=== PATIENT | male | born 1995 | race Caucasian/White ===

== ENCOUNTER 2024-04-15 14:17 | Emergency (ER) | payer MEDICARE, MEDICAID, SELFPAY ==
[2024-04-15 14:18] VITALS: BP 109/77; PULSE 100; RESP 15; TEMP 36.6; O2SAT 97; BMI 18.3
--- NOTE | 2024-04-15 15:12 | CT_ITS ---
PROCEDURE: ABDOMEN/PELVIS WITHOUT CONT REASON FOR EXAM: Right flank pain. TECHNIQUE: Abdomen and pelvis CT without contrast. COMPARISON: None. FINDINGS: The visualized lung bases are unremarkable in appearance. No renal calculus is seen. No evidence of hydronephrosis or hydroureter. A well distended urinary bladder shows no abnormality. The liver, spleen, gallbladder, pancreas, and adrenal glands show no acute process. No evidence of pneumoperitoneum. No free fluid is seen within the abdomen or pelvis.. No adenopathy is seen. No significant osseous abnormality is seen. CT/Abdomen/Pelvis without Cont IMPRESSION: 1. No urinary tract calculus, hydronephrosis, or hydroureter is seen. 2. No acute process is identified One or more dose reduction techniques were used (e.g., Automated exposure contr ol, adjustment of the mA and/or kV according to patient size, use of iterative reconstruction technique). Reading Location: [id number]
--- NOTE | 2024-04-15 15:15 | ED.VIS.GI ---
HPI HPI - GI History of Present Illness Chief Complaint: Flank Pain Informant: patient Narrative Narrative: Patient has had pain in his right low back for the past 4 or 5 days. Occasionally radiates around to the side and his abdomen but for the most part it stays in his back. He told triage he has been having some mild burning with urination but he denies dysuria for me or gross hematuria, saying that he has been urinating a little more frequently and it seems darker, and when he urinates something seems not right but he denies any other specifics. He denies any fevers, chills. He is having some nausea but no vomiting. No trouble breathing. He states he went to urgent care and he did a urinalysis and it was unremarkable so he is here for more answers. [facility] Medical History Anxiety PTSD (post-traumatic stress disorder) Asperger syndrome Schizophrenia Home Medications ?Medication ?Instructions ?Recorded ?Last Taken ?Type potassium chloride 20 mEq 20 meq PO BID #14 tabs 04/15/24 Unknown Rx tablet,extended release Allergy/AdvReac Type Severity Reaction Status Date / Time zolpidem (From Ambien) AdvReac Mild Other Verified 04/15/24 14:18 Surgical History History of tonsillectomy and adenoidectomy Social History Smoking Status: Heavy Smoker (>10/day) ROS ROS ED Constitutional Constitutional ED: Denies chills or fever(s) Eyes Eyes: Denies change in vision or diplopia ENT ENT ED: Denies rhinorrhea or sore throat Cardiovascular Cardiovascular: Denies chest pain or palpitations Respiratory/Chest Respiratory/Chest: Denies cough or dyspnea Gastrointestinal Gastrointestinal: Reports abdominal pain and nausea; Denies diarrhea or vomiting Genitourinary Genitourinary ED: Reports as per HPI and urinary frequency; Denies dysuria or hematuria Musculoskeletal Musculoskeletal: Reports back pain; Denies neck pain Integumentary Denies abscess or rash Neurologic Neurologic: Denies headache(s), paresthesias or weakness Psychiatric Psychiatric: Reports anxiety; Denies suicidal thoughts EXAM Physical Exam Const Vital Signs: 04/15/24 14:18 Temperature 98 F Temperature Source Temporal Pulse Rate 100 Respiratory Rate 15 Blood Pressure 109/77 Blood Pressure Mean 87 Pulse Ox 97 Oxygen Delivery Method Room Air Positive well nourished and well developed Constitutional Narrative: Well-appearing General Appearance ED: well developed and NAD HEENT Reports moist mucous membranes normocephalic and atraumatic Eyes PERRL and EOMs intact bilaterally Neck full ROM and supple Resp normal respiratory effort and clear to auscultation bilaterally Cardio regular rate, regular rhythm and no murmurs GI non-tender and non-distended Auscultation: normoactive bowel sounds Palpation: soft Back/Spine no CVA tenderness General Back: other FROM Extremity normal to inspection General Extremety ED: Negative for edema, pulses abnormal or tenderness General Extremity: Negative for edema or pulses abnormal Neuro oriented x3, CN's II-XII intact bilaterally and no sensory deficits noted Sensorium / Orientation: awake and alert Motor Exam: strength 5/5 throughout Skin no rashes or lesions noted and no wounds MDM MDM MDM Narrative Medical decision making narrative: Certainly considering kidney stone, pyelonephritis, musculoskeletal etiologies as the patient does not have CVA tenderness nor abdominal tenderness, other difficult to diagnose etiologies in the differential such as various forms of functional intestinal pain. Patient's workup is unremarkable with the exception of his potassium being 2.7. The patient had complained to triage about being very anxious, however he is not hyperventilating on exam, so I assume for unknown reasons at this time that it could be real. Unknown if it is causing his pain or not. His urine is normal, and I performed a CT without contrast, I reviewed the images and the result which I agree with, it is negative/normal without an explanation for the patient's pain. At this time it could be muscular, so I am discharging the patient home after the Toradol we gave him with a dose of oral potassium and prescription for more and advised to follow-up with his doctor as an outpatient. His vital signs are normal and his exam is very benign. Patient does not have a PCP because he moved here from [facility], and would like to be referred to a local physician, next on the unassigned list is Dr. Fitch. Lab Data Attestation: I reviewed the patient's lab results. Labs: Laboratory Results - last 24 hr 04/15/24 04/15/24 15:41 15:49 WBC 9.7 RBC 5.33 Hgb 16.0 Hct 46.1 MCV 86.5 MCH 30.0 MCHC 34.7 RDW Std Deviation 39.1 RDW Coeff of Prisca 12.4 Plt Count 279 MPV 9.1 Immature Gran % (Auto) 0.200 Neut % (Auto) 77.3 H Lymph % (Auto) 15.1 L [place] % (Auto) 6.0 Eos % (Auto) 1.1 Baso % (Auto) 0.3 Absolute Neuts (auto) 7.5 Absolute Lymphs (auto) 1.46 Nucleated RBC % 0 Sodium 137 Potassium 2.7 L* Chloride 103 Carbon Dioxide 29.0 Anion Gap 6 BUN 2 L Creatinine 0.84 Estim Creat Clear Calc 120.12 Est GFR (MDRD) Af Amer 140 Est GFR (MDRD) Non-Af 115 BUN/Creatinine Ratio 2.4 L Glucose 92 Calcium 9.3 Urine Color Yellow Urine Clarity Clear Urine pH 7.0 Ur Specific [place] 1.005 Urine Protein Negative Urine Glucose (UA) Normal Urine Ketones Negative Urine Occult Blood Negative Urine Nitrite Negative Urine Bilirubin Negative Urine Urobilinogen Normal Ur Leukocyte Esterase Negative Urine RBC 0 SEEN Urine WBC 0 SEEN Ur Squamous Epith Cells 0 SEEN Urine Bacteria 0 SEEN Urine Mucus 0 SEEN Radiography Diagnostic Testing: Clinical Impression(s) from Imaging Studies Abdomen/Pelvis CT 04/15/24 15:12 IMPRESSION: 1. No urinary tract calculus, hydronephrosis, or hydroureter is seen. 2. No acute process is identified One or more dose reduction techniques were used (e.g., Automated exposure control, adjustment of the mA and/or kV according to patient size, use of iterative reconstruction technique). Reading Location: [address] Discharge Plan Triage Chief Complaint: Flank Pain ED Provider: Sage Spears Dx/Rx/DC Orders Clinical Impression: Acute right flank pain, Hypokalemia Instructions: Hypokalemia Dc, ED Flank Pain, Uncertain Cause Prescriptions: New potassium chloride 20 mEq tablet extended release 20 meq PO BID Qty: 14 0RF Primary Care Provider: Care Physician,No Primary Referrals: Robert Fitch MD [Med Staff - Internal Recruiter] - 1-2 Weeks Print Language: Telugu Disposition Disposition: Home, Self Care
[2024-04-15 15:47] LABS: Absolute Lymphocyte Count 1.46 X10^3/uL (0.83-4.51); Absolute Neutrophil Count 7.5 X10^3/uL (2.0-7.7); Basophil# 0.03 X10^3/uL; Basophil% 0.3 % (0-1); Eosinophil# 0.11 X10^3/uL; Eosinophils% 1.1 % (0-5); Hematocrit 46.1 % (40-54); Lymphocyte # 1.46 X10^3/ul (0.83-4.51); Lymphocyte % 15.1 % (19-41); Mean Corp Hgb Conc 34.7 g/dL (32-36); Mean Corpuscular Volume 86.5 fL (80-94); Mean Platelet Vol. 9.1 fl (6.2-12.0); Monocyte# 0.58 X10^3/uL; NRBC Flagged by Analyzer 0 % (0-5); Neutrophil # 7.49 X10^3/uL (2.7-7.7); Neutrophil % 77.3 % (47-70); Platelet Count 279 K/mm3 (150-450); RBC Distribution Width CV 12.4 % (11.6-14.6); RBC Distribution Width SD 39.1 fl (35.1-43.9); Red Blood Count 5.33 M/mm3 (4.6-6.2); White Blood Count 9.7 K/mm3 (4.4-11.0)
[2024-04-15] MEDS: Ketorolac 30 MG/ML Syringe IV (15:48)
[2024-04-15] MEDS: Ondansetron 4 MG/2 ML Vial IV (15:48)
[2024-04-15 15:56] LABS: Bacteria 0 SEEN /hpf (None Seen); Mucous, Urine 0 SEEN /hpf (<or=2+); Red Blood Cells-Urine 0 SEEN /hpf (0-5); Squamous Epithelial Cells - UA 0 SEEN /hpf (0-5); White Blood Cells 0 SEEN /hpf (0-5)
[2024-04-15 16:02] LABS: Color, Urine Yellow (Yellow); Glucose, Dipstick Normal (Normal); Ketone-Dipstick Negative (Negative); Leukocyte Esterase-Dipstick Negative /ul (Negative); Nitrite-Dipstick Negative (Negative); Occult Blood-Urine Negative /ul (Negative); Protein-Dipstick Negative (Negative); Specific Gravity, Urine 1.005 (1.002-1.030); Urine Bilirubin Dipstick Negative (Negative); Urine Clarity Clear (Clear); Urine Urobilinogen Normal (Normal)
[2024-04-15 16:06] LABS: Anion Gap 6 (5-15); BUN 2 mg/dL (7-18); BUN/Creat Ratio 2.4 RATIO (10-20); Calcium,Total 9.3 mg/dL (8.5-10.1); Chloride 103 mmol/L (98-107); Creatinine, Serum 0.84 mg/dL (0.70-1.30); EST Glomerular Filtration Rate 115 mL/min (>60); Est Glom Filt Rate - Afr Amer 140 mL/min (>60); Estimated Creatinine Clearance 120.12 ml/min; Glucose 92 mg/dL (74-106); Potassium 2.7 mmol/L (3.5-5.1); Sodium Level 137 mmol/L (136-145)
[2024-04-15] MEDS: Potassium Chloride Oral Tablet 20 MEQ 40 MEQ PO (17:01)
[2024-04-15 17:06] VITALS: BP 109/64; PULSE 68; RESP 15; TEMP 36.1; O2SAT 98
== END 2024-04-15 17:07 | disposition home or self-care (01) ==
PROVIDERS: Emergency Provider Emergency Medicine; Referring Provider Emergency Medicine; Visit Provider Emergency Medicine
DX: R10.9 Unspecified abdominal pain (principal); E87.6 Hypokalemia; F17.200 Nicotine dependence, unspecified, uncomplicated
CPT/HCPCS: 74176; 80048; 81001; 85025; 96374; 96375; 99283; A4216; J2405

== ENCOUNTER 2024-09-05 09:17 | Emergency (ER) | payer MEDICARE, MEDICAID, SELFPAY ==
[2024-09-05 09:18] VITALS: BP 119/85; PULSE 115; RESP 12; TEMP 37; O2SAT 100; BMI 16.9
--- NOTE | 2024-09-05 09:21 | EX.ED.DYSGE1 ---
HPI History of Present Illness Chief Complaint: Anxiety [facility] Medical History (Updated 09/05/24 @ 09:26 by Gladis Ramirez) Panic attack GERD (gastroesophageal reflux disease) IBS (irritable bowel syndrome) Anxiety PTSD (post-traumatic stress disorder) Asperger syndrome Schizophrenia Home Medications ?Medication ?Instructions ?Recorded ?Last Taken ?Type buspirone 10 mg tablet 10 mg PO BID 09/05/24 09/04/24 History clonazepam 1 mg tablet 1 mg PO BID PRN 09/05/24 09/05/24 History dextroamphetamine sulfate 10 mg 10 mg PO DAILY 09/05/24 09/04/24 History tablet prazosin 1 mg capsule 1 mg PO QHS 09/05/24 09/04/24 History risperidone 1 mg tablet 1 mg PO DAILY 09/05/24 09/04/24 History risperidone 2 mg tablet 2 mg PO QHS 09/05/24 09/04/24 History venlafaxine 37.5 mg 37.5 mg PO DAILY 09/05/24 09/04/24 History capsule,extended release 24 hr Allergy/AdvReac Type Severity Reaction Status Date / Time zolpidem (From Ambien) AdvReac Mild Other Verified 04/15/24 14:18 Surgical History History of tonsillectomy and adenoidectomy Social History Smoking Status: Heavy Smoker (>10/day) EXAM Physical Exam Const Vital Signs: 09/05/24 09:18 09/05/24 09:33 09/05/24 11:28 Temperature 98.6 F Temperature Source Oral Pulse Rate 115 H 65 Respiratory Rate 12 16 Blood Pressure 119/85 H 104/62 Blood Pressure Mean 96 76 Pulse Ox 100 98 Oxygen Delivery Method Room Air Room Air Room Air MDM MDM MDM Narrative Medical decision making narrative: HISTORY OF PRESENT ILLNESS: Chief complaint: Anxiety 28-year-old male presents with concern for anxiety. He notes he has been coming down with a cold. He states he has been coughing up pink frothy sputum. He also notes shortness of breath and chest pain. Onset began this morning. Notes he typically says morning coughs up dark. He states he smokes and vapes. Denies cocaine or methamphetamine. He states this morning as he started coughing it became pink and frothy. Denies syncope. Denies recent sick contacts. Denies other bleeding diathesis. Denies abdominal pain. Denies vomiting or diarrhea. The patient denies recent surgery in the last 4 weeks or immobilization in the last 3 days, denies previous diagnosis of DVT or PE, hemoptysis, unilateral leg swelling or malignancy with treatment the last 6 months or palliative. No estrogen use noted. Patient denies sudden onset of pain, no tearing sensation, no migratory symptoms, no new numbness, weakness or loss of sensation. Patient denies family history or personal history of Connective tissue disorders (Marfan's Syndrome, Cynthia Danlos etc) . REVIEW OF SYSTEMS: Pertinent positives: Chest pain, shortness of breath, cough, hemoptysis Pertinent negatives: Unilateral leg swelling, ripping or tearing pain, syncope, headache or neck pain., Abdominal pain., Flank pain. PHYSICAL EXAM: Nursing triage notes reviewed, Vital signs reviewed Constitutional: please see mdm HENT: MMM Eyes: Pupils equal round and reactive to light, Extraocular muscles intact Neck: No stridor, no JVD, full neck ROM Lungs: Clear to auscultation, No wheezing or rales. No increased work of breathing, no conversational dyspnea, no accessory muscle use, no nasal flaring. No respiratory distress noted Heart: Regular rate and rhythm, No murmurs, No rubs and No gallops, 2+ distal pulses (radial, femoral, posterior tibial) in all extremities Abdomen: Soft, there is no tenderness, rigidity, rebound or guarding, no obvious peritoneal signs, no palpable pulsatile abdominal masses, no auscultated abdominal bruit : No CVAT Extremities: No edema Neuro: No new focal neurological deficits, cranial nerves II through XII intact, 5/5 strength in all present extremities. Intact sensation to light touch in all present extremities, 2+ reflexes bilateral patella tendons. Skin: No rash or lesions noted MEDICAL DECISION MAKING: Chief Complaint: please see HPI External records reviewed: Reviewed prior ED encounters, medications, allergies Factors affecting care: Schizophrenia, anxiety, PTSD, Asperger's syndrome Social determinants of health: History of mental health disorder History obtained from others: none Consults: none [facility] Narrative: Patient was initially hemodynamically stable, afebrile, saturating well on room air. I considered the following differential diagnosis: ACS, arrhythmia, anemia, pneumonia, PE, aortic dissection, panic attack ALL IMAGES (IF OBTAINED) HAVE BEEN PERSONALLY REVIEWED AND INTERPRETED BY MYSELF. EKG was sinus tachycardia rate 110, normal axis, normal intervals, no STEMI, no sign of WPW, ARVD, cauda syndrome, no sign of right heart strain, S1,Q3,T3 High-sensitivity troponin is negative, no evidence of myocardial ischemia x2 effectively ruling out ACS per [place] high-sensitivity troponin protocol D-dimer negative making VTE and dissection less likely I have personally reviewed the patient's chest x-ray. Chest x-ray is unremarkable for pulmonary edema, pneumothorax, pneumonia or focal cardiopulmonary abnormality. CBC without leukocytosis, severe anemia, no thrombocytopenia. BMP with hypokalemia (replace), no anion gap or acute kidney injury The synthesis of the patient's history, physical exam, labs images suggest no acute life or limb threat in etiology. Specifically no sign of ACS, PE, dissection, significant electrolyte abnormality, anemia or arrhythmia Suspect patient's presentation is related to anxiety as suggested by improvement in symptoms after benzodiazepines Upon reassessment patient's vital signs improved heart rate improved to 65. He is comfortable. He was discharged on Atarax. Outpatient PCP evaluation recommended. Strict return precautions were discussed The patient and/or family, caregivers express understanding. The patient and/or family, caregivers agrees with the plan. Shared decision making: I will have a discussion with the patient and or visitors regarding risk/benefits of further testing or admission. They will be made aware of of the risk/benefits inherent in this decision they will be given the opportunity to voice understanding. Total critical care time today provided was at least 0 minutes. This excludes separately billable procedures. Critical care time (if documented) is secondary to the patient having high probability of clinically significant/life threatening deterioration in the patient's condition which required my urgent intervention. Impression: 1. Chest pain 2. Cough 3. Tachycardia (resolved) Dispo: Discharge home This note was generated with [employer] dictation software. It may contain incorrect words, spelling, and punctuation that were not noted in review of the chart prior to signing. Lab Data Labs: Laboratory Results - last 24 hr 09/05/24 09/05/24 09/05/24 10:05 11:22 12:05 WBC 6.7 RBC 5.01 Hgb 15.4 Hct 44.0 MCV 87.8 MCH 30.7 MCHC 35.0 RDW Std Deviation 38.2 RDW Coeff of Prisca 11.9 Plt Count 217 MPV 9.5 Immature Gran % (Auto) 0.100 Neut % (Auto) 73.3 H Lymph % (Auto) 18.8 L [place] % (Auto) 6.4 Eos % (Auto) 1.0 Baso % (Auto) 0.4 Absolute Neuts (auto) 4.9 Absolute Lymphs (auto) 1.26 Nucleated RBC % 0 D-Dimer Quant (PE/DVT) < 0.27 L Sodium 140 Potassium 3.1 L Chloride 103 Carbon Dioxide 25.3 Anion Gap 11 BUN 6 Creatinine 0.85 Estim Creat Clear Calc 109.62 Est GFR (MDRD) Non-Af 122 BUN/Creatinine Ratio 7.4 L Glucose 113 H Calcium 9.4 Troponin T High Sens < 6 Troponin T Hi Sens 2 Hr < 6 Radiography Diagnostic Testing: Clinical Impression(s) from Imaging Studies Chest X-Ray 09/05/24 09:33 IMPRESSION: Normal chest radiograph. Reading Location: [id number] Discharge Plan Triage Chief Complaint: Anxiety ED Provider: Cuauhtemoc Reddy Dx/Rx/DC Orders Prescriptions: No Action clonazepam 1 mg tablet 1 mg PO BID PRN buspirone 10 mg tablet 10 mg PO BID dextroamphetamine sulfate 10 mg tablet 10 mg PO DAILY venlafaxine 37.5 mg capsule,extended release 24hr 37.5 mg PO DAILY prazosin 1 mg capsule 1 mg PO QHS risperidone 2 mg tablet 2 mg PO QHS risperidone 1 mg tablet 1 mg PO DAILY Rx Instructions: AM Primary Care Provider: Care Physician,No Primary Referrals: Care Physician,No Primary [Primary Care Provider] - Print Language: Samoan
--- NOTE | 2024-09-05 09:33 | EKG12_ITS ---
Test Reason : ANXIETY Blood Pressure : */* mmHG Vent. Rate : 110 BPM Atrial Rate : 110 BPM P-R Int : 126 ms QRS Dur : 84 ms QT Int : 324 ms P-R-T Axes : 65 78 39 degrees QTcB Int : 438 ms Sinus tachycardia Otherwise normal ECG Confirmed by FRANCISCO J LAKE, ALEJANDRO ([id number]), editor trade journal WALDO BRONSON ([id number]) on 09/07/2024 6:43:35 AM Referred By: Confirmed By: ALEJANDRO MARX MD
--- NOTE | 2024-09-05 09:33 | RAD_ITS ---
PROCEDURE: CHEST 1 VIEW (PORTABLE) 09/05/2024 REASON FOR EXAM: CHEST PAIN TECHNIQUE: Frontal view of the chest. COMPARISON: None. FINDINGS: Hardware: None. Heart: The heart size is normal. Lungs: No focal consolidation, pleural effusion or pneumothorax. Bones: The bones are unremarkable. RAD/Chest 1 View (Portable) IMPRESSION: Normal chest radiograph. Reading Location: [id number]
[2024-09-05] MEDS: Lorazepam 2 MG/ML WCH Syringe 1 MG IV (10:02)
[2024-09-05] MEDS: 0.9% Normal Saline (1000mL) 1,000 ML 999 ML IV (10:02)
[2024-09-05 10:13] LABS: Absolute Lymphocyte Count 1.26 X10^3/uL (0.83-4.51); Absolute Neutrophil Count 4.9 X10^3/uL (2.0-7.7); Basophil# 0.03 X10^3/uL; Basophil% 0.4 % (0-1); Eosinophil# 0.07 X10^3/uL; Hemoglobin 15.4 g/dL (13.0-16.5); Lymphocyte # 1.26 X10^3/ul (0.83-4.51); Lymphocyte % 18.8 % (19-41); Mean Corpuscular Hgb 30.7 pg (27.0-32.0); Mean Corpuscular Volume 87.8 fL (80-94); Mean Platelet Vol. 9.5 fl (6.2-12.0); Monocyte# 0.43 X10^3/uL; Monocyte% 6.4 % (0-10); NRBC Flagged by Analyzer 0 % (0-5); Neutrophil # 4.89 X10^3/uL (2.7-7.7); Neutrophil % 73.3 % (47-70); Platelet Count 217 K/mm3 (150-450); RBC Distribution Width CV 11.9 % (11.6-14.6); RBC Distribution Width SD 38.2 fl (35.1-43.9); Red Blood Count 5.01 M/mm3 (4.6-6.2); White Blood Count 6.7 K/mm3 (4.4-11.0)
--- OUTSIDE RECORDS SUMMARY | 2024-09-05 10:31 | XMS RPT_ITS | CCD ---
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 [id number] [place] Calcium [Mass/Vol] 9.3 mg/dL Normal 8.5-10.2 [facility] Comment on above: Order Comment: Speci men Type: BLOOD SPECIMENOrdering Facility: [facility] Address: [address] [place] [address] Performed By: #### 2 4323-8, 0-3 ####[facility] LABORATORYCLIA [id number] [place] [id number] [place] Chloride [Moles/Vol] 101 mmol/L Normal 98-107 [facility] Comment on above: Order Comment: Speci men Type: BLOOD SPECIMENOrdering Facility: [facility] Address: [address] [place] [address] Performed By: #### 2 4323-8, 3039-3 ####[facility] LABORATORYCLIA [id number] [place] [id number] [place] CO2 [Moles/Vol] 26 mmol/L Normal 22-30 [facility] Comment on above: Order Comment: Speci men Type: BLOOD SPECIMENOrdering Facility: [facility] Address: [address] [place] [address] Performed By: #### 2 4323-8, 0-3 ####[facility] LABORATORYCLIA [id number] [place] [id number] [place] Creatinine [Mass/Vol] 0.68 mg/dL Low 0.73-1.22 [facility] Comment on above: Order Comment: Speci men Type: BLOOD SPECIMENOrdering Facility: [facility] Address: [address] [place] [address] Performed By: #### 2 4323-8, 0-3 ####[facility] LABORATORYCLIA [id number] [place] [id number] [place] Creatinine and Glomerular filtration rate.predicted panel (S/P/Bld) 130 mL/min/1.73m??? Normal >=60 [facility] Comment on above: Order Comment: Ashely almazan Type: BLOOD SPECIMENOrdering Facility: [facility] Address: [address] [place] [address] Result Comment: Yolanda mated Glomerular Filtration Rate (eGFR) is calculated using the 2020 CKD-EPI creatinine equation. This equation utilizes serum creatinine, sex, and age as parameters. The creatinine assay has traceable calibration to isotope dilution-mass spectrometry. Refer to KDIGO guidelines for clinical interpretation. In patients with unstable renal function, e.g. those with acute kidney injury, the eGFR may not accurately reflect actual GFR. Performed By: #### 2 4323-8, 3040-3 ####[facility] LABORATORYCLIA [id number] [place] [id number] [place] Glucose [Mass/Vol] 103 mg/dL High 74-99 [facility] Comment on above: Order Comment: Ashely almazan Type: BLOOD SPECIMENOrdering Facility: [facility] Address: [address] [place] [address] Result Comment: The [place] Diabetes [employer] (ADA) provides guidance for cutoff values for fasting glucose and random glucose. The ADA defines fasting as no caloric intake for at least 8 hours. Fasting plasma glucose results between 100 to 125 mg/dL indicate increased risk for diabetes (prediabetes). Fasting plasma glucose results greater than or equal to 126 mg/dL meet the criteria for diagnosis of diabetes. In the absence of unequivocal hyperglycemia, results should be confirmed by repeat testing. In a patient with classic symptoms of hyperglycemia or hyperglycemic crisis, random plasma glucose results greater than or equal to 200 mg/dL meet the criteria for diagnosis of diabetes. Reference: Standards of Medical Care in Diabetes 2016, [place] [employer]. Diabetes Care. 2016.39(Suppl 1). Performed By: #### 2 4323-8, 3040-3 ####[facility] LABORATORYCLIA [id number] [place] [id number] [place] Potassium [Moles/Vol] 3.9 mmol/L Normal 3.7-5.1 [facility] Comment on above: Order Comment: Ashely almazan Type: BLOOD SPECIMENOrdering Facility: [facility] Address: [address] [place] [address] Performed By: #### 2 4323-8, 3040-3 ####[facility] LABORATORYCLIA [id number] [place] [id number] [place] Protein [Mass/Vol] 6.5 g/dL Normal 6.3-8.0 [facility] Comment on above: Order Comment: Speci men Type: BLOOD SPECIMENOrdering Facility: [facility] Address: [address] [place] [address] Performed By: #### 2 4323-8, 3040-3 ####[facility] LABORATORYCLIA [id number] [place] [id number] [place] Sodium [Moles/Vol] 135 mmol/L Low 136-144 [facility] Comment on above: Order Comment: Speci men Type: BLOOD SPECIMENOrdering Facility: [facility] Address: [address] [place] [address] Performed By: #### 2 4323-8, 3040-3 ####[facility] LABORATORYCLIA [id number] [place] [id number] [place] Urea nitrogen [Mass/Vol] 8 mg/dL Low 9-24 [facility] Comment on above: Order Comment: Speci men Type: BLOOD SPECIMENOrdering Facility: [facility] Address: [address] [place] [address] Performed By: #### 2 4323-8, 3040-3 ####[facility] LABORATORYCLIA [id number] [place] [id number] [place] ED NOTEon 05-22-2024 ED NOTE HNO ID: [id number] Author: LUIS HOFFMAN RN Service: Emergency Medicine Author Type: Registered Nurse Type: ED Notes Filed: 05/22/2024 20:22 Note Text: Patient placed on continuous cardiac and O2 monitoring. Normal [facility] ED NOTE HNO ID: [id number] Author: LUIS HOFFMAN RN Service: Emergency Medicine Author Type: Registered Nurse Type: ED Notes Filed: 05/22/2024 20:05 Note Text: Belongings labeled and placed in locker. [facility] ED NOTE HNO ID: [id number] Author: LUIS HOFFMAN RN Service: Emergency Medicine Author Type: Registered Nurse Type: ED Notes Filed: 05/22/2024 19:50 Note Text: Patient to ED via EMS from [facility] where he is being seen for SI. Patient denies HI/SI at this time. [facility] ED NOTE HNO ID: [id number] Author: MAGDA DURBIN RN Service: ? Author Type: Registered Nurse Type: ED Notes Filed: 05/22/2024 19:44 Note Text: Patient presents to ED with complaints of abdominal pain x4 days, constipation, and report of dark, tarry stool x1 episode today. [facility] ED NOTE HNO ID: [id number] Author: LUIS HOFFMAN RN Service: ? Author Type: Registered Nurse Type: ED Notes Filed: 05/22/2024 19:36 Note Text: Bed: ED-G Expected date: Expected time: Means of arrival: Comments: [facility] ED PROV NOTEon 05-22-2024 ED PROV NOTE HNO ID: [id number] Author: LISA GONZALEZ MD Service: Emergency Medicine Author Type: Physician Type: ED Provider Notes Filed: 05/22/2024 23:20 Note Text: ED Provider Note Patient Name: Immanuel Neumann : 1995 SERVICE DATE: 05/22/24 History Patient presents with: Abdominal Pain This is a 28-year-old male with past medical history of anxiety presented to the emergency department for constipation. Patient presenting from a inpatient psychiatric care facility where he is currently being cared for. States he has not had a proper bowel movement for over a week. He still passing small amounts of hard stool and felt that the stool today was very dark. No overt blood. He does have to strain and feels like he has to go without passing any stool. States he has had difficulties with constipation in the past with similar symptoms. States abdominal pain is more severe with crampy pain over the last couple days. Patient is recently higher in the abdomen but started traveling down to the bilateral lower quadrants. Denies any nausea or vomiting. He still eating and drinking. Denies fever/chills, back pain, urinary symptoms, lower extremity pain or swelling, headaches. History provided by: Patient general internist and physician leader used: No PAST MEDICAL HISTORY Diagnosis Date Anxiety Psychiatric disorder ADD, Bipolar, PTSD, anxiety No past surgical history on file. No family history on file. Social History Tobacco Use Smoking status: Every Day Current packs/day: 1.50 Average packs/day: 1.5 packs/day for 15.0 years (22.5 ttl pk-yrs) Types: Cigarettes Passive exposure: Current Smokeless tobacco: Never Vaping Use Vaping status: current everyday user Substances: Nicotine Substance and Sexual Activity Alcohol use: Not Currently Alcohol/week: 24.0 standard drinks of alcohol Types: 24 Standard drinks or equivalent per week Comment: quit 04/08/2024 Drug use: Yes Types: Marijuana Comment: only robinson at this Sexual activity: Yes ALLERGIES Allergen Reactions Ambien [Zolpidem] Mental Status Change Review of Systems Physical Exam Vitals [05/22/241943] BP Pulse Temp Temp src Resp SpO2 Weight Height 111/80 71 36.4 ?C (97.5 ?F) Oral 18 97 % -- -- Physical Exam GEN: well appearing, no acute distress CVS/CHEST: reg rate, nl rhythm PULM: CTAB b/l no wheezes, crackles, or rhonchi GI: Bilateral lower quadrant tenderness palpation worse to the right lower quadrant, no masses or organomegaly, soft, no guarding BACK: no CVA tenderness NEURO: no focal deficits, no facial asymmetry, moving all extremities PSYCH: AAOx3 answers questions appropriately Diagnostic Testing ED Labs Ordered and Reviewed COMPREHENSIVE METABOLIC PANEL - Abnormal; Notable for the following components: Result Value Ref Range Glucose 103 (*) 74 - 99 mg/dL BUN 8 (*) 9 - 24 mg/dL Creatinine 0.68 (*) 0.73 - 1.22 mg/dL Sodium 135 (*) 136 - 144 mmol/L All other components within normal limits LIPASE - Normal COVID AND INFLUENZA A/B AND RSV PCR, EXPEDITED - Normal Narrative: Reference Range (the expected result in uninfected individuals): Not detected COMPLETE BLOOD COUNT AND DIFFERENTIAL Procedures ED Course / Clinical Impression ED Course as of 05/22/240 Lisa Gonzalez's Documentation Sat May 22, 2024 2256 Patient's lab work largely unremarkable. CT of the abdomen and pelvis shows a large amount of stool but otherwise no obstruction, no appendicitis and remainder of intra-abdominal findings within normal limits. Results discussed with the patient. He is requesting an enema stating he has had this previously which has helped his constipation. Enema ordered with plans for discharge back to his care facility on a bowel regimen. 2318 EKG: Sinus rhythm at 66 bpm, normal axis, intervals unremarkable, no significant ST elevations or depressions Clinical Impressions as of 05/22/24 2320 Lower abdominal pain Constipation, unspecified constipation type Encounter for medical screening examination MDM / Disposition / Plan This is a 28-year-old male with past medical history of anxiety presented to the emergency department for constipation. Patient stable upon presentation to the emergency department, no acute distress and vitals are unremarkable. On exam he does appear to be mildly uncomfortable with abdominal tenderness palpation. Tenderness worse in right lower quadrant. Patient will return for constipation versus obstruction. With the worsening in the right lower quadrant appendicitis also considered and imaging to be performed. Low concern for additional pathologies including diverticulitis, pancreatitis, cholelithiasis/sanjuana cystitis, pyelonephritis/nephr olithiasis. Patient's pain treated in the emergency department. History and Record Review External record(s) reviewed: prior outpatient record. Findings from review of outpatient records: medical histor (more content not included)... Normal [facility] EKGon 05-22-2024 Electrocardiogram Ventricular Rate : 66 BPM Atrial Rate : 66 BPM P-R Interval : 122 ms QRS Duration : 88 ms Q-T Interval : 398 ms QTC Calculation(Bazett) : 417 ms Calculated P Albert : 67 degrees Calculated R Albert : 77 degrees Calculated T Albert : 70 degrees NORMAL SINUS RHYTHM NORMAL ECG NO PREVIOUS ECGS AVAILABLE Confirmed by LISA GONZALEZ MD ([id number]), editor greeting card JAYDEN CASTANEDA ([id number]) on 05/23/2024 11:23:40 AM NAME : IMMANUEL NEUMANN PID : [id number] : 1995 Gender : Male Race : ORD : Procedure Date : May 22 2024 20:13:12 Edit Date : May 23 2024 11:23:44 Diagnosis: NORMAL SINUS RHYTHM NORMAL ECG NO PREVIOUS ECGS AVAILABLE Confirmed by LISA GONZALEZ MD ([id number]), editor greeting card JAYDEN CASTANEDA ([id number]) on 05/23/2024 11:23:40 AM Test Reason : Location : 1 : 1 ED Overread By : LISA GONZALEZ MD Edited By : JAYDEN CASTANEDA Referred By : , Acquired by : , Normal [facility] Lipase SerPl-cCncon 05-23-19 25 Lipase [Catalytic activity/Vol] 56 U/L Normal 16-61 [facility] Comment on above: Order Comment: Speci men Type: BLOOD SPECIMENOrdering Facility: [facility] Address: [address] [place] [address] Performed By: #### 2 4323-8, 3040-3 ####[facility] LABORATORYCLIA [id number] [address] CNOVon 04-25-2024 CNOV Office Visit ([facility]) IMMANUEL NEUMANN ([id number]) 1995 M Date Time Provider Department 04/25/24 11:40 AM CAROLINA HOLMAN [facility] During your visit today, we recorded the following information about you: Temperature Pulse Respiration Blood pressure 97.8 degrees 120/minute 18/minute 95/64 Weight 61.7 kg Carolina Holman APRN.[employer] WORK[employer] 04/25/2024 11:55 AM Signed HPI: Immanuel Neumann is a 28 year old male who presents with Diarrhea (Diarrhea, nausea, body aches and fever x 1 day ). PAST MEDICAL HISTORY Diagnosis Date Anxiety Psychiatric disorder ADD, Bipolar, PTSD, anxiety There is no problem list on file for this patient. Current Outpatient Medications Medication Sig Dispense Refill buPROPion XL (WELLBUTRIN XL) 150 mg 24 hr tablet Take 1 tablet by mouth every afternoon. clonazePAM (KLONOPIN) 1 mg tablet Take 1 tablet by mouth every 12 hours. hydrOXYzine pamoate (VISTARIL) 50 mg capsule prazosin (MINIPRESS) 2 mg cap Take 2 mg by mouth daily at bedtime. lamoTRIgine (LAMICTAL) 25 mg tablet Take 50 mg by mouth two times a day. prazosin (MINIPRESS) 1 mg cap Take 1 mg by mouth daily at bedtime. risperiDONE (RISPERDAL) 1 mg tablet Take 1 mg by mouth every morning. albuterol HFA (PROVENTIL HFA, VENTOLIN HFA) 90 mcg/actuation inhaler Inhale 2 Puffs as instructed every 6 hours as needed for wheezing/shortness of breath. 1 Each 0 loratadine (CLARITIN) 10 mg tablet Take 1 tablet by mouth every afternoon. clonazePAM (KLONOPIN) 0.5 mg tablet Take 1 tablet by mouth every 12 hours. risperiDONE (RISPERDAL) 2 mg tablet Take 1 tablet by mouth every 12 hours. hydrOXYzine pamoate (VISTARIL) 25 mg capsule ondansetron orally disintegrating (ZOFRAN ODT) 4 mg disintegrating tablet Take 1 tablet by mouth every 8 hours as needed for nausea/vomiting for up to 5 days. 15 tablet 0 omeprazole (PRILOSEC) 40 mg capsule Take 1 capsule by mouth once daily. 30 capsule 0 No current facility-administere d medications for this visit. Social History Tobacco Use Smoking status: Every Day Current packs/day: 1.50 Average packs/day: 1.5 packs/day for 15.0 years (22.5 ttl pk-yrs) Types: Cigarettes Passive exposure: Current Smokeless tobacco: Never Vaping Use Vaping status: current everyday user Substances: Nicotine Substance Use Topics Alcohol use: Not Currently Alcohol/week: 24.0 standard drinks of alcohol Types: 24 Standard drinks or equivalent per week Comment: quit 04/08/2024 Drug use: Yes Types: Marijuana Comment: only marjuana at this Alcohol Use: Not Currently (quit 04/08/2024) Tobacco Use: Types: Cigarettes History reviewed. No pertinent family history. ROS BP 95/64 Pulse 120 Temp 97.8 Resp 18 Wt 136 lb (61.7kg) SpO2 97% Physical Exam Constitutional: General: He is not in acute distress. Appearance: Normal appearance. He is normal weight. He is not ill-appearing. HENT: Head: Normocephalic. Mouth/Throat: Mouth: Mucous membranes are moist. Eyes: Extraocular Movements: Extraocular movements intact. Conjunctiva/sclera: Conjunctivae normal. Cardiovascular: Rate and Rhythm: Tachycardia present. Pulmonary: Effort: Pulmonary effort is normal. Breath sounds: Normal breath sounds. Abdominal: General: Abdomen is flat. Skin: General: Skin is warm and dry. Neurological: General: No focal deficit present. Mental Status: He is alert and oriented to person, place, and time. Psychiatric: Mood and Affect: Mood normal. Behavior: Behavior normal. Thought Content: Thought content normal. Clinical Impression ICD-10-CM 1. Myalgia M79.10 2. Diarrhea, unspecified type R19.7 3. Nausea R11.0 ondansetron orally disintegrating (ZOFRAN ODT) 4 mg disintegrating tablet 4. Norovirus A08.11 Myalgia (primary encounter diagnosis) Diarrhea, unspecified type Nausea Norovirus PLAN: 1. Plan of care is to treat symptoms of nausea and vomiting. 2. Suspected norovirus due to patient presentation as well as clinical evaluation. Patient was prescribed zofran. 3. Encouraged to utilize bland diet, such as brat diet. Do not eat any fried, fatty, greasy, or spicy foods until symptoms have resolved. Slowly add normal intake back into diet as tolerated. 4. Oral rehydration with electrolyte beverage as well as water recommended. 5. Red flag symptoms were discussed with patient and when ER visit should occur. Patient verbalized understanding. 6. Follow-up with PCP for any new, worsening, or continued symptoms. I discussed with patient if they develop any sharp or stabbing abdominal pain, or if nausea and vomiting intensifies in duration and frequency, they are to present to local emergency department as they may require laboratory studies, IV fluids, and or possible CT imaging at that time. At the present time as patient's nausea and vomiting is episodic and non-intrac (more content not included)... [facility] Isma 04-16-2024 MARTHA Telephone ([facility]) IMMANUEL NEUMANN ([id number]) 1995 M Date Time Provider Department 04/16/24 REGGIE DONNELLY [facility] During your visit today, we recorded the following information about you: Reggie Donnelly APRN.QUINTON 04/16/2024 4:18 PM Signed Patient was negative for chlamydia and gonorrhea. Please call and let patient know that the culture was also negative. If symptoms persist follow-up with primary care. Abbie Sloan RN 04/16/2024 4:21 PM Signed Called and notified pt and given instructions. Allergies As of Date: 04/16/2024 Noted Allergy Reaction AMBIEN (ZOLPIDEM) 08/15/2023 1 - Mental Status Change Date Reviewed: 04/15/2024 Reviewed by: Ced Granger APRN.[employer] WORKER - Fully Assessed Reason for Visit: Results [95] Prescriptions as of 04/16/2024 - buPROPion XL (WELLBUTRIN XL) 150 mg 24 hr tablet Take 1 tablet by mouth every afternoon. - clonazePAM (KLONOPIN) 1 mg tablet Take 1 tablet by mouth every 12 hours. - hydrOXYzine pamoate (VISTARIL) 50 mg capsule TAKE 1 CAPSULE BY MOUTH TWICE DAILY NEEDED FOR ANXIETY - prazosin (MINIPRESS) 2 mg cap Take 2 mg by mouth daily at bedtime. - ibuprofen (MOTRIN) 800 mg tablet Take 1 tablet by mouth three times a day as needed for pain or fever (specify temp.) for up to 7 days. - lamoTRIgine (LAMICTAL) 25 mg tablet Take 50 mg by mouth two times a day. - prazosin (MINIPRESS) 1 mg cap Take 1 mg by mouth daily at bedtime. - risperiDONE (RISPERDAL) 1 mg tablet Take 1 mg by mouth every morning. - traZODone (DESYREL) 100 mg tablet Take 100 mg by mouth daily at bedtime. - albuterol HFA (PROVENTIL HFA, VENTOLIN HFA) 90 mcg/actuation inhaler Inhale 2 Puffs as instructed every 6 hours as needed for wheezing/shortness of breath. - Chlorhexidine Gluconate (PERIDEX) 0.12 % solution Rinse around the mouth with approximately 15 ml for 30 seconds then expectorate. 2 times daily. Discontinue use after 2 weeks. - amoxicillin (AMOXIL) 500 mg capsule Take 500 mg by mouth three times a day. - omeprazole (PRILOSEC) 40 mg capsule Take 1 capsule by mouth once daily. - loratadine (CLARITIN) 10 mg tablet Take 1 tablet by mouth every afternoon. - famotidine (PEPCID) 20 mg tablet once daily. - traZODone (DESYREL) 50 mg tablet Take 50 mg by mouth daily at bedtime. - clonazePAM (KLONOPIN) 0.5 mg tablet Take 1 tablet by mouth every 12 hours. - risperiDONE (RISPERDAL) 2 mg tablet Take 1 tablet by mouth every 12 hours. - hydrOXYzine pamoate (VISTARIL) 25 mg capsule TAKE 1 CAPSULE BY MOUTH EVERY 4 HOURS NEEDED FOR ANXIETY - escitalopram oxalate (LEXAPRO) 20 mg tablet Take by mouth. Problem List As Of Date: 04/16/2024 (None) Encounter Status:Closed by ABBIE SLOAN [facility] ([id number]) 1995 M Date Time Provider Department 04/16/24 REGGIE DONNELLY [facility] During your visit today, we recorded the following information about you: Reggie Donnelly APRN.[employer] WORK[employer] 04/16/2024 7:18 AM Signed Patient was negative for chlamydia and gonorrhea. Still waiting on the urine culture. Anjelica Duncan MA 04/16/2024 2:39 PM Signed Patient notified of results, verbalized understanding. Anjelica Duncan MA Allergies As of Date: 04/16/2024 Noted Allergy Reaction AMBIEN (ZOLPIDEM) 08/15/2023 1 - Mental Status Change Date Reviewed: 04/15/2024 Reviewed by: Pendlebury, Ced, ACTIVATED SLUDGE OPERATOR.FIBREGLASS LAY UP WORKER - Fully Assessed Reason for Visit: Results [95] Prescriptions as of 04/16/2024 - buPROPion XL (WELLBUTRIN XL) 150 mg 24 hr tablet Take 1 tablet by mouth every afternoon. - clonazePAM (KLONOPIN) 1 mg tablet Take 1 tablet by mouth every 12 hours. - hydrOXYzine pamoate (VISTARIL) 50 mg capsule TAKE 1 CAPSULE BY MOUTH TWICE DAILY NEEDED FOR ANXIETY - prazosin (MINIPRESS) 2 mg cap Take 2 mg by mouth daily at bedtime. - ibuprofen (MOTRIN) 800 mg tablet Take 1 tablet by mouth three times a day as needed for pain or fever (specify temp.) for up to 7 days. - lamoTRIgine (LAMICTAL) 25 mg tablet Take 50 mg by mouth two times a day. - prazosin (MINIPRESS) 1 mg cap Take 1 mg by mouth daily at bedtime. - risperiDONE (RISPERDAL) 1 mg tablet Take 1 mg by mouth every morning. - traZODone (DESYREL) 100 mg tablet Take 100 mg by mouth daily at bedtime. - albuterol HFA (PROVENTIL HFA, VENTOLIN HFA) 90 mcg/actuation inhaler Inhale 2 Puffs as instructed every 6 hours as needed for wheezing/shortness of breath. - Chlorhexidine Gluconate (PERIDEX) 0.12 % solution Rinse around the mouth with approximately 15 ml for 30 seconds then expectorate. 2 times daily. Discontinue use after 2 weeks. - amoxicillin (AMOXIL) 500 mg capsule Take 500 mg by mouth three times a day. - omeprazole (PRILOSEC) 40 mg capsule Take 1 capsule by mouth once daily. - loratadine (CLARITIN) 10 mg tablet Take 1 tablet by mouth every afternoon. - famotidine (PEPCID) 20 mg tablet once daily. - traZODone (DESYREL) 50 mg tablet Take 50 mg by mouth daily at bedtime. - clonazePAM (KLONOPIN) 0.5 mg tablet Take 1 tablet by mouth every 12 hours. - risperiDONE (RISPERDAL) 2 mg tablet Take 1 tablet by mouth every 12 hours. - hydrOXYzine pamoate (VISTARIL) 25 mg capsule TAKE 1 CAPSULE BY MOUTH EVERY 4 HOURS NEEDED FOR ANXIETY - escitalopram oxalate (LEXAPRO) 20 mg tablet Take by mouth. Problem List As Of Date: 04/16/2024 (None) Encounter Status:Closed by REIDANJELICA on 04/16/24 Normal [facility] Abdomen/Pelvis without Conto n 04-15-2024 Abdomen/Pelvis without Cont [facility] Imaging Services [address] [place] [address] Abdomen/Pelvis without Cont MR#: [id number] Acct: [id number] Name: IMMANUEL NEUMANN Rep #: [id number] : 1995 M 28 From: Galo Barnes PCP: Care Physician,No Primary Status: REG ER Study: Abdomen/Pelvis without Cont Date of Exam: 03/19 Exam# [id number] Ordering Dr: Sage Spears MD PROCEDURE: ABDOMEN/PELVIS WITHOUT CONT REASON FOR EXAM: Right flank pain. TECHNIQUE: Abdomen and pelvis CT without contrast. COMPARISON: None. FINDINGS: The visualized lung bases are unremarkable in appearance. No renal calculus is seen. No evidence of hydronephrosis or hydroureter. A well distended urinary bladder shows no abnormality. The liver, spleen, gallbladder, pancreas, and adrenal glands show no acute process. No evidence of pneumoperitoneum. No free fluid is seen within the abdomen or pelvis.. No adenopathy is seen. No significant osseous abnormality is seen. CT/Abdomen/Pelvis without Cont IMPRESSION: 1. No urinary tract calculus, hydronephrosis, or hydroureter is seen. 2. No acute process is identified One or more dose reduction techniques were used (e.g., Automated exposure control, adjustment of the mA and/or kV according to patient size, use of iterative reconstruction technique). Reading Location: [address] CC: Dr. Sage Spears MD; No Primary Care Physician Ep Specialist: Signed Normal [facility] Bacteria Ur Culton 5 Bacteria identified Cx Nom (U) CULTURE, URINE: No growth (<1,000 CFU/ml) Normal [facility] Comment on above: Performed By: #### 6 30-4 #### [facility] CLIA [id number] [address] [id number] [address] [place] Basic Metabolic Profile (BMP )on 04-15-2024 BUN/CRE 2.4 RATIO Low 10-20 [facility] Comment on above: Performed By: #### L 500.2500, L100.0100 #### [facility] [address] [place], [address] CA,Total 9.3 mg/dL Normal 8.5-10.1 [facility] Comment on above: Performed By: #### L 500.2500, L100.0100 #### [facility] [address] [place], [address] Chloride [Moles/Vol] 103 mmol/L Normal 98-107 [facility] Comment on above: Performed By: #### L 500.2500, L100.0100 #### [facility] [address] [place], [address] CO2 [Moles/Vol] 29.0 mmol/L Normal 21.0-32.0 [facility] Comment on above: Performed By: #### L 500.2500, L100.0100 #### [facility] [address] [place], [address] Creatinine [Mass/Vol] 0.84 mg/dL Normal 0.70-1.30 [facility] Comment on above: Result Comment: The validity of the calculated GFR GFRAA in patients over 70 years has not been determined. Clinical correlation is essential. Performed By: #### L 500.2500, L100.0100 #### [facility] [address] [place], [address] ECRCL 120.12 ml/min Normal [facility] Comment on above: Performed By: #### L 500.2500, L100.0100 #### [facility] [address] [place], [address] EST GFR - AA 140 mL/min Normal >60 [facility] Comment on above: Result Comment: Afri can [place] GFR Calc Performed By: #### L 500.2500, L100.0100 #### [facility] [address] [place], [address] GAP 6 Normal 5-15 [facility] Comment on above: Performed By: #### L 500.2500, L100.0100 #### [facility] [address] [place], [address] GFR/1.73 sq M.predicted among non-blacks MDRD (S/P/Bld) [Vol rate/Area] 115 mL/min/{1.73_m2} Normal >60 [facility] Comment on above: Result Comment: Non- GFR Calc Performed By: #### L 500.2500, L100.0100 #### [facility] [address] [place], [address] Glucose [Mass/Vol] 92 mg/dL Normal 74-106 [facility] Comment on above: Performed By: #### L 500.2500, L100.0100 #### [facility] [address] [place], [address] Potassium [Moles/Vol] 2.7 mmol/L Invalid Interpretation Code 3.5-5.1 [facility] Comment on above: Result Comment: Crit ical Result(s) Called at: 16:05:02 04/15/2024 by: SOPHIA CHACON. Results read back by Rene Guzman Performed By: #### L 500.2500, L100.0100 #### [facility] [address] [place], [address] Sodium [Moles/Vol] 137 mmol/L Normal 136-145 [facility] Comment on above: Performed By: #### L 500.2500, L100.0100 #### [facility] [address] [place], [address] Urea nitrogen [Mass/Vol] 2 mg/dL Low 7-18 [facility] Comment on above: Performed By: #### L 500.2500, L100.0100 #### [facility] [address] [place], [address] C. trachomatis+N. gonorrhoea e DNA DERICK+probe Ql (Unsp spec)on 04-15-2024 C. trachomatis rRNA DERICK+probe Ql (Unsp spec) Not detected Normal Not detected [facility] Comment on above: Order Comment: Speci men Type: URINE SPECIMEN Ordering Facility: [facility] Address: [address] [place] [address] Performed By: #### 3 6902-5 #### [facility] CLIA [id number] [address] [place] [address] [place] N. gonorrhoeae rRNA DERICK+probe Ql (Unsp spec) Not detected Normal Not detected [facility] Comment on above: Order Comment: Speci men Type: URINE SPECIMEN Ordering Facility: [facility] Address: [address] [place] [address] Performed By: #### 3 6902-5 #### [facility] CLIA [id number] [address] [place] [address] [place] CBC W/Diff, Automatedon 03-19 Absolute Lymph 1.46 X10 3/uL Normal 0.83-4.51 [facility] Comment on above: Performed By: #### L 500.2500, L100.0100 #### [facility] [address] [place], [address] Absolute Neut 7.5 X10 3/uL Normal 2.0-7.7 [facility] Comment on above: Performed By: #### L 500.2500, L100.0100 #### [facility] [address] [place], [address] Basophils/100 WBC (Bld) 0.3 % Normal 0-1 [facility] Comment on above: Performed By: #### L 500.2500, L100.0100 #### [facility] [address] [place], [address] Eosinophils/100 WBC (Bld) 1.1 % Normal 0-5 [facility] Comment on above: Performed By: #### L 500.2500, L100.0100 #### [facility] [address] [place], [address] Erythrocyte distribution width (RBC) [Ratio] 12.4 % Normal 11.6-14.6 [facility] Comment on above: Performed By: #### L 500.2500, L100.0100 #### [facility] [address] [place], [address] Hematocrit (Bld) [Volume fraction] 46.1 % Normal 40-54 [facility] Comment on above: Performed By: #### L 500.2500, L100.0100 #### [facility] [address] [place], [address] Hemoglobin (Bld) [Mass/Vol] 16.0 g/dL Normal 13.0-16.5 [facility] Comment on above: Performed By: #### L 500.2500, L100.0100 #### [facility] [address] [place], [address] IG% 0.200 Normal 0.0-0.9 [facility] Comment on above: Result Comment: IG% - Immature Granulocytes (promyelocytes, myelocytes and metamyelocytes) > 1% indicates that a LEFT SHIFT is Present. Performed By: #### L 500.2500, L100.0100 #### [facility] [address] [place], [address] Lymphocytes/100 WBC (Bld) 15.1 % Low 19-41 [facility] Comment on above: Performed By: #### L 500.2500, L100.0100 #### [facility] [address] [place], [address] MCH (RBC) [Entitic mass] 30.0 pg Normal 27.0-32.0 [facility] Comment on above: Performed By: #### L 500.2500, L100.0100 #### [facility] [address] [place], [address] MCHC (RBC) [Mass/Vol] 34.7 g/dL Normal 32-36 [facility] Comment on above: Performed By: #### L 500.2500, L100.0100 #### [facility] [address] [place], [address] MCV (RBC) [Entitic vol] 86.5 fL Normal 80-94 [facility] Comment on above: Performed By: #### L 500.2500, L100.0100 #### [facility] [address] [place], [address] Monocytes/100 WBC (Bld) 6.0 % Normal 0-10 [facility] Comment on above: Performed By: #### L 500.2500, L100.0100 #### [facility] [address] [place], [address] Neutrophils/100 WBC (Bld) 77.3 % High 47-70 [facility] Comment on above: Performed By: #### L 500.2500, L100.0100 #### [facility] [address] [place], [address] Nucleated RBC (Bld) [#/Vol] 0 10*3/uL Normal 0-5 [facility] Comment on above: Performed By: #### L 500.2500, L100.0100 #### [facility] [address] [place], [address] Platelet mean volume (Bld) [Entitic vol] 9.1 fL Normal 6.2-12.0 [facility] Comment on above: Performed By: #### L 500.2500, L100.0100 #### [facility] [address] [place], [address] Platelets (Bld) [#/Vol] 279 10*3/uL Normal 150-450 [facility] Comment on above: Performed By: #### L 500.2500, L100.0100 #### [facility] [address] [place], [address] RBC (Bld) [#/Vol] 5.33 10*6/uL Normal 4.6-6.2 [facility] Comment on above: Performed By: #### L 500.2500, L100.0100 #### [facility] [address] [place], [address] RDW SD 39.1 fl Normal 35.1-43.9 [facility] Comment on above: Performed By: #### L 500.2500, L100.0100 #### [facility] [address] [place], [address] WBC (Bld) [#/Vol] 9.7 10*3/uL Normal 4.4-11.0 [facility] Comment on above: Performed By: #### L 500.2500, L100.0100 #### [facility] [address] [place], [address] CNOVon 04-15-2024 CNOV Office Visit ([facility]) IMMANUEL NEUMANN ([id number]) 1995 Date Time Provider Department 04/15/24 1:30 PM HEBERTBARBARACED [facility] During your visit today, we recorded the following information about you: Temperature Pulse Respiration Blood pressure 99.1 degrees 102/minute 20/minute 103/70 Weight 61.8 kg Ced Granger APRN.FIBREGLASS LAY UP WORKER 04/15/2024 2:04 PM Signed Subjective HPI Nontoxic-appearing 28-year-old male presents urgent care chief plaint possible UTI. Duration of symptoms 2 days. Associated symptoms dysuria frequency and urgency. Presents today for UTI testing. Denies history of UTI. OTC medications none. Recently was seen diagnosed with flulike symptoms. Those symptoms have improved. Presents today with possible UTI. Denies any testicular pain scrotal swelling penile discharge or rashes. Is sexually active. Minimal concerns for possible STD. Denies any vomiting fevers abdominal pain. States has some mild flank tenderness. Past medical history prescription medications allergies reviewed. .Patient presents with: Urinary Problem: Burning with urination, R kidney pain x 2 days PAST MEDICAL HISTORY Diagnosis Date Anxiety Psychiatric disorder ADD, Bipolar, PTSD, anxiety History reviewed. No pertinent surgical history. ALLERGIES Ambien [Zolpidem] MEDICATIONS buPROPion XL (WELLBUTRIN XL) 150 mg 24 hr tablet Take 1 tablet by mouth every afternoon. clonazePAM (KLONOPIN) 1 mg tablet Take 1 tablet by mouth every 12 hours. prazosin (MINIPRESS) 2 mg cap Take 2 mg by mouth daily at bedtime. lamoTRIgine (LAMICTAL) 25 mg tablet Take 50 mg by mouth two times a day. risperiDONE (RISPERDAL) 1 mg tablet Take 1 mg by mouth every morning. albuterol HFA (PROVENTIL HFA, VENTOLIN HFA) 90 mcg/actuation inhaler Inhale 2 Puffs as instructed every 6 hours as needed for wheezing/shortness of breath. famotidine (PEPCID) 20 mg tablet once daily. risperiDONE (RISPERDAL) 2 mg tablet Take 1 tablet by mouth every 12 hours. hydrOXYzine pamoate (VISTARIL) 50 mg capsule TAKE 1 CAPSULE BY MOUTH TWICE DAILY NEEDED FOR ANXIETY (Patient not taking: Reported on 04/15/2024) ibuprofen (MOTRIN) 800 mg tablet Take 1 tablet by mouth three times a day as needed for pain or fever (specify temp.) for up to 7 days. prazosin (MINIPRESS) 1 mg cap Take 1 mg by mouth daily at bedtime. (Patient not taking: Reported on 04/12/2024) traZODone (DESYREL) 100 mg tablet Take 100 mg by mouth daily at bedtime. (Patient not taking: Reported on 04/12/2024) Chlorhexidine Gluconate (PERIDEX) 0.12 % solution Rinse around the mouth with approximately 15 ml for 30 seconds then expectorate. 2 times daily. Discontinue use after 2 weeks. (Patient not taking: Reported on 08/19/2023) amoxicillin (AMOXIL) 500 mg capsule Take 500 mg by mouth three times a day. (Patient not taking: Reported on 08/19/2023) omeprazole (PRILOSEC) 40 mg capsule Take 1 capsule by mouth once daily. loratadine (CLARITIN) 10 mg tablet Take 1 tablet by mouth every afternoon. (Patient not taking: Reported on 04/12/2024) traZODone (DESYREL) 50 mg tablet Take 50 mg by mouth daily at bedtime. (Patient not taking: Reported on 08/19/2023) clonazePAM (KLONOPIN) 0.5 mg tablet Take 1 tablet by mouth every 12 hours. (Patient not taking: Reported on 04/12/2024) hydrOXYzine pamoate (VISTARIL) 25 mg capsule TAKE 1 CAPSULE BY MOUTH EVERY 4 HOURS NEEDED FOR ANXIETY (Patient not taking: Reported on 04/12/2024) escitalopram oxalate (LEXAPRO) 20 mg tablet Take by mouth. (Patient not taking: Reported on 04/12/2024) History reviewed. No pertinent family history. Social History Tobacco Use Smoking status: Every Day Current packs/day: 1.50 Average packs/day: 1.5 packs/day for 15.0 years (22.5 ttl pk-yrs) Types: Cigarettes Passive exposure: Current Smokeless tobacco: Never Vaping Use Vaping status: Never Used Substance Use Topics Alcohol use: Not Currently Alcohol/week: 24.0 standard drinks of alcohol Types: 24 Standard drinks or equivalent per week Comment: quit 04/08/2024 Drug use: Yes Types: Marijuana Comment: only robinson at this BP 103/70 Pulse 102 Temp 37.3 ?C (99.1 ?F) Resp 20 Wt 61.8 kg (136 lb 3.9 oz) SpO2 100% BMI 17.49 kg/m? Review of Systems Constitutional: Negative for chills, fever and malaise/fatigue. Cardiovascular: Negative for chest pain. Gastrointestinal: Negative for abdominal pain, constipation, diarrhea, nausea and vomiting. Genitourinary: Positive for dysuria, frequency and urgency. Negative for flank pain and hematuria. Musculoskeletal: Negative for myalgias. Objective Physical Exam Vitals and nursing note reviewed. Constitutional: General: He is not in acute distress. Appearance: He is not diaphoretic. HENT: Head: Jaw: No trismus. Right Ear: Hearing normal. No decreased hearing noted. No drainage, swelling or te (more content not included)... Normal [facility] Emergency Department Summary on 04-15-2024 Emergency Department Summary [facility] Records Department [address] [place] [address] Emergency Department Summary 04/15/24 MR#: [id number] Acct: [id number] Name: IMMANUEL NEUMANN Rep #: [id number] : 1995 28 From: Sage Spears MD PCP: Care Physician,No Primary Status:REG ER Location: ED HPI HPI - GI History of Present Illness Chief Complaint: Flank Pain Informant: patient Narrative Narrative: Patient has had pain in his right low back for the past 4 or 5 days. Occasionally radiates around to the side and his abdomen but for the most part it stays in his back. He told triage he has been having some mild burning with urination but he denies dysuria for me or gross hematuria, saying that he has been urinating a little more frequently and it seems darker, and when he urinates something seems not right but he denies any other specifics. He denies any fevers, chills. He is having some nausea but no vomiting. No trouble breathing. He states he went to urgent care and he did a urinalysis and it was unremarkable so he is here for more answers. [facility] Medical History Anxiety PTSD (post-traumatic stress disorder) Asperger syndrome Schizophrenia Home Medications ???Medication ???Instructions ???Recorded ???Last Taken ???Type potassium chloride 20 mEq 20 meq PO BID #14 tabs 04/15/24 Un known Rx tablet,extended release Allergy/AdvReac Type Severity Reaction Status Date / Time zolpidem (From Ambien) AdvReac Mild Other Verified 04/15/24 14:18 Surgical History History of tonsillectomy and adenoidectomy Social History Smoking Status: Heavy Smoker (>10/day) ROS ROS ED Constitutional Constitutional ED: Denies chills or fever(s) Eyes Eyes: Denies change in vision or diplopia ENT ENT ED: Denies rhinorrhea or sore throat Cardiovascular Cardiovascular: Denies chest pain or palpitations Respiratory/Chest Respiratory/Chest: Denies cough or dyspnea Gastrointestinal Gastrointestinal: Reports abdominal pain and nausea; Denies diarrhea or vomiting Genitourinary Genitourinary ED: Reports as per HPI and urinary frequency; Denies dysuria or hematuria Musculoskeletal Musculoskeletal: Reports back pain; Denies neck pain Integumentary Denies abscess or rash Neurologic Neurologic: Denies headache(s), paresthesias or weakness Psychiatric Psychiatric: Reports anxiety; Denies suicidal thoughts EXAM Physical Exam Const Vital Signs: 04/15/24 14:18 Temperature 98 F Temperature Source Temporal Pulse Rate 100 Respiratory Rate 15 Blood Pressure 109/77 Blood Pressure Mean 87 Pulse Ox 97 Oxygen Delivery Method Room Air Positive well nourished and well developed Constitutional Narrative: Well-appearing General Appearance ED: well developed and NAD HEENT Reports moist mucous membranes normocephalic and atraumatic Eyes PERRL and EOMs intact bilaterally Neck full ROM and supple Resp normal respiratory effort and clear to auscultation bilaterally Cardio regular rate, regular rhythm and no murmurs GI non-tender and non-distended Auscultation: normoactive bowel sounds Palpation: soft Back/Spine no CVA tenderness General Back: other FROM Extremity normal to inspection General Extremety ED: Negative for edema, pulses abnormal or tenderness General Extremity: Negative for edema or pulses abnormal Neuro oriented x3, CN's II-XII intact bilaterally and no sensory deficits noted Sensorium / Orientation: awake and alert Motor Exam: strength 5/5 throughout Skin no rashes or lesions noted and no wounds MDM MDM MDM Narrative Medical decision making narrative: Certainly considering kidney stone, pyelonephritis, musculoskeletal etiologies as the patient does not have CVA tenderness nor abdominal tenderness, other difficult to diagnose etiologies in the differential such as various forms of functional intestinal pain. Patient's workup is unremarkable with the exception of his potassium being 2.7. The patient had complained to triage about being very anxious, however he is not hyperventilating on exam, so I assume for unknown reasons at this time that it could be real. Unknown if it is causing his pain or not. His urine is normal, and I performed a CT without contrast, I reviewed the images and the result which I agree with, it is negative/normal without an explanation for the patient's pain. At this time it could be muscular, so I am discharging the patient home after the Toradol we gave him with a dose of oral potassium and prescription for more and advised to follow-up with his doctor as an outpatient. His vital signs are normal and hi (more content not included)... Normal [facility] Urinalysis, Completeon 04-15 BACTERIA 0 SEEN Normal None Seen [facility] Comment on above: Order Comment: CLEAN CATCH Performed By: #### L 400.0001 #### [facility] [address] [place], [address] EPI,SQUAMOUS 0 SEEN Normal 0-5 [facility] Comment on above: Order Comment: CLEAN CATCH Performed By: #### L 400.0001 #### [facility] [address] [place], [address] Mucus Ql (Urine sed) 0 SEEN Normal [facility] Comment on above: Order Comment: CLEAN CATCH Performed By: #### L 400.0001 #### [facility] [address] [place], [address] RBC 0 SEEN Normal 0-5 [facility] Comment on above: Order Comment: CLEAN CATCH Performed By: #### L 400.0001 #### [facility] [address] [place], [address] WBC 0 SEEN Normal 0-5 [facility] Comment on above: Order Comment: CLEAN CATCH Performed By: #### L 400.0001 #### [facility] [place], [address] CNOVon 04-12-2024 CNOV Office Visit ([facility]) IMMANUEL NEUMANN ([id number]) 1995 M Date Time Provider Department 04/12/24 10:20 AM FERMIN MANCERA JR [facility] During your visit today, we recorded the following information about you: Temperature Pulse Respiration Blood pressure 97.9 degrees 101/minute 18/minute 111/76 Weight 64.4 kg Zandra Liu LPN 04/12/2024 11:16 AM Signed Patient declined depression screening at this time. SINDY Mondragon Paul J Jr., ACTIVATED SLUDGE OPERATOR.[employer] LAY UP WORKER 04/12/2024 11:04 AM Signed Take medications as prescribed. Follow-up with PCP or return if symptoms do not resolve visit Urgent Care. Fermin Mancera Jr., ACTIVATED SLUDGE OPERATOR.FIBRE[employer]ASS LAY UP WORKER 04/12/2024 11:16 AM Signed Immanuel Neumann is a 28 year old male who presents with Abdominal Pain (When asked where the pain is located patient states basically everywhere/Started 4 days ago /), Fever (Started 4 days ago /), Diarrhea (Started 4 days ago /), and Back Pain (Mid back pain /States he does have a hunch back but states it could also be his organs /) 28-year-old male presents today complaining of abdominal pain, fatigue, cough, fever, and mid back pain. He states symptoms began 4 days ago of unknown etiology. The history is provided by the patient. Abdominal Pain Associated symptoms include fever and diarrhea. Fever Associated symptoms include diarrhea, congestion and cough. Pertinent negatives include no chest pain and no sore throat. Diarrhea Associated symptoms include abdominal pain and cough. Back Pain Associated symptoms include a fever and abdominal pain. Pertinent negatives include no chest pain. PAST MEDICAL HISTORY Diagnosis Date Anxiety Psychiatric disorder ADD, Bipolar, PTSD, anxiety There is no problem list on file for this patient. Current Outpatient Medications Medication Sig Dispense Refill buPROPion XL (WELLBUTRIN XL) 150 mg 24 hr tablet Take 1 tablet by mouth every afternoon. clonazePAM (KLONOPIN) 1 mg tablet Take 1 tablet by mouth every 12 hours. hydrOXYzine pamoate (VISTARIL) 50 mg capsule TAKE 1 CAPSULE BY MOUTH TWICE DAILY NEEDED FOR ANXIETY prazosin (MINIPRESS) 2 mg cap Take 2 mg by mouth daily at bedtime. lamoTRIgine (LAMICTAL) 25 mg tablet Take 50 mg by mouth two times a day. risperiDONE (RISPERDAL) 1 mg tablet Take 1 mg by mouth every morning. albuterol HFA (PROVENTIL HFA, VENTOLIN HFA) 90 mcg/actuation inhaler Inhale 2 Puffs as instructed every 6 hours as needed for wheezing/shortness of breath. 1 Each 0 omeprazole (PRILOSEC) 40 mg capsule Take 1 capsule by mouth once daily. 30 capsule 0 famotidine (PEPCID) 20 mg tablet once daily. risperiDONE (RISPERDAL) 2 mg tablet Take 1 tablet by mouth every 12 hours. ibuprofen (MOTRIN) 800 mg tablet Take 1 tablet by mouth three times a day as needed for pain or fever (specify temp.) for up to 7 days. 21 tablet 0 prazosin (MINIPRESS) 1 mg cap Take 1 mg by mouth daily at bedtime. (Patient not taking: Reported on 04/12/2024) traZODone (DESYREL) 100 mg tablet Take 100 mg by mouth daily at bedtime. (Patient not taking: Reported on 04/12/2024) Chlorhexidine Gluconate (PERIDEX) 0.12 % solution Rinse around the mouth with approximately 15 ml for 30 seconds then expectorate. 2 times daily. Discontinue use after 2 weeks. (Patient not taking: Reported on 08/19/2023) 473 mL 0 amoxicillin (AMOXIL) 500 mg capsule Take 500 mg by mouth three times a day. (Patient not taking: Reported on 08/19/2023) loratadine (CLARITIN) 10 mg tablet Take 1 tablet by mouth every afternoon. (Patient not taking: Reported on 04/12/2024) traZODone (DESYREL) 50 mg tablet Take 50 mg by mouth daily at bedtime. (Patient not taking: Reported on 08/19/2023) clonazePAM (KLONOPIN) 0.5 mg tablet Take 1 tablet by mouth every 12 hours. (Patient not taking: Reported on 04/12/2024) hydrOXYzine pamoate (VISTARIL) 25 mg capsule TAKE 1 CAPSULE BY MOUTH EVERY 4 HOURS NEEDED FOR ANXIETY (Patient not taking: Reported on 04/12/2024) escitalopram oxalate (LEXAPRO) 20 mg tablet Take by mouth. (Patient not taking: Reported on 04/12/2024) No current facility-administere d medications for this visit. Social History Tobacco Use Smoking status: Every Day Current packs/day: 1.50 Average packs/day: 1.5 packs/day for 15.0 years (22.5 ttl pk-yrs) Types: Cigarettes Passive exposure: Current Smokeless tobacco: Never Vaping Use Vaping status: Never Used Substance Use Topics Alcohol use: Not Currently Alcohol/week: 24.0 standard drinks of alcohol Types: 24 Standard drinks or equivalent per week Comment: quit 04/08/2024 Drug use: Yes Types: Marijuana Comment: only marmaryjane at this Alcohol Use: Not Currently (quit 04/08/2024) Tobacco Use: Types: Cigarettes No family history on file. Review of Systems Constitutional: Positive for fever and malaise/fatigue. HENT: Positive for congestion and sinus pain. Negative for ear (more content not included)... Normal [facility] COVID AND INFLUENZA A/B AND RSV PCR, ROUTINEon 04-12-2024 SARS-CoV-2 (COVID-19) RNA DERICK+probe Ql (Unsp spec) SARS-COV-2 (AGENT OF COVID-19) RNA: Not detected INFLUENZA A RNA: Not detected INFLUENZA B RNA: Not detected RESPIRATORY SYNCYTIAL VIRUS (RSV) RNA: Not detected Normal [facility] Comment on above: Performed By: #### C VFLRS #### [facility] CLIA [id number] [facility] [email or web address] [place] [id number] [place] CBC W Auto Differential pane l (Bld)on 12-08-2023 Basophils (Bld) [#/Vol] 0.02 10*3/uL [facility] Basophils/100 WBC (Bld) 0.2 % 0.0 - 2.0 % [facility] Eosinophils (Bld) [#/Vol] 0.03 10*3/uL [facility] Eosinophils/100 WBC (Bld) 0.3 % 0.0 - 6.0 % [facility] Erythrocyte distribution width (RBC) [Ratio] 12.6 % 11.5 - 14.5 % [facility] Hematocrit (Bld) [Volume fraction] 49.3 % 41.0 - 52.0 % [facility] Hemoglobin (Bld) [Mass/Vol] 17.7 g/dL High 13.5 - 17.5 g/dL [facility] Immature granulocytes (Bld) [#/Vol] 0.01 10*3/uL [facility] Immature granulocytes/100 WBC (Bld) 0.1 % 0.0 - 0.9 % [facility] Comment on above: Immature Granulocyte Count (IG) includes promyelocytes, myelocytes and metamyelocytes but does not include bands. Percent differential counts (%) should be interpreted in the context of the absolute cell counts (cells/UL). Interpretation and review of laboratory results Abnormal [facility] Lymphocytes (Bld) [#/Vol] 2.00 10*3/uL [facility] Lymphocytes/100 WBC (Bld) 22.9 % 13.0 - 44.0 % [facility] MCH (RBC) [Entitic mass] 30.8 pg 26.0 - 34.0 pg [facility] MCHC (RBC) [Mass/Vol] 35.9 g/dL 32.0 - 36.0 g/dL [facility] MCV (RBC) [Entitic vol] 86 fL 80 - 100 fL [facility] Monocytes (Bld) [#/Vol] 0.56 10*3/uL [facility] Monocytes/100 WBC (Bld) 6.4 % 2.0 - 10.0 % [facility] Neutrophils (Bld) [#/Vol] 6.12 10*3/uL [facility] Comment on above: Percent differential counts (%) should be interpreted in the context of the absolute cell counts (cells/uL). Neutrophils/100 WBC (Bld) 70.1 % 40.0 - 80.0 % [facility] Nucleated RBC/100 WBC (Bld) [Ratio] 0.0 % [facility] Platelets (Bld) [#/Vol] 267 10*3/uL [facility] RBC (Bld) [#/Vol] 5.75 10*6/uL [facility] WBC (Bld) [#/Vol] 8.7 10*3/uL [facility] Basophils (Bld) [#/Vol] 0.02 x10*3/uL Normal 0.00-0.10 [facility] Comment on above: Performed By: #### 5 7021-8 #### DARLING Bravo ([id number]) [facility] () [address] [place] [address] Basophils/100 WBC (Bld) 0.2 % Normal 0.0-2.0 [facility] Comment on above: Performed By: #### 5 7021-8 #### DARLING Bravo ([id number]) [facility] () [address] [place] [address] Eosinophils (Bld) [#/Vol] 0.03 x10*3/uL Normal 0.00-0.70 [facility] Comment on above: Performed By: #### 5 7021-8 #### DARLING Bravo ([id number]) [facility] () [address] [place] [address] Eosinophils/100 WBC (Bld) 0.3 % Normal 0.0-6.0 [facility] Comment on above: Performed By: #### 5 7021-8 #### DARLING Bravo ([id number]) [facility] () [address] [place] [address] Erythrocyte distribution width (RBC) [Ratio] 12.6 % Normal 11.5-14.5 [facility] Comment on above: Performed By: #### 5 7021-8 #### DARLING Bravo ([id number]) [facility] () [address] [place] [address] Hematocrit (Bld) [Volume fraction] 49.3 % Normal 41.0-52.0 [facility] Comment on above: Performed By: #### 5 7021-8 #### DARLING Bravo ([id number]) [facility] () [address] [place] [address] Hemoglobin (Bld) [Mass/Vol] 17.7 g/dL High 13.5-17.5 [facility] Comment on above: Performed By: #### 5 7021-8 #### DARLING Bravo ([id number]) [facility] () [address] [place] [address] Immature granulocytes (Bld) [#/Vol] 0.01 x10*3/uL Normal 0.00-0.70 [facility] Comment on above: Performed By: #### 5 7021-8 #### DARLING Bravo ([id number]) [facility] () [address] [place] [address] Immature granulocytes/100 WBC (Bld) 0.1 % Normal 0.0-0.9 [facility] Comment on above: Result Comment: Klaudia ture Granulocyte Count (IG) includes promyelocytes, myelocytes and metamyelocytes but does not include bands. Percent differential counts (%) should be interpreted in the context of the absolute cell counts (cells/UL). Performed By: #### 5 7021-8 #### DARLING Bravo ([id number]) [facility] () [address] [place] [address] Lymphocytes (Bld) [#/Vol] 2.00 x10*3/uL Normal 1.20-4.80 [facility] Comment on above: Performed By: #### 5 7021-8 #### DARLING Bravo ([id number]) [facility] () [address] [place] [address] Lymphocytes/100 WBC (Bld) 22.9 % Normal 13.0-44.0 [facility] Comment on above: Performed By: #### 5 7021-8 #### DARLING Bravo ([id number]) [facility] () [address] [place] [address] MCH (RBC) [Entitic mass] 30.8 pg Normal 26.0-34.0 [facility] Comment on above: Performed By: #### 5 7021-8 #### DARLING Bravo ([id number]) [facility] () [address] [place] [address] MCHC (RBC) [Mass/Vol] 35.9 g/dL Normal 32.0-36.0 [facility] Comment on above: Performed By: #### 5 7021-8 #### DARLING Bravo (54576) [facility] () [address] [place] [address] MCV (RBC) [Entitic vol] 86 fL Normal 80-100 [facility] Comment on above: Performed By: #### 5 7021-8 #### DARLING Bravo ([id number]) [facility] () [address] [place] [address] Monocytes (Bld) [#/Vol] 0.56 x10*3/uL Normal 0.10-1.00 [facility] Comment on above: Performed By: #### 5 7021-8 #### DARLING Bravo ([id number]) [facility] () [address] [place] [address] Monocytes/100 WBC (Bld) 6.4 % Normal 2.0-10.0 [facility] Comment on above: Performed By: #### 5 7021-8 #### DARLING Bravo (10960) [facility] () [address] [place] [address] Neutrophils (Bld) [#/Vol] 6.12 x10*3/uL Normal 1.20-7.70 [facility] Comment on above: Result Comment: Perc ent differential counts (%) should be interpreted in the context of the absolute cell counts (cells/uL). Performed By: #### 5 7021-8 #### DARLING Bravo ([id number]) [facility] () [address] [place] [address] Neutrophils/100 WBC (Bld) 70.1 % Normal 40.0-80.0 [facility] Comment on above: Performed By: #### 5 7021-8 #### DARLING Bravo (76711) [facility] () [address] [place] [address] Nucleated RBC/100 WBC (Bld) [Ratio] 0.0 /100 WBCs Normal 0.0-0.0 [facility] Comment on above: Performed By: #### 5 7021-8 #### DARLING Bravo (12563) [facility] () [address] [place] [address] Platelets (Bld) [#/Vol] 267 x10*3/uL Normal 150-450 [facility] Comment on above: Performed By: #### 5 7021-8 #### DARLING Bravo (67118) [facility] () [address] [place] [address] RBC (Bld) [#/Vol] 5.75 x10*6/uL Normal 4.50-5.90 [facility] Comment on above: Performed By: #### 5 7021-8 #### DARLING Bravo (92236) [facility] () [address] [place] [address] WBC (Bld) [#/Vol] 8.7 x10*3/uL Normal 4.4-11.3 [facility] Comment on above: Performed By: #### 5 7021-8 #### DARLING Bravo (58084) [facility] () [address] [place] [address] Comprehensive metabolic 2000 panelon 12-08-2023 Albumin BCP dye [Mass/Vol] 5.0 g/dL 3.4 - 5.0 g/dL [facility] ALP [Catalytic activity/Vol] 43 U/L 33 - 120 U/L [facility] ALT With P-5'-P [Catalytic activity/Vol] 17 U/L 10 - 52 U/L [facility] Comment on above: Patients treated wit h Sulfasalazine may generate falsely decreased results for ALT. Anion gap [Moles/Vol] 14 mmol/L 10 - 20 mmol/L [facility] AST With P-5'-P [Catalytic activity/Vol] 21 U/L 9 - 39 U/L [facility] Bilirubin [Mass/Vol] 0.5 mg/dL 0.0 - 1 .2 mg/dL [facility] Calcium [Mass/Vol] 10.2 mg/dL 8.6 - 10. 3 mg/dL [facility] Chloride [Moles/Vol] 105 mmol/L 98 - 10 7 mmol/L [facility] CO2 [Moles/Vol] 24 mmol/L 21 - 32 mmol/L [facility] Creatinine [Mass/Vol] 0.89 mg/dL 0.50 - 1.30 mg/dL [facility] eGFR - PINF [facility] Comment on above: Calculations of yolanda mated GFR are performed using the 2020 CKD-EPI Study Refit equation without the race variable for the IDMS-Traceable creatinine methods. https://jasn.asnjournals.org/content//ASN.0991481 988 Glucose [Mass/Vol] 99 mg/dL 74 - 99 mg/dL [facility] Potassium [Moles/Vol] 3.6 mmol/L 3.5 - 5.3 mmol/L [facility] Protein [Mass/Vol] 7.3 g/dL 6.4 - 8.2 g/dL [facility] Sodium [Moles/Vol] 139 mmol/L 136 - 145 mmol/L [facility] Urea nitrogen [Mass/Vol] 11 mg/dL 6 - 23 mg/dL [facility] Albumin BCP dye [Mass/Vol] 5.0 g/dL Normal 3.4-5.0 [facility] Comment on above: Performed By: #### 2 4323-8 #### DARLING Bravo ([id number]) [facility] () [address] [place] [address] ALP [Catalytic activity/Vol] 43 U/L Normal 33-120 [facility] Comment on above: Performed By: #### 2 4323-8 #### DARLING Bravo (79342) [facility] () [address] [place] [address] ALT With P-5'-P [Catalytic activity/Vol] 17 U/L Normal 10-52 [facility] Comment on above: Result Comment: Edna ents treated with Sulfasalazine may generate falsely decreased results for ALT. Performed By: #### 2 4323-8 #### DARLING Bravo (67218) [facility] () [address] [place] [address] Anion gap [Moles/Vol] 14 mmol/L Normal 10-20 [facility] Comment on above: Performed By: #### 2 4323-8 #### DARLING Bravo ([id number]) [facility] () [address] [place] [address] AST With P-5'-P [Catalytic activity/Vol] 21 U/L Normal 9-39 [facility] Comment on above: Performed By: #### 2 4323-8 #### DARLING Bravo ([id number]) [facility] () [address] [place] [address] Bilirubin [Mass/Vol] 0.5 mg/dL Normal 0.0-1.2 [facility] Comment on above: Performed By: #### 2 4323-8 #### DARLING Bravo (30014) [facility] () [address] [place] [address] Calcium [Mass/Vol] 10.2 mg/dL Normal 8.6-10.3 [facility] Comment on above: Performed By: #### 2 4323-8 #### DARLING Bravo (12975) [facility] (MW) [address] [place] [address] Chloride [Moles/Vol] 105 mmol/L Normal 98-107 [facility] Comment on above: Performed By: #### 2 4323-8 #### DARLING Bravo (50285) [facility] () [address] [place] [address] CO2 [Moles/Vol] 24 mmol/L Normal 21-32 [facility] Comment on above: Performed By: #### 2 4323-8 #### DARLING Bravo (56265) [facility] () [address] [place] [address] Creatinine [Mass/Vol] 0.89 mg/dL Normal 0.50-1.30 [facility] Comment on above: Performed By: #### 2 4323-8 #### DARLING Bravo (99331) [facility] () [address] [place] [address] GFR/1.73 sq M.predicted MDRD (S/P/Bld) [Vol rate/Area] mL/min/{1.73_m2} Normal >60 [facility] Comment on above: Result Comment: Calc ulations of estimated GFR are performed using the 2020 CKD-EPI Study Refit equation without the race variable for the IDMS-Traceable creatinine methods. https://jasn.asnjournals.org/content//ASN.0732877 988 Performed By: #### 2 4323-8 #### DARLING Bravo (50832) [facility] () [address] [place] [address] Glucose [Mass/Vol] 99 mg/dL Normal 74-99 [facility] Comment on above: Performed By: #### 2 4323-8 #### DARLING Bravo (56649) [facility] () [address] [place] [address] Potassium [Moles/Vol] 3.6 mmol/L Normal 3.5-5.3 [facility] Comment on above: Performed By: #### 2 4323-8 #### DARLING Bravo (59010) [facility] () [address] [place] [address] Protein [Mass/Vol] 7.3 g/dL Normal 6.4-8.2 [facility] Comment on above: Performed By: #### 2 4323-8 #### DARLING Bravo (37564) [facility] () [address] [place] [address] Sodium [Moles/Vol] 139 mmol/L Normal 136-145 [facility] Comment on above: Performed By: #### 2 4323-8 #### DARLING Bravo (19409) [facility] () [address] [place] [address] Urea nitrogen [Mass/Vol] 11 mg/dL Normal 6-23 [facility] Comment on above: Performed By: #### 2 4323-8 #### DARLING Bravo (59992) [facility] () [address] [place] [address] Lipaseon 12-08-2023 Lipase [Catalytic activity/Vol] 68 U/L 9 - 82 U/L [facility] Lipase [Catalytic activity/V ol]on 12-08-2023 Interpretation and review of laboratory results Normal [facility] Venipuncture immediately after or during the administration of Metamizole may lead to falsely low results. Testing should be performed immediately prior to Metamizole dosing. [facility] Magnesiumon 12-08-2023 Magnesium [Mass/Vol] 2.26 mg/dL 1.60 - 2.40 mg/dL [facility] Magnesium [Mass/Vol] 2.26 mg/dL Normal 1.60-2.40 [facility] Comment on above: Performed By: #### 1 9123-9 #### DARLING Bravo (27721) [facility] () [address] [place] [address] No Panel Informationon 12-07 Interpretation and review of laboratory results Normal [facility] Triacylglycerol lipaseon Lipase [Catalytic activity/Vol] 68 U/L Normal 9-82 [facility] Comment on above: Order Comment: Venip uncture immediately after or during the administration of Metamizole may lead to falsely low results. Testing should be performed immediately prior to Metamizole dosing. Performed By: #### 3 040-3 #### DARLING Bravo (95998) [facility] () [address] [place] [address] Urinalysis complete W Reflex Culture panel (U)on 12-08-2023 Appearance (U) Clear Clear [facility] Bilirubin (U) [Mass/Vol] Negative NEGATIVE [facility] Color (U) Colorless Abnormal Light-Yellow, Yellow, Dark-Yellow [facility] Glucose Auto test strip (U) [Mass/Vol] Normal Normal mg/dL [facility] Interpretation and review of laboratory results Abnormal [facility] Ketones (U) [Mass/Vol] Negative NEGATIVE mg/dL [facility] Leukocyte esterase Auto test strip Ql (U) Negative NEGATIVE [facility] Nitrite Auto test strip Ql (U) Negative NEGATIVE [facility] pH (U) 7.5 [pH] 5.0, 5.5, 6.0, 6.5, 7.0, 7.5, 8.0 [facility] Protein (U) [Mass/Vol] Negative NEGATIVE, 10 (TRACE), 20 (TRACE) mg/dL [facility] RBC (U) [#/Vol] Negative NEGATIVE [facility] Specific gravity (U) [Rel density] 1.005 1.005 - 1.035 [facility] Urobilinogen (U) [Mass/Vol] Normal Normal mg/dL [facility] Appearance (U) Clear Normal Clear [facility] Comment on above: Performed By: #### 5 8077-9 #### DARLING Bravo (51477) [facility] () [address] [place] [address] Bilirubin (U) [Mass/Vol] Negative Normal NEGATIVE [facility] Comment on above: Performed By: #### 5 8077-9 #### DARLING Bravo (57112) [facility] () [address] [place] [address] Color (U) Colorless Normal Light-Yellow, Yellow, Dark-Yellow [facility] Comment on above: Performed By: #### 5 8077-9 #### DARLING Bravo (04000) [facility] () [address] [place] [address] Glucose Auto test strip (U) [Mass/Vol] Normal Normal Normal [facility] Comment on above: Performed By: #### 5 8077-9 #### DARLING Bravo (39975) [facility] () [address] [place] [address] Ketones (U) [Mass/Vol] Negative Normal NEGATIVE [facility] Comment on above: Performed By: #### 5 8077-9 #### DARLING Bravo (90663) [facility] () [address] [place] [address] Leukocyte esterase Auto test strip Ql (U) Negative Normal NEGATIVE [facility] Comment on above: Performed By: #### 5 8077-9 #### DARLING Bravo (80705) [facility] () [address] [place] [address] Nitrite Auto test strip Ql (U) Negative Normal NEGATIVE [facility] Comment on above: Performed By: #### 5 8077-9 #### DARLING Bravo (68155) [facility] () [address] [place] [address] pH (U) 7.5 [pH] Normal 5.0, 5.5, 6.0, 6.5, 7.0, 7.5, 8.0 [facility] Comment on above: Performed By: #### 5 8077-9 #### DARLING Bravo (62053) [facility] () [address] [place] [address] Protein (U) [Mass/Vol] Negative Normal NEGATIVE, 10 (TRACE), 20 (TRACE) [facility] Comment on above: Performed By: #### 5 8077-9 #### DARLING Bravo (60957) [facility] () [address] [place] [address] RBC (U) [#/Vol] Negative Normal NEGATIVE [facility] Comment on above: Performed By: #### 5 8077-9 #### DARLING Bravo (89723) [facility] () [address] [place] [address] Specific gravity (U) [Rel density] 1.005 Normal 1.005-1.035 [facility] Comment on above: Performed By: #### 5 8077-9 #### DARLING Bravo (34794) [facility] () [address] [place] [address] Urobilinogen (U) [Mass/Vol] Normal Normal Normal [facility] Comment on above: Performed By: #### 5 8077-9 #### DARLING Bravo (09006) [facility] () [address] [place] [address] .Auto Diffon 12-04-2023 Basophil, Absolute 0.0 10 3/mcL Normal 0.0-0.3 [facility] Comment on above: Performed By: #### C VFLURV #### [address] [address] Basophils/100 WBC (Bld) 0.8 % Normal 0.0-2.5 [facility] Comment on above: Performed By: #### C VFLURV #### [address] [address] Eosinophil, Absolute 0.1 10 3/mcL Normal 0.0-0.7 [facility] Comment on above: Performed By: #### C VFLURV #### [address] [address] Eosinophils/100 WBC (Bld) 2.1 % Normal 0.0-6.0 [facility] Comment on above: Performed By: #### C VFLURV #### [address] [address] Lymphocyte, Absolute 1.0 10 3/mcL Normal 0.9-4.3 [facility] [facility] Comment on above: Performed By: #### C VFLURV #### [address] [address] Lymphocytes/100 WBC (Bld) 20.2 % Normal 20.0-40.0 [facility] Comment on above: Performed By: #### C VFLURV #### [address] [address] Monocyte, Absolute 0.3 10 3/mcL Normal 0.1-1.4 [facility] Comment on above: Performed By: #### C VFLURV #### [address] [address] Monocytes/100 WBC (Bld) 6.9 % Normal 2.0-13.0 [facility] Comment on above: Performed By: #### C VFLURV #### [address] [address] Neutrophils/100 WBC (Bld) 70.0 % Normal 50.0-75.0 [facility] Comment on above: Performed By: #### C VFLURV #### [address] [address] .GFRon 12-04-2023 GFR >60 Normal [facility] Comment on above: Result Comment: GFR Population mean for , Non- Americans Ages 20-29 = 116 mL/min/1.73 sq.m. Ages 30-39 = 107 mL/min/1.73 sq.m. Ages 40-49 = 99 mL/min/1.73 sq.m. Ages 50-59 = 93 mL/min/1.73 sq.m. Ages 60-69 = 85 mL/min/1.73 sq.m. Ages 70+ = 75 mL/min/1.73 sq.m. Chronic Kidney Disease: Less than 60 mL/min/1.73 square meters End Stage Renal Disease: Less than 15 mL/min/1.73 square meters Performed By: #### C VFLURV #### [place] [address] GFR Non- >60 Normal [facility] Comment on above: Result Comment: GFR Population mean for , Non- Americans Ages 20-29 = 116 mL/min/1.73 sq.m. Ages 30-39 = 107 mL/min/1.73 sq.m. Ages 40-49 = 99 mL/min/1.73 sq.m. Ages 50-59 = 93 mL/min/1.73 sq.m. Ages 60-69 = 85 mL/min/1.73 sq.m. Ages 70+ = 75 mL/min/1.73 sq.m. Chronic Kidney Disease: Less than 60 mL/min/1.73 square meters End Stage Renal Disease: Less than 15 mL/min/1.73 square meters Performed By: #### C VFLURV #### [place] [address] .MDWon 12-04-2023 Monocyte Distribution Width 16.52 Normal 0.00-20.00 [facility] Comment on above: Result Comment: For ED adult patients suspected of sepsis, MDW<=20.0 does not rule out sepsis or risk of sepsis Performed By: #### C VFLURV #### [place] [address] .NEUABSon 12-04-2023 Neutrophil, Absolute 3.4 10 3/mcL Normal 2.3-8.1 [facility] Comment on above: Performed By: #### C VFLURV #### [place] [address] CBCon 12-04-2023 Erythrocyte distribution width (RBC) [Ratio] 13.1 % Normal 11.5-15.5 [facility] Comment on above: Performed By: #### C VFLURV #### [place] [address] Hematocrit (Bld) [Volume fraction] 43.2 % Normal 40.0-52.0 [facility] Comment on above: Performed By: #### C VFLURV #### [place] [address] Hgb 15.3 G/dL Normal 13.0-17.5 [facility] Comment on above: Performed By: #### C VFLURV #### [place] [address] MCH (RBC) [Entitic mass] 31.4 pg Normal 27.0-33.0 [facility] Comment on above: Performed By: #### C VFLURV #### [place] [address] MCHC 35.5 G/dL Normal 32.0-36.0 [facility] Comment on above: Performed By: #### C VFLURV #### [place] [address] MCV (RBC) [Entitic vol] 88.6 fL Normal 81.0-100.0 [facility] Comment on above: Performed By: #### C VFLURV #### [place] [address] Platelet 221 10 3/mcL Normal 150-450 [facility] Comment on above: Performed By: #### C VFLURV #### [place] [address] Platelet mean volume (Bld) [Entitic vol] 7.4 fL Normal 6.4-10.5 [facility] Comment on above: Performed By: #### C VFLURV #### [place] [address] RBC 4.88 10 6/mcL Normal 4.50-6.00 [facility] Comment on above: Performed By: #### C VFLURV #### [place] [id number] WBC 4.9 10 3/mcL Normal 4.5-10.8 [facility] Comment on above: Performed By: #### C VFLURV #### [place] [address] CKon 12-04-2023 CK [Catalytic activity/Vol] 72 U/L Normal 7-185 [facility] Comment on above: Performed By: #### D SETHU #### [place] [id number] CMPon 12-04-2023 BUN/Creatinine Ratio Unable to Calculate Normal 10.0-2 2.0 [facility] Comment on above: Result Comment: Unab le to calculate this test result accurately. Results used to calculate this test are outside the reportable range. Performed By: #### C VFLURV #### [place] [address] Urea nitrogen [Mass/Vol] mg/dL Low 8.0-22.0 [facility] Comment on above: Performed By: #### C VFLURV #### [place] [address] Albumin Level 3.5 G/dL Normal 3.2-4.8 [facility] Comment on above: Performed By: #### C VFLURV #### [place] [address] Albumin/Globulin [Mass ratio] 1.4 {ratio} Normal 0.9-1.6 [facility] Comment on above: Performed By: #### C VFLURV #### [place] [id number] ALP [Catalytic activity/Vol] 48 U/L Normal 38-126 [facility] Comment on above: Performed By: #### C VFLURV #### [place] [id number] ALT/SGPT <8 Low 12-55 [facility] Comment on above: Performed By: #### C VFLURV #### [place] [id number] AST [Catalytic activity/Vol] 13 U/L Normal 8-34 [facility] Comment on above: Performed By: #### C VFLURV #### [place] [id number] Bili Total 0.50 mg/dL Normal 0.20-1.20 [facility] Comment on above: Result Comment: Use of this assay is not recommended for patients undergoing treatment with eltrombopag due to the potential for falsely elevated results. Performed By: #### C VFLURV #### [place] [id number] Calcium [Mass/Vol] 9.0 mg/dL Normal 8.7-10.4 [facility] Comment on above: Performed By: #### C VFLURV #### [place] [id number] Chloride [Moles/Vol] 107 mmol/L Normal 98-110 [facility] Comment on above: Performed By: #### C VFLURV #### [address] [address] CO2 [Moles/Vol] 30 mmol/L Normal 22-32 [facility] Comment on above: Performed By: #### C VFLURV #### [place] [id number] Creatinine [Mass/Vol] 0.82 mg/dL Normal 0.60-1.40 [facility] Comment on above: Result Comment: Test ing performed on [employer] analyzer using enzymatic creatinine methodology. Performed By: #### C VFLURV #### [address] [address] Electrolyte Balance 4.0 mEq/L Normal 4.0-15.0 [facility] Comment on above: Performed By: #### C VFLURV #### [place] [id number] Globulin 2.5 G/dL Normal 1.5-3.8 [facility] Comment on above: Performed By: #### C VFLURV #### [address] [address] Glucose [Mass/Vol] 101 mg/dL Normal 70-110 [facility] Comment on above: Performed By: #### C VFLURV #### [place] [id number] Potassium [Moles/Vol] 3.1 mmol/L Low 3.5-5.0 [facility] Comment on above: Performed By: #### C VFLURV #### [address] [address] Sodium [Moles/Vol] 141 mmol/L Normal 136-145 [facility] Comment on above: Performed By: #### C VFLURV #### [place] [address] Total Protein 6.0 G/dL Normal 5.7-8.2 [facility] Comment on above: Result Comment: No te - New Reference Range in effect 19 Performed By: #### C VFLURV #### [place] [address] CVFLURVon 12-04-2023 FLU A PCR Negative Normal Negative [facility] Comment on above: Result Comment: Note s Performed By: #### C VFLURV #### [place] [address] FLU B PCR Negative Normal Negative [facility] Comment on above: Result Comment: Note s Performed By: #### C VFLURV #### [place] [address] RSV PCR Negative Normal Negative [facility] Comment on above: Result Comment: Note s Performed By: #### C VFLURV #### [place] [address] SARS-CoV-2 (COVID-19) RNA DERICK+probe Ql (Unsp spec) Negative Normal Negative [facility] Comment on above: Result Comment: Note s This test has been authorized by FDA under an EUA for use by authorized laboratories and has not been FDA cleared or approved. Results from the Xpert Xpress SARS-CoV-2/Flu/RSV or Xpert Xpress SARS-CoV-2 only test should be correlated with the clinical history, epidemiological data, and other data available to the clinician evaluating the patient. Performance of the Xpert Xpress SARS-CoV-2/Flu/RSV or Xpert Xpress SARS-CoV-2 only test has only been established in nasopharyngeal swab specimens. Erroneous test results might occur from improper specimen collection; failure to follow the recommended sample collection, handling, and storage procedures; technical error; or sample mix-up.False negative results may occur if virus is present at levels below the analytical limit of detection. Viral nucleic acid may persist in vivo, independent of virus viability. Detection of analyte target(s) does not imply that the corresponding virus(es) are infectious or are the causative agents for clinical symptoms.Recent patient exposure to FluMist or other live attenuated influenza vaccines may cause inaccurate positive results. Performed By: #### C VFLURV #### [place] [address] FLU A PCR Negative Normal Negative [facility] Comment on above: [place] Comment: [place] [id number] Performed By: #### C VFLURV #### [place] [address] FLU B PCR Negative Normal Negative [facility] Comment on above: Result Comment: [place] [id number] Performed By: #### C VFLURV #### [place] [address] RSV PCR Negative Normal Negative [facility] Comment on above: [place]: [place] [id number] Performed By: #### C VFLURV #### [place] [address] SARS-CoV-2 (COVID-19) RNA DERICK+probe Ql (Unsp spec) Negative Normal Negative [facility] Comment on above: Result Comment: [place] [id number] This test has been authorized by FDA under an EUA for use by authorized laboratories and has not been FDA cleared or approved. Results from the Xpert Xpress SARS-CoV-2/Flu/RSV or Xpert Xpress SARS-CoV-2 only test should be correlated with the clinical history, epidemiological data, and other data available to the clinician evaluating the patient. Performance of the Xpert Xpress SARS-CoV-2/Flu/RSV or Xpert Xpress SARS-CoV-2 only test has only been established in nasopharyngeal swab specimens. Erroneous test results might occur from improper specimen collection; failure to follow the recommended sample collection, handling, and storage procedures; technical error; or sample mix-up.False negative results may occur if virus is present at levels below the analytical limit of detection. Viral nucleic acid may persist in vivo, independent of virus viability. Detection of analyte target(s) does not imply that the corresponding virus(es) are infectious or are the causative agents for clinical symptoms.Recent patient exposure to FluMist or other live attenuated influenza vaccines may cause inaccurate positive results. Performed By: #### C VFLURV #### [place] [address] DRUGSon 12-04-2023 Acetaminophen [Mass/Vol] ug/mL Low 10.0-20.0 [facility] Comment on above: Performed By: #### C VFLURV #### [place] [address] Ethanol Level <10.0 [facility] Comment on above: Performed By: #### C VFLURV #### [place] [address] Salicylate Lvl (ds) <3.0 Low 10.0-25.0 [facility] Comment on above: Performed By: #### C VFLURV #### [place] [address] Serum Drugs screened: See Below [facility] Comment on above: Result Comment: This drug screen is a presumptive screening only. No confirmation will be performed unless requested. Drugs included in the serum drug screen are: Threshold Ethanol 10.0 mg/dL Salicylate 2.0 mg/dl Acetaminophen 2.0 mcg/mL Testing has been performed FOR MEDICAL PURPOSES ONLY. Performed By: #### C VFLURV #### [place] [address] DRUGUon 12-04-2023 Cannabinoid (u) Positive Abnormal Negative [facility] Comment on above: Performed By: #### Molly RUGU #### [place] [address] Amphetamine (u) Negative Normal Negative [facility] Comment on above: Performed By: #### Molly RUGU #### [place] [address] Barbiturate (u) Negative Normal Negative [facility] Comment on above: Performed By: #### Molly RUGU #### [place] [id number] Benzodiazepine (u) Negative Normal Negative [facility] Comment on above: Performed By: #### D RUGU #### [address] [address] Cocaine Ql (U) Negative Normal Negative [facility] Comment on above: Performed By: #### D RUGU #### [address] [address] Fentanyl (u) Negative Normal Negative [facility] Comment on above: Result Comment: Test ing has been performed FOR MEDICAL PURPOSES ONLY. Performed By: #### Molly RUGU #### [place] [id number] Methadone Ql (U) Negative Normal Negative [facility] Comment on above: Performed By: #### Molly RUGU #### [place] [id number] Opiate (u) Negative Normal Negative [facility] Comment on above: Performed By: #### Molly RUGU #### [place] [id number] Oxycodone (u) Negative Normal Negative [facility] Comment on above: Result Comment: Test ing has been performed FOR MEDICAL PURPOSES ONLY. Performed By: #### Molly RUGU #### [place] [id number] PCP (u) Negative Normal Negative [facility] Comment on above: Performed By: #### Molly RUGU #### [place] [id number] Propoxyphene (u) Negative Normal Negative [facility] Comment on above: Performed By: #### Molly RUGU #### [place] [id number] U pH Drug Scrn 7.0 Normal 5.0-8.0 [facility] Comment on above: Performed By: #### Molly RUGU #### [place] [id number] Urine Drugs screened: See Below [facility]IN Comment on above: Result Comment: This drug screen is a presumptive screening only. No confirmation will be performed unless requested. Drugs screened include: Threshold Amphetamines/Methamphetamines 1,000 ng/mL Barbiturates 200 ng/mL Benzodiazepine metabolites 200 ng/mL Cannabinoids (THC metabolites) 50 ng/mL Benzoylecognine (Cocaine metab) 300 ng/mL Opiates 300 ng/mL Phencyclidine (PCP) 25 ng/mL Methadone 300 ng/mL Propoxyphene 300 ng/mL Fentanyl 1.0 ng/mL Oxycodone 100 ng/mL Testing has been performed FOR MEDICAL PURPOSES ONLY. Performed By: #### D [facility] #### [place] [address] LABORATORYOrdered By: Viviana Canales on 12-04-2023 FLUAV RNA DERICK+probe Ql (Resp) Negative 16 (12/04/23 4:12 PM) Normal Negative AH Auto Viro/Sero SS Comment on above: Result Comment: Note s FLUBV RNA DERICK+probe Ql (Resp) Negative 18 (12/04/23 4:12 PM) Normal Negative AH Auto [facility]ero SS Comment on above: Result Comment: Note s RSV PCR Negative 20 (12/04/23 4:12 PM) Normal Negative AH Auto Viro/Sero SS Comment on above: Result Comment: Note s SARS-CoV-2 (COVID-19) RNA DERICK+probe Ql (Resp) Negative 12, 13 (12/04/23 4:12 PM) Normal Negative AH Auto Viro/Sero SS Comment on above: Result Comment: Note s Interpretive Data: T his test has been authorized by FDA under an EUA for use by authorized laboratories and has not been FDA cleared or approved. Results from the Xpert Xpress SARS-CoV-2/Flu/RSV or Xpert Xpress SARS-CoV-2 only test should be correlated with the clinical history, epidemiological data, and other data available to the clinician evaluating the patient. Performance of the Xpert Xpress SARS-CoV-2/Flu/RSV or Xpert Xpress SARS-CoV-2 only test has only been established in nasopharyngeal swab specimens. Erroneous test results might occur from improper specimen collection; failure to follow the recommended sample collection, handling, and storage procedures; technical error; or sample mix-up.False negative results may occur if virus is present at levels below the analytical limit of detection. Viral nucleic acid may persist in vivo, independent of virus viability. Detection of analyte target(s) does not imply that the corresponding virus(es) are infectious or are the causative agents for clinical symptoms.Recent patient exposure to FluMist or other live attenuated influenza vaccines may cause inaccurate positive results. LABORATORYOrdered By: SYSTEM SYSTEM on 12-04-2023 CK [Catalytic activity/Vol] 72 U/L Normal 7 - 185 U/L ADM SS Troponin I.cardiac DL <= 0.01 ng/mL [Mass/Vol] ng/L Normal 0 - 54 ng/L ADM SS Comment on above: Interpretive Data: High Sensitive Troponin I Reference Ranges: Female: 0-34 ng/L Male: 0-54 ng/L Testing performed on [employer] IM analyzer using direct chemiluminescent technology. Albumin BCP dye [Mass/Vol] 3.5 G/dL Normal 3.2 - 4.8 G/dL ADM SS Albumin/Globulin [Mass ratio] 1.4 {ratio} Normal 0.9 - 1.6 ratio ADM SS ALP [Catalytic activity/Vol] 48 U/L Normal 38 - 126 U/L ADM SS ALT No additional P-5'-P [Catalytic activity/Vol] U/L 1 Low 12 - 55 U/L ADM SS AST [Catalytic activity/Vol] 13 U/L Normal 8 - 34 U/L ADM SS Basophils (Bld) [#/Vol] 0.0 103/mcL Normal 0.0 - 0.3 10^3/mcL Workflow SS Basophils/100 WBC (Bld) 0.8 % Normal 0.0 - 2.5 % Workflow SS Bilirubin [Mass/Vol] 0.50 mg/dL Normal 0.20 - 1.20 mg/dL ADM SS Comment on above: Interpretive Data: U se of this assay is not recommended for patients undergoing treatment with eltrombopag due to the potential for falsely elevated results. Calcium [Mass/Vol] 9.0 mg/dL Normal 8.7 - 10. 4 mg/dL ADM SS Chloride [Moles/Vol] 107 mmol/L Normal 98 - 110 mEq/L ADM SS CO2 [Moles/Vol] 30 mmol/L Normal 22 - 32 mEq/L ADM SS Creatinine [Mass/Vol] 0.82 mg/dL Normal 0.60 - 1.40 mg/dL ADM SS Comment on above: Interpretive Data: T esting performed on [employer] CH analyzer using enzymatic creatinine methodology. Electrolyte Balance 4.0 mEq/L Normal 4.0 - 15 .0 mEq/L ADM SS Eosinophils (Bld) [#/Vol] 0.1 103/mcL Normal 0.0 - 0.7 10^3/mcL Workflow SS Eosinophils/100 WBC (Bld) 2.1 % Normal 0.0 - 6.0 % Workflow SS Erythrocyte distribution width (RBC) [Ratio] 13.1 % Normal 11.5 - 15.5 % Workflow SS GFR/1.73 sq M.predicted among blacks MDRD (S/P/Bld) [Vol rate/Area] ml/min/1.73sqm Invalid Interpretation Code [facility] Comment on above: Interpretive Data: GFR Population mean for , Non- Americans Ages 20-29 = 116 mL/min/1.73 sq.m. Ages 30-39 = 107 mL/min/1.73 sq.m. Ages 40-49 = 99 mL/min/1.73 sq.m. Ages 50-59 = 93 mL/min/1.73 sq.m. Ages 60-69 = 85 mL/min/1.73 sq.m. Ages 70+ = 75 mL/min/1.73 sq.m. Chronic Kidney Disease: Less than 60 mL/min/1.73 square meters End Stage Renal Disease: Less than 15 mL/min/1.73 square meters GFR/1.73 sq M.predicted among non-blacks MDRD (S/P/Bld) [Vol rate/Area] ml/min/1.73sqm Invalid Interpretation Code [facility] Comment on above: Interpretive Data: GFR Population mean for , Non- Americans Ages 20-29 = 116 mL/min/1.73 sq.m. Ages 30-39 = 107 mL/min/1.73 sq.m. Ages 40-49 = 99 mL/min/1.73 sq.m. Ages 50-59 = 93 mL/min/1.73 sq.m. Ages 60-69 = 85 mL/min/1.73 sq.m. Ages 70+ = 75 mL/min/1.73 sq.m. Chronic Kidney Disease: Less than 60 mL/min/1.73 square meters End Stage Renal Disease: Less than 15 mL/min/1.73 square meters Globulin 2.5 G/dL Normal 1.5 - 3.8 G/dL ADM SS Glucose [Mass/Vol] 101 mg/dL Normal 70 - 110 mg/dL ADM SS Hematocrit (Bld) [Volume fraction] 43.2 % Normal 40.0 - 52.0 % AH Workflow SS Hemoglobin (Bld) [Mass/Vol] 15.3 G/dL Normal 13.0 - 17.5 G/dL AH Workflow SS Lymphocytes (Bld) [#/Vol] 1.0 103/mcL Normal 0.9 - 4.3 10^3/mcL AH Workflow SS Lymphocytes/100 WBC (Bld) 20.2 % Normal 20.0 - 40.0 % AH Workflow SS MCH (RBC) [Entitic mass] 31.4 pg Normal 27.0 - 33.0 pg AH Workflow SS MCHC 35.5 G/dL Normal 32.0 - 36.0 G/dL Workflow SS MCV (RBC) [Entitic vol] 88.6 fL Normal 81.0 - 100.0 fL Workflow SS Monocyte distribution width Auto (Bld) [Entitic vol] 16.52 1 Normal 0.00 - 20.00 Workflow SS Comment on above: Result Comment: For ED adult patients suspected of sepsis, MDW<=20.0 does not rule out sepsis or risk of sepsis Monocytes (Bld) [#/Vol] 0.3 103/mcL Normal 0.1 - 1.4 10^3/mcL AH Workflow SS Monocytes/100 WBC (Bld) 6.9 % Normal 2.0 - 13.0 % AH Workflow SS Neutrophils (Bld) [#/Vol] 3.4 103/mcL Normal 2.3 - 8.1 10^3/mcL AH Workflow SS Neutrophils/100 WBC (Bld) 70.0 % Normal 50.0 - 75.0 % Workflow SS Platelet mean volume (Bld) [Entitic vol] 7.4 fL Normal 6.4 - 10.5 fL AH Workflow SS Platelets (Bld) [#/Vol] 221 103/mcL Normal 150 - 450 10^3/mcL AH Workflow SS Potassium [Moles/Vol] 3.1 mmol/L Low 3.5 - 5.0 mEq/L ADM SS Protein [Mass/Vol] 6.0 G/dL Normal 5.7 - 8.2 G/dL ADM SS Comment on above: Interpretive Data: * *Note - New Reference Range in effect 19 RBC (Bld) [#/Vol] 4.88 106/mcL Normal 4.50 - 6.0 0 10^6/mcL AH Workflow SS Sodium [Moles/Vol] 141 mmol/L Normal 136 - 145 mEq/L AH ADM SS Troponin I.cardiac DL <= 0.01 ng/mL [Mass/Vol] ng/L Normal 0 - 54 ng/L AH ADM SS Comment on above: Interpretive Data: High Sensitive Troponin I Reference Ranges: Female: 0-34 ng/L Male: 0-54 ng/L Testing performed on [employer] IM analyzer using direct chemiluminescent technology. WBC (Bld) [#/Vol] 4.9 103/mcL Normal 4.5 - 10.8 10^3/mcL Workflow SS LABORATORYOrdered By: Mulu George on 12-04-2023 Amphetamines Screen Ql (U) Negative *NA* (12/04/23 12:51 PM) Invalid Interpretation Code Negative AH ADM SS Barbiturates Screen Ql (U) Negative *NA* (12/04/23 12:51 PM) Invalid Interpretation Code Negative AH ADM SS Benzodiazepines Ql (U) Negative *NA* (12/04/23 12:51 PM) Invalid Interpretation Code Negative AH ADM SS Benzoylecgonine Screen Ql (U) Negative *NA* (12/04/23 12:51 PM) Invalid Interpretation Code Negative AH ADM SS Cannabinoids Screen Ql (U) Positive *ABN* (12/04/23 12:51 PM) Invalid Interpretation Code Negative AH ADM SS fentaNYL Screen Ql (U) Negative 2 *NA* (12/04/23 12:51 PM) Invalid Interpretation Code Negative AH ADM SS Comment on above: Interpretive Data: T esting has been performed FOR MEDICAL PURPOSES ONLY. Methadone Screen Ql (U) Negative *NA* (12/04/23 12:51 PM) Invalid Interpretation Code Negative AH ADM SS Opiates Screen Ql (U) Negative *NA* (12/04/23 12:51 PM) Invalid Interpretation Code Negative AH ADM SS oxyCODONE Ql (U) Negative 3 *NA* (12/04/23 12:51 PM) Invalid Interpretation Code Negative AH ADM SS Comment on above: Interpretive Data: T esting has been performed FOR MEDICAL PURPOSES ONLY. pH (U) 7.0 [pH] Normal 5.0 - 8.0 AH Chemistry S Phencyclidine Ql (U) Negative *NA* (12/04/23 12:51 PM) Invalid Interpretation Code Negative AH ADM SS Propoxyphene Screen Ql (U) Negative *NA* (12/04/23 12:51 PM) Invalid Interpretation Code Negative ADM SS Urine Drugs screened: See Below 11 (12/04/23 12:51 PM) Normal Chemistry S Comment on above: Interpretive Data: T his drug screen is a presumptive screening only. No confirmation will be performed unless requested. Drugs screened include: Threshold Amphetamines/Methamphetamines 1,000 ng/mL Barbiturates 200 ng/mL Benzodiazepine metabolites 200 ng/mL Cannabinoids (THC metabolites) 50 ng/mL Benzoylecognine (Cocaine metab) 300 ng/mL Opiates 300 ng/mL Phencyclidine (PCP) 25 ng/mL Methadone 300 ng/mL Propoxyphene 300 ng/mL Fentanyl 1.0 ng/mL Oxycodone 100 ng/mL Testing has been performed FOR MEDICAL PURPOSES ONLY. LABORATORYOrdered By: Eric Bruner on 12-04-2023 Acetaminophen [Mass/Vol] mcg/mL Low 10.0 - 20.0 mcg/mL ADM SS Ethanol [Mass/Vol] mg/dL Invalid Interpretation Code ADM SS Salicylates [Mass/Vol] mg/dL Low 10.0 - 25.0 mg/dL ADM SS Serum Drugs screened: See Below 10 (12/04/23 11:29 AM) Normal Chemistry S Comment on above: Interpretive Data: T his drug screen is a presumptive screening only. No confirmation will be performed unless requested. Drugs included in the serum drug screen are: Threshold Ethanol 10.0 mg/dL Salicylate 2.0 mg/dl Acetaminophen 2.0 mcg/mL Testing has been performed FOR MEDICAL PURPOSES ONLY. Urea nitrogen [Mass/Vol] mg/dL Low 8.0 - 22.0 mg/dL ADM SS Urea nitrogen/Creatinine [Mass ratio] Unable to Calculate Invalid Interpretation Code 10.0 - 22.0 ADM SS Comment on above: Result Comment: Unab le to calculate this test result accurately. Results used to calculate this test are outside the reportable range. LABORATORYOrdered By: Viviana Sharma on 12-04-2023 FLUAV RNA DERICK+probe Ql (Resp) Negative 17 (12/04/23 11:29 AM) Normal Negative AH Auto Viro/Sero SS Comment on above: Result Comment: [place] [id number] FLUBV RNA DERICK+probe Ql (Resp) Negative 19 (12/04/23 11:29 AM) Normal Negative AH Auto Viro/Sero SS Comment on above: Result Comment: [place] [id number] RSV PCR Negative 21 (12/04/23 11:29 AM) Normal Negative AH Auto Viro/Sero SS Comment on above: Result Comment: Note s [id number] SARS-CoV-2 (COVID-19) RNA DERICK+probe Ql (Resp) Negative 14, 15 (12/04/23 11:29 AM) Normal Negative AH Auto Viro/Sero SS Comment on above: Result Comment: Note s [id number] Interpretive Data: T his test has been authorized by FDA under an EUA for use by authorized laboratories and has not been FDA cleared or approved. Results from the Xpert Xpress SARS-CoV-2/Flu/RSV or Xpert Xpress SARS-CoV-2 only test should be correlated with the clinical history, epidemiological data, and other data available to the clinician evaluating the patient. Performance of the Xpert Xpress SARS-CoV-2/Flu/RSV or Xpert Xpress SARS-CoV-2 only test has only been established in nasopharyngeal swab specimens. Erroneous test results might occur from improper specimen collection; failure to follow the recommended sample collection, handling, and storage procedures; technical error; or sample mix-up.False negative results may occur if virus is present at levels below the analytical limit of detection. Viral nucleic acid may persist in vivo, independent of virus viability. Detection of analyte target(s) does not imply that the corresponding virus(es) are infectious or are the causative agents for clinical symptoms.Recent patient exposure to FluMist or other live attenuated influenza vaccines may cause inaccurate positive results. Giana 12-04-2023 High Sensitivity Troponin I <3 Normal 0-54 [facility] Comment on above: Result Comment: High Sensitive Troponin I Reference Ranges: Female: 0-34 ng/L Male: 0-54 ng/L Testing performed on [employer] analyzer using direct chemiluminescent technology. Performed By: #### D JACQUELIN #### [address] Sensitivity Troponin I <3 Normal 0-54 [facility] Comment on above: Result Comment: High Sensitive Troponin I Reference Ranges: Female: 0-34 ng/L Male: 0-54 ng/L Testing performed on [employer] analyzer using direct chemiluminescent technology. Performed By: #### C VFLURV #### [address] [address] .Auto Diffon 11-29-2023 Basophil, Absolute 0.0 10 3/mcL Normal 0.0-0.3 [facility] Comment on above: Performed By: #### T ROPHS, GFR, BMP, MDW, CBC, ADIFF, ANEU #### [address] [address] Basophils/100 WBC (Bld) 0.3 % Normal 0.0-2.5 [facility] Comment on above: Performed By: #### T ROPHS, GFR, BMP, MDW, CBC, ADIFF, ANEU #### [address] [address] Eosinophil, Absolute 0.0 10 3/mcL Normal 0.0-0.7 [facility] Comment on above: Performed By: #### T ROPHS, GFR, BMP, MDW, CBC, ADIFF, ANEU #### [address] [address] Eosinophils/100 WBC (Bld) 0.1 % Normal 0.0-6.0 [facility] Comment on above: Performed By: #### T ROPHS, GFR, BMP, MDW, CBC, ADIFF, ANEU #### [address] [address] Lymphocyte, Absolute 1.0 10 3/mcL Normal 0.9-4.3 [facility] Comment on above: Performed By: #### T ROPHS, GFR, BMP, MDW, CBC, ADIFF, ANEU #### [address] [address] Lymphocytes/100 WBC (Bld) 14.5 % Low 20.0-40.0 [facility] Comment on above: Performed By: #### T ROPHS, GFR, BMP, MDW, CBC, ADIFF, ANEU #### [place] [id number] [place] [address] Monocyte, Absolute 0.4 10 3/mcL Normal 0.1-1.4 [facility] Comment on above: Performed By: #### T ROPHS, GFR, BMP, MDW, CBC, ADIFF, ANEU #### [address] [address] Monocytes/100 WBC (Bld) 5.5 % Normal 2.0-13.0 [facility] Comment on above: Performed By: #### T ROPHS, GFR, BMP, MDW, CBC, ADIFF, ANEU #### [address] [address] Neutrophils/100 WBC (Bld) 79.6 % High 50.0-75.0 [facility] Comment on above: Performed By: #### T ROPHS, GFR, BMP, MDW, CBC, ADIFF, ANEU #### [address] [address] .GFRon 11-29-2023 GFR Non- >60 Normal [facility] Comment on above: Result Comment: GFR Population mean for , Non- Americans Ages 20-29 = 116 mL/min/1.73 sq.m. Ages 30-39 = 107 mL/min/1.73 sq.m. Ages 40-49 = 99 mL/min/1.73 sq.m. Ages 50-59 = 93 mL/min/1.73 sq.m. Ages 60-69 = 85 mL/min/1.73 sq.m. Ages 70+ = 75 mL/min/1.73 sq.m. Chronic Kidney Disease: Less than 60 mL/min/1.73 square meters End Stage Renal Disease: Less than 15 mL/min/1.73 square meters Performed By: #### T ROPHS, GFR, BMP, MDW, CBC, ADIFF, ANEU #### [address] [address] GFR >60 Normal [facility] Comment on above: Result Comment: GFR Population mean for , Non- Americans Ages 20-29 = 116 mL/min/1.73 sq.m. Ages 30-39 = 107 mL/min/1.73 sq.m. Ages 40-49 = 99 mL/min/1.73 sq.m. Ages 50-59 = 93 mL/min/1.73 sq.m. Ages 60-69 = 85 mL/min/1.73 sq.m. Ages 70+ = 75 mL/min/1.73 sq.m. Chronic Kidney Disease: Less than 60 mL/min/1.73 square meters End Stage Renal Disease: Less than 15 mL/min/1.73 square meters Performed By: #### T MALLORYHS, GFR, BMP, MDW, CBC, ADIFF, ANEU #### [place] [id number] .MDWon 11-29-2023 Monocyte Distribution Width 16.65 Normal 0.00-20.00 [facility] Comment on above: Result Comment: For ED adult patients suspected of sepsis, MDW<=20.0 does not rule out sepsis or risk of sepsis Performed By: #### C VFLURV #### [place] [address] .NEUABSon 11-29-2023 Neutrophil, Absolute 5.4 10 3/mcL Normal 2.3-8.1 [facility] Comment on above: Performed By: #### T JOVAN, GFR, BMP, MDW, CBC, ADIFF, ANEU #### [place] [address] BMPon 11-29-2023 BUN/Creatinine Ratio Unable to Calculate Normal 10.0-2 2.0 [facility] Comment on above: Result Comment: Unab le to calculate this test result accurately. Results used to calculate this test are outside the reportable range. Performed By: #### T JOVAN, GFR, BMP, MDW, CBC, ADIFF, ANEU #### [place] [address] Urea nitrogen [Mass/Vol] mg/dL Low 8.0-22.0 [facility] Comment on above: Performed By: #### T JOVAN, GFR, BMP, MDW, CBC, ADIFF, ANEU #### [address] [address] Calcium [Mass/Vol] 9.6 mg/dL Normal 8.7-10.4 [facility] Comment on above: Performed By: #### T JOVAN, GFR, BMP, MDW, CBC, ADIFF, ANEU #### [address] [address] Chloride [Moles/Vol] 108 mmol/L Normal 98-110 [facility] Comment on above: Performed By: #### T ROPHS, GFR, BMP, MDW, CBC, ADIFF, ANEU #### [address] [address] CO2 [Moles/Vol] 26 mmol/L Normal 22-32 [facility] Comment on above: Performed By: #### T JOVAN, GFR, BMP, MDW, CBC, ADIFF, ANEU #### [address] [address] Creatinine [Mass/Vol] 0.71 mg/dL Normal 0.60-1.40 [facility] Comment on above: Result Comment: Test ing performed on [employer] analyzer using enzymatic creatinine methodology. Performed By: #### T JOVAN, GFR, BMP, MDW, CBC, ADIFF, ANEU #### [address] [address] Electrolyte Balance 6.0 mEq/L Normal 4.0-15.0 [facility] Comment on above: Performed By: #### T JOVAN, GFR, BMP, MDW, CBC, ADIFF, ANEU #### [address] [address] Glucose [Mass/Vol] 115 mg/dL High 70-110 [facility] Comment on above: Performed By: #### T JOVAN, GFR, BMP, MDW, CBC, ADIFF, ANEU #### [address] [address] Potassium [Moles/Vol] 2.8 mmol/L Low 3.5-5.0 [facility] Comment on above: Performed By: #### T MALLORYHS, GFR, BMP, MDW, CBC, ADIFF, ANEU #### [place] [address] Sodium [Moles/Vol] 140 mmol/L Normal 136-145 [facility] Comment on above: Performed By: #### T ROPHS, GFR, BMP, MDW, CBC, ADIFF, ANEU #### [place] [id number] CBCon 11-29-2023 Erythrocyte distribution width (RBC) [Ratio] 13.0 % Normal 11.5-15.5 [facility] Comment on above: Performed By: #### T ROPHS, GFR, BMP, MDW, CBC, ADIFF, ANEU #### [place] [address] Hematocrit (Bld) [Volume fraction] 44.3 % Normal 40.0-52.0 [facility] Comment on above: Performed By: #### T ROPHS, GFR, BMP, MDW, CBC, ADIFF, ANEU #### [place] [address] Hgb 16.0 G/dL Normal 13.0-17.5 [facility] Comment on above: Performed By: #### T ROPHS, GFR, BMP, MDW, CBC, ADIFF, ANEU #### [place] [address] MCH (RBC) [Entitic mass] 31.4 pg Normal 27.0-33.0 [facility] Comment on above: Performed By: #### T ROPHS, GFR, BMP, MDW, CBC, ADIFF, ANEU #### [place] [address] MCHC 36.1 G/dL High 32.0-36.0 [facility] Comment on above: Performed By: #### T ROPHS, GFR, BMP, MDW, CBC, ADIFF, ANEU #### [place] [address] MCV (RBC) [Entitic vol] 87.0 fL Normal 81.0-100.0 [facility] Comment on above: Performed By: #### T ROPHS, GFR, BMP, MDW, CBC, ADIFF, ANEU #### [address] [address] Platelet 239 10 3/mcL Normal 150-450 [facility] Comment on above: Performed By: #### T JOVAN, GFR, BMP, MDW, CBC, ADIFF, ANEU #### [facility] [address] [place] [address] Platelet mean volume (Bld) [Entitic vol] 7.3 fL Normal 6.4-10.5 [facility] Comment on above: Performed By: #### T JOVAN, GFR, BMP, MDW, CBC, ADIFF, ANEU #### [place] [address] RBC 5.09 10 6/mcL Normal 4.50-6.00 [facility] Comment on above: Performed By: #### T JOVAN, GFR, BMP, MDW, CBC, ADIFF, ANEU #### [place] [id number] WBC 6.8 10 3/mcL Normal 4.5-10.8 [facility] Comment on above: Performed By: #### T JOVAN, GFR, BMP, MDW, CBC, ADIFF, ANEU #### [place] [address] LABORATORYOrdered By: SYSTEM SYSTEM on 11-29-2023 Troponin I.cardiac DL <= 0.01 ng/mL [Mass/Vol] 6 ng/L Normal 0 - 54 ng/L ADM SS Comment on above: Interpretive Data: High Sensitive Troponin I Reference Ranges: Female: 0-34 ng/L Male: 0-54 ng/L Testing performed on [employer] analyzer using direct chemiluminescent technology. Basophils (Bld) [#/Vol] 0.0 103/mcL Normal 0.0 - 0.3 10^3/mcL AH Workflow SS Basophils/100 WBC (Bld) 0.3 % Normal 0.0 - 2.5 % Workflow SS Calcium [Mass/Vol] 9.6 mg/dL Normal 8.7 - 10. 4 mg/dL ADM SS Chloride [Moles/Vol] 108 mmol/L Normal 98 - 110 mEq/L ADM SS CO2 [Moles/Vol] 26 mmol/L Normal 22 - 32 mEq/L ADM SS Creatinine [Mass/Vol] 0.71 mg/dL Normal 0.60 - 1.40 mg/dL ADM SS Comment on above: Interpretive Data: T esting performed on [employer] analyzer using enzymatic creatinine methodology. Electrolyte Balance 6.0 mEq/L Normal 4.0 - 15 .0 mEq/L ADM SS Eosinophils (Bld) [#/Vol] 0.0 103/mcL Normal 0.0 - 0.7 10^3/mcL Workflow SS Eosinophils/100 WBC (Bld) 0.1 % Normal 0.0 - 6.0 % Workflow SS Erythrocyte distribution width (RBC) [Ratio] 13.0 % Normal 11.5 - 15.5 % Workflow SS GFR/1.73 sq M.predicted among blacks MDRD (S/P/Bld) [Vol rate/Area] ml/min/1.73sqm Invalid Interpretation Code ADM SS Comment on above: Interpretive Data: GFR Population mean for , Non- Americans Ages 20-29 = 116 mL/min/1.73 sq.m. Ages 30-39 = 107 mL/min/1.73 sq.m. Ages 40-49 = 99 mL/min/1.73 sq.m. Ages 50-59 = 93 mL/min/1.73 sq.m. Ages 60-69 = 85 mL/min/1.73 sq.m. Ages 70+ = 75 mL/min/1.73 sq.m. Chronic Kidney Disease: Less than 60 mL/min/1.73 square meters End Stage Renal Disease: Less than 15 mL/min/1.73 square meters GFR/1.73 sq M.predicted among non-blacks MDRD (S/P/Bld) [Vol rate/Area] ml/min/1.73sqm Invalid Interpretation Code ADM SS Comment on above: Interpretive Data: GFR Population mean for , Non- Americans Ages 20-29 = 116 mL/min/1.73 sq.m. Ages 30-39 = 107 mL/min/1.73 sq.m. Ages 40-49 = 99 mL/min/1.73 sq.m. Ages 50-59 = 93 mL/min/1.73 sq.m. Ages 60-69 = 85 mL/min/1.73 sq.m. Ages 70+ = 75 mL/min/1.73 sq.m. Chronic Kidney Disease: Less than 60 mL/min/1.73 square meters End Stage Renal Disease: Less than 15 mL/min/1.73 square meters Glucose [Mass/Vol] 115 mg/dL High 70 - 110 mg/dL ADM SS Hematocrit (Bld) [Volume fraction] 44.3 % Normal 40.0 - 52.0 % AH Workflow SS Hemoglobin (Bld) [Mass/Vol] 16.0 G/dL Normal 13.0 - 17.5 G/dL AH Workflow SS Lymphocytes (Bld) [#/Vol] 1.0 103/mcL Normal 0.9 - 4.3 10^3/mcL AH Workflow SS Lymphocytes/100 WBC (Bld) 14.5 % Low 20.0 - 40.0 % AH Workflow SS MCH (RBC) [Entitic mass] 31.4 pg Normal 27.0 - 33.0 pg AH Workflow SS MCHC 36.1 G/dL High 32.0 - 36.0 G/dL AH Workflow SS MCV (RBC) [Entitic vol] 87.0 fL Normal 81.0 - 100.0 fL AH Workflow SS Monocyte distribution width Auto (Bld) [Entitic vol] 16.65 1 Normal 0.00 - 20.00 AH Workflow SS Comment on above: Result Comment: For ED adult patients suspected of sepsis, MDW<=20.0 does not rule out sepsis or risk of sepsis Monocytes (Bld) [#/Vol] 0.4 103/mcL Normal 0.1 - 1.4 10^3/mcL AH Workflow SS Monocytes/100 WBC (Bld) 5.5 % Normal 2.0 - 13.0 % AH Workflow SS Neutrophils (Bld) [#/Vol] 5.4 103/mcL Normal 2.3 - 8.1 10^3/mcL AH Workflow SS Neutrophils/100 WBC (Bld) 79.6 % High 50.0 - 75.0 % AH Workflow SS Platelet mean volume (Bld) [Entitic vol] 7.3 fL Normal 6.4 - 10.5 fL AH Workflow SS Platelets (Bld) [#/Vol] 239 103/mcL Normal 150 - 450 10^3/mcL AH Workflow SS Potassium [Moles/Vol] 2.8 mmol/L Low 3.5 - 5.0 mEq/L AH ADM SS RBC (Bld) [#/Vol] 5.09 106/mcL Normal 4.50 - 6.0 0 10^6/mcL Workflow SS Sodium [Moles/Vol] 140 mmol/L Normal 136 - 145 mEq/L ADM Troponin I.cardiac DL <= 0.01 ng/mL [Mass/Vol] 4 ng/L Normal 0 - 54 ng/L ADM Comment on above: Interpretive Data: High Sensitive Troponin I Reference Ranges: Female: 0-34 ng/L Male: 0-54 ng/L Testing performed on [employer] IM analyzer using direct chemiluminescent technology. WBC (Bld) [#/Vol] 6.8 103/mcL Normal 4.5 - 10.8 10^3/mcL Workflow SS LABORATORYOrdered By: Jameson Reina on 11-29-2023 Urea nitrogen [Mass/Vol] mg/dL Low 8.0 - 22.0 mg/dL ADM Urea nitrogen/Creatinine [Mass ratio] Unable to Calculate Invalid Interpretation Code 10.0 - 22.0 [facility] Comment on above: Result Comment: Unab le to calculate this test result accurately. Results used to calculate this test are outside the reportable range. [facility] 11-29-2023 High Sensitivity Troponin I 6 ng/L Normal 0-54 [facility] Comment on above: Result Comment: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 Neutrophils (Bld) [#/Vol] 4.44 10*3/uL Normal 1.45-7.50 [facility] Comment on above: Order Comment: Speci men Type: BLOOD SPECIMENOrdering Facility: [facility] Address: [address] [place] [address] Performed By: #### 5 7021-8 ####[facility] [id number] [place] [address] [place] Neutrophils/100 WBC (Bld) 58.2 % Normal [facility] Comment on above: Order Comment: Speci men Type: BLOOD SPECIMENOrdering Facility: [facility] Address: [address] [place] [address] Performed By: #### 5 7021-8 ####[facility] [id number] [place] [address] [place] Nucleated RBC (Bld) [#/Vol] 10*3/uL Normal <0.01 [facility] Comment on above: Order Comment: Speci men Type: BLOOD SPECIMENOrdering Facility: [facility] Address: [address] [place] [address] Performed By: #### 5 7021-8 ####[facility] [id number] [place] [address] [place] Nucleated RBC/100 WBC (Bld) [Ratio] 0.0 /100 WBC Normal [facility] Comment on above: Order Comment: Speci men Type: BLOOD SPECIMENOrdering Facility: [facility] Address: [address] [place] [address] Performed By: #### 5 7021-8 ####[facility] [id number] [place] [address] [place] Platelet mean volume (Bld) [Entitic vol] 9.1 fL Normal 9.0-12.7 [facility] Comment on above: Order Comment: Speci men Type: BLOOD SPECIMENOrdering Facility: [facility] Address: [address] [place], [place] [address] Performed By: #### 5 7021-8 ####[facility] LABIA [id number] [place] [address] [facility] Platelets (Bld) [#/Vol] 238 10*3/uL Normal 150-400 [facility] Comment on above: Order Comment: Speci men Type: BLOOD SPECIMENOrdering Facility: [facility] Address: [address] [place] [address] Performed By: #### 5 7021-8 ####[facility] [id number] [place] [address] [facility] [place] RBC (Bld) [#/Vol] 4.86 10*6/uL Normal 4.20-6.00 [facility] Comment on above: Order Comment: Speci men Type: BLOOD SPECIMENOrdering Facility: [facility] Address: [address] [place] [address] Performed By: #### 5 7021-8 ####[facility] [id number] [place] [address] [place] WBC (Bld) [#/Vol] 7.62 10*3/uL Normal 3.70-11.00 [facility] Comment on above: Order Comment: Speci men Type: BLOOD SPECIMENOrdering Facility: [facility] Address: [address] [place] [address] Performed By: #### 5 7021-8 ####[facility] [id number] [place] [address] [facility] [place] [facility] BRAIN WO IVCONon 06-22-[address] BRAIN WO IVCON * * *Final Report* * * DATE OF EXAM: Jun 22 2023 1:28AM [facility] 0504 - CT BRAIN WO IVCON / PROCEDURE REASON: Numbness or tingling, paresthesia (Ped 0-18y) * * * * Physician Interpretation * * * * EXAMINATION: CT BRAIN WO IVCON CLINICAL HISTORY: Numbness or tingling, paresthesia TECHNIQUE: CT data of the head was obtained without contrast. COMPARISON: 10/28/2018 RESULT: Acute change/hemorrhage: No evidence of large territory acute infarction or acute intracranial hemorrhage. Parenchyma: No definite areas of abnormal attenuation within the brain parenchyma. Ventricles/Extra-axi al spaces: The ventricles are within normal limits of size and configuration for age. No evidence of extra-axial mass lesion or fluid collection. Mass effect: No significant mass effect. Other: The calvarium is intact. The visualized portions of the paranasal sinuses and mastoid air cells are clear. No acute abnormality of the visualized orbits. IMPRESSION: No evidence of an acute intracranial process. Ep Specialist: PSCB Transcribe Date/Time: Jun 22 2023 1:32A Dictated by : CHAPARRO XIAO MD This examination was interpreted and the report reviewed and electronically signed by: CHAPARRO XIAO MD on Jun 22 2023 1:35AM EST [id number] Normal [facility] Comprehensive metabolic 2000 panelon 06-22-2023 Albumin [Mass/Vol] 4.2 g/dL Normal 3.9-4.9 [facility] Comment on above: Order Comment: Speci norah Type: BLOOD SPECIMEN [facility] Address: [address] [place] [address] Performed By: #### 1 9123-9, [id number], 65810-8 #### [facility] CLIA [id number] [address] [place] [address] [place] ALP [Catalytic activity/Vol] 52 U/L Normal 38-113 [facility] Comment on above: Order Comment: Speci norah Type: BLOOD SPECIMEN [facility]: [facility] Address: [address] [place] [address] Performed By: #### 1 9123-9, [id number], 14001-6 #### [facility] CLIA [id number] [address] [place] [address] [place] ALT [Catalytic activity/Vol] 25 U/L Normal 10-54 [facility] Comment on above: Order Comment: Dalyi norah Type: BLOOD SPECIMEN [facility]: [facility] Address: [address] [place] [address] Performed By: #### 1 9123-9, [id number], 58199-1 #### [facility] CLIA [id number] [address] [place] [address] [place] Anion gap [Moles/Vol] 11 mmol/L Normal 9-18 [facility] Comment on above: Order Comment: Speci men Type: BLOOD SPECIMEN [facility]: [facility] Address: [address] [place] [address] Performed By: #### 1 9123-9, [id number], 14165-3 #### [facility] CLIA [id number] [address] [place] [address] [place] AST [Catalytic activity/Vol] 19 U/L Normal 14-40 [facility] Comment on above: Order Comment: Speci men Type: BLOOD SPECIMEN [facility] Address: [address] [place] [address] Performed By: #### 1 9123-9, [id number], #### [facility] CLIA [id number] [address] [place] [address] [place] Bilirubin [Mass/Vol] 0.2 mg/dL Normal 0.2-1.3 [facility] Comment on above: Order Comment: Speci men Type: BLOOD SPECIMEN [facility] Address: [address] [place] [address] Performed By: #### 1 9123-9, [id number], #### [facility] [facility] CLIA [id number] [address] [place] [address] [place] Calcium [Mass/Vol] 9.4 mg/dL Normal 8.5-10.2 [facility] Comment on above: Order Comment: Speci men Type: BLOOD SPECIMEN Ordering Facility: [facility] Address: [address] [place] [address] Performed By: #### 1 9123-9, [id number], 35752-9 #### [facility] CLIA [id number] [address] [place] [address] [place] Chloride [Moles/Vol] 101 mmol/L Normal 97-105 [facility] Comment on above: Order Comment: Speci men Type: BLOOD SPECIMEN Ordering Facility: [facility] Address: [address] [place] [address] Performed By: #### 1 9123-9, [id number], #### [facility] CLIA [id number] [address] [place] [address] [place] CO2 [Moles/Vol] 26 mmol/L Normal 22-30 [facility] Comment on above: Order Comment: Speci men Type: BLOOD SPECIMEN Ordering Facility: [facility] Address: [address] [place] [address] Performed By: #### 1 9123-9, [id number], #### [facility] CLIA [id number] [address] [place] [address] [place] Creatinine [Mass/Vol] 0.75 mg/dL Normal 0.73-1.22 [facility] Comment on above: Order Comment: Speci men Type: BLOOD SPECIMEN Ordering Facility: [facility] Address: [address] [place] [address] Performed By: #### 1 9123-9, [id number], #### [facility] CLIA [id number] [address] [place] [address] [place] Creatinine and Glomerular filtration rate.predicted panel (S/P/Bld) 127 mL/min/1.73m??? Normal >=60 [facility] Comment on above: Order Comment: Speci men Type: BLOOD SPECIMEN Ordering Facility: [facility] Address: [address] [place] [address] Result Comment: Yolanda mated Glomerular Filtration Rate (eGFR) is calculated using the 2020 CKD-EPI creatinine equation. This equation utilizes serum creatinine, sex, and age as parameters. The creatinine assay has traceable calibration to isotope dilution-mass spectrometry. Refer to KDIGO guidelines for clinical interpretation. In patients with unstable renal function, e.g. those with acute kidney injury, the eGFR may not accurately reflect actual GFR. Performed By: #### 1 9123-9, [id number], 98618-4 #### [facility] CLIA [id number] [address] [place] [address] [place] Glucose [Mass/Vol] 107 mg/dL High 74-99 [facility] Comment on above: Order Comment: Ashely almazan Type: BLOOD SPECIMEN Ordering Facility: [facility] Address: [address] [place] [address] Result Comment: The [place] Diabetes Association (ADA) provides guidance for cutoff values for fasting glucose and random glucose. The ADA defines fasting as no caloric intake for at least 8 hours. Fasting plasma glucose results between 100 to 125 mg/dL indicate increased risk for diabetes (prediabetes). Fasting plasma glucose results greater than or equal to 126 mg/dL meet the criteria for diagnosis of diabetes. In the absence of unequivocal hyperglycemia, results should be confirmed by repeat testing. In a patient with classic symptoms of hyperglycemia or hyperglycemic crisis, random plasma glucose results greater than or equal to 200 mg/dL meet the criteria for diagnosis of diabetes. Reference: Standards of Medical Care in Diabetes 2016, [place] Diabetes Association. Diabetes Care. 2016.39(Suppl 1). Performed By: #### 1 9123-9, [id number], #### [facility] CLIA [id number] [address] [place] [address] [place] Potassium [Moles/Vol] 3.4 mmol/L Low 3.7-5.1 [facility] Comment on above: Order Comment: Ashely almazan Type: BLOOD SPECIMEN Ordering Facility: [facility] Address: [address] [place] [address] Performed By: #### 1 9123-9, [id number], 08100-6 #### [facility] CLIA [id number] [address] [place], [place] [address] [place] Protein [Mass/Vol] 6.4 g/dL Normal 6.3-8.0 [facility] Comment on above: Order Comment: Ashely almazan Type: BLOOD SPECIMEN Ordering Facility: [facility] Address: [address] [place] [address] Performed By: #### 1 9123-9, [id number], 49979-2 #### [facility] CLIA [id number] [address] [place] [address] [place] Sodium [Moles/Vol] 138 mmol/L Normal 136-144 [facility] Comment on above: Order Comment: Speci men Type: BLOOD SPECIMEN Ordering Facility: [facility] Address: [address] [place] [address] Performed By: #### 1 9123-9, [id number], 25630-0 #### [facility] CLIA [id number] [address] [place] [address] [place] Urea nitrogen [Mass/Vol] 10 mg/dL Normal 9-24 [facility] Comment on above: Order Comment: Speci men Type: BLOOD SPECIMEN Ordering Facility: [facility] Address: [address] [place] [address] Performed By: #### 1 9123-9, [id number], 30937-3 #### [facility] CLIA [id number] [address] [place] [address] [place] ECG COMPLETEon 06-22-2023 ECG COMPLETE Ventricular Rate : 65 BPM Atrial Rate : 65 BPM P-R Interval : 124 ms QRS Duration : 88 ms Q-T Interval : 392 ms QTC Calculation(Bazett) : 407 ms Calculated P Albert : 40 degrees Calculated R Albert : 84 degrees Calculated T Albert : 68 degrees Normal sinus rhythm with sinus arrhythmia Normal ECG When compared with ECG of 01-Nov-2019 16:38, MANUAL COMPARISON REQUIRED PREVIOUS ECG IS INCOMPATIBLE Confirmed by LENA COLON MD ([id number]) on 06/24/2023 6:47:47 PM NAME : IMMANUEL NEUMANN PID : [id number] : 1995 Gender : Male Race : ORD : [id number] Procedure Date : Jun 22 2023 01:07:52 Edit Date : Jun 24 2023 18:47:48 Diagnosis: Normal sinus rhythm with sinus arrhythmia Normal ECG When compared with ECG of 01-Nov-2019 16:38, MANUAL COMPARISON REQUIRED PREVIOUS ECG IS INCOMPATIBLE Confirmed by LENA COLON MD ([id number]) on 06/24/2023 6:47:47 PM Test Reason : chest pain Location : 3 : ED ED Overread By : LENA COLON MD Edited By : LENA COLON MD Referred By : , Acquired by : bernarda, [facility] ED NOTEon 06-22-2023 ED NOTE HNO ID: [id number] Author: NEHAL NOYOAL RN Service: Nursing Author Type: Registered Nurse Type: ED Notes Filed: 06/22/2023 03:01 Note Text: Report received from KARIME Tinoco [facility] ED NOTE HNO ID: [id number] Author: IRINA HU RN Service: Nursing Author Type: Registered Nurse Type: ED Notes Filed: 06/22/2023 01:13 Note Text: PT ARRIVED TO ED ROOM 4 FROM TRIAGE. PER PT HE HAS BEEN HAVING CP THAT STARTED AT 2200 AND HAS GOTTEN WORSE. PT STATES THE PAIN IS LOCATED IN MIDDLE OF HIS CHEST. PT STATES THE PAIN IS A BURNING AND STABBING PAIN. PT STATES HE IS GOING TO CARDIOLOGY LATER THIS MONTH FOR ABNORMAL EKG. PT STATES HE DOES HAVE NUMBNESS/TINGLING LEFT SIDE/ARM. PT AXO X4. RESP EVEN AND UNLABORED ON RA, LUNG SOUNDS CLEAR IN ALL LOBES, HEART SOUNDS S1,S2. VITAL SIGNS OBTAINED, ORGANISATIONAL PSYCHOLOGIST APPLIED. CALL LIGHT WITHIN REACH. [facility] ED PROV NOTEon 06-22-2023 ED PROV NOTE HNO ID: [id number] Author: IMMANUEL FLORES MD Service: ? Author Type: Physician Type: ED Provider Notes Filed: 06/22/2023 03:02 Note Text: ED Provider Note Patient Name: Immanuel Neumann : 1995 SERVICE DATE: 06/22/23 History Patient presents with: Chest Pain This is a 27-year-old male who presents with multiple complaints. Patient does have a history of anxiety. Patient complains of dull chest pain for the last 2 to 3 hours. He also complains of numbness of the left arm leg and face. He also complains of pain in the right forearm and hand. He does complain of some shortness of breath. No history of diabetes hypertension hyperlipidemia. PAST MEDICAL HISTORY Diagnosis Date - Anxiety - Psychiatric disorder ADD, Bipolar, PTSD, anxiety No past surgical history on file. No family history on file. Social History Tobacco Use - Smoking status: Every Day Packs/day: 1.50 Years: 15.00 Additional pack years: 0.00 Total pack years: 22.50 Types: Cigarettes Passive exposure: Current - Smokeless tobacco: Never Vaping Use - Vaping Use: Never used Substance and Sexual Activity - Alcohol use: Not Currently Comment: 09-07 cans - Drug use: Yes Types: Crack Cocaine, Amphetamines, Heroin, Crystal Meth, Marijuana Comment: only robinson at this - Sexual activity: Yes ALLERGIES No Known Allergies Review of Systems Physical Exam Vitals [06/22/23 0058] BP Pulse Temp Temp src Resp SpO2 Weight Height 120/72 70 36.2 ?C (97.1 ?F) Oral 18 96 % 68.7 kg (151 lb 7.3 oz) 1.905 m (6' 3) Physical Exam Vitals reviewed. HENT: Head: Normocephalic. Mouth/Throat: Mouth: Mucous membranes are moist. Eyes: Extraocular Movements: Extraocular movements intact. Cardiovascular: Rate and Rhythm: Normal rate and regular rhythm. Comments: Easily palpable and symmetric radial pulses Pulmonary: Effort: Pulmonary effort is normal. Breath sounds: Normal breath sounds. Abdominal: General: There is no distension. Palpations: Abdomen is soft. Tenderness: There is no abdominal tenderness. Skin: General: Skin is warm and dry. Neurological: Mental Status: He is alert. Comments: Alert, oriented, NIH stroke scale 0, no focal or lateralizing neurological deficits, normal strength, normal sensation Psychiatric: Comments: anxious Diagnostic Testing ED Labs Ordered and Reviewed - No data to display Procedures ED Course / Clinical Impression Clinical Impressions as of 06/22/23 0303 Chest pain, unspecified type Paresthesias MDM / Disposition / Plan EKG shows normal sinus rhythm at a rate of 65. Chemistries are unremarkable, negative troponins x 2. Normal CBC. Chest x-ray shows no acute process CT of the brain shows no acute process. I suspect patient's symptoms are most likely related to anxiety. He has no evidence of acute coronary syndrome or stroke. Patient discharged. SIGNATURE: Immanuel Flores MD - IMMANUEL FLORES 06/22/23 0302 Normal [facility] HIGH SENSITIVITY TROPONIN T (INITIAL)on 06-22-2023 Troponin T.cardiac High sensitivity method [Mass/Vol] <6 Normal <12 [facility] Comment on above: Order Comment: Speci men Type: BLOOD SPECIMENOrdering Facility: [facility] Address: [address] [place] [address] Result Comment: When assessing risk for acute coronary syndromes: In patients undergoing blood draw greater than or equal to 2 hours from symptom onset, with history of very low to moderate risk and non-ischemic ECG, an initial hs-Troponin T less than 12 ng/L AND a 1 hour delta hs-Troponin T less than 3 ng/L should be considered very low risk for 30 day MACE. Performed By: #### 1 9123-9, [id number], 61040-3 ####[facility] [id number] [place] [address] [place] HIGH SENSITIVITY TROPONIN T (SECOND)on 06-22-2023 Troponin T.cardiac High sensitivity method [Mass/Vol] <6 Normal <12 [facility] Comment on above: Order Comment: Speci men Type: BLOOD SPECIMENOrdering Facility: [facility] Address: [address] [place] [address] Result Comment: When assessing risk for acute coronary syndromes: In patients undergoing blood draw greater than or equal to 2 hours from symptom onset, with history of very low to moderate risk and non-ischemic ECG, an initial hs-Troponin T less than 12 ng/L AND a 1 hour delta hs-Troponin T less than 3 ng/L should be considered very low risk for 30 day MACE. Performed By: #### L [id number] ####[facility] [id number] [place] [address] [place] Magnesium SerPl-mCncon 06-21 Magnesium [Mass/Vol] 1.9 mg/dL Normal 1.7-2.3 [facility] Comment on above: Order Comment: Speci men Type: BLOOD SPECIMENOrdering Facility: [facility] Address: [address] [place] [address] Performed By: #### 1 9123-9, [id number], 97993-1 ####[facility] [id number] [place] [address] [place] XR CHEST 2V FRONTAL/LATon XR CHEST 2V FRONTAL/LAT * * *Final Report* * * DATE OF EXAM: Jun 22 2023 1:33AM UDX [id number] - XR CHEST 2V FRONTAL/LAT / PROCEDURE REASON: Chest Pain * * * * Physician Interpretation * * * * EXAMINATION: CHEST RADIOGRAPH (2 VIEW FRONTAL and LATERAL) CLINICAL HISTORY: Chest Pain MQ: [id number]_6 EXAM DATE/TIME: 06/22/2023 1:33 AM COMPARISON: May 17, 2018 RESULT: Lines, tubes, and devices: None. Lungs and pleura: Mild non-specific pleural thickening in the apices. No consolidation, pleural effusion or pneumothorax. Cardiomediastinal silhouette: Normal cardiomediastinal silhouette. Bones and soft tissues: Unremarkable. IMPRESSION: No acute radiographic abnormality. Ep Specialist: PSCB Transcribe Date/Time: Jun 22 2023 1:37A Dictated by : KEANU JAQUEZ MD This examination was interpreted and the report reviewed and electronically signed by: KEANU JAQUEZ MD on Jun 22 2023 1:39AM EST [id number] [facility] .Auto Diffon 05-18-2023 Basophil, Absolute 0.0 10 3/mcL Normal 0.0-0.3 [facility] ([place]) Comment on above: Performed By: #### P RO, BMP, GFR, ANEU, MDW, CBC, ADIFF, TROPHS #### [address] [address] Basophils/100 WBC (Bld) 0.2 % Normal 0.0-2.5 [facility] ([place]) Comment on above: Performed By: #### P RO, BMP, GFR, ANEU, MDW, CBC, ADIFF, TROPHS #### [address] [address] Eosinophil, Absolute 0.0 10 3/mcL Normal 0.0-0.7 [facility] ([place]) Comment on above: Performed By: #### P RO, BMP, GFR, ANEU, MDW, CBC, ADIFF, TROPHS #### [address] [address] Eosinophils/100 WBC (Bld) 0.1 % Normal 0.0-6.0 [facility] ([place]) Comment on above: Performed By: #### P RO, BMP, GFR, ANEU, MDW, CBC, ADIFF, TROPHS #### [address] [address] Lymphocyte, Absolute 0.9 10 3/mcL Normal 0.9-4.3 [facility] ([place]) Comment on above: Performed By: #### P RO, BMP, GFR, ANEU, MDW, CBC, ADIFF, TROPHS #### [address] [address] Lymphocytes/100 WBC (Bld) 6.6 % Low 20.0-40.0 [facility] ([place]) Comment on above: Performed By: #### P RO, BMP, GFR, ANEU, MDW, CBC, ADIFF, TROPHS #### [address] [address] Monocyte, Absolute 0.7 10 3/mcL Normal 0.1-1.4 [facility] ([place]) Comment on above: Performed By: #### P RO, BMP, GFR, ANEU, MDW, CBC, ADIFF, TROPHS #### [address] [address] Monocytes/100 WBC (Bld) 5.5 % Normal 2.0-13.0 [facility] ([place]) Comment on above: Performed By: #### P RO, BMP, GFR, ANEU, MDW, CBC, ADIFF, TROPHS #### [address] [address] Neutrophils/100 WBC (Bld) 87.6 % High 50.0-75.0 [facility] ([place]) Comment on above: Performed By: #### P RO, BMP, GFR, ANEU, MDW, CBC, ADIFF, TROPHS #### [address] [address] .GFRon 05-18-2023 GFR >60 Normal [facility] ([place]) Comment on above: Result Comment: GFR Population mean for , Non- Americans Ages 20-29 = 116 mL/min/1.73 sq.m. Ages 30-39 = 107 mL/min/1.73 sq.m. Ages 40-49 = 99 mL/min/1.73 sq.m. Ages 50-59 = 93 mL/min/1.73 sq.m. Ages 60-69 = 85 mL/min/1.73 sq.m. Ages 70+ = 75 mL/min/1.73 sq.m. Chronic Kidney Disease: Less than 60 mL/min/1.73 square meters End Stage Renal Disease: Less than 15 mL/min/1.73 square meters Performed By: #### P RO, BMP, GFR, ANEU, MDW, CBC, ADIFF, TROPHS #### [address] [address] GFR Non- >60 Normal [facility] ([place]) Comment on above: Result Comment: GFR Population mean for , Non- Americans Ages 20-29 = 116 mL/min/1.73 sq.m. Ages 30-39 = 107 mL/min/1.73 sq.m. Ages 40-49 = 99 mL/min/1.73 sq.m. Ages 50-59 = 93 mL/min/1.73 sq.m. Ages 60-69 = 85 mL/min/1.73 sq.m. Ages 70+ = 75 mL/min/1.73 sq.m. Chronic Kidney Disease: Less than 60 mL/min/1.73 square meters End Stage Renal Disease: Less than 15 mL/min/1.73 square meters Performed By: #### P RO, BMP, GFR, ANEU, MDW, CBC, ADIFF, TROPHS #### [address] [address] .MDWon 05-18-2023 Monocyte Distribution Width 15.41 Normal 0.00-20.00 [facility] ([place]) Comment on above: Result Comment: For ED adult patients suspected of sepsis, MDW<=20.0 does not rule out sepsis or risk of sepsis Performed By: #### P RO, BMP, GFR, ANEU, MDW, CBC, ADIFF, TROPHS #### [address] [address] .NEUABSon 05-18-2023 Neutrophil, Absolute 11.4 10 3/mcL High 2.3-8.1 A [facility] ([place]) Comment on above: Performed By: #### P RO, BMP, GFR, ANEU, MDW, CBC, ADIFF, TROPHS #### [address] [address] APTTon 05-18-2023 aPTT Coag (Bld) [Time] 27.7 s Normal 25.0-35.0 [facility] ([place]) Comment on above: Result Comment: For Heparin anticoagulation therapy, the recommended therapeutic range is: 54-77 seconds (APTT Correlation with Anti-Xa therapeutic range of 0.3-0.7 units/ml). PLEASE REFERENCE THE PHARMACY PROTOCOL FOR DOSING. Performed By: #### P RO, BMP, GFR, ANEU, MDW, CBC, ADIFF, TROPHS #### [place] [id number] Heparin dose (APTT) None Normal [facility] ([place]) Comment on above: Performed By: #### P RO, BMP, GFR, ANEU, MDW, CBC, ADIFF, TROPHS #### [place] [id number] BMPon 05-18-2023 BUN/Creatinine Ratio 9.7 ratio Low 10.0-22.0 [facility] ([place]) Comment on above: Performed By: #### P RO, BMP, GFR, ANEU, MDW, CBC, ADIFF, TROPHS #### [place] [id number] Calcium [Mass/Vol] 10.1 mg/dL Normal 8.7-10.4 [facility] ([place]) Comment on above: Performed By: #### P RO, BMP, GFR, ANEU, MDW, CBC, ADIFF, TROPHS #### [place] [id number] Chloride [Moles/Vol] 109 mmol/L Normal 98-110 [facility] ([place]) Comment on above: Performed By: #### P RO, BMP, GFR, ANEU, MDW, CBC, ADIFF, TROPHS #### [place] [id number] CO2 [Moles/Vol] 24 mmol/L Normal 22-32 [facility] ([place]) Comment on above: Performed By: #### P RO, BMP, GFR, ANEU, MDW, CBC, ADIFF, TROPHS #### [address] [address] Creatinine [Mass/Vol] 0.72 mg/dL Normal 0.60-1.40 [facility] ([place]) Comment on above: Performed By: #### P RO, BMP, GFR, ANEU, MDW, CBC, ADIFF, TROPHS #### [address] [address] Electrolyte Balance 8.0 mEq/L Normal 4.0-15.0 [facility] ([place]) Comment on above: Performed By: #### P RO, BMP, GFR, ANEU, MDW, CBC, ADIFF, TROPHS #### [place] [id number] Glucose [Mass/Vol] 111 mg/dL High 70-110 [facility] ([place]) Comment on above: Performed By: #### P RO, BMP, GFR, ANEU, MDW, CBC, ADIFF, TROPHS #### [address] [address] Potassium [Moles/Vol] 3.2 mmol/L Low 3.5-5.0 [facility] ([place]) Comment on above: Result Comment: Spec imen slightly hemolyzed. Performed By: #### P RO, BMP, GFR, ANEU, MDW, CBC, ADIFF, TROPHS #### [place] [id number] Sodium [Moles/Vol] 141 mmol/L Normal 136-145 [facility] ([place]) Comment on above: Performed By: #### P RO, BMP, GFR, ANEU, MDW, CBC, ADIFF, TROPHS #### [address] [address] Urea nitrogen [Mass/Vol] 7.0 mg/dL Low 8.0-22.0 [facility] ([place]) Comment on above: Performed By: #### P RO, BMP, GFR, ANEU, MDW, CBC, ADIFF, TROPHS #### [place] [id number] CBCon 05-18-2023 Erythrocyte distribution width (RBC) [Ratio] 12.7 % Normal 11.5-15.5 [facility] ([place]) Comment on above: Performed By: #### P RO, BMP, GFR, ANEU, MDW, CBC, ADIFF, TROPHS #### [place] [id number] Hematocrit (Bld) [Volume fraction] 46.4 % Normal 40.0-52.0 [facility] ([place]) Comment on above: Performed By: #### P RO, BMP, GFR, ANEU, MDW, CBC, ADIFF, TROPHS #### [place] [address] Hgb 15.9 G/dL Normal 13.0-17.5 [facility] ([place]) Comment on above: Performed By: #### P RO, BMP, GFR, ANEU, MDW, CBC, ADIFF, TROPHS #### [place] [address] MCH (RBC) [Entitic mass] 29.8 pg Normal 27.0-33.0 [facility] ([place]) Comment on above: Performed By: #### P RO, BMP, GFR, ANEU, MDW, CBC, ADIFF, TROPHS #### [place] [id number] MCHC 34.2 G/dL Normal 32.0-36.0 [facility] ([place]) Comment on above: Performed By: #### P RO, BMP, GFR, ANEU, MDW, CBC, ADIFF, TROPHS #### [place] [id number] MCV (RBC) [Entitic vol] 87.1 fL Normal 81.0-100.0 [facility] ([place]) Comment on above: Performed By: #### P RO, BMP, GFR, ANEU, MDW, CBC, ADIFF, TROPHS #### [place] [id number] Platelet 242 10 3/mcL Normal 150-450 [facility] ([place]) Comment on above: Performed By: #### P RO, BMP, GFR, ANEU, MDW, CBC, ADIFF, TROPHS #### [place] [address] Platelet mean volume (Bld) [Entitic vol] 8.0 fL Normal 6.4-10.5 [facility] ([place]) Comment on above: Performed By: #### P RO, BMP, GFR, ANEU, MDW, CBC, ADIFF, TROPHS #### [place] [address] RBC 5.32 10 6/mcL Normal 4.50-6.00 [facility] ([place]) Comment on above: Performed By: #### P RO, BMP, GFR, ANEU, MDW, CBC, ADIFF, TROPHS #### [place] [address] WBC 13.0 10 3/mcL High 4.5-10.8 [facility] ([place]) Comment on above: Performed By: #### P RO, BMP, GFR, ANEU, MDW, CBC, ADIFF, TROPHS #### [place] [address] DRUGSon 05-18-2023 Acetaminophen [Mass/Vol] ug/mL Low 10.0-20.0 [facility] ([place]) Comment on above: Performed By: #### P RO, BMP, GFR, ANEU, MDW, CBC, ADIFF, TROPHS #### [place] [address] Ethanol Level <10.0 Normal [facility] ([place]) Comment on above: Performed By: #### P RO, BMP, GFR, ANEU, MDW, CBC, ADIFF, TROPHS #### [place] [address] Salicylate Lvl (ds) <3.0 Low 10.0-25.0 [facility] ([place]) Comment on above: Performed By: #### P RO, BMP, GFR, ANEU, MDW, CBC, ADIFF, TROPHS #### [place] [address] Serum Drugs screened: See Below Normal [facility] ([place]) Comment on above: Result Comment: This drug screen is a presumptive screening only. No confirmation will be performed unless requested. Drugs included in the ER serum drug screen are: Threshold Ethanol 10.0 mg/dL Salicylate 2.0 mg/dl Acetaminophen 2.0 mcg/mL Testing has been performed FOR MEDICAL PURPOSES ONLY. Performed By: #### P RO, BMP, GFR, ANEU, MDW, CBC, ADIFF, TROPHS #### [address] [address] LABORATORYOrdered By: Griselda Ryan on 05-18-2023 Acetaminophen [Mass/Vol] mcg/mL Low 10.0 - 20.0 mcg/mL AH ADM SS Ethanol [Mass/Vol] mg/dL Invalid Interpretation Code AH ADM SS Salicylates [Mass/Vol] mg/dL Low 10.0 - 25.0 mg/dL AH ADM SS Serum Drugs screened: See Below 7 (05/18/23 10:34 AM) Normal AH Chemistry S Comment on above: Interpretive Data: T his drug screen is a presumptive screening only. No confirmation will be performed unless requested. Drugs included in the ER serum drug screen are: Threshold Ethanol 10.0 mg/dL Salicylate 2.0 mg/dl Acetaminophen 2.0 mcg/mL Testing has been performed FOR MEDICAL PURPOSES ONLY. LABORATORYOrdered By: Stephani Smith on 05-18-2023 aPTT Coag (Bld) [Time] 27.7 s Normal 25.0 - 35.0 seconds [facility] Comment on above: Interpretive Data: F or Heparin anticoagulation therapy, the recommended therapeutic range is: 54-77 seconds (APTT Correlation with Anti-Xa therapeutic range of 0.3-0.7 units/ml). PLEASE REFERENCE THE PHARMACY PROTOCOL FOR DOSING. Heparin dose (APTT) None Normal AH Co agulation S PT Coag (PPP) [Time] 12.3 s Normal 9.0 - 1 4.2 seconds [facility] Comment on above: Interpretive Data: E ffective 09/29/07, Protime results may be affected by some antibiotics (i.e. Ciprofloxacin, Azithromycin, Bactrim) which may potentiate the action of oral anticoagulants, with further increases in Protime/INR. PT International Ratio 1.1 ratio Invalid Interpretation Code AH [facility] Comment on above: Interpretive Data: Shelly weaver [employer] (CHEST, 1991, 102:312S-25S) recommended therapeutic range for oral anticoagulant therapy is: LOW RISK: Prophylaxis of venous thrombosis INR: 2.0-3.0 Treatment of pulmonary embolism 2.0-3.0 Prevention of systemic embolism 2.0-3.0 HIGH RISK: Mechanical prosthetic valves 2.5-3.5 LABORATORYOrdered By: SYSTEM SYSTEM on 05-18-2023 Basophils (Bld) [#/Vol] 0.0 103/mcL Normal 0.0 - 0.3 10^3/mcL AH Workflow SS Basophils/100 WBC (Bld) 0.2 % Normal 0.0 - 2.5 % AH Workflow SS Calcium [Mass/Vol] 10.1 mg/dL Normal 8.7 - 10. 4 mg/dL AH ADM SS Chloride [Moles/Vol] 109 mmol/L Normal 98 - 110 mEq/L ADM SS CO2 [Moles/Vol] 24 mmol/L Normal 22 - 32 mEq/L AH ADM SS Creatinine [Mass/Vol] 0.72 mg/dL Normal 0.60 - 1.40 mg/dL AH ADM SS Electrolyte Balance 8.0 mEq/L Normal 4.0 - 15 .0 mEq/L AH ADM SS Eosinophils (Bld) [#/Vol] 0.0 103/mcL Normal 0.0 - 0.7 10^3/mcL AH Workflow SS Eosinophils/100 WBC (Bld) 0.1 % Normal 0.0 - 6.0 % AH Workflow SS Erythrocyte distribution width (RBC) [Ratio] 12.7 % Normal 11.5 - 15.5 % AH Workflow SS GFR/1.73 sq M.predicted among blacks MDRD (S/P/Bld) [Vol rate/Area] ml/min/1.73sqm Invalid Interpretation Code ADM SS Comment on above: Interpretive Data: GFR Population mean for , Non- Americans Ages 20-29 = 116 mL/min/1.73 sq.m. Ages 30-39 = 107 mL/min/1.73 sq.m. Ages 40-49 = 99 mL/min/1.73 sq.m. Ages 50-59 = 93 mL/min/1.73 sq.m. Ages 60-69 = 85 mL/min/1.73 sq.m. Ages 70+ = 75 mL/min/1.73 sq.m. Chronic Kidney Disease: Less than 60 mL/min/1.73 square meters End Stage Renal Disease: Less than 15 mL/min/1.73 square meters GFR/1.73 sq M.predicted among non-blacks MDRD (S/P/Bld) [Vol rate/Area] ml/min/1.73sqm Invalid Interpretation Code ADM Comment on above: Interpretive Data: GFR Population mean for , Non- Americans Ages 20-29 = 116 mL/min/1.73 sq.m. Ages 30-39 = 107 mL/min/1.73 sq.m. Ages 40-49 = 99 mL/min/1.73 sq.m. Ages 50-59 = 93 mL/min/1.73 sq.m. Ages 60-69 = 85 mL/min/1.73 sq.m. Ages 70+ = 75 mL/min/1.73 sq.m. Chronic Kidney Disease: Less than 60 mL/min/1.73 square meters End Stage Renal Disease: Less than 15 mL/min/1.73 square meters Glucose [Mass/Vol] 111 mg/dL High 70 - 110 mg/dL ADM SS Hematocrit (Bld) [Volume fraction] 46.4 % Normal 40.0 - 52.0 % AH Workflow SS Hemoglobin (Bld) [Mass/Vol] 15.9 G/dL Normal 13.0 - 17.5 G/dL AH Workflow SS Lymphocytes (Bld) [#/Vol] 0.9 103/mcL Normal 0.9 - 4.3 10^3/mcL AH Workflow SS Lymphocytes/100 WBC (Bld) 6.6 % Low 20.0 - 40.0 % AH Workflow SS MCH (RBC) [Entitic mass] 29.8 pg Normal 27.0 - 33.0 pg AH Workflow SS MCHC 34.2 G/dL Normal 32.0 - 36.0 G/dL AH Workflow SS MCV (RBC) [Entitic vol] 87.1 fL Normal 81.0 - 100.0 fL AH Workflow SS Monocyte distribution width Auto (Bld) [Entitic vol] 15.41 1 Normal 0.00 - 20.00 AH Workflow SS Comment on above: Result Comment: For ED adult patients suspected of sepsis, MDW<=20.0 does not rule out sepsis or risk of sepsis Monocytes (Bld) [#/Vol] 0.7 103/mcL Normal 0.1 - 1.4 10^3/mcL AH Workflow SS Monocytes/100 WBC (Bld) 5.5 % Normal 2.0 - 13.0 % AH Workflow SS Neutrophils (Bld) [#/Vol] 11.4 103/mcL High 2.3 - 8.1 10^3/mcL AH Workflow SS Neutrophils/100 WBC (Bld) 87.6 % High 50.0 - 75.0 % AH Workflow SS Platelet mean volume (Bld) [Entitic vol] 8.0 fL Normal 6.4 - 10.5 fL AH Workflow SS Platelets (Bld) [#/Vol] 242 103/mcL Normal 150 - 450 10^3/mcL AH Workflow SS Potassium [Moles/Vol] 3.2 mmol/L Low 3.5 - 5.0 mEq/L ADM SS Comment on above: Result Comment: Spec imen slightly hemolyzed. RBC (Bld) [#/Vol] 5.32 106/mcL Normal 4.50 - 6.0 0 10^6/mcL AH Workflow SS Sodium [Moles/Vol] 141 mmol/L Normal 136 - 145 mEq/L ADM SS Troponin I.cardiac DL <= 0.01 ng/mL [Mass/Vol] 7.00 ng/L Normal 0.00 - 54.00 ng/L ADM SS Urea nitrogen [Mass/Vol] 7.0 mg/dL Low 8.0 - 22.0 mg/dL ADM SS Urea nitrogen/Creatinine [Mass ratio] 9.7 ratio Low 10.0 - 22.0 ratio ADM SS WBC (Bld) [#/Vol] 13.0 103/mcL High 4.5 - 10.8 10^3/mcL Workflow SS PROon 05-18-2023 INR Coag (PPP) [Relative time] 1.1 {INR} Normal [facility] ([place]) Comment on above: Result Comment: The [employer] (CHEST, 1991, 102:312S-25S) recommended therapeutic range for oral anticoagulant therapy is: LOW RISK: Prophylaxis of venous thrombosis INR: 2.0-3.0 Treatment of pulmonary embolism 2.0-3.0 Prevention of systemic embolism 2.0-3.0 HIGH RISK: Mechanical prosthetic valves 2.5-3.5 Performed By: #### P RO, BMP, GFR, JAMIE, W, CBC, ADIFF, TROPHS #### [address] [address] PT Coag (PPP) [Time] 12.3 s Normal 9.0-14.2 [facility] ([place]) Comment on above: Result Comment: Effe ctive 09/29/07, Protime results may be affected by some antibiotics (i.e. Ciprofloxacin, Azithromycin, Bactrim) which may potentiate the action of oral anticoagulants, with further increases in Protime/INR. Performed By: #### P RO, BMP, GFR, JAMIE, MDW, CBC, ADIFF, TROPHS #### [place] [id number] TROPHSon 05-18-2023 Troponin I High Sensitivity 7.00 ng/L Normal 0.00-54.00 [facility] ([place]) Comment on above: Performed By: #### P RO, BMP, GFR, JAMIE, MDW, CBC, ADIFF, TROPHS #### [place] [id number] XR CHEST 1 VIEWon 05-18-2023 XR CHEST 1 VIEW ORIGINAL EXAMINATION: ONE XRAY VIEW OF THE CHEST 05/18/2023 10:22 am COMPARISON: Portable chest, 03/03/2023 HISTORY: ORDERING SYSTEM PROVIDED HISTORY: Reason for Exam: chest pain/SOB FINDINGS: The cardiomediastinal contours are stable. The lungs are clear bilaterally. There is no evidence of focal consolidation, pulmonary edema, pleural effusion or pneumothorax. IMPRESSION: Stable chest with no acute cardiopulmonary process. Interpreted by: Jaciel Gottlieb MD Preliminary Report By: Jaciel Gottlieb MD Electronically signed By Jaciel Gottlieb MD Dictated Date: 05/18/2023 10:23:42 AM Prelim Date: 05/18/2023 10:23:55 AM Sign Date: 05/18/2023 10:23:55 AM Ordering Provider: SAEID Paulson [facility] ([place]) CVFLURVon 03-03-2023 FLU A PCR Negative Normal Negative [facility] ([place]) Comment on above: Result Comment: [place] [id number] Performed By: #### P RO, BMP, GFR, JAMIE, MDW, CBC, ADIFF, TROPHS #### [place] [id number] [place] [address] FLU B PCR Negative Normal Negative [facility] ([place]) Comment on above: Result Comment: [place] [id number] Performed By: #### P RO, BMP, GFR, ANEU, MDW, CBC, ADIFF, TROPHS #### [facility] [address] [place] [address] RSV PCR Negative Normal Negative [facility] [place] Comment on above: Result Comment: [place] [id number] Performed By: #### P RO, BMP, GFR, ANEU, MDW, CBC, ADIFF, TROPHS #### [address] [address] SARS-CoV-2 (COVID-19) RNA DERICK+probe Ql (Unsp spec) Negative Normal Negative [facility] ([place]) Comment on above: Result Comment: [place] [id number] This test has been authorized by FDA under an EUA for use by authorized laboratories and has not been FDA cleared or approved. Results from the Xpert Xpress SARS-CoV-2/Flu/RSV or Xpert Xpress SARS-CoV-2 only test should be correlated with the clinical history, epidemiological data, and other data available to the clinician evaluating the patient. Performance of the Xpert Xpress SARS-CoV-2/Flu/RSV or Xpert Xpress SARS-CoV-2 only test has only been established in nasopharyngeal swab specimens. Erroneous test results might occur from improper specimen collection; failure to follow the recommended sample collection, handling, and storage procedures; technical error; or sample mix-up.False negative results may occur if virus is present at levels below the analytical limit of detection. Viral nucleic acid may persist in vivo, independent of virus viability. Detection of analyte target(s) does not imply that the corresponding virus(es) are infectious or are the causative agents for clinical symptoms.Recent patient exposure to FluMist or other live attenuated influenza vaccines may cause inaccurate positive results. Performed By: #### P RO, BMP, GFR, ANEU, MDW, CBC, ADIFF, TROPHS #### [facility] [address] [place] [address] LABORATORYOrdered By: Calista Villagomez on 03-03-2023 FLUAV RNA DERICK+probe Ql (Resp) Negative 3 (03/03/23 11:01 AM) Normal Negative AH Auto Viro/Sero SS Comment on above: Result Comment: [place] [id number] FLUBV RNA DERICK+probe Ql (Resp) Negative 4 (03/03/23 11:01 AM) Normal Negative AH Auto Viro/Sero SS Comment on above: Result Comment: Note s [id number] RSV PCR Negative 5 (03/03/23 11:01 AM) Normal Negative AH Auto Viro/Sero SS Comment on above: Result Comment: [place] s [id number] SARS-CoV-2 (COVID-19) RNA DERICK+probe Ql (Resp) Negative 1, 2 (03/03/23 11:01 AM) Normal Negative AH Auto Viro/Sero SS Comment on above: Result Comment: Note s [id number] Interpretive Data: T his test has been authorized by FDA under an EUA for use by authorized laboratories and has not been FDA cleared or approved. Results from the Xpert Xpress SARS-CoV-2/Flu/RSV or Xpert Xpress SARS-CoV-2 only test should be correlated with the clinical history, epidemiological data, and other data available to the clinician evaluating the patient. Performance of the Xpert Xpress SARS-CoV-2/Flu/RSV or Xpert Xpress SARS-CoV-2 only test has only been established in nasopharyngeal swab specimens. Erroneous test results might occur from improper specimen collection; failure to follow the recommended sample collection, handling, and storage procedures; technical error; or sample mix-up.False negative results may occur if virus is present at levels below the analytical limit of detection. Viral nucleic acid may persist in vivo, independent of virus viability. Detection of analyte target(s) does not imply that the corresponding virus(es) are infectious or are the causative agents for clinical symptoms.Recent patient exposure to FluMist or other live attenuated influenza vaccines may cause inaccurate positive results. XR CHEST 1 VIEWon 03-03-2023 XR CHEST 1 VIEW ORIGINAL EXAMINATION: ONE XRAY VIEW OF THE CHEST 03/03/2023 10:48 am COMPARISON: None. HISTORY: ORDERING SYSTEM PROVIDED HISTORY: Reason for Exam: SOB/cough/fever FINDINGS: The cardiomediastinal contours are within normal limits. The lungs are clear bilaterally. There is no evidence of focal consolidation, pulmonary edema, pleural effusion or pneumothorax. IMPRESSION: No acute cardiopulmonary process. Interpreted by: Jaciel Gottlieb MD Preliminary Report By: Jaciel Gottlieb MD Electronically signed By Jaciel Gottlieb MD Dictated Date: 03/03/2023 10:52:13 AM Prelim Date: 03/03/2023 10:52:21 AM Sign Date: 03/03/2023 10:52:21 AM Ordering Provider: BRUNILDA Paulson [facility] ([place]) ED PROV NOTEon 11-08-2022 ED PROV NOTE HNO ID: [id number] Author: Jason Guzman Service: ? Author Type: Physician Type: ED Provider Notes Filed: 11/08/2022 7:49 AM Note Text: [place] [address] HEALTH INFORMATION MANAGEMENT EMERGENCY DEPARTMENT REPORT Patient: IMMANUEL NEUMANN JASON GUZMAN D.O. [id number] 95 27 M Status: DEP ER ED Date of Service: 11/07/22 ADDENDUM: CBC, differential reveals no anemia or leukocytosis. Chemistry panel reveals a minimal hypokalemia and otherwise unremarkable. Toxicologic screen is negative. Urinalysis is negative. COVID-19 screening is also negative. ASSESSMENT: 1. Schizophrenia. 2. Medical noncompliance. PLAN: The patient has been medically cleared. We are awaiting input from the Central intake, staff to decide about psychiatric placement. The patient was endorsed to the oncoming provider, please see their note for final disposition. Report#: Dict ID [id number] / Int ID [id number] 11/08/22 0746 _ JASON GUZMAN D.O. cc: JASON GUZMAN D.O.; No Physician << Signature on File>> Reported By: JASON GUZMAN D.O. Signed By: JASON GUZMAN D.O. Tests performed at: [address] [address] Normal [facility] ED PROV NOTE HNO ID: [id number] Author: Jason Guzman Service: ? Author Type: Physician Type: ED Provider Notes Filed: 11/08/2022 7:49 AM Note Text: [place] [address] HEALTH INFORMATION MANAGEMENT EMERGENCY DEPARTMENT REPORT Patient: IMMANUEL NEUMANN MEGANMARIANAJASONJAMIR Aquino D.O. [id number] 95 27 M Status: DEP ER ED Date of Service: 11/07/22 CHIEF COMPLAINT: Psychiatric evaluation. HISTORY OF CHIEF COMPLAINT: The patient is a schizophrenic, who presents by squad to be further evaluated. He states he has not been on his medications for several weeks, but just recently started them back up. He feels that he is losing his mind. He denies suicidal or homicidal ideation. ALLERGIES: None known. HOME MEDICATIONS: Reviewed from the nursing notes. Please see the nursing notes for these details. PAST MEDICAL HISTORY: Schizophrenia. SURGICAL HISTORY: Negative. FAMILY HISTORY: Negative. SOCIAL HISTORY: Denies drug abuse. REVIEW OF SYSTEMS: The patient presents to be further evaluated from a psychiatric standpoint as described above. I reviewed constitutional, HEENT, cardiovascular, pulmonary, gastrointestinal, genitourinary, dermatologic, psychiatric, musculoskeletal, and neurologic, and all other systems are noted to be unremarkable except for amended in my notes. Nursing notes have been reviewed. PHYSICAL EXAMINATION: VITAL SIGNS: Temperature is 98.1, heart rate is 114, respiratory rate is 22, blood pressure is 129/91, pulse oximetry is 99% on room air. CONSTITUTIONAL: When I walk into the room, the patient is hyperventilating, crying. He is quite anxious. He is able to be calmed down. He answers questions appropriately. HEENT: Head is normocephalic and atraumatic. Conjunctivae are not pale. Mucous membranes are moist. NECK: Supple. Trachea is midline. CARDIAC: Slightly increased rate, regular rhythm. No murmur. LUNGS: Clear without wheezing. ABDOMEN: Soft without tenderness. DERMATOLOGIC: No traumatic or cutting lesions. NEUROLOGIC: Moving all 4 extremities without appreciated deficits. PSYCHIATRIC: Awake, alert, oriented, anxious. Denies being suicidal or homicidal. MEDICAL DECISION MAKING: We will draw blood for analysis and medically screen the patient so that he can be evaluated by the social worker aide. Differential diagnosis would include, but not limited to acute liz, decompensated schizophrenia, amongst others. Addendum to follow. Report#: Dict ID [id number] / Int ID [id number] 11/08/22 0746 _ JASON GUZMAN D.O. cc: JASON GUZMAN D.O.; No Physician << Signature on File>> Reported By: JASON GUZMAN D.O. Signed By: JASON GUZMAN D.O. Tests performed at: [address] [id number] [facility] EMERGENCY DEPARTMENT REPORTo n 11-08-2022 [place] [address] HEALTH INFORMATION MANAGEMENT EMERGENCY DEPARTMENT REPORT Patient: IMMANUEL NEUMANN JASON GUZMAN D.O. [id number] 89 27 M Status: DEP ER ED Date of Service: 11/07/22 ADDENDUM: CBC, differential reveals no anemia or leukocytosis. Chemistry panel reveals a minimal hypokalemia and otherwise unremarkable. Toxicologic screen is negative. Urinalysis is negative. COVID-19 screening is also negative. ASSESSMENT: 1. Schizophrenia. 2. Medical noncompliance. PLAN: The patient has been medically cleared. We are awaiting input from the Central intake, staff to decide about psychiatric placement. The patient was endorsed to the oncoming provider, please see their note for final disposition. Report#: Dict ID [id number] / Int ID [id number] 11/08/22 0746 _ JASON GUZMAN D.O. cc: JASON GUZMAN D.O.; No Physician << Signature on File>> Reported By: JASON GUZMAN D.O. Signed By: JASON GUZMAN D.O. Tests performed at: [address], [place] [address] Normal [facility] [place] [address] HEALTH INFORMATION MANAGEMENT EMERGENCY DEPARTMENT REPORT Patient: IMMANUEL NEUMANNJASON Aquino D.O. [id number] 95 27 M Status: DEP ER ED Date of Service: 11/07/22 CHIEF COMPLAINT: Psychiatric evaluation. HISTORY OF CHIEF COMPLAINT: The patient is a schizophrenic, who presents by squad to be further evaluated. He states he has not been on his medications for several weeks, but just recently started them back up. He feels that he is losing his mind. He denies suicidal or homicidal ideation. ALLERGIES: None known. HOME MEDICATIONS: Reviewed from the nursing notes. Please see the nursing notes for these details. PAST MEDICAL HISTORY: Schizophrenia. SURGICAL HISTORY: Negative. FAMILY HISTORY: Negative. SOCIAL HISTORY: Denies drug abuse. REVIEW OF SYSTEMS: The patient presents to be further evaluated from a psychiatric standpoint as described above. I reviewed constitutional, HEENT, cardiovascular, pulmonary, gastrointestinal, genitourinary, dermatologic, psychiatric, musculoskeletal, and neurologic, and all other systems are noted to be unremarkable except for amended in my notes. Nursing notes have been reviewed. PHYSICAL EXAMINATION: VITAL SIGNS: Temperature is 98.1, heart rate is 114, respiratory rate is 22, blood pressure is 129/91, pulse oximetry is 99% on room air. CONSTITUTIONAL: When I walk into the room, the patient is hyperventilating, crying. He is quite anxious. He is able to be calmed down. He answers questions appropriately. HEENT: Head is normocephalic and atraumatic. Conjunctivae are not pale. Mucous membranes are moist. NECK: Supple. Trachea is midline. CARDIAC: Slightly increased rate, regular rhythm. No murmur. LUNGS: Clear without wheezing. ABDOMEN: Soft without tenderness. DERMATOLOGIC: No traumatic or cutting lesions. NEUROLOGIC: Moving all 4 extremities without appreciated deficits. PSYCHIATRIC: Awake, alert, oriented, anxious. Denies being suicidal or homicidal. MEDICAL DECISION MAKING: We will draw blood for analysis and medically screen the patient so that he can be evaluated by the social worker aide. Differential diagnosis would include, but not limited to acute liz, decompensated schizophrenia, amongst others. Addendum to follow. Report#: Dict ID [id number] / Int ID [id number] 11/08/22 0746 _ JASON GUZMAN D.O. cc: JASON GUZMAN D.O.; No Physician << Signature on File>> Reported By: JASON GUZMAN D.O. Signed By: JASON GUZMAN D.O. Tests performed at: [place] [id number] [place], [place] [address] Normal [facility] [place] [address] HEALTH INFORMATION MANAGEMENT EMERGENCY DEPARTMENT REPORT Patient: NEUMANNIMMANUEL L JACIEL PERSAUD M.D. [id number] 95 27 M Status: DEP ER ED Date of Service: 11/07/22 ADDENDUM: The patient signed out to me by Dr. Guzman pending evaluation by Central Intake. Central Intake has evaluated this gentleman and do not feel that there is any criteria here for forcible admission. The patient states that he does not want to stay in the hospital. I told him I thought this would be the best thing for him, but he is denying any suicidal or homicidal ideation. He says he wants to do outpatient therapy. He is agreeing, it is certainly what sounds like he has had some delusions. He is certainly oriented and seems to be very cooperative and very coherent right now and he is certainly oriented to person, place, and date. He is going to be discharged home to follow up with his [facility] and return if worse or problems of any kind. He can follow up with family doctor as needed. Report#: Dict ID [id number] / Int ID [id number] 11/08/22 1333 _ JACIEL PERSAUD M.D. cc: JACIEL PERSAUD M.D.; No Physician << Signature on File>> Reported By: JACIEL PERSAUD M.D. Signed By: JACIEL PERSAUD M.D. Tests performed at: [address] [address] Normal [facility] ACETAMINOPHENon 11-07-2022 Acetaminophen [Mass/Vol] ug/mL Low 10-30 [facility] Comment on above: Performed By: #### L 100.0700, L100.0530, L100.0690 #### [facility] - LABORATORY [address] [place] [address] ALCOHOLon 11-07-2022 ALCOHOL < 0.00 Low 0-0.01 [facility] Comment on above: Performed By: #### L 100.0700, L100.0530, L100.0690 #### [facility] [address] [place] [address] BMPon 11-07-2022 Anion gap [Moles/Vol] 15.4 mmol/L Normal 15- [facility] Comment on above: Performed By: #### L 100.0010, L100.0030 #### [facility] [address] [place] [address] Calcium [Mass/Vol] 9.7 mg/dL Normal 8.6-10.0 [facility] Comment on above: Performed By: #### L 100.0010, L100.0030 #### [facility] [address] [place] [address] Chloride [Moles/Vol] 105 mmol/L Normal 98-107 [facility] Comment on above: Performed By: #### L 100.0010, L100.0030 #### [facility] [address] [place] [address] CO2 [Moles/Vol] 24 mmol/L Normal 22-29 [facility] Comment on above: Performed By: #### L 100.0010, L100.0030 #### [facility] [address] [place] [address] Creatinine [Mass/Vol] 0.83 mg/dL Normal 0.73-1.22 [facility] Comment on above: Performed By: #### L 100.0010, L100.0030 #### - LABORATORY [address] [place] [address] eGFR if AFR ELDA > 60 ml/min/1.73m2 Normal [facility] Comment on above: Result Comment: eGFR >= 60 Indicates normal kidney function. * eGFR IS AN ESTIMATE * (AFR ELDA = ) (non-AFR AM = NON-) MDRD calculation used in the eGFR should not be used to dose medications. For further limitations of the eGFR please refer to the Physician Website or the National Kidney Disease Education Program website (www.nkdep.nih.gov). Performed By: #### L 100.0010, L100.0030 #### [facility] [address] [place] [address] eGFR nonAFR Elda > 60 ml/Min/1.73m2 Normal [facility] Comment on above: Performed By: #### L 100.0010, L100.0030 #### [facility] [address] [place] [address] Glucose [Mass/Vol] 114 mg/dL High 74-106 [facility] Comment on above: Performed By: #### L 100.0010, L100.0030 #### [facility] [address] [place] [address] Potassium [Moles/Vol] 3.4 mmol/L Low 3.5-5.0 [facility] Comment on above: Performed By: #### L 100.0010, L100.0030 #### [facility] [address] [place] [address] Sodium [Moles/Vol] 141 mmol/L Normal 135-145 [facility] Comment on above: Performed By: #### L 100.0010, L100.0030 #### [facility] [address] [place] [address] [place] [address] Urea nitrogen [Mass/Vol] 4 mg/dL Low 6-20 [facility] Comment on above: Performed By: #### L 100.0010, L100.0030 #### [facility] [address] [place] [address] CBCon 11-07-2022 BASO# 0.02 x10(3) Normal 0.00-0.10 [facility] Comment on above: Performed By: #### L 200.0010 #### [facility] [address] [place] [address] Basophils/100 WBC (Bld) 0.3 % Normal 0.0-1.0 [facility] Comment on above: Performed By: #### L 200.0010 #### [facility] [address] [place] [address] EOS# 0.03 x10(3) Normal 0.00-0.54 [facility] Comment on above: Performed By: #### L 200.0010 #### [facility] [address] [place] [address] Eosinophils/100 WBC (Bld) 0.5 % Normal 0.5-4.9 [facility] Comment on above: Performed By: #### L 200.0010 #### [facility] [address] [place] [address] Erythrocyte distribution width (RBC) [Ratio] 12.0 % Low 12.7-15.3 [facility] Comment on above: Performed By: #### L 200.0010 #### [facility] [address] [place] [address] Hematocrit (Bld) [Volume fraction] 45.2 % Normal 42.0-51.0 [facility] Comment on above: Performed By: #### L 200.0010 #### [facility] [address] [place] [address] Hemoglobin (Bld) [Mass/Vol] 15.8 g/dL Normal 14.0-17.2 [facility] Comment on above: Performed By: #### L 200.0010 #### [facility] [address] [place] [address] IMM GRAN# 0.01 x10(3) High 0-0 [facility] Comment on above: Performed By: #### L 200.0010 #### [facility] [address] [place] [address] IMM GRAN% 0.2 % Normal [facility] Comment on above: Performed By: #### L 200.0010 #### [facility] [facility] [address] [place] [address] 05173 LYMPH# 1.77 x10(3) Normal 1.00-3.50 [facility] Comment on above: Performed By: #### L 200.0010 #### [facility] [address] [place] [address] 26539 Lymphocytes/100 WBC (Bld) 28.6 % Normal 16.0-48.0 [facility] Comment on above: Performed By: #### L 200.0010 #### [facility] [address] [place] [address] 46415 MCH (RBC) [Entitic mass] 29.5 pg Normal 28.8-32.2 [facility] Comment on above: Performed By: #### L 200.0010 #### [facility] [address] [place] [address] 94770 MCHC (RBC) [Mass/Vol] 35.0 g/dL Normal 33.0-36.0 [facility] Comment on above: Performed By: #### L 200.0010 #### [facility] [address] [place] [address] 18139 MCV (RBC) [Entitic vol] 84.5 fL Normal 80.0-94.0 [facility] Comment on above: Performed By: #### L 200.0010 #### [facility] [address] [place] [address] 94845 MONO# 0.42 x10(3) Normal 0.30-0.80 [facility] Comment on above: Performed By: #### L 200.0010 #### [facility] [address] [place] [address] 90515 Monocytes/100 WBC (Bld) 6.8 % Normal 4.3-11.2 [facility] Comment on above: Performed By: #### L 200.0010 #### [facility] - [facility]ATORY [address] [place] [address] 05084 NEUT# 3.94 x10(3) Normal 1.40-6.50 [facility] Comment on above: Performed By: #### L 200.0010 #### [facility] - [facility] [address] [place] [address] 57847 Neutrophils/100 WBC (Bld) 63.6 % Normal 45.0-73.0 [facility] Comment on above: Performed By: #### L 200.0010 #### [facility] [address] [place] [address] 57073 Platelet mean volume (Bld) [Entitic vol] 9.5 fL High 7.4-9.2 [facility] Comment on above: Performed By: #### L 200.0010 #### [facility] [address] [place] [address] 16742 PLT 241 X10(3) Normal 150-450 [facility] Comment on above: Performed By: #### L 200.0010 #### [facility] [address] [place] [address] 26185 RBC 5.35 x10(6) Normal 4.80-5.50 [facility] Comment on above: Performed By: #### L 200.0010 #### [facility] [address] [place] [address] 07552 WBC 6.2 x10(3) Normal 4.5-10.0 [facility] Comment on above: Performed By: #### L 200.0010 #### [facility] [address] [place] [address] 72883 DRUG SCREENon 11-07-2022 AMPHETAMINE Negative Normal NEGATIVE [facility] Comment on above: Performed By: #### L 100.0700, L100.0530, L100.0690 #### [facility] [address] [place] [address] 61825 BARBITUATES Negative Normal NEGATIVE [facility] Comment on above: Performed By: #### L 100.0700, L100.0530, L100.0690 #### - LABORATORY [address] [place] [address] 98221 BENZODIAZEPINE Negative Normal NEGATIVE [facility] Comment on above: Performed By: #### L 100.0700, L100.0530, L100.0690 #### - LABORATORY [address] [place] [address] 03653 CANNABINOID Positive Invalid Interpretation Code NEGATIVE [facility] Comment on above: Result Comment: THIS RESULT IS OBTAINED BY A SCREENING METHOD. IF CONFIRMATION IS DESIRED, PLEASE CONTACT THE LAB AT [id number].[id number] WITHIN 7 DAYS AND ORDER A URINE CONFIRMATION TEST AN ADD-ON TEST. Performed By: #### L 100.0700, L100.0530, L100.0690 #### - LABORATORY [address] [place] [address] 80506 Cocaine Ql (U) Negative Normal NEGATIVE [facility] Comment on above: Performed By: #### L 100.0700, L100.0530, L100.0690 #### - LABORATORY [address] [place] [address] 05744 Opiates Ql (U) Negative Normal NEGATIVE [facility] Comment on above: Performed By: #### L 100.0700, L100.0530, L100.0690 #### - LABORATORY [address] [place] [address] 99387 OXYCODONE Negative Normal NEGATIVE [facility] Comment on above: Performed By: #### L 100.0700, L100.0530, L100.0690 #### - LABORATORY [address] [place] [address] 57126 Phencyclidine Ql (U) Negative Normal NEGATIVE [facility] Comment on above: Result Comment: COMM ENT: SPECIMEN TYPE - URINE. Unconfirmed screening results for the Drug Screen Panel should not be used for non-medical purposes. CUTOFFS: Amphetamine cutoff concentration: 1000 ng/mL Cocaine cutoff concentration: 300 ng/mL Opiates cutoff concentration: 300 ng/mL Benzodiazepine cutoff concentration: 200 ng/mL Barbituate cutoff concentration: 200 ng/mL Cannabinoid cutoff concentration: 50 ng/mL Oxycodone cutoff concentration: 100 ng/mL Phencyclidine cutoff concentration: 25 ng/mL Zaida Method Performed By: #### L 100.0700, L100.0530, L100.0690 #### [facility] - [facility]ATORY [address] [place] [address] 16211 HEPATIC PANELon 11-07-2022 A:G RATIO 1.87 Normal 1.1-2.5 [facility] Comment on above: Performed By: #### L 100.0010, L100.0030 #### [facility] - [facility] [address] [place] [address] 08466 Albumin [Mass/Vol] 4.5 g/dL Normal 3.5-5.2 [facility] Comment on above: Performed By: #### L 100.0010, L100.0030 #### [facility] [address] [place] [address] 43469 ALK. PHOS 54 U/L Normal 40-130 [facility] Comment on above: Performed By: #### L 100.0010, L100.0030 #### [facility] - [facility] [address] [place] [address] 55307 ALT [Catalytic activity/Vol] 20 U/L Normal 5-41 [facility] Comment on above: Performed By: #### L 100.0010, L100.0030 #### [facility] - [facility]ORY [address] [place] [address] 91446 AST [Catalytic activity/Vol] 21 U/L Normal 5-40 [facility] Comment on above: Performed By: #### L 100.0010, L100.0030 #### [facility] [address] [place] [address] 74177 Bilirubin [Mass/Vol] 0.6 mg/dL Normal 0.2-1.2 [facility] Comment on above: Performed By: #### L 100.0010, L100.0030 #### [facility] - [facility] [address] [place] [address] 94863 DIRECT BILIRUBI <0.2 Normal 0.0-0.3 [facility] Comment on above: Performed By: #### L 100.0010, L100.0030 #### [facility] [address] [place] [address] 33395 Globulin (S) [Mass/Vol] 2.4 g/dL Normal 1.5-4.5 [facility] Comment on above: Performed By: #### L 100.0010, L100.0030 #### [facility] [address] [place] [address] 81791 Protein [Mass/Vol] 6.9 g/dL Normal 6.4-8.3 [facility] Comment on above: Performed By: #### L 100.0010, L100.0030 #### [facility] [address] [place] [address] 01834 RAPID COVIDon 11-07-2022 SARS-CoV-2 (COVID-19) RNA DERICK+probe Ql (Unsp spec) Negative Normal NEGATIVE [facility] Comment on above: Result Comment: THIS TEST HAS BEEN AUTHORIZED BY FDA UNDER AN EMERGENCY USE AUTHORIZATION (EUA). NEGATIVE: NEGATIVE FOR COVID19 (SARS-CoV-2) BY PCR POSITIVE: POSITIVE FOR COVID19 (SARS-CoV-2) BY PCR PRESUMPTIVE POSITIVE: POSITIVE BY SINGLE [place]OR[place] SARS-CoV TARGET. SARS-CoV-1 CANNOT BE EXCLUDED, BUT IS NOT CURRENTLY CIRCULATING IN [place]. Performed By: #### L 399.994 #### [facility] [address] [place] [address] 50353 SALICYLATEon 11-07-2022 SALICYLATE < 0.3 Normal 0-10 [facility] Comment on above: Performed By: #### L 100.0700, L100.0530, L100.0690 #### [facility] [address] [place] [address] 37340 URINALYSISon 11-07-2022 Bilirubin Ql (U) Negative Normal NEGATIVE [facility] Comment on above: Order Comment: Urine Specimen Source+ CATH Performed By: #### L 100.0700, L100.0530, L100.0690 #### [facility] [address] [place] [address] 14281 Color (U) YELLOW Normal YELLOW [facility] Comment on above: Order Comment: Urine Specimen Source+ CATH Performed By: #### L 100.0700, L100.0530, L100.0690 #### [facility] [address] [place] [address] 89541 Glucose Ql (U) Negative Normal NEGATIVE [facility] Comment on above: Order Comment: Urine Specimen Source+ CATH Performed By: #### L 100.0700, L100.0530, L100.0690 #### [facility] [address] [place] [address] 12368 Hemoglobin Ql (U) Negative Normal NEGATIVE [facility] Comment on above: Order Comment: Urine Specimen Source+ CATH Performed By: #### L 100.0700, L100.0530, L100.0690 #### - LABORATORY [address] [place] [address] 47921 Leukocyte esterase Test strip Ql (U) Negative Normal NEGATIVE [facility] Comment on above: Order Comment: Urine Specimen Source+ CATH Performed By: #### L 100.0700, L100.0530, L100.0690 #### [facility] [address] [place] [address] 68897 Nitrite Ql (U) Negative Normal NEGATIVE [facility] Comment on above: Order Comment: Urine Specimen Source+ CATH Performed By: #### L 100.0700, L100.0530, L100.0690 #### [facility] [address] [place] [address] 96722 pH (U) 7.5 [pH] Normal 5.0-8.0 [facility] Comment on above: Order Comment: Urine Specimen Source+ CATH Performed By: #### L 100.0700, L100.0530, L100.0690 #### [facility] [address] [place] [address] 89329 Protein Ql (U) Negative Normal NEGATIVE [facility] Comment on above: Order Comment: Urine Specimen Source+ CATH Performed By: #### L 100.0700, L100.0530, L100.0690 #### [facility] - [facility]ORY [address] [place] [address] URINE APPEARANC CLEAR Normal CLEAR [facility] Comment on above: Order Comment: Urine Specimen Source+ CATH Performed By: #### L 100.0700, L100.0530, L100.0690 #### [facility] [address] [place] [address] 99377 URINE KETONE Negative Normal NEGATIVE [facility] Comment on above: Order Comment: Urine Specimen Source+ CATH Performed By: #### L 100.0700, L100.0530, L100.0690 #### [facility] [address] [place] [address] 72258 URINE SPECIFIC 1.010 Normal 1.001-1.035 [facility] Comment on above: Order Comment: Urine Specimen Source+ CATH Performed By: #### L 100.0700, L100.0530, L100.0690 #### [facility] - LAB[facility]ORY [address] [place] [address] URINE UROBILINO 0.2 EU/DL Normal 0.2-1.0 [facility] Comment on above: Order Comment: Urine Specimen Source+ CATH Performed By: #### L 100.0700, L100.0530, L100.0690 #### [facility] [address] [place] [address] 40668 Provider Note - ED v3on 11-2 Provider Note - ED v3 Provider Note: Chart Review: ED NOTES ED NOTES: HPI: -This is a 26-year-old male transitioning to female who presents with abdominal pain. Patient states that she has not had a bowel movement in the past 3 weeks. She states that she was seen here 2 days ago due to having severe pain she states that it is diffuse in her abdomen and intermittent. She states that she has tried taking prune juice, MiraLAX, milk of magnesia, and magnesium citrate but states that she has only had mucus and blood without any formed stool coming out. No nausea or vomiting. No fevers, cough, shortness of breath or chest pain. No urinary changes. ROS Gen: Denies fevers, chills or weight changes. ENT: Denies nasal congestion and throat pain. Heart: Denies chest pain or heart palpitations. Lungs: Denies cough or shortness of breath. GI: Denies nausea, vomiting, or diarrhea. : Denies hematuria or dysuria. Neuro: Denies numbness or weakness. MSK: Denies joint pain. Skin: Denies any rashes. PSYCH: Denies SI/HI or AH/VH. PMH/PSH: Per HPI, EMR FH: Not pertinent to presenting problem or chief complaint SH: - etoh, + tobacco, + illicts (marijuana) Allergies: Per EMR Medications: Per EMR, listed below PE: Vital signs reviewed in nursing triage note, EMR flow sheets, and at patient's bedside. GEN: Well appearing and in no acute distress. HEENT: NCAT. PERRL. EOMI. Orophayrnx pink and moist. NECK: No cervical LAD. HEART: Rate and rhythm regular. No murmurs, rubs, or gallops. LUNGS: Normal effort. Clear to auscultation bilaterally. No wheezes or crackles. ABD: Soft. Diffuse mild tenderness palpation worse in the left lower quadrant. Palpable stool present. EXT: No peripheral edema. 2+ radial pulses bilaterally. NEURO: CN II-XII grossly intact. Moving all extremities freely. PSYCH: A&Ox3. Appropriate mood and behavior, converses and responds appropriately during exam. ED Course/Treatment/MDM : This is a 26-year-old male transitioning to female who presents with abdominal pain. Patient states he has not had a bowel movement in 3 weeks and has abdominal pain due to. Was seen here recently and discharged on bowel regimen. Here, he is well-appearing and in no acute distress. His vitals are normal. He has a benign abdominal exam with diffuse mild to tenderness palpation as well as some palpable stool. Review of labs from 2 days ago are all overall unremarkable. CT was performed at that time which did show a large volume of stool consistent with constipation as well as some enteritis likely secondary to it. An enema was performed which patient stated got no stool out. Afterwards, the patient was informed of a manual disimpaction was agreeable to that. This was performed, however he had no stool present in the rectal vault. Plan was discussed with the patient as well and he was given a prescription for GoLytely and advised on use of it at home. He was also provided follow up with GI. He was advised return precautions and discharged. Clinical Impression: *See section entitled ``Clinical Impression Dispo - Discharged Derek Mcfadden MD Emergency Medicine PGY-3 HISTORY OF PRESENTING ILLNESS IMMANUEL is a 26 year old Male and was seen by me at 11-Feb-2022 11:34 for a chief complaint of constipation . Other complaints include: hasn't gone to bathroom in 3 weeks, but stated bile and bloody stool yesterday(1). Triage Information: Most recent Vital Sign Value Date Temp (F): 98 02-11-2022 11:27 Temp (C): 36.6 02-11-2022 11:27 Heart Rate (beats/min): 56 02-11-2022 11:27 Respirations (breaths/min): 16 02-11-2022 11:27 SpO2 (%): 99 02-11-2022 11:27 BP Systolic (mm Hg): 130 02-11-2022 11:27 BP Diastolic (mm Hg): 81 02-11-2022 11:27 PAST MEDICAL HISTORY ALLERGIES/INTOLERANC ES: No Known Allergies HEALTH HISTORY: No documented data. OUTPATIENT MEDICATIONS: Home Medications Review Status for Reconciliation: Not Done Med Status: Patient Currently Takes Medications Drug Name: MiraLax oral powder for reconstitution Instructions: 17 gram(s) orally 2-3 times a day as needed for constipation Drug Name: bisacodyl 10 mg rectal suppository Instructions: 1 suppository(ies) rectally once a day, As Needed Drug Name: polyethylene glycol 3350 with electrolytes oral powder for reconstitution Instructions: Take as instructed on the packaging SIGNIFICANT EVENTS: No documented data. DISPOSITION Diagnosis/Annotation : ED Dx Name:Abdominal pain Code:R10.9 Disposition: discharged CONSULT Attestation: I saw and evaluated the patient. I personally obtained the sharma and critical portions of the history and physical exam or was physically present for sharma and critical portions performed by the resident/fellow. I reviewed the resident/fellows documentation and discussed the patient with the resident/fellow. I agree with the resident/fellows medical d (more content not included)... Normal [facility] Triage - EDon 02-11-2022 Triage - ED Chart Review: ARRIVAL INFORMATION Mode of Arrival: ambulance Agency Name: [facility] CHIEF COMPLAINT IMMANUEL NEUMANN is a Male patient with a chief complaint of constipation. Onset of the Complaint: 11-Feb-2022 11:28 Other Complaints: hasn't gone to bathroom in 3 weeks, but stated bile and bloody stool yesterday Triage Date/Time: 11-Feb-2022 11:28 ORI: 3V Vital Signs: Temperature: 98.0F ( 36.6C) Blood Pressure: 130/81 Mean: Heart Rate: 56 Respiratory Rate: 16 Pulse Oximetry: 99% on room air, no respiratory support. Height: 6 feet 3.00 inches. 190.5 CM Weight: 132.2 pounds. Calculated 60.0 kg. Calculated BMI (kg/m2): 16.533 Calculated BSA (m2) 1.78 Belle Coma Scale: Best Eye Response: (E4) spontaneous Best Motor Response: (M6) obeys commands Best Verbal Response: (V5) oriented Hopkins Score: 15 Cough lasting greater than 3 weeks: no Allergies: no Patient has homicidal thoughts: no Risk Screens Suicide Risk Screen In the Past Month: Have you wished you were or wished you could go to sleep and not wake up no In the Past Month: Have you had any actual thoughts of killing yourself no In Your Lifetime: Have you ever done anything, started to do anything, or prepared to do anything to end your life no Interventions: Jacob Fall Interventions: LOW INTERVENTIONS: *patient oriented to surroundings and call system, * patient/family falls education completed and documented, *patients fall status communicated during bedside handoff, *whiteboard updated, *mode of toileting discussed with patient, *bed in low position with brakes locked, *call light in reach, * non-skid footwear TRAVEL HISTORY Travel History Coronavirus Screening: no exposure or symptoms Travel Exposure History: NO travel to International locations in the past 30 days PAIN Pain Scale Used: WILLIE Past Medical History: Past Medical History Reviewedyes Electronic Signatures: Richard Florentino (EMT-P) (Signed 11-Feb-2022 11:29) Authored: Quick Triage, Risk Screens, Pain, Travel History, Chart Review, Scores, Past Medical History Last Updated: 11-Feb-2022 11:29 by Richard Florentino (EMT-P) [facility] APTTon 02-10-2022 aPTT Coag (Bld) [Time] 30 s Normal 26 - 39 [facility] Comment on above: Result Comment: THE APTT IS NO LONGER USED FOR MONITORING UNFRACTIONATED HEPARIN THERAPY. FOR MONITORING HEPARIN THERAPY, USE THE HEPARIN ASSAY. Performed By: #### A PTT #### [facility] [address] [place] [id number] CBC AND DIFFERENTIALon 02-10 % AUTOMATED IMMATURE GRAN 0.2 % Normal 0.0 - 0.9 [facility] Comment on above: Result Comment: Klaudia ture Granulocyte Count (IG) includes promyelocytes, myelocytes and metamyelocytes but does not include bands. Percent differential counts (%) should be interpreted in the context of the absolute cell counts (cells/L). Performed By: #### C BCDF #### [facility] [address] [place] [address] Basophils (Bld) [#/Vol] 0.04 10*3/uL Normal 0.00 - 0.10 [facility] Comment on above: Performed By: #### C BCDF #### [facility] [address] [place] [address] Basophils/100 WBC (Bld) 0.5 % Normal 0.0 - 2.0 [facility] Comment on above: Performed By: #### C BCDF #### [facility] [address] [place] [address] Eosinophils (Bld) [#/Vol] 0.18 10*3/uL Normal 0.00 - 0.70 [facility] Comment on above: Performed By: #### C BCDF #### [facility] [address] [place] [address] Eosinophils/100 WBC (Bld) 2.1 % Normal 0.0 - 6.0 [facility] Comment on above: Performed By: #### C BCDF #### [facility] [address] [place] [address] Erythrocyte distribution width (RBC) [Ratio] 12.2 % Normal 11.5 - 14.5 [facility] Comment on above: Performed By: #### C BCDF #### [facility] [address] [place] [address] Hematocrit (Bld) [Volume fraction] 46.6 % Normal 41.0 - 52.0 [facility] Comment on above: Performed By: #### C BCDF #### [facility] [address] [place] [address] Hemoglobin (Bld) [Mass/Vol] 15.8 g/dL Normal 13.5 - 17.5 [facility] Comment on above: Performed By: #### C BCDF #### [facility] [address] [place] [address] Lymphocytes (Bld) [#/Vol] 3.42 10*3/uL Normal 1.20 - 4.80 [facility] Comment on above: Performed By: #### C BCDF #### [facility] [address] [place] [address] Lymphocytes/100 WBC (Bld) 40.5 % Normal 13.0 - 44.0 [facility] Comment on above: Performed By: #### C BCDF #### [facility] [address] [place] [address] MCHC (RBC) [Mass/Vol] 33.9 g/dL Normal 32.0 - 36.0 [facility] Comment on above: Performed By: #### C BCDF #### [facility] [address] [place] [address] MCV (RBC) [Entitic vol] 88 fL Normal 80 - 100 [facility] Comment on above: Performed By: #### C BCDF #### [facility] [address] [place] [address] Monocytes (Bld) [#/Vol] 0.67 10*3/uL Normal 0.10 - 1.00 [facility] Comment on above: Performed By: #### C BCDF #### [facility] [address] [place] [address] Monocytes/100 WBC (Bld) 7.9 % Normal 2.0 - 10.0 [facility] Comment on above: Performed By: #### C BCDF #### [facility] [address] [place] [address] Neutrophils (Bld) [#/Vol] 4.11 10*3/uL Normal 1.20 - 7.70 [facility] Comment on above: Performed By: #### C BCDF #### [facility] [address] [place] [address] Neutrophils/100 WBC (Bld) 48.8 % Normal 40.0 - 80.0 [facility] Comment on above: Performed By: #### C BCDF #### [facility] [address] [place] [address] Platelets (Bld) [#/Vol] 289 10*3/uL Normal 150 - 450 [facility] Comment on above: Performed By: #### C BCDF #### [facility] [address] [place] [address] RBC 5.31 x10E12/L Normal 4.50 - 5.90 [facility] Comment on above: Performed By: #### C BCDF #### [facility] [address] [place] [address] WBC (Bld) [#/Vol] 8.4 10*3/uL Normal 4.4 - 11.3 [facility] Comment on above: Performed By: #### C BCDF #### [facility] [address] [place] [address] COMPREHENSIVE PANELon 2021 Albumin [Mass/Vol] 4.4 g/dL Normal 3.4 - 5.0 [facility] Comment on above: Performed By: #### C MP #### [facility] [address] [place] [address] ALP [Catalytic activity/Vol] 36 U/L Normal 33 - 120 [facility] Comment on above: Performed By: #### C MP #### [facility] [address] [place] [address] ALT [Catalytic activity/Vol] 24 U/L Normal 10 - 52 [facility] Comment on above: Result Comment: Edna ents treated with Sulfasalazine may generate falsely decreased results for ALT. Performed By: #### C MP #### [facility] [address] [place] [address] Anion gap [Moles/Vol] 10 mmol/L Normal 10 - 20 [facility] Comment on above: Performed By: #### C MP #### [facility] [address] [place] [address] AST [Catalytic activity/Vol] 22 U/L Normal 9 - 39 [facility] Comment on above: Performed By: #### C MP #### [facility] [address] [place] [address] Bilirubin [Mass/Vol] 0.3 mg/dL Normal 0.0 - 1.2 [facility][note 2] Comment on above: Performed By: #### C MP #### [facility] [address] [place] [address] Calcium [Mass/Vol] 9.6 mg/dL Normal 8.6 - 10.3 [facility] Comment on above: Performed By: #### C MP #### [facility] [address] [place] [address] Chloride [Moles/Vol] 103 mmol/L Normal 98 - 107 [facility][note 2] Comment on above: Performed By: #### C MP #### [facility] [address] [place] [address] Creatinine [Mass/Vol] 0.89 mg/dL Normal 0.50 - 1.30 [facility] Comment on above: Performed By: #### C MP #### [facility] [address] [place] [address] eGFR MALE >90 Normal >90 [facility] Comment on above: Result Comment: CALC ULATIONS OF ESTIMATED GFR ARE PERFORMED USING THE 2020 CKD-EPI STUDY REFIT EQUATION WITHOUT THE RACE VARIABLE FOR THE IDMS-TRACEABLE CREATININE METHODS. https://jasn.asnjournals.org/content/early/ASN.5961916 988 Performed By: #### C MP #### [facility] [address] [place] [address] Glucose [Mass/Vol] 93 mg/dL Normal 74 - 99 [facility] Comment on above: Performed By: #### C MP #### [facility] [address] [place] [address] HCO3 (Bld) [Moles/Vol] 32 mmol/L Normal 21 - 32 [facility] Comment on above: Performed By: #### C MP #### [facility] [address] [place] [address] Potassium [Moles/Vol] 3.8 mmol/L Normal 3.5 - 5.3 [facility] Comment on above: Performed By: #### C MP #### [facility] [address] [place] [address] Protein [Mass/Vol] 6.7 g/dL Normal 6.4 - 8.2 [facility] Comment on above: Performed By: #### C MP #### [facility] [address] [place] [address] Sodium [Moles/Vol] 141 mmol/L Normal 136 - 145 [facility] Comment on above: Performed By: #### C MP #### [facility] [address] [place] [id number] Urea nitrogen [Mass/Vol] 15 mg/dL Normal 6 - 23 [facility] Comment on above: Performed By: #### C MP #### [facility] [address] [place] [id number] CORONAVIRUS 2019, SCREEN ASY MPTOMATICon 02-10-2022 SARS-CoV-2 (COVID-19) RNA DERICK+probe Ql (Unsp spec) Not detected Normal Not Detected [facility] Comment on above: Result Comment: . This test has received FDA Emergency Use Authorization (EUA) and has been verified by [facility]. This test is only authorized for the duration of time that circumstances exist to justify the authorization of the emergency use of in vitro diagnostic tests for the detection of SARS-CoV-2 virus and/or diagnosis of COVID-19 infection under section 564(b)(1) of the Act, 21 U.S.C. 360bbb-3(b)(1), unless the authorization is terminated or revoked sooner. [facility] is certified under CLIA-88 as qualified to perform high complexity testing. Testing is performed in the [facility] laboratory located at [address] [place] [address]. SARS-CoV-2/Flu/RSV Multiplex Test: Fact sheet for providers: https://www.fda.gov/media/036957/download Fact sheet for patients: https://www.fda.gov/media/272597/download Performed By: #### C OVSC #### [facility] [address] [place] [address] Lab Specimen Source Nasal, Nasopharyngeal Normal [facility] Comment on above: Performed By: #### C OVSC #### [facility] [address] [place] [address] CT [facility]BDOMEN AND PELVIS W IV CONTRAST Patient Name: IMMANUEL NEUMANN STUDY: CT ABDOMEN AND PELVIS W IV CONTRAST; ; 02/10/2022 1:14 am INDICATION: RLQ Abdominal pain x1 day. McBurney's tenderness, + Obturator and rovsing signs. R/o APpy . COMPARISON: None. ACCESSION NUMBER(S): [id number] ORDERING CLINICIAN: GABRIELA JANG TECHNIQUE: Axial CT images of the abdomen and pelvis with coronal and sagittal reconstructed images performed after intravenous administration of 80 cc Omnipaque 350. FINDINGS: LOWER CHEST: No acute abnormality of the lung bases. BONES: No acute osseous abnormality. ABDOMINAL WALL: Within normal limits. ABDOMEN: LIVER: Borderline/minimally enlarged. Nonspecific periportal edema. BILE DUCTS: Normal caliber. GALLBLADDER: No calcified gallstones. No wall thickening. PANCREAS: Within normal limits. SPLEEN: Within normal limits. ADRENALS: Within normal limits. KIDNEYS and URETERS: Within normal limits. VESSELS: No aortic aneurysm. RETROPERITONEUM: No pathologically enlarged retroperitoneal lymph nodes. PELVIS: REPRODUCTIVE ORGANS: Prostate, seminal vesicles, visible penile and scrotal soft tissues and spermatic cords appear within normal limits. BLADDER: Within normal limits. BOWEL: Stomach appears grossly normal. There is mucosal fold thickening involving proximal small bowel, with moderate fluid distension of more distal small bowel loops and fluid in the colon to the level of the distal descending colon altogether suggesting enteritis. Large volume of stool in the distal colon suggesting possible constipation. Normal appendix. PERITONEUM: No ascites or free air, no fluid collection. IMPRESSION: There is mucosal fold thickening involving proximal small bowel, with moderate fluid distension of more distal small bowel loops and fluid in the colon to the level of the distal descending colon altogether suggesting enteritis. Normal appendix. Otherwise, no definite evidence of acute pathology in the abdomen or pelvis. Large volume of stool in the distal colon suggesting possible constipation. Borderline/minimally enlarged liver. Nonspecific periportal edema could relate to patient's hydration status or hepatocellular disease. Consider correlation with LFTs including hepatitis panels. Additional findings as discussed above. Electronically signed by: DOMI CRAIG MD Normal [facility] Covid 19 Resultson 2 SARS-CoV-2 (COVID-19) RNA DERICK+probe Ql (Unsp spec) NEGATIVE COVID-19 Test Coronaviruses are common world-wide and are the cause of many common colds. SARS-COV2 is a new coronavirus that began circulating worldwide in 2019 so we are calling it COVID-19. It has been estimated that four out of five patients with COVID-19 will recover at home without the need for medical attention. Symptoms of COVID-19 may include cough, fever, shortness of breath, loss of taste or smell and other flu-like symptoms including chills, sore muscles, sore throat, and headache. Severe illness is more common in older people and people with other health problems such as high blood pressure, obesity, and immune system problems. If the test is positive, you have COVID-19. You will be contacted by the ordering physicians office and instructed to remain on home isolation, in accordance with CDC guidelines. You may also be contacted by the [facility] to see if any of your close contacts may have been exposed to the virus and need to quarantine. If the test is negative, you likely do not have COVID-19 at this time, but you still may have a different illness that can spread to other people (like Influenza, or the Flu) and could still be at risk for getting COVID-19. We recommend that you stay away from other people to limit the spread of illness until your symptoms are improving and you are fever-free for 24 hours without the use of fever lowering medications such as acetaminophen or ibuprofen. No test is 100% accurate so if you are still concerned you may have COVID-19, talk to your doctor about the need to continue to stay away from others. Medicines Unless your provider told you not to use the following: Acetaminophen (Tylenol and others) is generally safe. Anti-inflammatory medications, such as Ibuprofen (Advil or Motrin) or Naproxen (Aleve) can also be used. Iwlh-wxd-lxywqgb cough and cold medicines can be used according to the instructions on the package. Some lnwo-umc-rcotrav medicines also contain acetaminophen. Make sure you are not taking more than your recommended dose. For those not hospitalized, there is no specific treatment available for this illness. Antibiotics do not treat Coronaviruses. Follow-Up Follow up with your doctor by scheduling a virtual visit or consider follow-up at one of our urgent care fever clinics. If you are having difficulty breathing, or are very weak and having difficulty standing, this is a medical emergency. Call 911 or have someone take you to the nearest emergency room immediately. If possible, wear a facemask. Additional guidance from the CDC for patients who tested POSITIVE for COVID-19 How to isolate: Isolate yourself in a specific room at home and limit your contact with others. Use a separate bathroom from other members of the household, when possible. Leave home only to get essential medical care. Do not go to work, school or public areas. Avoid using public transportation, ride-sharing, or taxis. Restrict contact with pets and other animals. If you must care for your pet or be around animals while you are sick, wash your hands before and after your interaction and wear a facemask. Make sure that shared spaces in the home have good airflow, such as by an air conditioner or an opened window, weather permitting. Personal Hygiene Procedures: Wear a face mask when in the same room as other people or pets. If a face mask interferes with your breathing, others should wear a mask when sharing space with you. Frequent hand-washing: wash your hands with soap and water for at least 20 seconds. If soap and water are not available, use alcohol-based hand ophthalmic surgical assistant. Avoid touching your eyes, nose, and mouth with unwashed hands. Household Hygiene Procedures: Avoid sharing personal household items such as dishes, glassware, cups, eating utensils, towels or bedding with other people or pets in your home. After use, these items should be washed with soap and hot water. Disinfect all high-touch surfaces every day with antibacterial cleaning solutions such as Lysol wipes, bleach, cleansers, etc. High-touch surfaces include tabletops, doorknobs, bathroom fixtures, toilets, phones, keyboards, tablets and bedside tables. Immediately clean any surfaces that may have blood, poop or body fluids on them, using antibacterial cleaning solutions such as Lysol wipes, bleach, cleansers, etc. If clothing or bedding come into contact with blood, poop or body fluids, they should be washed immediately. Follow the directions on the laundry detergent and clothing labels but hot water is recommended when possible. Stopping home isolation precautions: If possible, consult your doctor before stopping home isolation precautions. According to the CDC, you can discontinue home isolation precautions when you have met both of these criteria: Your fever and respiratory symptoms have been gone for 24 katina (more content not included)... Normal [facility] LIPASEon 02-10-2022 Lipase [Catalytic activity/Vol] 83 U/L High 9 - 82 [facility] Comment on above: Result Comment: Rona puncture immediately after or during the administration of Metamizole may lead to falsely low results. Testing should be performed immediately prior to Metamizole dosing. A-xeytun-c-benzoquinone imine (metabolite of Acetaminophen) will generate erroneously low results in samples for patients that have taken toxic doses of acetaminophen. Performed By: #### C MP #### [facility] [address] [place] [address] PT/INRon 02-10-2022 PT Coag (PPP) [Time] 11.1 s Normal 9.8 - 13.4 [facility][note 2] Comment on above: Performed By: #### P TINR #### [facility] [address] [place] [address] PT, INR 1.0 Normal 0.9 - 1.1 [facility] Comment on above: Performed By: #### P TINR #### [facility] [address] [place] [address] Provider Note - ED v3on - Provider Note - ED v3 Provider Note: Chart Review: ED NOTES ED NOTES: CC: Abdominal pain History provided by: Patient HPI: 26-year-old male who is currently in process of transitioning to female presents to the emergency department with 1 day of abdominal pain. He reports severe sharp intermittent right lower quadrant abdominal pain that has been gradually worsening throughout the day. He has not taken anything for symptoms. Symptoms worse with palpation. No relieving factors. He reports some mild achiness in the suprapubic and left lower quadrant regions as well. He had associated nausea and emesis today with nonbloody emesis. He reports he has had constipation for about 1-1/2 weeks but is still passing flatus. Denies any dysuria, testicular pain or swelling, fevers, chills. ROS: A complete review of systems was performed and is otherwise negative except as noted in HPI ----- PMHx: Reviewed in EMR, pertientent items noted above PSHx: Reviewed in EMR, pertinent items noted above SocHx: Endorses cigarette and marijuana use but none currently. Currently residing at [facility] for mental health. Allergies: NKDA Medications: Reviewed in EMR, pertinent items noted above ----- PE: Vital signs reviewed in nursing triage note, EMR flow sheets, and at patient's bedside. General: Awake, Alert, no acute distress Eyes: Gaze conjuagate. No scleral icterus or injection. HENT: Normo-cephalic, atraumatic. No stridor. No rhinorrhea or epistaxis CV: Regular rate, regular rhythm. No murmurs appreciated. No pedal edema. Radial pulses 2+ bilaterally Respiratory: Breathing non-labored, speaking in full sentences. CTAB GI: Soft, moderately tender in the right lower quadrant over McBurney's points with mild tenderness in the left lower quadrant as well. non-distended. No rebound or guarding. There are positive obturator and Rovsing signs. MSK: No gross bony deformities. Moving all extremities. Skin: Warm. Appropriate color. Neuro: Alert. Oriented. Face symmetric. Speech is fluent. Gross strength and sensation intact in b/l UE and LEs. Psych: Appropriate mood and affect ----- ED Course/Treatment/MDM : Nursing and triage notes reviewed. 26-year-old male presents to the emergency department with acute onset right lower quadrant abdominal pain x1 day. On arrival, vital signs stable, patient in no acute distress. Exam concerning for potential appendicitis. Low suspicion for acute testicular torsion. Will obtain labs and a CT of the abdomen pelvis. Will administer morphine and Zofran as well as IV fluids. I reviewed the patient's labs, there is no significant leukocytosis or anemia, normal electrolytes, normal LFTs, normal coags, UA negative. COVID test negative. CT of the abdomen pelvis, reviewed by myself demonstrates significant stool burden with bladder distention, no evidence of appendicitis. This fits with the patient reporting no bowel movements for a week and a half. Will discharge with prescriptions for MiraLAX as well as bisacodyl suppository. Will discharge with return precautions and instructions to take these medicines regularly until having regular bowel movements. As a result of the work-up, patient was discharged home. They were informed of their diagnosis and instructed to come back with any concerns or worsening of condition and was agreeable to the plan as discussed above. The patient was given the opportunity to ask questions. All of the patient's questions were answered. The patient remained stable under my care. Clinical Impression: Constipation Dispo Discharge Patient seen and discussed with Dr. Sarah Jang MD PGY 2 Emergency Medicine HISTORY OF PRESENTING ILLNESS IMMANUEL is a 26 year old Male and was seen by me at 09-Feb-2022 23:09 for a chief complaint of abdominal pain . Other complaints include: Patient has had lower right quadrant pain since this morning and it has gotten worse over that day. Patient had one bout of emesis and it had no relief. Patient states he has not had a bowel movement in at least 2 weeks.(1). Triage Information: Most recent Vital Sign Value Date Temp (F): 97.6 02-09-2022 23:02 Temp (C): 36.4 02-09-2022 23:02 Heart Rate (beats/min): 76 02-09-2022 23:02 Respirations (breaths/min): 19 02-09-2022 23:02 SpO2 (%): 98 02-09-2022 23:02 BP Systolic (mm Hg): 118 02-09-2022 23:02 BP Diastolic (mm Hg): 77 02-09-2022 23:02 PAST MEDICAL HISTORY ALLERGIES/INTOLERANC ES: No Known Allergies HEALTH HISTORY: No documented data. OUTPATIENT MEDICATIONS: Home Medications Review Status for Reconciliation (more content not included)... Normal [facility] TYPE + SCREENon 02-10-2022 ABO TYPE A Normal [facility] Comment on above: Performed By: #### T +S #### [facility] [address] [place] [address] RH TYPE Positive Normal [facility] Comment on above: Performed By: #### T +S #### [facility] [address] [place] [address] URINALYSIS WITH CULTURE IF I NDICATEDon 02-10-2022 Bilirubin Ql (U) Negative Normal NEGATIVE [facility] Comment on above: Performed By: #### U ARFX #### [facility] [address] [place] [address] Glucose Ql (U) Negative Normal NEGATIVE [facility] Comment on above: Performed By: #### U ARFX #### [facility] [address] [place] [address] Hemoglobin Ql (U) Negative Normal NEGATIVE [facility] Comment on above: Performed By: #### U ARFX #### [facility] [address] [place] [phone] Ketones Ql (U) Negative Normal NEGATIVE [facility] Comment on above: Performed By: #### U ARFX #### [facility] [address] [place] [id number] Leukocyte esterase Test strip Ql (U) Negative Normal NEGATIVE [facility] Comment on above: Performed By: #### U ARFX #### [facility] [address] [place] [id number] Nitrite Ql (U) Negative Normal NEGATIVE [facility] Comment on above: Performed By: #### U ARFX #### [facility] [address] [place] [address] pH (U) 7.5 [pH] Normal 5.0 - 8.0 [facility] Comment on above: Performed By: #### U ARFX #### [facility] [address] [place] [address] Protein Ql (U) Negative Normal NEGATIVE [facility] Comment on above: Performed By: #### U ARFX #### [facility] [address] [place] [id number] Specific gravity (U) [Rel density] <1.005 Abnormal 1.005 - 1.035 [facility] Comment on above: Performed By: #### U ARFX #### [facility] [address] [place] [address] Urobilinogen (U) [Mass/Vol] mg/dL Normal 0.0 - 1.9 [facility] Comment on above: Performed By: #### U ARFX #### [facility] [address] [place] [id number] Appearance (U) HAZY Normal CLEAR [facility] Comment on above: Performed By: #### U ARFX #### [facility] [address] [place] [address] Color (U) STRAW Normal STRAW,YELLOW [facility] Comment on above: Performed By: #### U ARFX #### [facility] [address] [place] [id number] LABORATORYOrdered By: Viviana Sharma on 09-15-2021 Date of Onset [id number] Invalid Interpretation Code Auto Viro/Sero SS Employed in Healthcare No (09/15/21 11:00 AM) Invalid Interpretation Code Auto Viro/Sero SS First Test No (09/15/21 11:00 AM) Invalid Interpretation Code Auto Viro/Sero SS FLU A PCR Negative 4 (09/15/21 11:00 AM) Invalid Interpretation Code Negative Auto Viro/Sero SS Comment on above: Result Comment: [place] [id number] FLU B PCR Negative 5 (09/15/21 11:00 AM) Invalid Interpretation Code Negative Auto Viro/Sero SS Comment on above: Result Comment: [place] [id number] Hospitalized No (09/15/21 11:00 AM) Invalid Interpretation Code AH Auto Viro/Sero SS ICU No (09/15/21 11:00 AM) Invalid Interpretation Code AH Auto Viro/Sero SS Not (09/15/21 11:00 AM) Invalid Interpretation Code AH Auto Viro/Sero SS Resides in Congregate Care Setting No (09/15/21 11:00 AM) Invalid Interpretation Code Auto Viro/Sero SS RSV PCR Negative 6 (09/15/21 11:00 AM) Invalid Interpretation Code Negative Auto Viro/Sero SS Comment on above: Result Comment: [place] s [id number] SARS-CoV-2 (COVID-19) RNA DERICK+probe Ql (Unsp spec) Negative 3 (09/15/21 11:00 AM) Invalid Interpretation Code Negative AH Auto Viro/Sero SS Comment on above: Result Comment: [place] [id number] Symptomatic as Defined by CDC No (09/15/21 11:00 AM) Invalid Interpretation Code AH Auto Viro/Sero SS LABORATORYOrdered By: Griselda Wellington on 09-14-2021 Acetaminophen [Mass/Vol] mcg/mL Invalid Interpretation Code 10.0 - 20.0 mcg/mL AH ADM SS ER Drug Screen (s) Negative (09/14/21 10:42 PM) Invalid Interpretation Code Chemistry S ER Drug Screen Interp Serum shows no evidence of drugs routinely screened Invalid Interpretation Code Chemistry S ER Serum Drugs Screened: See Below (09/14/21 10:42 PM) Invalid Interpretation Code Chemistry S ER U Drug Screen Positive *ABN* (09/14/21 10:42 PM) Invalid Interpretation Code Chemistry S ER U Drug Screen Interp In the urine, the following drug(s) or drug class(es) were screened presumptive positive at or above the listed threshold: _1. Cannabinoids (THC metabolites). Invalid Interpretation Code Chemistry S Ethanol [Mass/Vol] mg/dL Invalid Interpretation Code ADM SS Salicylates [Mass/Vol] mg/dL Invalid Interpretation Code 10.0 - 25.0 mg/dL AH ADM SS Tricyclic antidepressants Screen Ql see comment Invalid Interpretation Code Chemistry S Comment on above: Result Comment: Seru m TCA test was not performed, reagents needed to perform tests are unavailable. Alternate send out testing is available per request. To order contact the Chemistry Department at [phone]. [phone]. U ER Drugs Screened: See Below (09/14/21 10:42 PM) Invalid Interpretation Code Chemistry S LABORATORYOrdered By: SYSTEM SYSTEM on 09-14-2021 Albumin BCP dye [Mass/Vol] 4.3 G/dL Invalid Interpretation Code 3.2 - 4.8 G/dL AH ADM SS Albumin/Globulin [Mass ratio] 1.9 {ratio} Invalid Interpretation Code 0.9 - 1.6 ratio AH ADM SS ALP [Catalytic activity/Vol] 57 U/L Invalid Interpretation Code 38 - 126 U/L AH ADM SS ALT No additional P-5'-P [Catalytic activity/Vol] 20 U/L Invalid Interpretation Code 12 - 55 U/L AH ADM SS AST [Catalytic activity/Vol] 23 U/L Invalid Interpretation Code 8 - 34 U/L AH ADM SS Basophils (Bld) [#/Vol] 0.1 103/mcL Invalid Interpretation Code 0.0 - 0.3 10^3/mcL Workflow SS Basophils/100 WBC (Bld) 0.9 % Invalid Interpretation Code 0.0 - 2.5 % Workflow SS Bilirubin [Mass/Vol] 1.20 mg/dL Invalid Interpretation Code 0.20 - 1.20 mg/dL ADM SS Calcium [Mass/Vol] 9.7 mg/dL Invalid Interpretation Code 8.7 - 10.4 mg/dL ADM SS Chloride [Moles/Vol] 108 mmol/L Invalid Interpretation Code 98 - 110 mEq/L ADM SS CO2 [Moles/Vol] 28 mmol/L Invalid Interpretation Code 22 - 32 mEq/L ADM SS Creatinine [Mass/Vol] 0.69 mg/dL Invalid Interpretation Code 0.60 - 1.40 mg/dL ADM SS Electrolyte Balance 6.0 mEq/L Invalid Interpretation Code 4.0 - 15.0 mEq/L ADM SS Eosinophils (Bld) [#/Vol] 0.1 103/mcL Invalid Interpretation Code 0.0 - 0.7 10^3/mcL Workflow SS Eosinophils/100 WBC (Bld) 1.1 % Invalid Interpretation Code 0.0 - 6.0 % Workflow SS Erythrocyte distribution width (RBC) [Ratio] 13.7 % Invalid Interpretation Code 11.5 - 15.5 % Workflow SS GFR/1.73 sq M.predicted among blacks MDRD (S/P/Bld) [Vol rate/Area] ml/min/1.73sqm Invalid Interpretation Code ADM SS GFR/1.73 sq M.predicted among non-blacks MDRD (S/P/Bld) [Vol rate/Area] ml/min/1.73sqm Invalid Interpretation Code ADM SS Globulin 2.3 G/dL Invalid Interpretation Code 1.5 - 3.8 G/dL ADM SS Glucose [Mass/Vol] 102 mg/dL Invalid Interpretation Code 70 - 110 mg/dL ADM SS Hematocrit (Bld) [Volume fraction] 45.8 % Invalid Interpretation Code 40.0 - 52.0 % Workflow SS Hemoglobin (Bld) [Mass/Vol] 15.7 G/dL Invalid Interpretation Code 13.0 - 17.5 G/dL Workflow SS Lymphocytes (Bld) [#/Vol] 2.9 103/mcL Invalid Interpretation Code 0.9 - 4.3 10^3/mcL Workflow SS Lymphocytes/100 WBC (Bld) 31.7 % Invalid Interpretation Code 20.0 - 40.0 % AH Workflow SS MCH (RBC) [Entitic mass] 31.0 pg Invalid Interpretation Code 27.0 - 33.0 pg AH Workflow SS MCHC 34.3 G/dL Invalid Interpretation Code 32.0 - 36.0 G/dL AH Workflow SS MCV (RBC) [Entitic vol] 90.3 fL Invalid Interpretation Code 81.0 - 100.0 fL AH Workflow SS Monocyte distribution width Auto (Bld) [Entitic vol] 17.56 Invalid Interpretation Code 0.00 - 20.00 AH Workflow SS Comment on above: Result Comment: For ED adult patients suspected of sepsis, MDW<=20.0 does not rule out sepsis or risk of sepsis Monocytes (Bld) [#/Vol] 0.6 103/mcL Invalid Interpretation Code 0.1 - 1.4 10^3/mcL AH Workflow SS Monocytes/100 WBC (Bld) 6.8 % Invalid Interpretation Code 2.0 - 13.0 % AH Workflow SS Neutrophils (Bld) [#/Vol] 5.4 103/mcL Invalid Interpretation Code 2.3 - 8.1 10^3/mcL AH Workflow SS Neutrophils/100 WBC (Bld) 59.5 % Invalid Interpretation Code 50.0 - 75.0 % AH Workflow SS Platelet mean volume (Bld) [Entitic vol] 7.5 fL Invalid Interpretation Code 6.4 - 10.5 fL AH Workflow SS Platelets (Bld) [#/Vol] 318 103/mcL Invalid Interpretation Code 150 - 450 10^3/mcL AH Workflow SS Potassium [Moles/Vol] 2.9 mmol/L Invalid Interpretation Code 3.5 - 5.0 mEq/L AH ADM SS Protein [Mass/Vol] 6.6 G/dL Invalid Interpretation Code 5.7 - 8.2 G/dL AH ADM SS RBC (Bld) [#/Vol] 5.08 106/mcL Invalid Interpretation Code 4.50 - 6.00 10^6/mcL AH Workflow SS Sodium [Moles/Vol] 142 mmol/L Invalid Interpretation Code 136 - 145 mEq/L AH ADM SS Urea nitrogen [Mass/Vol] mg/dL Invalid Interpretation Code 8.0 - 22.0 mg/dL AH ADM SS Urea nitrogen/Creatinine [Mass ratio] ratio Invalid Interpretation Code 10.0 - 22.0 ratio AH ADM SS WBC 9.1 103/mcL Invalid Interpretation Code 4.5 - 10.8 10^3/mcL AH Workflow SS ACETAMINOPHENon 08-22-2021 Acetaminophen [Mass/Vol] 2 ug/mL Low 10-30 [facility] Comment on above: Order Comment: Campu s: M Performed By: #### L 530.38101, L500.44460, L500.81330, L500.29973, L500.96595, L520.60028, L520.24316 #### [facility] [place] [address] ALC ETHANOLon 08-22-2021 ALC ETHANOL LESS THAN 0.003 Normal LESS THN 0.01 [facility] Comment on above: Order Comment: Campu s: M Performed By: #### L 530.44545, L500.04746, L500.84004, L500.61840, L500.99872, L520.43291, L520.07018 #### [facility] [address] [place] [address] BMPon 08-22-2021 Anion gap [Moles/Vol] 6 mmol/L Normal 5-16 [facility] Comment on above: Order Comment: Campu s: M Performed By: #### L 530.30502, L500.84532, L500.19301, L500.01860, L500.87077, L520.75170, L520.01638 #### [facility] [address] [place] [address] BUN/CREA TNP Normal 15-24 [facility] Comment on above: Order Comment: Campu s: M Performed By: #### L 530.49703, L500.84510, L500.45691, L500.38773, L500.55255, L520.82435, L520.03342 #### [facility] [address] [place] [address] Calcium [Mass/Vol] 9.8 mg/dL Normal 8.5-10.5 [facility] Comment on above: Order Comment: Campu s: M Result Comment: NOTE NEW NORMAL RANGE DUE TO REAGENT CHANGE Performed By: #### L 530.02131, L500.71865, L500.75430, L500.40247, L500.37869, L520.29581, L520.88644 #### [facility] [place] [address] Chloride [Moles/Vol] 108 mmol/L High 98-107 [facility] Comment on above: Order Comment: Campu s: M Performed By: #### L 530.42787, L500.30569, L500.79689, L500.11837, L500.24471, L520.35782, L520.52338 #### [facility] [address] [place] [address] CO2 [Moles/Vol] 27.0 mmol/L Normal 21-32 [facility] Comment on above: Order Comment: Campu s: M Performed By: #### L 530.66136, L500.26006, L500.57469, L500.59717, L500.50313, L520.40220, L520.81837 #### [facility] [address] [place] [address] Creatinine [Mass/Vol] 0.73 mg/dL Normal 0.5-1.4 [facility] Comment on above: Order Comment: Campu s: M Result Comment: NOTE NEW NORMAL RANGE DUE TO REAGENT CHANGE Patients receiving either N-Acetylcysteine (NAC) or Metamizole prior to venipuncture, may have falsely depressed results. Performed By: #### L 530.49097, L500.71222, L500.05208, L500.96564, L500.83874, L520.07934, L520.07973 #### [facility] [place] [address] Glucose [Mass/Vol] 154 mg/dL High 70-100 [facility] Comment on above: Order Comment: Campu s: M Result Comment: 70-1 00- Normal Fasting; 100-125 Impaired Fasting; greater than 126 on more than one result- Diabetes. ADA guidelines. Results may be falsely elevated after the administration of Sulfapyridine. Results may be falsely depressed after the administration of Sulfasalazine. Performed By: #### L 530.81609, L500.46560, L500.74285, L500.95583, L500.21769, L520.51899, L520.68226 #### [facility] [address] [place] [address] Potassium [Moles/Vol] 3.0 mmol/L Low 3.5-5.1 [facility] Comment on above: Order Comment: Campu s: M Performed By: #### L 530.08988, L500.63855, L500.40307, L500.63168, L500.41947, L520.93835, L520.80730 #### [facility] [address] [place] [address] Sodium [Moles/Vol] 141 mmol/L Normal 136-145 [facility] Comment on above: Order Comment: Campu s: M Performed By: #### L 530.06432, L500.37633, L500.53430, L500.36778, L500.04415, L520.82382, L520.74110 #### [facility] [address] [place] [address] Urea nitrogen [Mass/Vol] 5 mg/dL Low 7-26 [facility] Comment on above: Order Comment: Campu s: M Performed By: #### L 530.00405, L500.99654, L500.61860, L500.80443, L500.80666, L520.20220, L520.60351 #### [facility] [address] [place], [place] [address] CBC W/DIFFon 08-22-2021 BASO ABS 0.00 K/CU MM Normal 0-0.2 [facility] Comment on above: Order Comment: Campu s: M Performed By: #### L 200.62859 #### [facility] [address] [place] [address] Basophils/100 WBC (Bld) 0.4 % Normal 0-2 [facility] Comment on above: Order Comment: Campu s: M Performed By: #### L 200.65718 #### [facility] [address] [place] [address] EOS ABS 0.00 K/CU MM Normal 0-0.5 [facility] Comment on above: Order Comment: Campu s: M Performed By: #### L 200.30995 #### [facility] [address] [place] [address] Eosinophils/100 WBC (Bld) 0.4 % Normal 0-5 [facility] Comment on above: Order Comment: Campu s: M Performed By: #### L 200.15752 #### [facility] [address] [place] [address] Erythrocyte distribution width (RBC) [Ratio] 12.5 % Normal 11-14.5 [facility] Comment on above: Order Comment: Campu s: M Performed By: #### L 200.33972 #### [facility] [address] [place] [address] Hematocrit (Bld) [Volume fraction] 42.4 % Normal 41.0-53.0 [facility] Comment on above: Order Comment: Campu s: M Performed By: #### L 200.02622 #### [facility] [address] [place] [address] Hemoglobin (Bld) [Mass/Vol] 15.2 g/dL Normal 13.5-17.5 [facility] Comment on above: Order Comment: Campu s: M Performed By: #### L 200.19370 #### [facility] [address] [place] [address] IMMATR GRAN ABS 0.00 K/CU MM Normal Less than 2 [facility] Comment on above: Order Comment: Campu s: M Performed By: #### L 200.72645 #### [facility] [address] [place] [address] IMMATURE GRAN % 0.2 % Normal Less than 2 [facility] Comment on above: Order Comment: Campu s: M Performed By: #### L 200.83717 #### [facility] [address] [place] [address] LYMPH ABS 1.80 K/CU MM Normal 0.9-4.4 [facility] Comment on above: Order Comment: Campu s: M Performed By: #### L 200.37693 #### [facility] [address] [place] [address] Lymphocytes/100 WBC (Bld) 21.8 % Normal 20-40 [facility] Comment on above: Order Comment: Campu s: M Performed By: #### L 200.25192 #### [facility] [address] [place] [address] MCHC (RBC) [Mass/Vol] 35.8 g/dL Normal 32.0-36.0 [facility] Comment on above: Order Comment: Campu s: M Performed By: #### L 200.03211 #### [facility] [address] [place] [address] MCV (RBC) [Entitic vol] 86.4 fL Normal 80.0-99.0 [facility] Comment on above: Order Comment: Campu s: M Performed By: #### L 200.25717 #### [facility] [address] [place] [address] MONO ABS 0.50 K/CU MM Normal 0.1-1.1 [facility] Comment on above: Order Comment: Campu s: M Performed By: #### L 200.30182 #### [facility] [address] [place] [address] Monocytes/100 WBC (Bld) 5.7 % Normal 2-10 [facility] Comment on above: Order Comment: Campu s: M Performed By: #### L 200.57636 #### [facility] [address] [place] [address] NEUTROPHIL ABS 6.00 K/CU MM Normal 2.0-8.3 [facility] Comment on above: Order Comment: Campu s: M Performed By: #### L 200.43801 #### [facility] [address] [place] [address] Neutrophils/100 WBC (Bld) 71.5 % Normal 45-75 [facility] Comment on above: Order Comment: Campu s: M Performed By: #### L 200.43159 #### [facility] [address] [place] [address] Nucleated RBC/100 WBC (Bld) [Ratio] 0.0 % Normal Less than 1 [facility] Comment on above: Order Comment: Campu s: M Performed By: #### L 200.49883 #### [facility] [address] [place] [address] Platelet mean volume (Bld) [Entitic vol] 9.6 fL Normal 9.4-12.4 [facility] Comment on above: Order Comment: Campu s: M Performed By: #### L 200.94472 #### [facility] [address] [place] [address] PLT 312 K/CU MM Normal 150-450 [facility] Comment on above: Order Comment: Campu s: M Performed By: #### L 200.60929 #### [facility] [place] [id number] RBC 4.91 M/CU MM Normal 4.50-6.00 [facility] Comment on above: Order Comment: Campu s: M Performed By: #### L 200.84653 #### [facility] [address] [place], [place] [address] WBC 8.4 K/CUMM Normal 4.5-11.0 [facility] Comment on above: Order Comment: Campu s: M Performed By: #### L 200.25378 #### [facility] [address] [place] [address] CKon 08-22-2021 CK [Catalytic activity/Vol] 109 U/L Normal 26-192 [facility] Comment on above: Order Comment: Campu s: M Result Comment: NOTE NEW NORMAL RANGE DUE TO REAGENT CHANGE Performed By: #### L 530.53752, L500.82316, L500.56152, L500.33482, L500.90229, L520.56263, L520.94459 #### [facility] [address] [place] [address] EKGon 08-22-2021 Electrocardiogram Procedure Date and Time: 08/22/21 1600 Test Reason : STAT Blood Pressure : / mmHG Vent. Rate : 099 BPM Atrial Rate : 099 BPM P-R Int : 136 ms QRS Dur : 088 ms QT Int : 356 ms P-R-T Axes : 061 072 054 degrees QTc Int : 456 ms Normal sinus rhythm Normal ECG When compared with ECG of 20-DEC-2017 11:11, T wave inversion no longer evident in Inferior leads Nonspecific T wave abnormality no longer evident in Lateral leads Confirmed by Annabella RAMIREZTHREE RIVERS HOSPITALIta ([id number]) on 08/23/2021 1:13:43 PM Referred By: Annette Sterling Confirmed By:Ita RAMIREZ M.D.[facility] Annabella DDandT: 08/22/21 1600 TDandT: [facility] PATIENT NAME: IMMANUEL NEUMANN Dr. Valentin MEDICAL REC #: [id number] [place] [address] ADMIT DATE: DISCHARGE DATE: 08/22/21 ATTENDING PHY: Osei Davis MD ELECTROCARDIOGRAM REPORT CLB cc: [facility] PATIENT NAME: IMMANUEL NEUMANN [facility] [address] Valentin MEDICAL REC #: [id number] [place] [address] ADMIT DATE: DISCHARGE DATE: 08/22/21 ATTENDING PHY: Osei Davis MD ELECTROCARDIOGRAM REPORT Normal [facility] Rachele 08-22-2021 EMERGENCY PHYSICIAN REPORT This is a preliminary report only, as the practitioner review and authentication has not occurred. Normal [facility] ER PHYSICIAN ASSESSMENT RECORDS : Discharge Report Event Time: 08/22/2021 18:49 : FlexChartData Event Time: 08/22/2021 19:20 Status: Signed [facility] Immanuel Neumann [[id number]] Attending Physician / 1995 Chart (V2b) Chart created at 08/22/2021 18:47 by Osei Davis Chart closed at 08/22/2021 18:49 Entry in Emergency Department at 08/22/2021 13:46, departure at 08/22/2021 19:13 Patient Name: Immanuel Neumann Record Number: [id number] Date: 08/22/2021 18:47 Entered Department at: 08/22/2021 13:46 Patient Seen at: 08/22/2021 17:31 Historian: Patient Chief Complaint: Pulse: 102. Respiratory Rate: 18. Blood-pressure: 118/71. Oxygen Saturation: 97%. Allergies: No Known Allergies Social History: Reviewed RN Note. Medical Decision Making It was turned over me by the prior physician pending crisis center evaluation and making disposition. Crisis and has evaluated patient here in the ED. The wine cellar worker felt that the patient is stable for [facility] PATIENT NAME: IMMANUEL NEUMANN [address] [facility] [address] Valentin MEDICAL REC #: [id number] [place] [address] EMERGENCY DEPARTMENT REPORT EMERGENCY DEPARTMENT PHYSICIAN discharge home does not represent an imminent risk to self. He has psychiatric follow-up established. Clinical Impression: 1. Bipolar disorder Disposition: Discharged . MSE completed. I assumed care of this patient from the previous ED attending physician.. : FlexChartData Event Time: 08/22/2021 18:05 Status: Draft [facility] Immanuel Neumann [[id number]] Attending Physician 1995 Chart (V2b) Chart created at 08/22/2021 17:45 by Annette Sterling Entry in Emergency Department at 08/22/2021 13:46 Patient Name: Immanuel Neumann Record Number: [id number] Date: 08/22/2021 17:45 Entered Department at: 08/22/2021 13:46 Patient Seen at: 08/22/2021 17:31 Historian: EMS and Patient Chief Complaint: Initial Vital Signs reviewed. Pulse: 102. Respiratory Rate: 18. Blood-pressure: 118/71. Oxygen Saturation: 97%. History of Present Illness: Patient was brought to the emergency department via EMS under the direction of [facility] Emergency [facility] PATIENT NAME: IMMANUEL NEUMANN [address] [facility] [address] Valentin MEDICAL REC #: [id number] [place] [address] EMERGENCY DEPARTMENT REPORT EMERGENCY DEPARTMENT PHYSICIAN Physicians. Chief complaint is psych eval. Patient is a 25-year-old male with a history of bipolar disorder. He is not compliant with his medication. Here for mental evaluation. He ran away from the [employer]. Stating that his life was so should show. He is noncompliant with his medication. Verbalized to the [facility] and EMS that he wanted to kill himself. They brought him here. Here the patient has very pressured speech. Very anxious. Very angry. Denies headaches or blurry vision. No neck pain or back pain. No chest pain. No shortness of breath. Denies any cough or congestion. No fevers or chills or night sweats. Has no abdominal pain. Denies any nausea or vomiting. No diarrhea or constipation. There is no blood in his urine or stool. No dysuria or urinary frequency. No testicular swelling or pain. There is no numbness tingling or weakness in the upper or lower extremities. Review of Systems. Psychological: positive for Anxiety, Depression and Stress All other systems reviewed and negative.. Past History, Medications, Allergies, Social History and Family History reviewed in nurses note. Medications: Reviewed RN Note. Allergies: Reviewed RN Note No Known Allergies Social History: Reviewed RN Note. Family History: Reviewed RN Note Physical Examination: General: Alert and Well Developed HEENT: Normal ENT inspection. Eyes: Lids Normal; . Oropharynx / Throat: Normal Pharynx. Neck: No Lymphadenopathy, No Meningismus and Supple Respiratory: No Resp Distress, Chest non-tender and Normal Breath Sounds Cardio-Vascular: No murmur, No rub and RRR Abdomen: Normal Bowel Sounds, No Organomegaly, Non-tender and Soft Back: No CVA tenderness, No Midline Tenderness and Non-tender Extremity: No Calf Tenderness, No [facility] PATIENT NAME: IMMANUEL NEUMANN [address] [facility] [address] Valentin MEDICAL REC #: [id number] [place] [address] EMERGENCY DEPARTMENT REPORT EMERGENCY DEPARTMENT PHYSICIAN edema and Normal Equal pulses Neurological: Alert, Oriented X3 and No Gross Weakness Skin: No rash, No Petechiae, Warm and Dry Psychological: Very anxious a (more content not included)... Normal [facility] GFR ESTon 08-22-2021 IF AMER Greater than 60 Normal [facility] Comment on above: Order Comment: Sylvain s: M Performed By: #### L 530.67822, L500.68579, L500.39829, L500.71014, L500.36075, L520.90795, L520.59377 #### [facility] [address] [place] [address] IF non-AFR AMER Greater than 60 Normal [facility] Comment on above: Order Comment: Brigidou s: M Performed By: #### L 530.77272, L500.46546, L500.90502, L500.77318, L500.48334, L520.73544, L520.30588 #### [facility] [address] [place] [address] LIVERon 08-22-2021 Albumin [Mass/Vol] 4.1 g/dL Normal 3.2-5.0 [facility] Comment on above: Order Comment: Brigidou s: M Performed By: #### L 530.65650, L500.61927, L500.97071, L500.28990, L500.81018, L520.74366, L520.62675 #### [facility] [address] [place] [address] Albumin/Globulin [Mass ratio] 1.8 {ratio} Normal 0.8-2.0 [facility] Comment on above: Order Comment: Campu s: M Performed By: #### L 530.66631, L500.30255, L500.06396, L500.66022, L500.47178, L520.94538, L520.82165 #### [facility] [place] [address] ALK PHOS 60 U/L Normal 45-117 [facility] Comment on above: Order Comment: Campu s: M Performed By: #### L 530.67992, L500.49481, L500.57699, L500.09795, L500.60900, L520.02896, L520.29808 #### [facility] [address] [place] [address] ALT [Catalytic activity/Vol] 22 U/L Normal 13-61 [facility] Comment on above: Order Comment: Campu s: M Result Comment: RESU LTS MAY BE FALSELY DEPRESSED AFTER THE ADMINISTRATION OF SULFASALAZINE AND/OR SULFAPYRIDINE. Performed By: #### L 530.03713, L500.79015, L500.20018, L500.28447, L500.66243, L520.03662, L520.10624 #### [facility] [address] [place] [address]47[address] AST [Catalytic activity/Vol] 23 U/L Normal 8-34 [facility] Comment on above: Order Comment: Campu s: M Result Comment: RESU LTS MAY BE FALSELY DEPRESSED AFTER THE ADMINISTRATION OF SULFASALAZINE AND/OR SULFAPYRIDINE. Performed By: #### L 530.70624, L500.45539, L500.97307, L500.80708, L500.53593, L520.67806, L520.20841 #### [facility] [address] [place] [address] BILI DIRECT 0.5 MG/DL High 0.00-0.36 [facility] Comment on above: Order Comment: Campu s: M Result Comment: NOTE NEW NORMAL RANGE DUE TO REAGENT CHANGE Performed By: #### L 530.59137, L500.17955, L500.85924, L500.93443, L500.97323, L520.17574, L520.40462 #### [facility] [address] [place], [place] [address] BILI TOTAL 0.90 MG/DL Normal 0.2-1.0 [facility] Comment on above: Order Comment: Campu s: M Performed By: #### L 530.50750, L500.59674, L500.88963, L500.45876, L500.75990, L520.36995, L520.52567 #### [facility] [address] [place] [address] Globulin (S) [Mass/Vol] 2.3 g/dL Normal 2.2-4.2 [facility] Comment on above: Order Comment: Campu s: M Performed By: #### L 530.08505, L500.92765, L500.42126, L500.17055, L500.64705, L520.46953, L520.29419 #### [facility] [address] [place], [place] [address] Protein [Mass/Vol] 6.4 g/dL Normal 6.0-8.5 [facility] Comment on above: Order Comment: Campu s: M Performed By: #### L 530.84986, L500.59441, L500.37534, L500.36107, L500.77628, L520.60011, L520.15748 #### [facility] [address] [place], [place] [address] [id number] 08-22-2021 SARS-CoV-2 (COVID-19) RNA DERICK+probe Ql (Unsp spec) Negative Invalid Interpretation Code Negative [facility] Comment on above: Order Comment: Campu s: M Result Comment: RESU LTS CALLED TO AND READ BACK BY VIC DAVID AT 1713 08/22/21 BY CEDRIC ARMIJO Negative results do not preclude SARS-CoV-2 infection and should not be used as the sole basis for treatment or other patient management decisions. Negative results must be combined with clinical observation, patient history, and epidemiological information. This test was performed by PCR. Performed By: #### L 530.93785, L500.24295, L500.56949, L500.78146, L500.09890, L520.75233, L520.45813 #### [facility] [address] [place] [address] SALon 08-22-2021 WES LESS THAN 3.0 Normal 2.8-20.0 [facility] Comment on above: Order Comment: Campu s: M Performed By: #### L 530.85738, L500.51071, L500.95002, L500.80090, L500.70771, L520.78016, L520.13380 #### [facility] [address] [place] [address] UR DRUG ABUSEon 08-22-2021 UR AMPH Negative Normal Kxdwcx=3978 [facility] Comment on above: Order Comment: Campu s: M Performed By: #### L 600.66776 #### [facility] [address] [place] [address] UR MARY Negative Normal Mgnotc=040 [facility] Comment on above: Order Comment: Campu s: M Performed By: #### L 600.67711 #### [facility] [address] [place] [address] UR KIMBERLY Negative Normal Nzrdol=561 [facility] Comment on above: Order Comment: Campu s: M Performed By: #### L 600.22213 #### [facility] [address] [place], [place] [address] UR KONG/THC Positive Normal Cutoff=50 [facility] Comment on above: Order Comment: Brigidou s: M Performed By: #### L 600.11254 #### [facility] UR CHELLY Negative Normal Ayyhfp=093 [facility] Comment on above: Order Comment: Brigidou s: M Performed By: #### L 600.71210 #### [facility] [address] [place] [address], [place] [address] UR OPIAT Negative Normal Hzwgrv=463 [facility] Comment on above: Order Comment: Brigidou s: M Performed By: #### L 600.86884 #### [facility] [address] [place] [address], [place] [address] UR PCP Negative Normal Cutoff=25 [facility] Comment on above: Order Comment: Brigidou s: M Performed By: #### L 600.27584 #### [facility] [address] [place] [address] DRAB COMMENT Normal [facility] Comment on above: Order Comment: Sylvain s: Glendy Result Comment: [facility] results are qualitative, providing a preliminary analytical result. A positive result for an assay should be confirmed by another nonimmunological, reference method. A negative result indicates that the assay material is either not present, or present at levels below the cutoff threshold for the analytical method range (AMR) validation. Performed By: #### L 600.76246 #### [facility] [address] [place] [address] Rachele 01-15-2021 EMERGENCY PHYSICIAN REPORT This is a preliminary report only, as the practitioner review and authentication has not occurred. Normal [facility] ER PHYSICIAN ASSESSMENT RECORDS : Discharge Report Event Time: 01/15/2021 00:32 : FlexChartData Event Time: 01/15/2021 01:05 Status: Signed [facility] Immanuel Neumann [[id number]] Attending Physician 1995 Chart (V2b) Chart created at 01/15/2021 00:28 by Jayce Ugarte Chart closed at 01/15/2021 00:31 Entry in Emergency Department at 01/14/2021 23:19, departure at 01/15/2021 00:41 Patient Name: Immanuel Neumann Record Number: [id number] Date: 01/15/2021 00:28 Entered Department at: 01/14/2021 23:19 Patient Seen at: 01/14/2021 23:33 Historian: Patient Chief Complaint:Very anxious/panic attack. Having auditory hallucinations. No current SI, was suicidal the past few days. Calm and cooperative. Hx of schizoaffective Triage Note reviewed and Initial Vital Signs reviewed. Temperature: 99 F (37.2 C). Pulse: 110. Respiratory Rate: 20. Blood-pressure: 116/69. Oxygen Saturation: 98%. History of Present Illness: Patient is a 25-year-old male with history of schizoaffective disorder, follows up outpatient with a psychiatrist, is on medications and is compliant with these. Patient presents today secondary to a panic [facility] PATIENT NAME: IMMANUEL NEUMANN [address] [facility] [address]in MEDICAL REC #: [id number] [place] [address] EMERGENCY DEPARTMENT REPORT EMERGENCY DEPARTMENT PHYSICIAN attack. He states that he has been relatively well controlled until this evening when his car broke down and he became very anxious. Bystanders were concerned by him and called paramedics who brought him to the emergency department for evaluation. At time of evaluation, the patient states that he does not want to be here and would prefer to go home. He does admit to a longstanding history of anxiety and states this is consistent with his known history of anxiety. He denies any symptoms of suicidal or homicidal ideation. He denies any additional medical complaints at this time and is declining any additional work-up or evaluation. HPI Elements: Onset: 2 Hours ago; Timing: Sudden Onset; Exacerbated by: Nothing; Alleviated by: Nothing Review of Systems. Psychological: positive for Anxiety All other systems reviewed and negative.. Past History, Medications, Allergies, Social History and Family History reviewed in nurses note. Medications: Reviewed RN Note. CITALOPRAM HYDROBROMIDE 40MG TABLET - PO DAILY, VYVANSE 50MG CAPSULE - PO DAILY, OLANZAPINE 15MG TABLET - PO 2 TABS QHS, HALDOL PRN, VERIFIED FROM MEDS GIVEN - 01/14/21 Allergies: Reviewed RN Note No Known Allergies Social History: Reviewed RN Note. Family History: Reviewed RN Note Physical Examination: General: Alert and Well Developed HEENT: Normal ENT inspection. Eyes: Lids Normal; . Oropharynx / Throat: Normal Pharynx. Neck: No Lymphadenopathy, No Meningismus and Supple Respiratory: No Resp Distress and Normal Breath Sounds Cardio-Vascular: No murmur, No rub and RRR Abdomen: Non-tender and Soft Back: No CVA [facility] PATIENT NAME: IMMANUEL NEUMANN [address] [place] MEDICAL REC #: [id number] [place] [address] EMERGENCY DEPARTMENT REPORT EMERGENCY DEPARTMENT PHYSICIAN tenderness, No Midline Tenderness and Non-tender Extremity: No edema Neurological: Alert, Oriented X3 and No Gross Weakness Skin: No rash, No Petechiae, Warm and Dry Psychological: Normal Memory/Judgment; Anxious appearing, denies suicidal or homicidal ideation Medical Decision Making Patient is a 25-year-old male with history of schizoaffective disorder, anxiety with panic attacks, presents today for concerns of anxiety after his car broke down. At the time of evaluation, the patient is anxious appearing and is tearful, however he is requesting discharge home. He states that he became anxious this evening when his car broke down and bystanders called paramedics. He states that he does not want to be here, he does not feel suicidal or homicidal. He is declining any work-up at this time and would prefer to go home and take his scheduled medications and continue close follow-up with his psychiatrist as scheduled. He is invited to return anytime if he changes his mind or for any new or worsening symptoms. Clinical Impression: 1. Panic attack MSE completed. I was the primary ED attending.. Patient transported to ED by EMS with medical direction by [facility]CEP physician (not applicable for EMT squads) .. ===DISCHARGE REPORT=== : Discharge Report Event Time: 01/15/2021 00:32 Status: Draft Reasons to Return to the ER: You must return to the ER for any new, worsening (more content not included)... [facility] ED NOTEon 01-24-2019 ED NOTE HNO ID: [id number] Author: Blaire Zacarias RN Service: ? Author Type: Registered Nurse Type: ED Notes Filed: 01/23/2019 10:42 PM Note Text: Report given to CCAN. [facility] ED NOTE HNO ID: [id number] Author: Blaire Zacarias RN Service: ? Author Type: Registered Nurse Type: ED Notes Filed: 01/23/2019 10:21 PM Note Text: D/c and follow up reviewed with pt. [facility] ED NOTE HNO ID: [id number] Author: CLARK Damian Service: ? Author Type: Window Systems Administrator Type: ED Notes Filed: 01/23/2019 10:19 PM Note Text: CCAN ETA 10 minutes [facility] ED NOTE HNO ID: [id number] Author: Blaire Zacarias RN Service: ? Author Type: Registered Nurse Type: ED Notes Filed: 01/23/2019 10:21 PM Note Text: Urine obtained and sent. [facility] Urinalysison 01-24-2019 Bilirubin [Mass/Vol] Negative Normal Negative [facility] Comment on above: Performed By: #### C BCDIF, PT, UA, GBCHEM, GBTSH, HIVC, MG, GBHCV, HAVIGM, HBCAB, HBSAG, RPR #### [facility] [address] [place], [place] [id number] Clarity (U) Clear Normal Clear [facility] Comment on above: Performed By: #### C BCDIF, PT, UA, GBCHEM, GBTSH, HIVC, MG, GBHCV, HAVIGM, HBCAB, HBSAG, RPR #### [facility] [address] [place], [place] [id number] Color (U) Straw Critically abnormal Yellow [facility] Comment on above: Performed By: #### C BCDIF, PT, UA, GBCHEM, GBTSH, HIVC, MG, GBHCV, HAVIGM, HBCAB, HBSAG, RPR #### [facility] [address] [place], [place] [id number] Comments MICROSCOPIC ANALYSIS NOT DONE ON URINES WITH NEGATIVE BIOCHEMICAL TESTS Normal [facility] Comment on above: Performed By: #### C BCDIF, PT, UA, GBCHEM, GBTSH, HIVC, MG, GBHCV, HAVIGM, HBCAB, HBSAG, RPR #### [facility] [address] [place] [address] Glucose [Mass/Vol] Negative Normal Negative [facility] Comment on above: Performed By: #### C BCDIF, PT, UA, GBCHEM, GBTSH, HIVC, MG, GBHCV, HAVIGM, HBCAB, HBSAG, RPR #### [facility] [address] [place], [place] [id number] Hemoglobin/Blood Negative Normal Negative [facility] Comment on above: Performed By: #### C BCDIF, PT, UA, GBCHEM, GBTSH, HIVC, MG, GBHCV, HAVIGM, HBCAB, HBSAG, RPR #### [facility] [address] [place] [address] Ketone Negative Normal Negative [facility] Comment on above: Performed By: #### C BCDIF, PT, UA, GBCHEM, GBTSH, HIVC, MG, GBHCV, HAVIGM, HBCAB, HBSAG, RPR #### [facility] [address] [place] [address] Leukest Negative Normal Negative [facility] Comment on above: Performed By: #### C BCDIF, PT, UA, GBCHEM, GBTSH, HIVC, MG, GBHCV, HAVIGM, HBCAB, HBSAG, RPR #### [facility] [address] [place] [address] Nitrite Ql (U) Negative Normal Negative [facility] Comment on above: Performed By: #### C BCDIF, PT, UA, GBCHEM, GBTSH, HIVC, MG, GBHCV, HAVIGM, HBCAB, HBSAG, RPR #### [facility] [address] [place], [place] [id number] pH (U) 7.0 [pH] Normal 5-7 [facility] Comment on above: Performed By: #### C BCDIF, PT, UA, GBCHEM, GBTSH, HIVC, MG, GBHCV, HAVIGM, HBCAB, HBSAG, RPR #### [facility] [address] [place], [place] [id number] Protein (U) [Mass/Vol] Negative Normal Negative [facility] Comment on above: Performed By: #### C BCDIF, PT, UA, GBCHEM, GBTSH, HIVC, MG, GBHCV, HAVIGM, HBCAB, HBSAG, RPR #### [facility] [address] [place], [place] [phone] Urine Spec [place] 1.014 Normal 1.005-1.030 [facility] Comment on above: Performed By: #### C BCDIF, PT, UA, GBCHEM, GBTSH, HIVC, MG, GBHCV, HAVIGM, HBCAB, HBSAG, RPR #### [facility] [address] [place], [place] [id number] Urobilinogen Qn (U) <2.0 Normal 0.0-1.0 [facility] Comment on above: Performed By: #### C BCDIF, PT, UA, GBCHEM, GBTSH, HIVC, MG, GBHCV, HAVIGM, HBCAB, HBSAG, RPR #### [facility] [address] [place], [place] [id number] CBCDIFon 01-23-2019 Abs Baso 0.03 k/uL Normal 0-0.2 [facility] Comment on above: Performed By: #### C BCDIF, PT, UA, GBCHEM, GBTSH, HIVC, MG, GBHCV, HAVIGM, HBCAB, HBSAG, RPR #### [facility] [address] [place] [address] Abs [place] 0.81 k/uL High 0-0.8 [facility] Comment on above: Performed By: #### C BCDIF, PT, UA, GBCHEM, GBTSH, HIVC, MG, GBHCV, HAVIGM, HBCAB, HBSAG, RPR #### [facility] [address] [place] [address] Abs Neut 6.47 k/uL Normal 1.8-7.7 [facility] Comment on above: Performed By: #### C BCDIF, PT, UA, GBCHEM, GBTSH, HIVC, MG, GBHCV, HAVIGM, HBCAB, HBSAG, RPR #### [facility] [address] [place], [place] [id number] Basophils/100 WBC (Bld) 0.3 % Normal 0-1 [facility] Comment on above: Performed By: #### C BCDIF, PT, UA, GBCHEM, GBTSH, HIVC, MG, GBHCV, HAVIGM, HBCAB, HBSAG, RPR #### [facility] [address] [place], [place] [id number] Eosinophils (Bld) [#/Vol] 0.12 10*3/uL Normal 0-0.4 [facility] Comment on above: Performed By: #### C BCDIF, PT, UA, GBCHEM, GBTSH, HIVC, MG, GBHCV, HAVIGM, HBCAB, HBSAG, RPR #### [facility] [address] [place], [place] [id number] Eosinophils/100 WBC (Bld) 1.2 % Normal 0-4 [facility] Comment on above: Performed By: #### C BCDIF, PT, UA, GBCHEM, GBTSH, HIVC, MG, GBHCV, HAVIGM, HBCAB, HBSAG, RPR #### [facility] [address] [place] [address] Erythrocyte distribution width (RBC) [Ratio] 12.9 % Normal 11.5-14.5 [facility] Comment on above: Performed By: #### C BCDIF, PT, UA, GBCHEM, GBTSH, HIVC, MG, GBHCV, HAVIGM, HBCAB, HBSAG, RPR #### [facility] [address] [place] [address] Hematocrit (Bld) [Volume fraction] 45.6 % Normal 41.0-53.0 [facility] Comment on above: Performed By: #### C BCDIF, PT, UA, GBCHEM, GBTSH, HIVC, MG, GBHCV, HAVIGM, HBCAB, HBSAG, RPR #### [facility] [address] [place] [address] Hemoglobin (Bld) [Mass/Vol] 15.8 g/dL Normal 13.5-17.5 [facility] Comment on above: Performed By: #### C BCDIF, PT, UA, GBCHEM, GBTSH, HIVC, MG, GBHCV, HAVIGM, HBCAB, HBSAG, RPR #### [facility] [address] [place] [address] Immature Gran 0.30 % Normal 0-1.9 [facility] Comment on above: Performed By: #### C BCDIF, PT, UA, GBCHEM, GBTSH, HIVC, MG, GBHCV, HAVIGM, HBCAB, HBSAG, RPR #### [facility] [address] [place] [address] Lymphocytes (Bld) [#/Vol] 2.28 10*3/uL Normal 1.0-4.0 [facility] Comment on above: Performed By: #### C BCDIF, PT, UA, GBCHEM, GBTSH, HIVC, MG, GBHCV, HAVIGM, HBCAB, HBSAG, RPR #### [facility] [address] [place] [address] Lymphocytes/100 WBC (Bld) 23.4 % Normal 22-44 [facility] Comment on above: Performed By: #### C BCDIF, PT, UA, GBCHEM, GBTSH, HIVC, MG, GBHCV, HAVIGM, HBCAB, HBSAG, RPR #### [facility] [address] [place], [place] [id number] MCH (RBC) [Entitic mass] 31.0 pG Normal 26-34 [facility] Comment on above: Performed By: #### C BCDIF, PT, UA, GBCHEM, GBTSH, HIVC, MG, GBHCV, HAVIGM, HBCAB, HBSAG, RPR #### [facility] [address] [place] [address] MCHC (RBC) [Mass/Vol] 34.6 g/dL Normal 31-37 [facility] Comment on above: Performed By: #### C BCDIF, PT, UA, GBCHEM, GBTSH, HIVC, MG, GBHCV, HAVIGM, HBCAB, HBSAG, RPR #### [facility] [address] [place], [place] [phone] MCV (RBC) [Entitic vol] 89.4 fL Normal 80-100 [facility] Comment on above: Performed By: #### C BCDIF, PT, UA, GBCHEM, GBTSH, HIVC, MG, GBHCV, HAVIGM, HBCAB, HBSAG, RPR #### [facility] [address] [place] [address] Monocytes/100 WBC (Bld) 8.3 % Normal 4-12 [facility] Comment on above: Performed By: #### C BCDIF, PT, UA, GBCHEM, GBTSH, HIVC, MG, GBHCV, HAVIGM, HBCAB, HBSAG, RPR #### [facility] [address] [place] [address] Neutrophils/100 WBC (Bld) 66.5 % Normal 40-70 [facility] Comment on above: Performed By: #### C BCDIF, PT, UA, GBCHEM, GBTSH, HIVC, MG, GBHCV, HAVIGM, HBCAB, HBSAG, RPR #### [facility] [address] [place] [address] NRBCs 0 /100 WBC Normal 0-0.9 [facility] Comment on above: Performed By: #### C BCDIF, PT, UA, GBCHEM, GBTSH, HIVC, MG, GBHCV, HAVIGM, HBCAB, HBSAG, RPR #### [facility] [address] [place] [address] Platelets (Bld) [#/Vol] 370 10*3/uL Normal 150-450 [facility] Comment on above: Performed By: #### C BCDIF, PT, UA, GBCHEM, GBTSH, HIVC, MG, GBHCV, HAVIGM, HBCAB, HBSAG, RPR #### [facility] [address] [place] [address] RBC (Bld) [#/Vol] 5.10 10*6/uL Normal 4.50-5.90 [facility] Comment on above: Performed By: #### C BCDIF, PT, UA, GBCHEM, GBTSH, HIVC, MG, GBHCV, HAVIGM, HBCAB, HBSAG, RPR #### [facility] [address] [place], [place] [id number] WBC (Bld) [#/Vol] 9.74 10*3/uL Normal 4.5-11.0 [facility] Comment on above: Performed By: #### C BCDIF, PT, UA, GBCHEM, GBTSH, HIVC, MG, GBHCV, HAVIGM, HBCAB, HBSAG, RPR #### [facility] [address] [place] [place], [place] [id number] CT ABD/PEL W IVCONon 019 CT ABD/PEL W IVCON * * *Final Report* * * DATE OF EXAM: Jan 23 2019 9:38PM ASC 0530 - CT ABD/PEL W IVCON / PROCEDURE REASON: Abd pain, fever, elev WBC, appendicitis suspected, atypical presentation * * * * Physician Interpretation * * * * EXAMINATION: CT ABDOMEN AND PELVIS WITH IV CONTRAST CLINICAL HISTORY: Abdominal pain fever leukocytosis TECHNIQUE: CT of the abdomen and pelvis was performed using standard technique, scanning from just above the dome of the diaphragm to the symphysis pubis. MQ: CTAP_3 Contrast: IV: 100 ml of Omnipaque 300 : ml of CT Radiation dose: Integrated Dose-length product (DLP) for this visit = 288 mGy*cm. CT Dose Reduction Employed: Automated exposure control (AEC) COMPARISON: None. RESULT: Liver: No mass. Biliary: No bile duct dilation. Gallbladder is unremarkable. Spleen: No mass. No splenomegaly. Pancreas: No mass or duct dilation. Adrenals: No mass. Kidneys: No mass, calculus or hydronephrosis. GI tract: No dilation or wall thickening. Normal appendix Lymph nodes: No abdominal or pelvic lymphadenopathy. Mesentery/Peritoneum : No ascites or mass. Retroperitoneum: No mass. Vasculature: The celiac axis and SMA are patent. The portal vein and branches, splenic vein, SMV, and hepatic veins are patent. Pelvis: No mass, ascites or fluid collection. Bones/Soft Tissues: No significant finding. Lower thorax: Unremarkable. IMPRESSION: Normal abdomen pelvis Ep Specialist: MARY LOU Transcribe Date/Time: Jan 23 2019 9:50P Dictated by : LUIS F CARCAMO MD This examination was interpreted and the report reviewed and electronically signed by: LUIS F CARCAMO MD on Jan 23 2019 9:55PM EST [id number] Normal [facility] Comp Metabolic Panelon 01-23 Albumin [Mass/Vol] 4.7 g/dL Normal 3.5-5.[address] [facility] Comment on above: Performed By: #### C BCDIF, PT, UA, GBCHEM, GBTSH, HIVC, MG, GBHCV, HAVIGM, HBCAB, HBSAG, RPR #### [facility] [address] [place] [address] Alkaline Phos 58 U/L Normal 38-125 [facility] Comment on above: Performed By: #### C BCDIF, PT, UA, GBCHEM, GBTSH, HIVC, MG, GBHCV, HAVIGM, HBCAB, HBSAG, RPR #### [facility] [address] [place], [place] [phone] ALT [Catalytic activity/Vol] 29 U/L Normal 21-72 [facility] Comment on above: Performed By: #### C BCDIF, PT, UA, GBCHEM, GBTSH, HIVC, MG, GBHCV, HAVIGM, HBCAB, HBSAG, RPR #### [facility] [address] [place] [address] Anion gap [Moles/Vol] 12 mmol/L Normal 0-15 [facility] Comment on above: Performed By: #### C BCDIF, PT, UA, GBCHEM, GBTSH, HIVC, MG, GBHCV, HAVIGM, HBCAB, HBSAG, RPR #### [facility] [address] [place] [address] AST [Catalytic activity/Vol] 31 U/L Normal 17-59 [facility] Comment on above: Performed By: #### C BCDIF, PT, UA, GBCHEM, GBTSH, HIVC, MG, GBHCV, HAVIGM, HBCAB, HBSAG, RPR #### [facility] [address] [place] [address] Bilirubin Ql (U) 0.4 mg/dL Normal 0.2-1.3 [facility] Comment on above: Performed By: #### C BCDIF, PT, UA, GBCHEM, GBTSH, HIVC, MG, GBHCV, HAVIGM, HBCAB, HBSAG, RPR #### [facility] [address] [place] [address] Calcium [Mass/Vol] 10.4 mg/dL High 8.4-10.[address] [facility] Comment on above: Performed By: #### C BCDIF, PT, UA, GBCHEM, GBTSH, HIVC, MG, GBHCV, HAVIGM, HBCAB, HBSAG, RPR #### [facility] [address] [place] [address] Chloride [Moles/Vol] 99 mmol/L Normal 98-107 [facility] Comment on above: Performed By: #### C BCDIF, PT, UA, GBCHEM, GBTSH, HIVC, MG, GBHCV, HAVIGM, HBCAB, HBSAG, RPR #### [facility] [address] [place] [address] CO2 [Moles/Vol] 29 mmol/L Normal 22-30 [facility] Comment on above: Performed By: #### C BCDIF, PT, UA, GBCHEM, GBTSH, HIVC, MG, GBHCV, HAVIGM, HBCAB, HBSAG, RPR #### [facility] [address] [place] [address] Creatinine [Mass/Vol] 0.75 mg/dL Normal 0.66-1.25 [facility] Comment on above: Performed By: #### C BCDIF, PT, UA, GBCHEM, GBTSH, HIVC, MG, GBHCV, HAVIGM, HBCAB, HBSAG, RPR #### [facility] [address] [place] [address] eGFR Amer >60 Normal >60 [facility] Comment on above: Result Comment: MDRD calculation used for eGFR results. Performed By: #### C BCDIF, PT, UA, GBCHEM, GBTSH, HIVC, MG, GBHCV, HAVIGM, HBCAB, HBSAG, RPR #### [facility] [address] [place] [address] eGFR non Am >60 Normal >60 [facility] Comment on above: Performed By: #### C BCDIF, PT, UA, GBCHEM, GBTSH, HIVC, MG, GBHCV, HAVIGM, HBCAB, HBSAG, RPR #### [facility] [address] [place] [address] Glucose [Mass/Vol] 102 mg/dL Normal 74-[address] [facility] Comment on above: Performed By: #### C BCDIF, PT, UA, GBCHEM, GBTSH, HIVC, MG, GBHCV, HAVIGM, HBCAB, HBSAG, RPR #### [facility] [address] [place] [address] Potassium [Moles/Vol] 4.3 mmol/L Normal 3.5-5.1 [facility] Comment on above: Performed By: #### C BCDIF, PT, UA, GBCHEM, GBTSH, HIVC, MG, GBHCV, HAVIGM, HBCAB, HBSAG, RPR #### [facility] [address] [place] [address] Protein [Mass/Vol] 8.1 g/dL Normal 6.2-8.[address] [facility] Comment on above: Performed By: #### C BCDIF, PT, UA, GBCHEM, GBTSH, HIVC, MG, GBHCV, HAVIGM, HBCAB, HBSAG, RPR #### [facility] [address] [place], [place] [id number] Sodium [Moles/Vol] 136 mmol/L Low 137-[address] [facility] Comment on above: Performed By: #### C BCDIF, PT, UA, GBCHEM, GBTSH, HIVC, MG, GBHCV, HAVIGM, HBCAB, HBSAG, RPR #### [facility] [address] [place], [place] [id number] Urea nitrogen [Mass/Vol] 13 mg/dL Normal - [facility] Comment on above: Performed By: #### C BCDIF, PT, UA, GBCHEM, GBTSH, HIVC, MG, GBHCV, HAVIGM, HBCAB, HBSAG, RPR #### [facility] [address] [place], [place] [address] ED NOTEon 01-23-2019 ED NOTE HNO ID: [id number] Author: Blaire Zacarias RN Service: ? Author Type: Registered Nurse Type: ED Notes Filed: 01/23/2019 9:42 PM Note Text: Pt back from ct. [facility] ED NOTE HNO ID: [id number] Author: Blaire Zacarias RN Service: ? Author Type: Registered Nurse Type: ED Notes Filed: 01/23/2019 9:15 PM Note Text: Pt presents to ED from [facility] for RLQ abd pain that started around 1630 tonight with nausea. Last BM per pt about 1 week ago. Pt is in rehab for etoh abuse. [facility] ED PROV NOTEon 01-23-2019 ED PROV NOTE HNO ID: [id number] Author: Nii Garcia MD Service: Emergency Medicine Author Type: Physician Type: ED Provider Notes Filed: 01/23/2019 10:17 PM Note Text: ED Provider Note Patient Name: Immanuel Neumann SERVICE DATE: 01/23/19 History Patient presents with: Abdominal Pain: RLQ pain started 1830 Abdominal Pain Pain location: RLQ Pain quality: aching Pain radiates to: Does not radiate Onset quality: Sudden Duration: 6pm Progression: Waxing and waning Chronicity: New Context comment: Constipated ? 5 day Relieved by: zofra, colace Ineffective treatments: None tried Associated symptoms: anorexia, nausea and vomiting Risk factors: alcohol abuse PAST MEDICAL HISTORY Diagnosis Date - Psychiatric disorder ADD, Bipolar, PTSD, anxiety History reviewed. No pertinent surgical history. No family history on file. Social History Tobacco Use - Smoking status: Current Every Day Smoker Packs/day: 1.00 - Smokeless tobacco: Never Used Substance and Sexual Activity - Alcohol use: Yes Comment: 09-07 cans - Drug use: Yes Types: Crack Cocaine, Amphetamines, Heroin, Crystal Meth - Sexual activity: Not on file ALLERGIES No Known Allergies Review of Systems Constitutional: Negative. HENT: Negative. Eyes: Negative. Respiratory: Negative. Cardiovascular: Negative. Gastrointestinal: Positive for abdominal pain, anorexia, nausea and vomiting. Genitourinary: Negative. Musculoskeletal: Negative. Skin: Negative. Psychiatric/Behavior al: Negative. All other systems reviewed and are negative. Physical Exam BP 124/78 Pulse 92 Temp (Src) 97.7 (Oral) Resp 16 Ht 6' 3 (1.91m) Wt 165 lb (74.8kg) SpO2 99% BMI 20.62 kg/(m2). O2 Therapy: Room Air Physical Exam Vitals signs and nursing note reviewed. Constitutional: Appearance: He is well-developed. HENT: Head: Normocephalic and atraumatic. Right Ear: External ear normal. Left Ear: External ear normal. Nose: Nose normal. Eyes: Conjunctiva/sclera: Conjunctivae normal. Pupils: Pupils are equal, round, and reactive to light. Neck: Musculoskeletal: Normal range of motion and neck supple. Cardiovascular: Rate and Rhythm: Normal rate and regular rhythm. Heart sounds: Normal heart sounds. Pulmonary: Effort: Pulmonary effort is normal. Breath sounds: Normal breath sounds. Abdominal: General: Bowel sounds are normal. Palpations: Abdomen is soft. Tenderness: There is tenderness. Comments: r supra pubic - cvat Musculoskeletal: Normal range of motion. Skin: General: Skin is warm and dry. Neurological: Mental Status: He is alert and oriented to person, place, and time. Diagnostic Testing ED Labs Ordered and Reviewed COMP METABOLIC PANEL - Abnormal; Notable for the following components: Result Value Ref Range Sodium 136 (*) 137 - 145 mmol/L Calcium 10.4 (*) 8.4 - 10.2 mg/dL All other components within normal limits CBC + DIFF - Abnormal; Notable for the following components: Abs [place] 0.81 (*) 0 - 0.8 k/uL All other components within normal limits SED RATE WESTERGREN UA CHEMSTRIP ONLY Procedures ED Course / Clinical Impression Clinical Impressions as of Jan 23 2217 RLQ abdominal pain MDM / Disposition / Plan MDM Patient again before all call abuse complains of acute onset of right lower quadrant pain with nausea and vomiting. has been constipated for several days. Patient denies any radiation to the testicle. On examination there is mild suprapubic tenderness. The patient was DISCHARGED: Counseled patient regarding lab results AND radiology results AND suspected diagnosis AND need for follow-up. Discharged home with verbal and written instructions. They were instructed to return as needed for persistent or worsening symptoms or any new concerns. Condition at time of disposition: stable SIGNATURE: MD Nii Robert MD 01/23/19 2217 Normal [facility] Sed Rate Westergrenon 2018 Sed Rate Westergren 10 mm/hr Normal <15 [facility] Comment on above: Performed By: #### C BCDIF, PT, UA, GBCHEM, GBTSH, HIVC, MG, GBHCV, HAVIGM, HBCAB, HBSAG, RPR #### [facility] [address] [place], [place] [id number] CBCDIFon 01-21-2019 Abs Baso 0.03 k/uL Normal 0-0.2 [facility] [facility] Comment [facility]: Performed By: #### C BCDIF, PT, UA, GBCHEM, GBTSH, HIVC, MG, GBHCV, HAVIGM, HBCAB, HBSAG, RPR #### [facility] [address] [place], [place] [id number] Abs [place] 0.56 k/uL Normal 0-0.8 [facility] Comment on above: Performed By: #### C BCDIF, PT, UA, GBCHEM, GBTSH, HIVC, MG, GBHCV, HAVIGM, HBCAB, HBSAG, RPR #### [facility] [address] [place] [address] Abs Neut 3.43 k/uL Normal 1.8-7.7 [facility] Comment on above: Performed By: #### C BCDIF, PT, UA, GBCHEM, GBTSH, HIVC, MG, GBHCV, HAVIGM, HBCAB, HBSAG, RPR #### [facility] [address] [place] [address] Basophils/100 WBC (Bld) 0.5 % Normal 0-1 [facility] Comment on above: Performed By: #### C BCDIF, PT, UA, GBCHEM, GBTSH, HIVC, MG, GBHCV, HAVIGM, HBCAB, HBSAG, RPR #### [facility] [address] [place], [place] [id number] [phone] Eosinophils (Bld) [#/Vol] 0.22 10*3/uL Normal 0-0.4 [facility] Comment on above: Performed By: #### C BCDIF, PT, UA, GBCHEM, GBTSH, HIVC, MG, GBHCV, HAVIGM, HBCAB, HBSAG, RPR #### [facility] [address] [place] [address] Eosinophils/100 WBC (Bld) 3.5 % Normal 0-4 [facility] Comment on above: Performed By: #### C BCDIF, PT, UA, GBCHEM, GBTSH, HIVC, MG, GBHCV, HAVIGM, HBCAB, HBSAG, RPR #### [facility] [address] [place] [address] Erythrocyte distribution width (RBC) [Ratio] 13.1 % Normal 11.5-14.5 [facility] Comment on above: Performed By: #### C BCDIF, PT, UA, GBCHEM, GBTSH, HIVC, MG, GBHCV, HAVIGM, HBCAB, HBSAG, RPR #### [facility] [address] [place], [place] [id number] Hematocrit (Bld) [Volume fraction] 47.0 % Normal 41.0-53.0 [facility] Comment on above: Performed By: #### C BCDIF, PT, UA, GBCHEM, GBTSH, HIVC, MG, GBHCV, HAVIGM, HBCAB, HBSAG, RPR #### [facility] [address] [place], [place] [id number] Hemoglobin (Bld) [Mass/Vol] 16.0 g/dL Normal 13.5-17.5 [facility] Comment on above: Performed By: #### C BCDIF, PT, UA, GBCHEM, GBTSH, HIVC, MG, GBHCV, HAVIGM, HBCAB, HBSAG, RPR #### [facility] [address] [place] [address] Immature Gran 0.60 % Normal 0-1.9 [facility] Comment on above: Performed By: #### C BCDIF, PT, UA, GBCHEM, GBTSH, HIVC, MG, GBHCV, HAVIGM, HBCAB, HBSAG, RPR #### [facility] [address] [place] [id number] Lymphocytes (Bld) [#/Vol] 2.05 10*3/uL Normal 1.0-4.0 [facility] Comment on above: Performed By: #### C BCDIF, PT, UA, GBCHEM, GBTSH, HIVC, MG, GBHCV, HAVIGM, HBCAB, HBSAG, RPR #### [facility] [address] [place], [place] [id number] Lymphocytes/100 WBC (Bld) 32.4 % Normal 22-44 [facility] Comment on above: Performed By: #### C BCDIF, PT, UA, GBCHEM, GBTSH, HIVC, MG, GBHCV, HAVIGM, HBCAB, HBSAG, RPR #### [facility] [address] [place] [id number] MCH (RBC) [Entitic mass] 30.9 pG Normal 26-34 [facility] Comment on above: Performed By: #### C BCDIF, PT, UA, GBCHEM, GBTSH, HIVC, MG, GBHCV, HAVIGM, HBCAB, HBSAG, RPR #### [facility] [address] [place] [address] MCHC (RBC) [Mass/Vol] 34.0 g/dL Normal 31-37 [facility] Comment on above: Performed By: #### C BCDIF, PT, UA, GBCHEM, GBTSH, HIVC, MG, GBHCV, HAVIGM, HBCAB, HBSAG, RPR #### [facility] [address] [place] [address] MCV (RBC) [Entitic vol] 90.7 fL Normal 80-100 [facility] Comment on above: Performed By: #### C BCDIF, PT, UA, GBCHEM, GBTSH, HIVC, MG, GBHCV, HAVIGM, HBCAB, HBSAG, RPR #### [facility] [address] [place] [address] Monocytes/100 WBC (Bld) 8.8 % Normal 4-12 [facility] Comment on above: Performed By: #### C BCDIF, PT, UA, GBCHEM, GBTSH, HIVC, MG, GBHCV, HAVIGM, HBCAB, HBSAG, RPR #### [facility] [address] [place] [address] Neutrophils/100 WBC (Bld) 54.2 % Normal 40-70 [facility] Comment on above: Performed By: #### C BCDIF, PT, UA, GBCHEM, GBTSH, HIVC, MG, GBHCV, HAVIGM, HBCAB, HBSAG, RPR #### [facility] [address] [place] [address] NRBCs 0 /100 WBC Normal 0-0.9 [facility] Comment on above: Performed By: #### C BCDIF, PT, UA, GBCHEM, GBTSH, HIVC, MG, GBHCV, HAVIGM, HBCAB, HBSAG, RPR #### [facility] [address] [place], [place] [id number] Platelets (Bld) [#/Vol] 352 10*3/uL Normal 150-450 [facility] Comment on above: Performed By: #### C BCDIF, PT, UA, GBCHEM, GBTSH, HIVC, MG, GBHCV, HAVIGM, HBCAB, HBSAG, RPR #### [facility] [address] [place], [place] [id number] RBC (Bld) [#/Vol] 5.18 10*6/uL Normal 4.50-5.90 [facility] Comment on above: Performed By: #### C BCDIF, PT, UA, GBCHEM, GBTSH, HIVC, MG, GBHCV, HAVIGM, HBCAB, HBSAG, RPR #### [facility] [address] [place], [place] [id number] WBC (Bld) [#/Vol] 6.33 10*3/uL Normal 4.5-11.0 [facility] Comment on above: Performed By: #### C BCDIF, PT, UA, GBCHEM, GBTSH, HIVC, MG, GBHCV, HAVIGM, HBCAB, HBSAG, RPR #### [facility] [address] [place], [place] [id number] [facility] Prof 2018 Albumin [Mass/Vol] 4.6 g/dL Normal 3.5-5.[address] [facility] Comment on above: Performed By: #### C BCDIF, PT, UA, GBCHEM, GBTSH, HIVC, MG, GBHCV, HAVIGM, HBCAB, HBSAG, RPR #### [facility] [address] [place] [address] Alkaline Phos 55 U/L Normal 38-125 [facility] Comment on above: Performed By: #### C BCDIF, PT, UA, GBCHEM, GBTSH, HIVC, MG, GBHCV, HAVIGM, HBCAB, HBSAG, RPR #### [facility] [address] [place], [place] [id number] ALT [Catalytic activity/Vol] 19 U/L Low 21-72 [facility] Comment on above: Performed By: #### C BCDIF, PT, UA, GBCHEM, GBTSH, HIVC, MG, GBHCV, HAVIGM, HBCAB, HBSAG, RPR #### [facility] [address] [place], [place] [phone] Amylase [Catalytic activity/Vol] 93 U/L Normal 30-110 [facility] Comment on above: Performed By: #### C BCDIF, PT, UA, GBCHEM, GBTSH, HIVC, MG, GBHCV, HAVIGM, HBCAB, HBSAG, RPR #### [facility] [address] [place], [place] [id number] Anion gap [Moles/Vol] 14 mmol/L Normal 0-15 [facility] Comment on above: Performed By: #### C BCDIF, PT, UA, GBCHEM, GBTSH, HIVC, MG, GBHCV, HAVIGM, HBCAB, HBSAG, RPR #### [facility] [address] [place] [address] AST [Catalytic activity/Vol] 26 U/L Normal 17-59 [facility] Comment on above: Performed By: #### C BCDIF, PT, UA, GBCHEM, GBTSH, HIVC, MG, GBHCV, HAVIGM, HBCAB, HBSAG, RPR #### [facility] [address] [place], [place] [id number] Bilirubin Ql (U) 0.6 mg/dL Normal 0.2-1.3 [facility] Comment on above: Performed By: #### C BCDIF, PT, UA, GBCHEM, GBTSH, HIVC, MG, GBHCV, HAVIGM, HBCAB, HBSAG, RPR #### [facility] [address] [place] [address] Calcium [Mass/Vol] 9.8 mg/dL Normal 8.4-10.[address] [facility] Comment on above: Performed By: #### C BCDIF, PT, UA, GBCHEM, GBTSH, HIVC, MG, GBHCV, HAVIGM, HBCAB, HBSAG, RPR #### [facility] [address] [place] [address] Chloride [Moles/Vol] 103 mmol/L Normal 98-107 [facility] Comment on above: Performed By: #### C BCDIF, PT, UA, GBCHEM, GBTSH, HIVC, MG, GBHCV, HAVIGM, HBCAB, HBSAG, RPR #### [facility] [address] [place] [address] Cholesterol [Mass/Vol] 116 mg/dL Normal 100-199 [facility] Comment on above: Performed By: #### C BCDIF, PT, UA, GBCHEM, GBTSH, HIVC, MG, GBHCV, HAVIGM, HBCAB, HBSAG, RPR #### [facility] [address] [place] [address] CO2 [Moles/Vol] 28 mmol/L Normal 22-30 [facility] Comment on above: Performed By: #### C BCDIF, PT, UA, GBCHEM, GBTSH, HIVC, MG, GBHCV, HAVIGM, HBCAB, HBSAG, RPR #### [facility] [address] [place] [address] Creatinine [Mass/Vol] 0.88 mg/dL Normal 0.66-1.25 [facility] Comment on above: Performed By: #### C BCDIF, PT, UA, GBCHEM, GBTSH, HIVC, MG, GBHCV, HAVIGM, HBCAB, HBSAG, RPR #### [facility] [address] [place] [address] eGFR Amer >60 Normal >60 [facility] Comment on above: Result Comment: MDRD calculation used for eGFR results. Performed By: #### C BCDIF, PT, UA, GBCHEM, GBTSH, HIVC, MG, GBHCV, HAVIGM, HBCAB, HBSAG, RPR #### [facility] [address] [place], [place] [phone] eGFR non Am >60 Normal >60 [facility] Comment on above: Performed By: #### C BCDIF, PT, UA, GBCHEM, GBTSH, HIVC, MG, GBHCV, HAVIGM, HBCAB, HBSAG, RPR #### [facility] [address] [place] [address] Gamma glutamyl transferase [Catalytic activity/Vol] 23 U/L Normal 15-73 [facility] Comment on above: Performed By: #### C BCDIF, PT, UA, GBCHEM, GBTSH, HIVC, MG, GBHCV, HAVIGM, HBCAB, HBSAG, RPR #### [facility] [address] [place] [address] Glucose [Mass/Vol] 93 mg/dL Normal 74-[address] [facility] Comment on above: Performed By: #### C BCDIF, PT, UA, GBCHEM, GBTSH, HIVC, MG, GBHCV, HAVIGM, HBCAB, HBSAG, RPR #### [facility] [address] [place] [address] LDH 359 U/L Normal 318-618 [facility] Comment on above: Performed By: #### C BCDIF, PT, UA, GBCHEM, GBTSH, HIVC, MG, GBHCV, HAVIGM, HBCAB, HBSAG, RPR #### [facility] [address] [place] [address] Phosphate [Mass/Vol] 4.0 mg/dL Normal 2.5-4.5 [facility] Comment on above: Performed By: #### C BCDIF, PT, UA, GBCHEM, GBTSH, HIVC, MG, GBHCV, HAVIGM, HBCAB, HBSAG, RPR #### [facility] [address] [place] [address] Potassium [Moles/Vol] 4.2 mmol/L Normal 3.5-5.1 [facility] Comment on above: Performed By: #### C BCDIF, PT, UA, GBCHEM, GBTSH, HIVC, MG, GBHCV, HAVIGM, HBCAB, HBSAG, RPR #### [facility] [address] [place] [address] Protein [Mass/Vol] 7.6 g/dL Normal 6.2-8.[address] [facility] Comment on above: Performed By: #### C BCDIF, PT, UA, GBCHEM, GBTSH, HIVC, MG, GBHCV, HAVIGM, HBCAB, HBSAG, RPR #### [facility] [address] [place] [address] Sodium [Moles/Vol] 141 mmol/L Normal 137-[address] [facility] Comment on above: Performed By: #### C BCDIF, PT, UA, GBCHEM, GBTSH, HIVC, MG, GBHCV, HAVIGM, HBCAB, HBSAG, RPR #### [facility] [address] [place] [address] Triglyceride [Mass/Vol] 111 mg/dL Normal 35-150 [facility] Comment on above: Performed By: #### C BCDIF, PT, UA, GBCHEM, GBTSH, HIVC, MG, GBHCV, HAVIGM, HBCAB, HBSAG, RPR #### [facility] [address] [place] [address] Urate [Mass/Vol] 6.4 mg/dL Normal 3.5-8.5 [facility] Comment on above: Performed By: #### C BCDIF, PT, UA, GBCHEM, GBTSH, HIVC, MG, GBHCV, HAVIGM, HBCAB, HBSAG, RPR #### [facility] [address] [place] [address] Urea nitrogen [Mass/Vol] 12 mg/dL Normal 9-20 [facility] Comment on above: Performed By: #### C BCDIF, PT, UA, GBCHEM, GBTSH, HIVC, MG, GBHCV, HAVIGM, HBCAB, HBSAG, RPR #### [facility] [address] [place], [place] [id number] [facility] Hep C Abon 019 [facility] Hep C Ab Nonreactive Normal Nonreactive [facility] Comment on above: Performed By: #### C BCDIF, PT, UA, GBCHEM, GBTSH, HIVC, MG, GBHCV, HAVIGM, HBCAB, HBSAG, RPR #### [facility] [address] [place] [address] [facility] TSHon 01-21-2019 TSH Qn 1.470 uU/mL Normal 0.465-4.680 [facility] Comment on above: Result Comment: Biot in (Vitamin B7) is known to potentially cause an interfering NEGATIVE bias with this assay. If this result does not correlate clinically with your patient's presentation, it is suggested that Biotin use be discontinued for 2 days prior to re-testing. Performed By: #### C BCDIF, PT, UA, GBCHEM, GBTSH, HIVC, MG, GBHCV, HAVIGM, HBCAB, HBSAG, RPR #### [facility] [address] [place] [address] HIV Comboon 01-21-2019 HIV Combo Nonreactive Normal Nonreactive [facility] Comment on above: Performed By: #### C BCDIF, PT, UA, GBCHEM, GBTSH, HIVC, MG, GBHCV, HAVIGM, HBCAB, HBSAG, RPR #### [facility] [address] [place] [address] Hep A IgM Antibodyon 019 Hep A IgM Antibody Nonreactive Normal Nonreactive [facility] Comment on above: Result Comment: Biot in (Vitamin B7) is known to potentially cause an interfering NEGATIVE bias with this assay. If this result does not correlate clinically with your patient's presentation, it is suggested that Biotin use be discontinued for 2 days prior to re-testing. Performed By: #### C BCDIF, PT, UA, GBCHEM, GBTSH, HIVC, MG, GBHCV, HAVIGM, HBCAB, HBSAG, RPR #### [facility] [address] [place] [address] Hep B Core Total Abon 2018 Hep B Core Total Ab Nonreactive Normal Nonreactive [facility] Comment on above: Performed By: #### C BCDIF, PT, UA, GBCHEM, GBTSH, HIVC, MG, GBHCV, HAVIGM, HBCAB, HBSAG, RPR #### [facility] [address] [place] [address] Hep B Surf Antigenon 019 Hep B Surf Antigen Nonreactive Normal Nonreactive [facility] Comment on above: Performed By: #### C BCDIF, PT, UA, GBCHEM, GBTSH, HIVC, MG, GBHCV, HAVIGM, HBCAB, HBSAG, RPR #### [facility] [address] [place] [address] Magnesiumon 01-21-2019 Magnesium [Mass/Vol] 2.1 mg/dL Normal 1.3-2.3 [facility] Comment on above: Performed By: #### C BCDIF, PT, UA, GBCHEM, GBTSH, HIVC, MG, GBHCV, HAVIGM, HBCAB, HBSAG, RPR #### [facility] [address] [place] [address] Protimeon 01-21-2019 PT Coag (PPP) [Time] 0.9 s Normal 0.6-1.1 [facility] Comment on above: Result Comment: The PT/INR can be used to monitor the therapeutic effect of oral anticoagulants, such as warfarin. The recommended therapeutic range is an INR of 2.0 to 3.0 for most applications, including treatment and prevention of venous thrombosis, treatment of pulmonary embolism, prevention of strokes/TIA in patients with atrial fibrillation, prevention and treatment of thrombosis in patients with a lupus anticoagulant and prevention of systemic embolization in patients with heart valve disorders. There are certain conditions where clinicians may decide to use a lower or higher therapeutic range eg. 1.5 to 1.9 for secondary prevention of idiopathic venous thromboembolism and an INR 2.5 to 3.5 for older generation mechanical heart valves. Andrea, et al. Chest 2004: 126:204S to 233S. Performed By: #### C BCDIF, PT, UA, GBCHEM, GBTSH, HIVC, MG, GBHCV, HAVIGM, HBCAB, HBSAG, RPR #### [facility] [address] [place] [address] PT Coag (PPP) [Time] 12.3 s Normal 11.8-14.1 [facility] Comment on above: Performed By: #### C BCDIF, PT, UA, GBCHEM, GBTSH, HIVC, MG, GBHCV, HAVIGM, HBCAB, HBSAG, RPR #### [facility] [address] [place] [address] RPRon 01-21-2019 Reagin Ab RPR Ql (S) Nonreactive Normal Nonreactive [facility] Comment on above: Performed By: #### C BCDIF, PT, UA, GBCHEM, GBTSH, HIVC, MG, GBHCV, HAVIGM, HBCAB, HBSAG, RPR #### [facility] [address] [place] [address] Urinalysison 01-21-2019 Bilirubin [Mass/Vol] Negative Normal Negative [facility] Comment on above: Performed By: #### C BCDIF, PT, UA, GBCHEM, GBTSH, HIVC, MG, GBHCV, HAVIGM, HBCAB, HBSAG, RPR #### [facility] [address] [place] [address] Clarity (U) Clear Normal Clear [facility] Comment on above: Performed By: #### C BCDIF, PT, UA, GBCHEM, GBTSH, HIVC, MG, GBHCV, HAVIGM, HBCAB, HBSAG, RPR #### [facility] [address] [place], [place] [phone] Color (U) Yellow Normal Yellow [facility] Comment on above: Performed By: #### C BCDIF, PT, UA, GBCHEM, GBTSH, HIVC, MG, GBHCV, HAVIGM, HBCAB, HBSAG, RPR #### [facility] [address] [place], [place] 1366624 Comments MICROSCOPIC ANALYSIS NOT DONE ON URINES WITH NEGATIVE BIOCHEMICAL TESTS Normal [facility] Comment on above: Performed By: #### C BCDIF, PT, UA, GBCHEM, GBTSH, HIVC, MG, GBHCV, HAVIGM, HBCAB, HBSAG, RPR #### [facility] [address] [place], [place] [id number] Glucose [Mass/Vol] Negative Normal Negative [facility] Comment on above: Performed By: #### C BCDIF, PT, UA, GBCHEM, GBTSH, HIVC, MG, GBHCV, HAVIGM, HBCAB, HBSAG, RPR #### [facility] [address] [place], [place] 1168424 Hemoglobin/Blood Negative Normal Negative [facility] Comment on above: Performed By: #### C BCDIF, PT, UA, GBCHEM, GBTSH, HIVC, MG, GBHCV, HAVIGM, HBCAB, HBSAG, RPR #### [facility] [address] [place] [address] Ketone Negative Normal Negative [facility] Comment on above: Performed By: #### C BCDIF, PT, UA, GBCHEM, GBTSH, HIVC, MG, GBHCV, HAVIGM, HBCAB, HBSAG, RPR #### [facility] [address] [place] [address] Leukest Negative Normal Negative [facility] Comment on above: Performed By: #### C BCDIF, PT, UA, GBCHEM, GBTSH, HIVC, MG, GBHCV, HAVIGM, HBCAB, HBSAG, RPR #### [facility] [address] [place] [address] Nitrite Ql (U) Negative Normal Negative [facility] Comment on above: Performed By: #### C BCDIF, PT, UA, GBCHEM, GBTSH, HIVC, MG, GBHCV, HAVIGM, HBCAB, HBSAG, RPR #### [facility] [address] [place], [place] [id number] pH (U) 6.0 [pH] Normal 5-7 [facility] Comment on above: Performed By: #### C BCDIF, PT, UA, GBCHEM, GBTSH, HIVC, MG, GBHCV, HAVIGM, HBCAB, HBSAG, RPR #### [facility] [address] [place], [place] [phone] Protein (U) [Mass/Vol] Negative Normal Negative [facility] Comment on above: Performed By: #### C BCDIF, PT, UA, GBCHEM, GBTSH, HIVC, MG, GBHCV, HAVIGM, HBCAB, HBSAG, RPR #### [facility] [address] [place], [place] [phone] Urine Spec [place] 1.019 Normal 1.005-1.030 [facility] Comment on above: Performed By: #### C BCDIF, PT, UA, GBCHEM, GBTSH, HIVC, MG, GBHCV, HAVIGM, HBCAB, HBSAG, RPR #### [facility] [address] [place], [place] [id number] Urobilinogen Qn (U) <2.0 Normal 0.0-1.0 [facility] Comment on above: Performed By: #### C BCDIF, PT, UA, GBCHEM, GBTSH, HIVC, MG, GBHCV, HAVIGM, HBCAB, HBSAG, RPR #### [facility] [address] [place] [address] Vital Signs Date Time Vital Sign Value Performing Clinician Facility 12-09-2023 00:33-0400 Diastolic blood pressure 77 mm[Hg] Jesus Koch MD Work Phone: [phone] [place] [address] 12-09-2023 00:33-0400 Heart rate 78 /min Jesus Koch MD Work Phone: [phone] [place] [address] 12-09-2023 00:33-0400 Respiratory rate 16 /min Jesus Koch MD Work Phone: [phone] [place] [address] 12-09-2023 00:33-0400 SaO2% (BldA) [Mass fraction] 98 % Jesus Koch MD Work Phone: [facility] 12-09-2023 00:33-0400 Systolic blood pressure 108 mm[Hg] Jesus Koch MD Work Phone: [facility] 12-08-2023 22:21-0400 Body height 188 cm Jesus Koch MD Work Phone: [facility] 12-08-2023 22:21-0400 Body mass index (BMI) [Ratio] 17.33 kg/m2 Jesus Koch MD Work Phone: [facility] 12-08-2023 22:21-0400 Body temperature 97.7 [degF] Jesus Koch MD Work Phone: [facility] 12-08-2023 22:21-0400 Body weight 61.24 kg Jesus Koch MD Work Phone: [facility] 12-05-2023 03:31-0400 Body temperature 97.88 [degF] NICOLE CHUNG MD [facility] 12-05-2023 03:31-0400 Diastolic Blood Pressure Non-Invasive 56 mm[Hg] NICOLE CHUNG MD [facility] 12-05-2023 03:31-0400 Heart rate 58 /min NICOLE CHUNG MD [facility] 12-05-2023 03:31-0400 Respiratory rate 16 /min NICOLE CHUNG MD [facility] 12-05-2023 03:31-0400 Systolic Blood Pressure Non-Invasive 96 mm[Hg] NICOLE CHUNG MD [facility] 12-05-2023 02:37-0400 Diastolic Blood Pressure Non-Invasive 54 mm[Hg] NICOLE CHUNG MD [facility] 12-05-2023 02:37-0400 Heart rate 57 /min NICOLE CHUNG MD [facility] 12-05-2023 02:37-0400 Respiratory rate 16 /min NICOLE CHUNG MD [facility] 12-05-2023 02:37-0400 Systolic Blood Pressure Non-Invasive 91 mm[Hg] NICOLE CHUNG MD [facility] 12-04-2023 20:59-0400 Blood Pressure Cuff Size NICOLE CHUNG MD [facility] 12-04-2023 20:59-0400 Blood Pressure Location NICOLE CHUNG MD [facility] 12-04-2023 20:59-0400 Blood Pressure Method NICOLE CHUNG MD [facility] 12-04-2023 20:59-0400 Diastolic Blood Pressure Non-Invasive 62 mm[Hg] NICOLE CHUNG MD [facility] 12-04-2023 20:59-0400 Heart rate 59 /min NICOLE CHUNG MD [facility] 12-04-2023 20:59-0400 Respiratory rate 16 /min NICOLE CHUNG MD [facility] 12-04-2023 20:59-0400 Systolic Blood Pressure Non-Invasive 94 mm[Hg] NICOLE CHUNG MD [facility] 12-04-2023 17:31-0400 Blood Pressure Cuff Size NICOLE CHUNG MD [facility] 12-04-2023 17:31-0400 Blood Pressure Location NICOLE CHUNG MD [facility] 12-04-2023 17:31-0400 Blood Pressure Method NICOLE CHUNG MD [facility] 12-04-2023 17:31-0400 Heart rate 58 /min NICOLE CHUNG MD [facility] 12-04-2023 16:44-0400 Blood Pressure Cuff Size NICOLE CHUNG MD [facility] 12-04-2023 16:44-0400 Blood Pressure Location NICOLE CHUNG MD [facility] 12-04-2023 16:44-0400 Blood Pressure Method NICOLE CHUNG MD [facility] 12-04-2023 13:50-0400 Heart rate 71 /min NICOLE CHUNG MD [facility] 12-04-2023 13:26-0400 Heart rate 66 /min NICOLE CHUNG MD [facility] 12-04-2023 11:18-0400 Body temperature 96.8 [degF] NICOLE CHUNG MD [facility] 12-04-2023 11:18-0400 Body weight 54.5 kg NICOLE CHUNG MD [facility] 11-29-2023 12:25-0400 Diastolic Blood Pressure Non-Invasive 72 mm[Hg] NICOLE CHUNG MD [facility] 11-29-2023 12:25-0400 Heart rate 93 /min NICOLE CHUNG MD [facility] 11-29-2023 12:25-0400 Respiratory rate 18 /min NICOLE CHUNG MD [address] [place] [address] 11-29-2023 12:25-0400 Systolic Blood Pressure Non-Invasive 106 mm[Hg] NICOLE CHUNG MD [address] 11-29-2023 10:30-0400 Diastolic Blood Pressure Non-Invasive 60 mm[Hg] NICOLE CHUNG MD [address] 11-29-2023 10:30-0400 Heart rate 80 /min NICOLE CHUNG MD [address] 11-29-2023 10:30-0400 Respiratory rate 18 /min NICOLE CHUNG MD [address] 11-29-2023 10:30-0400 Systolic Blood Pressure Non-Invasive 112 mm[Hg] NICOLE CHUNG MD [facility] 11-29-2023 09:25-0400 Diastolic Blood Pressure Non-Invasive 65 mm[Hg] NICOLE CHUNG MD [address] [place] [address] 11-29-2023 09:25-0400 Heart rate 115 /min NICOLE CHUNG MD [address] 11-29-2023 09:25-0400 Respiratory rate 20 /min NICOLE CHUNG MD [address] [place] [address] 11-29-2023 09:25-0400 Systolic Blood Pressure Non-Invasive 104 mm[Hg] NICOLE CHUNG MD [address] 11-29-2023 09:02-0400 Body temperature 98.06 [degF] NICOLE CHUNG MD [facility] 11-29-2023 09:02-0400 Body weight 68.1 kg NICOLE CHUNG MD [facility] 05-18-2023 11:31-0500 Diastolic Blood Pressure Non-Invasive 53 mm[Hg] SAEID HUNT DO [facility] 05-18-2023 11:31-0500 Heart rate 90 /min SAEID HUNT DO [facility] 05-18-2023 11:31-0500 Respiratory rate 19 /min SAEID HUNT DO [facility] 05-18-2023 11:31-0500 Systolic Blood Pressure Non-Invasive 109 mm[Hg] SAEID HUNT DO [facility] 05-18-2023 09:55-0500 Body temperature 98.24 [degF] SAEID HUNT DO [facility] 05-18-2023 09:55-0500 Body weight 54 kg SAEID HUNT DO [facility] 05-18-2023 09:55-0500 Diastolic Blood Pressure Non-Invasive 68 mm[Hg] SAEID HUNT DO [facility] 05-18-2023 09:55-0500 Heart rate 115 /min SAEID HUNT DO [facility] 05-18-2023 09:55-0500 Respiratory rate 20 /min SAEID HUNT DO [facility] 05-18-2023 09:55-0500 Systolic Blood Pressure Non-Invasive 132 mm[Hg] SAEID HUNT DO [facility] 03-03-2023 11:18-0500 Body temperature 97.7 [degF] MARCELINA FROMMELT DO [facility] 03-03-2023 11:18-0500 Diastolic Blood Pressure Non-Invasive 75 mm[Hg] MARCELINA [employer] [facility] 03-03-2023 11:18-0500 Heart rate 99 /min MARCELINA [employer] [facility] 03-03-2023 11:18-0500 Respiratory rate 22 /min [employer]ARCELINA [employer] [facility] 03-03-2023 11:18-0500 Systolic Blood Pressure Non-Invasive 108 mm[Hg] MARCELINA [employer] [facility] 03-03-2023 11:00-0500 Diastolic Blood Pressure Non-Invasive 85 mm[Hg] MARCELINA [employer] [facility] 03-03-2023 11:00-0500 Heart rate 83 /min MARCELINA [employer] [facility] 03-03-2023 11:00-0500 Respiratory rate 21 /min MARCELINA [employer] [facility] 03-03-2023 11:00-0500 Systolic Blood Pressure Non-Invasive 117 mm[Hg] MARCELINA [employer] [facility] 03-03-2023 09:17-0500 Body temperature 97.88 [degF] [employer]ARCELINA [employer] [facility] 03-03-2023 09:17-0500 Body weight 60 kg MARCELINA [employer] [facility] 03-03-2023 09:17-0500 Diastolic Blood Pressure Non-Invasive 90 mm[Hg] MARCELINA [employer] [facility] 03-03-2023 09:17-0500 Heart rate 133 /min MARCELINA [employer] [facility] 03-03-2023 09:17-0500 Respiratory rate 24 /min MARCELINA [employer] [facility] 03-03-2023 09:17-0500 Systolic Blood Pressure Non-Invasive 124 mm[Hg] MARCELINA SUERO DO [facility] 02-24-2023 00:06-0500 Blood Pressure Cuff Size DANIS STILES MD [facility] 02-24-2023 00:06-0500 Blood Pressure Location DANIS STILES MD [facility] 02-24-2023 00:06-0500 Blood Pressure Method DANIS STILES MD [facility] 02-24-2023 00:06-0500 Body temperature 98.96 [degF] DANIS STILES MD [facility] 02-24-2023 00:06-0500 Body weight 58.9 kg DANIS STILES MD [facility] 02-24-2023 00:06-0500 Diastolic Blood Pressure Non-Invasive 85 mm[Hg] DANIS STILES MD [facility] 02-24-2023 00:06-0500 Heart rate 105 /min DANIS STILES MD [facility] 02-24-2023 00:06-0500 Respiratory rate 20 /min DANIS STILES MD [facility] 02-24-2023 00:06-0500 Systolic Blood Pressure Non-Invasive 121 mm[Hg] DANIS STILES MD [facility] 02-11-2022 22:19-0500 Diastolic blood pressure 81 mm[Hg] Pcp Unknown [facility] 02-11-2022 22:19-0500 Heart rate 79 /min Pcp Unknown [facility] 02-11-2022 22:19-0500 Respiratory rate 18 /min Pcp Unknown [facility] 02-11-2022 22:19-0500 SaO2% (BldA) [Mass fraction] 95 % Pcp Unknown [facility] 02-11-2022 22:19-0500 Systolic blood pressure 129 mm[Hg] Pcp Unknown [facility] 02-11-2022 13:27-0500 Body height 190.5 cm Pcp Unknown [facility] 02-11-2022 13:27-0500 Body temperature 97.88 [degF] Pcp Unknown [facility] 02-11-2022 13:27-0500 Body weight 60 kg Pcp Unknown [facility] 10-19-2021 03:52-0400 Body temperature 98.24 [degF] DANIS STILES MD [facility] 10-19-2021 03:52-0400 Body weight 60.3 kg DANIS STILES MD [facility] 10-19-2021 03:52-0400 Diastolic blood pressure 74 mm[Hg] DANIS STILES MD [facility] 10-19-2021 03:52-0400 Heart rate 81 /min DANIS STILES MD [facility] 10-19-2021 03:52-0400 Respiratory rate 18 /min DANIS STILES MD [facility] 10-19-2021 03:52-0400 Systolic blood pressure 115 mm[Hg] DANIS STILES MD [facility] 09-15-2021 07:29-0400 Body temperature 97.52 [degF] DR ROYER BEE DO [facility] 09-15-2021 07:29-0400 Diastolic blood pressure 64 mm[Hg] DR ROYER BEE DO [facility] 09-15-2021 07:29-0400 Heart rate 83 /min DR ROYER BEE DO [facility] 09-15-2021 07:29-0400 Respiratory rate 18 /min DR ROYER BEE DO [facility] 09-15-2021 07:29-0400 Systolic blood pressure 100 mm[Hg] DR ROYER BEE DO [facility] 09-15-2021 04:10-0400 Diastolic blood pressure 62 mm[Hg] DR ROYER BEE DO [facility] 09-15-2021 04:10-0400 Heart rate 84 /min DR ROYER BEE DO [facility] 09-15-2021 04:10-0400 Mean blood pressure 76 mm[Hg] DR ROYER BEE DO [facility] 09-15-2021 04:10-0400 Reason For Taking VItal Signs DR ROYER BEE DO [facility] 09-15-2021 04:10-0400 Respiratory rate 16 /min DR ROYER BEE DO [facility] 09-15-2021 04:10-0400 Systolic blood pressure 103 mm[Hg] DR ROYER BEE DO [facility] 09-14-2021 21:48-0400 Body temperature 98.06 [degF] DR ROYER BEE DO [facility] 09-14-2021 21:48-0400 Diastolic blood pressure 68 mm[Hg] DR ROYER BEE DO [facility] 09-14-2021 21:48-0400 Heart rate 87 /min DR ROYER BEE DO [address] [place] [address] 09-14-2021 21:48-0400 Respiratory rate 18 /min DR ROYER BEE DO [facility] 09-14-2021 21:48-0400 Systolic blood pressure 106 mm[Hg] DR ROYER BEE DO [facility] Encounters Encounter Date Encounter Type Care Provider Facility Start: 05-22-2024 End: 05-23-2024 Emergency department patient visit Facility:[facility] Start: 04-25-2024 End: 04-25-2024 ambulatory SELF Facility:[id number] Start: 04-15-2024 End: 04-15-2024 Emergency department patient visit [facility] Facility:[facility] Start: 04-15-2024 End: 04-15-2024 ambulatory Facility:[facility] Start: 04-12-2024 End: 04-12-2024 ambulatory SELF Facility:[id number] Start: 12-08-2023 End: 12-09-2023 Emergency department patient visit Jesus Koch MD Work Phone: [facility] Comment on above: Acute abdominal pain (Primary Dx); Nausea; Diarrhea, unspecified type; Anxiousness; Acute anxiety; Physically well but worried Start: 12-04-2023 End: 12-05-2023 Emergency department patient visit NICOLE CHUNG MD [facility] Start: 11-29-2023 End: 11-29-2023 Emergency department patient visit [facility] Facility:A Start: 08-19-2023 End: 08-19-2023 ambulatory TONY GALICIA Facility:[id number] Start: 08-15-2023 Emergency department patient visit IMMANUEL FLORES Facility:[id number] Start: 07-06-2023 Emergency department patient visit TONY GALICIA Facility:[id number] Start: 06-22-2023 End: 06-22-2023 Emergency department patient visit IMMANUEL FLORES Facility:[id number] Start: 05-18-2023 End: 05-18-2023 Emergency department patient visit GUIDO PALMER MD Facility:A Start: 05-18-2023 End: 05-18-2023 Emergency department patient visit SAEID HUNT DO [facility] Start: 04-17-2023 End: 04-17-2023 Emergency department patient visit JESSICA PURVIS MD Facility:A Start: 03-03-2023 End: 03-03-2023 Emergency department patient visit MARCELINA SUERO DO Facility:A Start: 03-03-2023 End: 03-03-2023 Emergency department patient visit MARCELINA SUERO DO [facility] Start: 03-02-[address] CHAPARRO BEAL MD Fa cility:P Start: 02-24-2023 End: 02-24-2023 Emergency department patient visit DANIS STILES MD Facility:A Start: 02-24-2023 End: 02-24-2023 Emergency department patient visit DANIS STILES MD [facility] Start: 11-07-2022 End: 11-07-2022 Emergency department patient visit JASON GUZMAN Facility:[facility] Start: 08-16-[address] CHAPARRO BEAL MD Fa cility:P Start: 02-11-2022 End: 02-11-2022 Emergency department patient visit Darion Clay [facility] ED Bed 16 Start: 02-10-2022 End: 02-10-2022 Emergency department patient visit PCP UNKNOWN Facility:[facility] Start: 02-09-2022 ambulatory Ms. Kelsi Goode Fa cility:[id number] Start: 02-07-2022 ambulatory PCP UNKNOWN Facility:[id number] Start: 02-05-2022 ambulatory Ms. Kelsi Goode Fa cility:[id number] Start: 01-11-2022 End: 01-11-2022 Emergency department patient visit DANIS STILES MD [facility] Start: 12-23-2021 ambulatory Ms. Kelsi Goode Fa cility:[id number] Start: 12-22-2021 ambulatory Ms. Kelsi Goode Fa cility:[id number] Start: 10-19-2021 End: 10-19-2021 Emergency department patient visit DANIS STILES MD [facility] Start: 09-14-2021 End: 09-15-2021 Emergency department patient visit DR ROYER BEE DO [facility] Start: 09-12-2021 End: 09-12-2021 Emergency department patient visit DANIS STILES MD [facility] Procedures Date Procedure Procedure Detail Performing Clinician Start: 12-08-2023 Comprehensive metabo lic panel Jesus Koch MD Work Phone: Start: 12-08-2023 Urnls dip stick/tabl et rgnt auto w/o microscopy Jesus Koch MD Work Phone: Start: 02-10-2022 Antibody screen PCP [facility] Comment on above: Performed By: #### T +S #### [facility] [address] [place] [address] Start: 08-22-2021 Ecg routine ecg w/le ast 12 lds i&r only Plan of Treatment Date Care Activity Detail Author Start: 10-31-2045 Zoster Vaccines (1 o f 2) Zoster Vaccines (1 of 2) [facility] Start: 11-16-2023 COVID-19 Vaccine ( season) COVID-19 Vaccine ( season) [facility] Start: 11-16-2023 Influenza vaccination Influenza Vacc ine (#1) [facility] Start: 10-31-2017 DTaP/Tdap/Td Vaccine s (1 - Tdap) DTaP/Tdap/Td Vaccines (1 - Tdap) [facility] Start: 10-31-2014 Hepatitis B Vaccines (1 of 3 - 19+ 3-dose series) Hepatitis B Vaccines (1 of 3 - 19+ 3-dose series) [facility] Start: 10-31-2013 Hepatitis C screening Hepatitis C Sc reening [facility] Start: 10-31-2008 Varicella vaccination Varicell a Vaccines (1 of 2 - 13+ 2-dose series) [facility] Start: 10-31-1996 MMR Vaccines (1 of 1 - Standard series) MMR Vaccines (1 of 1 - Standard series) [facility] Start: 1995 HIV screening HIV Screening [facility] Start: 1995 Lipid panel Lipid Panel [facility] Start: 1995 Medicare Annual Wellness Visit Medicare Annual Wellness Visit (AWV) [facility] End: 12-08-2023 Extra Urine Heath Tube Extra Urine [facility] Lab Timed Once for 1 Occurrences starting 12/08/2023 until 12/08/2023 [facility] Work Phone: Comment on above: Once for 1 Occurrenc es starting 12/08/2023 until 12/08/2023 End: 12-08-2023 Urinalysis complete W Reflex Culture panel - Urine [facility] Service Area Work Phone: Comment on above: Once (Lab) for 1 Occ urrences starting 12/08/2023 until 12/08/2023 Payers Date Payer Category Payer Self-pay 2022 Unknown 2022 Medicaid [id number] 2021 Unknown [id number] 2019 Medicare MEDICARE MEDICAR E PART A AND B [id number] 2019-Present [address] [place] [address] [id number] 2019 Medicare [id number] 1995 Unknown [id number] 1995 Unknown [id number] [id number] 1995 Unknown [id number] 2.840.1.468551.3.579.2.356 1995 Unknown [id number] 2.840.1.812197.3.579.2.356 1995 Unknown [id number] 2.840.1.088495.3.579.2.356 1995 Unknown [id number] 2.840.1.632737.3.579.2.356 1995 Unknown [id number] 2.840.1.655098.3.579.2.356 1995 Unknown [id number] 2.840.1.629640.3.579.2.627 1995 Unknown [id number] 2.16.840.1.271061.3.579.2.627 1995 Unknown [id number] 2.16.840.1.319716.3.579.2.627 1995 Unknown [id number] 2.16.840.1.127284.3.579.2.62 1995 Unknown [id number] [id number] 1995 Unknown [id number] 2.16.840.1.697270.3.579.2. 1995 Unknown [id number] [id number] 1995 Unknown [id number] [id number] 1995 Unknown [id number] [id number] Unknown 189 Unknown [id number] [id number] Unknown [id number] [id number] Social History Date Type Detail Facility Tobacco smoking status [facility] Start: 1995 Sex Assigned At Male [facility] Tobacco smoking consumption unknown [facility] Start: 08-20-2022 End: 03-07-2023 Tobacco smoking status Light tobacco smoker (finding) [facility] Start: 12-08-2023 Gender identity Identifies as male gender (finding) [facility] Work Phone: Sexual orientation Not on file [facility] Work Phone: Start: 11-28-2023 End: 12-09-2023 Exposure to SARS-CoV-2 (event) Not sure [facility] Work Phone: Functional Status Date Assessment Result Facility 12-05-2023 Functional Status Activity Assistance Min imum assistance [facility] 12-04-2023 Functional Status Room check per formed, 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 [facility] 12-04-2023 [facility] 12-04-2023 Functional Status [facility] 12-04-2023 Functional Status [facility] 12-04-2023 Functional Status Pre-restraint Alternatives Attempted Enhanced observation, Environmental changes, Positioning/Turning, Reality orientation, Intervention attempted, not successful [facility] 11-29-2023 Functional Status Independent [facility] 11-29-2023 Functional Status Repositioned r ight side, Repositions self [facility] 11-29-2023 Functional Status [facility] 05-18-2023 Functional Status Room check performed [facility] 03-03-2023 Functional Status Independent [facility] 03-03-2023 Functional Status Standard Safet y ID band on, Call device within reach, Bed in low position, Wheels locked, Upper/Half-Length side-rails up, Phone within reach, personal items within reach, Bedside Cart Locked, Safety level maintained [facility] 09-15-2021 Functional Status Independent [facility] 09-14-2021 Functional Status Room check performed [facility] Mental Status Date Assessment Result Facility 12-05-2023 Mental Status Orientation Oriented x 4 [facility] 12-04-2023 Mental Status [facility] 11-29-2023 Mental Status Orientation Oriented x 4 [facility] 11-29-2023 Mental Status [facility] 05-18-2023 Mental Status Orientation Oriented x 4 [facility] 03-03-2023 Mental Status Orientation Oriented x 4 [facility] 03-03-2023 Mental Status [facility] 09-15-2021 Mental Status Orientation Oriented x 4 [facility] 09-15-2021 Mental Status [facility] 09-14-2021 Mental Status [facility] Clinical Notes 01-11-2022 to 05-22-2024 Discharge Instructions Note Date & Type Note Facility 05-22-2024 Note SARS-COV-2 (AGENT OF COVID-19) RNA: Not detected INFLUENZA A RNA: Not detected INFLUENZA B RNA: Not detected RESPIRATORY SYNCYTIAL VIRUS (RSV) RNA: Not detected [facility] Comment on above: Performed By: #### 9 [id number] #### [facility] CLIA [id number] [address] [place] [address] [place] 04-25-2024 Note HNO ID: [id number] Author: CAROLINA HOLMAN APRN.[employer] Service: ? Author Type: Nurse Practitioner Type: Progress Notes Filed: 04/25/2024 11:55 Note Text: HPI: Immanuel Neumnan is a 28 year old male who presents with Diarrhea (Diarrhea, nausea, body aches and fever x 1 day ). PAST MEDICAL HISTORY Diagnosis Date Anxiety Psychiatric disorder ADD, Bipolar, PTSD, anxiety There is no problem list on file for this patient. Current Outpatient Medications Medication Sig Dispense Refill buPROPion XL (WELLBUTRIN XL) 150 mg 24 hr tablet Take 1 tablet by mouth every afternoon. clonazePAM (KLONOPIN) 1 mg tablet Take 1 tablet by mouth every 12 hours. hydrOXYzine pamoate (VISTARIL) 50 mg capsule prazosin (MINIPRESS) 2 mg cap Take 2 mg by mouth daily at bedtime. lamoTRIgine (LAMICTAL) 25 mg tablet Take 50 mg by mouth two times a day. prazosin (MINIPRESS) 1 mg cap Take 1 mg by mouth daily at bedtime. risperiDONE (RISPERDAL) 1 mg tablet Take 1 mg by mouth every morning. albuterol HFA (PROVENTIL HFA, VENTOLIN HFA) 90 mcg/actuation inhaler Inhale 2 Puffs as instructed every 6 hours as needed for wheezing/shortness of breath. 1 Each 0 loratadine (CLARITIN) 10 mg tablet Take 1 tablet by mouth every afternoon. clonazePAM (KLONOPIN) 0.5 mg tablet Take 1 tablet by mouth every 12 hours. risperiDONE (RISPERDAL) 2 mg tablet Take 1 tablet by mouth every 12 hours. hydrOXYzine pamoate (VISTARIL) 25 mg capsule ondansetron orally disintegrating (ZOFRAN ODT) 4 mg disintegrating tablet Take 1 tablet by mouth every 8 hours as needed for nausea/vomiting for up to 5 days. 15 tablet 0 omeprazole (PRILOSEC) 40 mg capsule Take 1 capsule by mouth once daily. 30 capsule 0 No current facility-administered medications for this visit. Social History Tobacco Use Smoking status: Every Day Current packs/day: 1.50 Average packs/day: 1.5 packs/day for 15.0 years (22.5 ttl pk-yrs) Types: Cigarettes Passive exposure: Current Smokeless tobacco: Never Vaping Use Vaping status: current everyday user Substances: Nicotine Substance Use Topics Alcohol use: Not Currently Alcohol/week: 24.0 standard drinks of alcohol Types: 24 Standard drinks or equivalent per week Comment: quit 04/08/2024 Drug use: Yes Types: Marijuana Comment: [facility] Alcohol Use: Not Currently (quit 04/08/2024) Tobacco Use: Types: Cigarettes History reviewed. No pertinent family history. ROS BP 95/64 Pulse 120 Temp 97.8 Resp 18 Wt 136 lb (61.7kg) SpO2 97% Physical Exam Constitutional: General: He is not in acute distress. Appearance: Normal appearance. He is normal weight. He is not ill-appearing. HENT: Head: Normocephalic. Mouth/Throat: Mouth: Mucous membranes are moist. Eyes: Extraocular Movements: Extraocular movements intact. Conjunctiva/sclera: Conjunctivae normal. Cardiovascular: Rate and Rhythm: Tachycardia present. Pulmonary: Effort: Pulmonary effort is normal. Breath sounds: Normal breath sounds. Abdominal: General: Abdomen is flat. Skin: General: Skin is warm and dry. Neurological: General: No focal deficit present. Mental Status: He is alert and oriented to person, place, and time. Psychiatric: Mood and Affect: Mood normal. Behavior: Behavior normal. Thought Content: Thought content normal. Clinical Impression ICD-10-CM 1. Myalgia M79.10 2. Diarrhea, unspecified type R19.7 3. Nausea R11.0 ondansetron orally disintegrating (ZOFRAN ODT) 4 mg disintegrating tablet 4. Norovirus A08.11 Myalgia (primary encounter diagnosis) Diarrhea, unspecified type Nausea Norovirus PLAN: 1. Plan of care is to treat symptoms of nausea and vomiting. 2. Suspected norovirus due to patient presentation as well as clinical evaluation. Patient was prescribed zofran. 3. Encouraged to utilize bland diet, such as brat diet. Do not eat any fried, fatty, greasy, or spicy foods until symptoms have resolved. Slowly add normal intake back into diet as tolerated. 4. Oral rehydration with electrolyte beverage as well as water recommended. 5. Red flag symptoms were discussed with patient and when ER visit should occur. Patient verbalized understanding. 6. Follow-up with PCP for any new, worsening, or continued symptoms. I discussed with patient if they develop any sharp or stabbing abdominal pain, or if nausea and vomiting intensifies in duration and frequency, they are to present to local emergency department as they may require laboratory studies, IV fluids, and or possible CT imaging at that time. At the present time as patient's nausea and vomiting is episodic and non-intractable in nature, coupled with the fact patient appears well, vital signs are within normal limits as stated above and physical exam is otherwise unremarkable with no acute findings, I feel oral rehydration and consuming bland diet at home in conjunction with as needed Zofran will be appropr (more content not included)... [facility] 04-15-2024 Note HNO ID: [id number] Author: CED GRANGER APRN.[employer] Service: ? Author Type: Nurse Practitioner Type: Progress Notes Filed: 04/15/2024 14:04 Note Text: Subjective HPI Nontoxic-appearing 28-year-old male presents urgent care chief plaint possible UTI. Duration of symptoms 2 days. Associated symptoms dysuria frequency and urgency. Presents today for UTI testing. Denies history of UTI. OTC medications none. Recently was seen diagnosed with flulike symptoms. Those symptoms have improved. Presents today with possible UTI. Denies any testicular pain scrotal swelling penile discharge or rashes. Is sexually active. Minimal concerns for possible STD. Denies any vomiting fevers abdominal pain. States has some mild flank tenderness. Past medical history prescription medications allergies reviewed. .Patient presents with: Urinary Problem: Burning with urination, R kidney pain x 2 days PAST MEDICAL HISTORY Diagnosis Date Anxiety Psychiatric disorder ADD, Bipolar, PTSD, anxiety History reviewed. No pertinent surgical history. ALLERGIES Ambien [Zolpidem] MEDICATIONS buPROPion XL (WELLBUTRIN XL) 150 mg 24 hr tablet Take 1 tablet by mouth every afternoon. clonazePAM (KLONOPIN) 1 mg tablet Take 1 tablet by mouth every 12 hours. prazosin (MINIPRESS) 2 mg cap Take 2 mg by mouth daily at bedtime. lamoTRIgine (LAMICTAL) 25 mg tablet Take 50 mg by mouth two times a day. risperiDONE (RISPERDAL) 1 mg tablet Take 1 mg by mouth every morning. albuterol HFA (PROVENTIL HFA, VENTOLIN HFA) 90 mcg/actuation inhaler Inhale 2 Puffs as instructed every 6 hours as needed for wheezing/shortness of breath. famotidine (PEPCID) 20 mg tablet once daily. risperiDONE (RISPERDAL) 2 mg tablet Take 1 tablet by mouth every 12 hours. hydrOXYzine pamoate (VISTARIL) 50 mg capsule TAKE 1 CAPSULE BY MOUTH TWICE DAILY NEEDED FOR ANXIETY (Patient not taking: Reported on 04/15/2024) ibuprofen (MOTRIN) 800 mg tablet Take 1 tablet by mouth three times a day as needed for pain or fever (specify temp.) for up to 7 days. prazosin (MINIPRESS) 1 mg cap Take 1 mg by mouth daily at bedtime. (Patient not taking: Reported on 04/12/2024) traZODone (DESYREL) 100 mg tablet Take 100 mg by mouth daily at bedtime. (Patient not taking: Reported on 04/12/2024) Chlorhexidine Gluconate (PERIDEX) 0.12 % solution Rinse around the mouth with approximately 15 ml for 30 seconds then expectorate. 2 times daily. Discontinue use after 2 weeks. (Patient not taking: Reported on 08/19/2023) amoxicillin (AMOXIL) 500 mg capsule Take 500 mg by mouth three times a day. (Patient not taking: Reported on 08/19/2023) omeprazole (PRILOSEC) 40 mg capsule Take 1 capsule by mouth once daily. loratadine (CLARITIN) 10 mg tablet Take 1 tablet by mouth every afternoon. (Patient not taking: Reported on 04/12/2024) traZODone (DESYREL) 50 mg tablet Take 50 mg by mouth daily at bedtime. (Patient not taking: Reported on 08/19/2023) clonazePAM (KLONOPIN) 0.5 mg tablet Take 1 tablet by mouth every 12 hours. (Patient not taking: Reported on 04/12/2024) hydrOXYzine pamoate (VISTARIL) 25 mg capsule TAKE 1 CAPSULE BY MOUTH EVERY 4 HOURS NEEDED FOR ANXIETY (Patient not taking: Reported on 04/12/2024) escitalopram oxalate (LEXAPRO) 20 mg tablet Take by mouth. (Patient not taking: Reported on 04/12/2024) History reviewed. No pertinent family history. Social History Tobacco Use Smoking status: Every Day Current packs/day: 1.50 Average packs/day: 1.5 packs/day for 15.0 years (22.5 ttl pk-yrs) Types: Cigarettes Passive exposure: Current Smokeless tobacco: Never Vaping Use Vaping status: Never Used Substance Use Topics Alcohol use: Not Currently Alcohol/week: 24.0 standard drinks of alcohol Types: 24 Standard drinks or equivalent per week Comment: quit 04/08/2024 Drug use: Yes Types: Marijuana Comment: only robinson at this BP 103/70 Pulse 102 Temp 37.3 ?C (99.1 ?F) Resp 20 Wt 61.8 kg (136 lb 3.9 oz) SpO2 100% BMI 17.49 kg/m? Review of Systems Constitutional: Negative for chills, fever and malaise/fatigue. Cardiovascular: Negative for chest pain. Gastrointestinal: Negative for abdominal pain, constipation, diarrhea, nausea and vomiting. Genitourinary: Positive for dysuria, frequency and urgency. Negative for flank pain and hematuria. Musculoskeletal: Negative for myalgias. Objective Physical Exam Vitals and nursing note reviewed. Constitutional: General: He is not in acute distress. Appearance: He is not diaphoretic. HENT: Head: Jaw: No trismus. Right Ear: Hearing normal. No decreased hearing noted. No drainage, swelling or tenderness. Tympanic membrane is not perforated, erythematous or bulging. Left Ear: Hearing normal. No decreased hearing noted. No drainage, swelling or tenderness. Tympanic membrane is not perforated, erythematous or bulging. Mouth/Throat: Pharynx: Uvula midline. No uvula swelling. Tonsi (more content not included)... [facility] 04-12-2024 Note HNO ID: [id number] Author: FERMIN MANCERA JR, APRN.[employer] WORKER Service: ? Author Type: Nurse Practitioner Type: Progress Notes Filed: 04/12/2024 11:16 Note Text: Immanuel Neumann is a 28 year old male who presents with Abdominal Pain (When asked where the pain is located patient states basically everywhere/Started 4 days ago /), Fever (Started 4 days ago /), Diarrhea (Started 4 days ago /), and Back Pain (Mid back pain /States he does have a hunch back but states it could also be his organs /) 28-year-old male presents today complaining of abdominal pain, fatigue, cough, fever, and mid back pain. He states symptoms began 4 days ago of unknown etiology. The history is provided by the patient. Abdominal Pain Associated symptoms include fever and diarrhea. Fever Associated symptoms include diarrhea, congestion and cough. Pertinent negatives include no chest pain and no sore throat. Diarrhea Associated symptoms include abdominal pain and cough. Back Pain Associated symptoms include a fever and abdominal pain. Pertinent negatives include no chest pain. PAST MEDICAL HISTORY Diagnosis Date Anxiety Psychiatric disorder ADD, Bipolar, PTSD, anxiety There is no problem list on file for this patient. Current Outpatient Medications Medication Sig Dispense Refill buPROPion XL (WELLBUTRIN XL) 150 mg 24 hr tablet Take 1 tablet by mouth every afternoon. clonazePAM (KLONOPIN) 1 mg tablet Take 1 tablet by mouth every 12 hours. hydrOXYzine pamoate (VISTARIL) 50 mg capsule TAKE 1 CAPSULE BY MOUTH TWICE DAILY NEEDED FOR ANXIETY prazosin (MINIPRESS) 2 mg cap Take 2 mg by mouth daily at bedtime. lamoTRIgine (LAMICTAL) 25 mg tablet Take 50 mg by mouth two times a day. risperiDONE (RISPERDAL) 1 mg tablet Take 1 mg by mouth every morning. albuterol HFA (PROVENTIL HFA, VENTOLIN HFA) 90 mcg/actuation inhaler Inhale 2 Puffs as instructed every 6 hours as needed for wheezing/shortness of breath. 1 Each 0 omeprazole (PRILOSEC) 40 mg capsule Take 1 capsule by mouth once daily. 30 capsule 0 famotidine (PEPCID) 20 mg tablet once daily. risperiDONE (RISPERDAL) 2 mg tablet Take 1 tablet by mouth every 12 hours. ibuprofen (MOTRIN) 800 mg tablet Take 1 tablet by mouth three times a day as needed for pain or fever (specify temp.) for up to 7 days. 21 tablet 0 prazosin (MINIPRESS) 1 mg cap Take 1 mg by mouth daily at bedtime. (Patient not taking: Reported on 04/12/2024) traZODone (DESYREL) 100 mg tablet Take 100 mg by mouth daily at bedtime. (Patient not taking: Reported on 04/12/2024) Chlorhexidine Gluconate (PERIDEX) 0.12 % solution Rinse around the mouth with approximately 15 ml for 30 seconds then expectorate. 2 times daily. Discontinue use after 2 weeks. (Patient not taking: Reported on 08/19/2023) 473 mL 0 amoxicillin (AMOXIL) 500 mg capsule Take 500 mg by mouth three times a day. (Patient not taking: Reported on 08/19/2023) loratadine (CLARITIN) 10 mg tablet Take 1 tablet by mouth every afternoon. (Patient not taking: Reported on 04/12/2024) traZODone (DESYREL) 50 mg tablet Take 50 mg by mouth daily at bedtime. (Patient not taking: Reported on 08/19/2023) clonazePAM (KLONOPIN) 0.5 mg tablet Take 1 tablet by mouth every 12 hours. (Patient not taking: Reported on 04/12/2024) hydrOXYzine pamoate (VISTARIL) 25 mg capsule TAKE 1 CAPSULE BY MOUTH EVERY 4 HOURS NEEDED FOR ANXIETY (Patient not taking: Reported on 04/12/2024) escitalopram oxalate (LEXAPRO) 20 mg tablet Take by mouth. (Patient not taking: Reported on 04/12/2024) No current facility-administered medications for this visit. Social History Tobacco Use Smoking status: Every Day Current packs/day: 1.50 Average packs/day: 1.5 packs/day for 15.0 years (22.5 ttl pk-yrs) Types: Cigarettes Passive exposure: Current Smokeless tobacco: Never Vaping Use Vaping status: Never Used Substance Use Topics Alcohol use: Not Currently Alcohol/week: 24.0 standard drinks of alcohol Types: 24 Standard drinks or equivalent per week Comment: quit 04/08/2024 Drug use: Yes Types: Marijuana Comment: only marmaryjane at this Alcohol Use: Not Currently (quit 04/08/2024) Tobacco Use: Types: Cigarettes No family history on file. Review of Systems Constitutional: Positive for fever and malaise/fatigue. HENT: Positive for congestion and sinus pain. Negative for ear pain and sore throat. Respiratory: Positive for cough. Negative for shortness of breath. Cardiovascular: Negative for chest pain. Gastrointestinal: Positive for abdominal pain and diarrhea. Musculoskeletal: Positive for back pain. BP 111/76 Pulse 101 Temp (Src) 97.9 (Temporal) Resp 18 Wt 142 lb (64.4kg) SpO2 98% Physical Exam Vitals and nursing note reviewed. Constitutional: Appearance: Normal appearance. He is not ill-appearing. HENT: Head: Normocephalic and atraumatic. Right Ear: Tympanic membrane normal. Left Ear: Tympanic membrane normal. Nos (more content not included)... [facility] 04-12-2024 Note HNO ID: [id number] Author: ZANDRA LIU LPN Service: ? Author Type: LICENSED NURSE Type: Progress Notes Filed: 04/12/2024 11:16 Note Text: Patient declined depression screening at this time. Zandra Liu LPN [facility] 12-08-2023 Hospital Discharge instructions Jesus Koch MD - 12/08/2023 11:52 PM EDT Thank you for allowing myself and the team to take care of you during your emergency situation and addressing your health concerns. You were evaluated for abdominal pain. During your visit in the emergency department you were evaluated for your presenting symptoms. Based on the extensive workup you received, all efforts were made to identify the source of your symptoms and identify any life-threatening conditions. These life-threatening conditions that were attempted to be identified and medically managed/treated include but not limited to bleeding/non-bleeding ulcers/wounds of your stomach or intestines, hole in your stomach or intestines, infection/inflammation of your liver, infection/inflammation of your gallbladder and associated biliary (bile) system, appendicitis (infection/inflammation of your appendix), infection/inflammation of your pancreas, bowel/intestine obstruction, small or large intestine inflammation/infection, infection/abscess inside your abdomen, hematoma/bleeding (hemorrhage) inside your abdomen, or ectopic , ovarian torsion, infection/inflammation of your uterus/fallopian tubes. Additionally, you may be experiencing symptoms that are [id number] but are uncomfortable and disruptive to your everyday life. All efforts were made to manage your symptoms while in the emergency department along with appropriate at home therapy for symptomatic management during your recovery. Please be aware that not all of the conditions explained/discussed in these discharge instructions are applicable to your condition but encompass many of the conditions that were evaluated for during your ED encounter. During your evaluation and assessment, all measures were taken to evaluate you and address your health concerns to identify dangerous and life threatening health conditions. It is not possible to identify all health conditions or pathologies and eliminate any chance of unfavorable outcomes while in the Emergency Department. My team encourages you to be vigilant with your health and follow-up with the appropriate providers outlined in your discharge paperwork. Please return to the Emergency Department if you feel that your health has not improved or experiencing worsening symptoms. Special instructions please take the medication as prescribed. Please make follow-up point with your primary care physician to further manage her symptoms address your health concerns. Incidental findings: None documented in this encounter [facility] Work Phone: 12-05-2023 Emergency department Discharge summary Discharge Instructions Thank you for allowing [facility] to assist you with your healthcare needs. The following is important discharge information regarding your hospital visit. What to Do Next Instructions from Your Care Team No qualifying data available. Post Acute Orders No qualifying data available. Allergies [facility] Medications Please ask your primary doctor or pharmacist before taking any other medication not listed, including over the counter drugs, herbal medications, vitamins and or supplements as they may interact with your home medications. What How Much When Instructions Last Dose Unchanged albuterol (Albuterol (Eqv-ProAir HFA) 90 mcg/ inh inhalation aerosol) 2 puff(s) by inhalation Every 6 hours as needed for as needed for wheezing Unchanged clonazePAM (clonazePAM 1 mg oral tablet) 1 tab(s) by mouth Two (2) times a day Unchanged hydrOXYzine (hydrOXYzine pamoate 25 mg oral capsule) 1 cap by mouth Every 4 hours as needed for as needed for anxiety Unchanged lamoTRIgine (lamoTRIgine 25 mg oral tablet) 2 tab(s) by mouth Daily at bedtime Unchanged prazosin (prazosin 2 mg oral capsule) 1 cap by mouth Daily at bedtime Unchanged risperiDONE (risperiDONE 1 mg oral tablet) 1 tab(s) by mouth Once a day (in the morning) Unchanged risperiDONE (risperiDONE 2 mg oral tablet) 1 tab(s) by mouth Daily at bedtime Unchanged traZODone (traZODone 100 mg oral tablet) 2 tab(s) by mouth Daily at bedtime Please take this list to your next doctor s visit. Bring all medications you take, including over the counter medications, herbals and other supplements with you to your doctor s visit. Patients and families are reminded to discard old lists and to update any records with all medication providers or retail pharmacies. Additional Information VACCINATE! IT SAVES LIVES! Members of the community who have not yet received the COVID-19 vaccine and would like to receive it can visit one of [facility] vaccine clinics. There are many vaccine clinic locations within the [facility]. For locations and available times, please visit [email or web address] It is important to note that some COVID mobile vaccine clinics are held outdoors and may be canceled in rainy or stormy conditions. To learn more about pediatric vaccinations (ages 5-11), we invite you to visit the [facility] webpage. https://[email or web address] [email or web address] [email or web address]-[email or web address] To learn more about the COVID-19 vaccine, we invite you to visit the CDC website for a list of frequently asked questions. https://www.cdc.gov/coronavirus/ 2019-ncov/vaccines/faq.html [facility] Patient Portal Access Instructions: Stay connected with your healthcare team and access your personal medical information anytime with the [facility] Patient Portal. If you would like a full copy of your medical records please contact the [facility] Medical Records Department Friday through Friday between 8a.m. and 4:30p.m. Please follow the directions below to access the portal: 1.Access the email account you provided upon registration to the [facility].2.Look for an invitation email from [facility].3.Open the email and access the invitation link: Accept Invitation to [facility].Fill in the required garrett to create your account. Sign into [email or web address].[email or web address] with your username and password that you created in the above steps to stay up to date. You can then view a summary of results, a summary of your visits, and the ability to download your summaries to your computer or send the information securely to a physician. Remember that your healthcare information is confidential, so carefully consider who you will allow to register on the [facility] Patient Portal for access to your information. You can also access the [facility] Patient Portal on the [employer]. Simply click on Health Records under Health Data and then click on the [employer] logo. HOW TO SAFELY DISPOSE OF PRESCRIPTION MEDICATIONS Please use one of the following methods to safely dispose of your unused medications. 1.Use a drug disposal kit: the drug disposal pouch allows you to safely discard your old and unused drugs. Ask your nurse to give you one when you are discharged.2.Visit a local take-back location: Many local pharmacies and police departments have programs that collect old and unwanted prescription drugs. Call your local pharmacy or go to [email or web address] to find one close to you.3.Make use of household items: Use cat litter or old coffee grounds to dispose medications if other options are not available. Mix your drugs with these household products, seal them in an airtight container and throw it into the garbage. Call [facility]: [phone] to be sure your drugs can be disposed of in this way. Some medicines may require a different approach.4.Never flush your medications down the toilet. IF YOU HAVE BEEN PRESCRIBED AN OPIOIDS FOR PAIN If you have been prescribed an opioid (such as hydrocodone, oxycodone or morphine), it is critical to understand the possible side effects and risks of opioid pain medications. Even when taken as directed, opioids can have several side effects including: Tolerance, meaning you might need to take more of a medication for the same pain relief. Nausea, vomiting and/or constipation. Sleepiness, dizziness, dry mouth, confusion, depression or itching. Physical dependence, meaning you have withdrawal symptoms when a medication is stopped ? this can develop within a few days. KNOW YOUR RESPONSIBILITIES It is important to know exactly how much and how often to take the opioid pain medications you are prescribed. Never take opioids in higher amounts or more often than prescribed. Do not combine opioids with alcohol or other drugs that cause drowsiness, such as benzodiazepines, also known as benzos, including diazepam and alprazolam, muscle relaxants or sleep aids. Never sell or share prescription opioids. This is illegal. Store opioids in a secure place and out of reach of others (including children, family, friends and visitors). The last page(s) of this document has been signed and retained as a CHART COPY Signatures Patient Education Materials Medication Leaflets My discharge plan and instructions have been reviewed and explained to me and I,IMMANUEL NEUMANN Adele understand my current condition and have read and understand these discharge instructions. I have received a written copy of the plan/instructions. If I have questions, I am aware that I should contact my doctor. 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 The following is important discharge information regarding your hospital visit. What to Do Next Instructions from Your Care Team No qualifying data available. Post Acute Orders No qualifying data available. You Need to Schedule the Following Appointments Follow Up with [facility] When:Within 2-4 days Where:[address] [place] [phone] Allergies [facility]A Medications Please ask your primary doctor or pharmacist before taking any other medication not listed, including over the counter drugs, herbal medications, vitamins and or supplements as they may interact with your home medications. What How Much When Instructions Last Dose Unchanged clonazePAM (clonazePAM 0.5 mg oral tablet) Unchanged clonazePAM (clonazePAM 0.5 mg oral tablet) Unchanged escitalopram (escitalopram 20 mg oral tablet) Unchanged hydrOXYzine (hydrOXYzine pamoate 25 mg oral capsule) Unchanged risperiDONE (risperiDONE 1 mg oral tablet) Unchanged traZODone (traZODone 50 mg oral tablet) 1 tab(s) by mouth Daily at bedtime as needed for Sleep Please take this list to your next doctor s visit. Bring all medications you take, including over the counter medications, herbals and other supplements with you to your doctor s visit. Patients and families are reminded to discard old lists and to update any records with all medication providers or retail pharmacies. Education Materials Alcohol Intoxication Alcohol intoxication is very serious. It occurs when you drink alcohol faster than your liver can break it down. Severe intoxication is a medical emergency. It is also called alcohol overdose or alcohol poisoning. It can lead to . Here are some sharma facts: It can take 10 minutes or more to start to feel the effects of a drink. So it's easy to drink more than you planned. Binge drinking is having 5 or more drinks over a short time. This can lead to an alcohol overdose. One drink may be more than 1 serving of alcohol. In some cases, a drink can be 2 to 4 servings. This depends on the type of drink. It takes about 1 hour for your body to break down 1 serving of alcohol. If you have more than 1 drink, it can take a few hours or more. People with alcohol abuse disorders are more likely to get alcohol poisoning. But it can happen to anyone who drinks too much alcohol. Even a first-time drinker is at risk. Many things affect how drinks will affect you. These include: oIf you've eaten oHow fast you drink oYour weight oHow much you normally drink (or not) oMedicines you are taking oIf you have a chronic disease oIf you are male or female Symptoms of alcohol intoxication Mild intoxication Feel more relaxed, less tense Slurred speech Sleepy Poor motor skills Moderate intoxication Changing behavior, aggression, depression Poor judgment Confusion Trouble focusing Poor balance and coordination Severe intoxication Vomiting Seizures Fainting Cold, clammy skin Slow or irregular breathing Low body temperature (hypothermia) Coma Health effects Alcohol causes health problems. This can happen after only drinking a little. There is no set number of drinks or amount of alcohol that is too much. How much you drink at 1 time affects your health. And so does drinking often. Alcohol affects your whole body in these ways: Brain. Alcohol can harm parts of the brain that affect your balance, memory, thinking, and feelings. It can cause memory loss, blackouts, depression, agitation, sleep cycle changes, and seizures. These changes may or may not be go away. Heart and vascular system. Alcohol affects many areas. It can damage heart muscle. This can cause the heart muscle to weaken and stretch (cardiomyopathy). This can lead to trouble breathing, an irregular heartbeat, atrial fibrillation, leg swelling, and heart failure. It makes the blood vessels stiffen. This causes high blood pressure. All of these problems raise your risk for heart attacks or strokes. Liver. Alcohol causes fat to build up in the liver. This affects how the liver works. And it raises the risk for hepatitis. This condition leads to belly pain, appetite loss, yellow skin and eyes (jaundice), and bleeding problems. It also leads to harmful changes in the liver. These include liver fibrosis and cirrhosis. This can affect your ability to fight off infections. These liver changes stop it from removing toxins in your blood. This can cause a brain disease called encephalopathy. Pancreas. Alcohol can cause inflammation of the pancreas. This is called pancreatitis. It can lead to belly pain, fever, and diabetes. Immune system. Alcohol weakens your immune system. This makes it harder to fight off infections and colds. You will also have a higher risk of some infections. Cancer risk. Alcohol raises your risk of some types of cancer. They include cancer of the mouth, esophagus, pharynx, larynx, liver, and breast. Sexual function. Alcohol abuse can also lead to sexual problems. Alcohol use in may cause lifelong harm to the baby. It can also cause a group of defects called alcohol spectrum disorder. These defects can include physical problems. They can also include behavior and learning problems. Home care for alcohol intoxication Follow these tips to care for yourself at home: Don't drink any more alcohol. Don't drive until all effects of the alcohol have worn off. Don't use machinery that can cause injuries. Get lots of rest over the next few days. Drink plenty of water and other drinks that do not have alcohol. Try to eat regular meals. If you have been drinking a lot every day, you may have alcohol withdrawal. Symptoms often last 3 to 4 days. They may include: Nervousness Shakiness Nausea Sweating Sleeplessness They may also include severe symptoms. These are known as delirium tremens (DTs). They include: Seizures Confusion Seeing or hearing things that are not there (hallucinations) Alcohol withdrawal can cause . Contact your healthcare provider before you stop drinking. They may be able to help you with medicine. They can also refer you to an inpatient detox program. Or stay with family or friends who can help and support you. If you have severe symptoms, contact your provider or call 911 for help (see below). Follow-up care These groups can help you and your loved one: Alcoholics Anonymous (A.A.) gives support through a self-help fellowship. Find A.A. meetings near you at www.aa.org. [employer] gives support to families. Call 528-473-5446, or go to www.al-anon.org. National [place] on Alcoholism and Drug Dependence (NCADD) has helpful resources. NCADD can be reached at [phone] and www.ncadd.org. Call 911 Call 911 if any of these occur: Trouble breathing or slow irregular breathing Chest pain Sudden weakness on one side of your body or sudden trouble speaking Heavy bleeding or vomiting blood Very sleepy or having trouble waking up Fainting Fast heart rate Seizure When to seek medical advice Call your healthcare provider right away if any of these occur: Severe shakiness Fever of 100.4 F (38 C) or higher, or as directed by your provider Confusion or hallucinations Pain in your upper belly that gets worse Repeated vomiting [id number] [employer]. [address] [place] [address]. All rights reserved. This information is not intended as a substitute for professional medical care. Always follow your healthcare professional's instructions. Additional Information VACCINATE! IT SAVES LIVES! Members of the community who have not yet received the COVID-19 vaccine and would like to receive it can visit one of [facility] vaccine clinics. There are many vaccine clinic locations within the [facility]. For locations and available times, please visit [email or web address].[email or web address] [email or web address] It is important to note that some COVID mobile vaccine clinics are held outdoors and may be canceled in rainy or stormy conditions. To learn more about pediatric vaccinations (ages 5-11), we invite you to visit the [facility] webpage. [email or web address].[email or web address].org/p [email or web address]-Snviv-Ariwcvhegkd-Freq tnhjhg-Vhsem-Rjbcicanl.html To learn more about the COVID-19 vaccine, we invite you to visit the CDC website for a list of frequently asked questions. https://www.cdc.gov/coronavirus/ 2019-ncov/vaccines/faq.html [facility] Patient Portal Access Instructions: Stay connected with your healthcare team and access your personal medical information anytime with the [facility] Patient Portal. If you would like a full copy of your medical records please contact the [facility] Medical Records Department Friday through Friday between 8a.m. and 4:30p.m. Please follow the directions below to access the portal: 1.Access the email account you provided upon registration to the [facility].2.Look for an invitation email from [facility].3.Open the email and access the invitation link: Accept Invitation to [facility].Fill in the required garrett to create your account. Sign into www.[employer] with your username and password that you created in the above steps to stay up to date. You can then view a summary of results, a summary of your visits, and the ability to download your summaries to your computer or send the information securely to a physician. Remember that your healthcare information is confidential, so carefully consider who you will allow to register on the [facility] Patient Portal for access to your information. You can also access the [facility] Patient Portal on the [facility]. Simply click on Health Records under Health Data and then click on the [employer] logo. HOW TO SAFELY DISPOSE OF PRESCRIPTION MEDICATIONS Please use one of the following methods to safely dispose of your unused medications. 1.Use a drug disposal kit: the drug disposal pouch allows you to safely discard your old and unused drugs. Ask your nurse to give you one when you are discharged.2.Visit a local take-back location: Many local pharmacies and police departments have programs that collect old and unwanted prescription drugs. Call your local pharmacy or go to http://bit.[employer] [place]/5W6Ro8g to find one close to you.3.Make use of household items: Use cat litter or old coffee grounds to dispose medications if other options are not available. Mix your drugs with these household products, seal them in an airtight container and throw it into the garbage. Call [facility]: [phone] to be sure your drugs can be disposed of in this way. Some medicines may require a different approach.4.Never flush your medications down the toilet. IF YOU HAVE BEEN PRESCRIBED AN OPIOIDS FOR PAIN If you have been prescribed an opioid (such as hydrocodone, oxycodone or morphine), it is critical to understand the possible side effects and risks of opioid pain medications. Even when taken as directed, opioids can have several side effects including: Tolerance, meaning you might need to take more of a medication for the same pain relief. Nausea, vomiting and/or constipation. Sleepiness, dizziness, dry mouth, confusion, depression or itching. Physical dependence, meaning you have withdrawal symptoms when a medication is stopped ? this can develop within a few days. KNOW YOUR RESPONSIBILITIES It is important to know exactly how much and how often to take the opioid pain medications you are prescribed. Never take opioids in higher amounts or more often than prescribed. Do not combine opioids with alcohol or other drugs that cause drowsiness, such as benzodiazepines, also known as benzos, including diazepam and alprazolam, muscle relaxants or sleep aids. Never sell or share prescription opioids. This is illegal. Store opioids in a secure place and out of reach of others (including children, family, friends and visitors). The last page(s) of this document has been signed and retained as a CHART COPY Signatures Patient Education Materials Alcohol Intoxication Medication Leaflets My discharge plan and instructions have been reviewed and explained to me and ITHIEN JOSHUA L understand my current condition and have read and understand these discharge instructions. I have received a written copy of the plan/instructions. If I have questions, I am aware that I should contact my doctor. 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 It occurs when you drink alcohol faster than your liver can break it down. Severe intoxication is a medical emergency. It is also called alcohol overdose or alcohol poisoning. It can lead to . Here are some sharma facts: It can take 10 minutes or more to start to feel the effects of a drink. So it's easy to drink more than you planned. Binge drinking is having 5 or more drinks over a short time. This can lead to an alcohol overdose. One drink may be more than 1 serving of alcohol. In some cases, a drink can be 2 to 4 servings. This depends on the type of drink. It takes about 1 hour for your body to break down 1 serving of alcohol. If you have more than 1 drink, it can take a few hours or more. People with alcohol abuse disorders are more likely to get alcohol poisoning. But it can happen to anyone who drinks too much alcohol. Even a first-time drinker is at risk. Many things affect how drinks will affect you. These include: oIf you've eaten oHow fast you drink oYour weight oHow much you normally drink (or not) oMedicines you are taking oIf you have a chronic disease oIf you are male or female Symptoms of alcohol intoxication Mild intoxication Feel more relaxed, less tense Slurred speech Sleepy Poor motor skills Moderate intoxication Changing behavior, aggression, depression Poor judgment Confusion Trouble focusing Poor balance and coordination Severe intoxication Vomiting Seizures Fainting Cold, clammy skin Slow or irregular breathing Low body temperature (hypothermia) Coma Health effects Alcohol causes health problems. This can happen after only drinking a little. There is no set number of drinks or amount of alcohol that is too much. How much you drink at 1 time affects your health. And so does drinking often. Alcohol affects your whole body in these ways: Brain. Alcohol can harm parts of the brain that affect your balance, memory, thinking, and feelings. It can cause memory loss, blackouts, depression, agitation, sleep cycle changes, and seizures. These changes may or may not be go away. Heart and vascular system. Alcohol affects many areas. It can damage heart muscle. This can cause the heart muscle to weaken and stretch (cardiomyopathy). This can lead to trouble breathing, an irregular heartbeat, atrial fibrillation, leg swelling, and heart failure. It makes the blood vessels stiffen. This causes high blood pressure. All of these problems raise your risk for heart attacks or strokes. Liver. Alcohol causes fat to build up in the liver. This affects how the liver works. And it raises the risk for hepatitis. This condition leads to belly pain, appetite loss, yellow skin and eyes (jaundice), and bleeding problems. It also leads to harmful changes in the liver. These include liver fibrosis and cirrhosis. This can affect your ability to fight off infections. These liver changes stop it from removing toxins in your blood. This can cause a brain disease called encephalopathy. Pancreas. Alcohol can cause inflammation of the pancreas. This is called pancreatitis. It can lead to belly pain, fever, and diabetes. Immune system. Alcohol weakens your immune system. This makes it harder to fight off infections and colds. You will also have a higher risk of some infections. Cancer risk. Alcohol raises your risk of some types of cancer. They include cancer of the mouth, esophagus, pharynx, larynx, liver, and breast. Sexual function. Alcohol abuse can also lead to sexual problems. Alcohol use in may cause lifelong harm to the baby. It can also cause a group of defects called alcohol spectrum disorder. These defects can include physical problems. They can also include behavior and learning problems. Home care for alcohol intoxication Follow these tips to care for yourself at home: Don't drink any more alcohol. Don't drive until all effects of the alcohol have worn off. Don't use machinery that can cause injuries. Get lots of rest over the next few days. Drink plenty of water and other drinks that do not have alcohol. Try to eat regular meals. If you have been drinking a lot every day, you may have alcohol withdrawal. Symptoms often last 3 to 4 days. They may include: Nervousness Shakiness Nausea Sweating Sleeplessness They may also include severe symptoms. These are known as delirium tremens (DTs). They include: Seizures Confusion Seeing or hearing things that are not there (hallucinations) Alcohol withdrawal can cause . Contact your healthcare provider before you stop drinking. They may be able to help you with medicine. They can also refer you to an inpatient detox program. Or stay with family or friends who can help and support you. If you have severe symptoms, contact your provider or call 911 for help (see below). Follow-up care These groups can help you and your loved one: Alcoholics Anonymous (A.A.) gives support through a self-help fellowship. Find A.A. meetings near you at www.aa.org. Wild gives support to families. Call 112-960-7539, or go to www.al-anon.org. [place] on Alcoholism and Drug Dependence (NCADD) has helpful resources. NCADD can be reached at 924-242-7751 and www.ncadd.org. Call 911 Call 911 if any of these occur: Trouble breathing or slow irregular breathing Chest pain Sudden weakness on one side of your body or sudden trouble speaking Heavy bleeding or vomiting blood Very sleepy or having trouble waking up Fainting Fast heart rate Seizure When to seek medical advice Call your healthcare provider right away if any of these occur: Severe shakiness Fever of 100.4 F (38 C) or higher, or as directed by your provider Confusion or hallucinations Pain in your upper belly that gets worse Repeated vomiting [id number] [employer]. [address] [place] [address]. All rights reserved. This information is not intended as a substitute for professional medical care. Always follow your healthcare professional's instructions. Follow Up Care 11/29/2023 08:54:28 With:[facility] Address: [address] [place] [phone] When:2-4 days [facility] 11-29-2023 Note ORIGINAL EXAMINATION: ONE XRAY VIEW OF THE CHEST 11/29/2023 9:34 am COMPARISON: 05/18/2023 HISTORY: ORDERING SYSTEM PROVIDED HISTORY: Reason for Exam: chest pain FINDINGS: The lungs are without acute focal process. There is no effusion or pneumothorax. The cardiomediastinal silhouette is without acute process. The osseous structures are without acute process. IMPRESSION: No acute process. Interpreted by: Jason Corrales DO Preliminary Report By: Jason Corrales DO Electronically signed By Jason Corrales DO Dictated Date: 11/29/2023 9:43:51 AM Prelim Date: 11/29/2023 9:48:41 AM Sign Date: 11/29/2023 9:48:41 AM Ordering Provider: [facility] 11-29-2023 Note SINUS TACHYCARDIA NONSPECIFIC T ABNORMALITIES, INFERIOR LEADS PROLONGED QT INTERVAL Electronic Signature: NICOLE CHUNG MD 11/29/2023 09:41:41 [facility] 08-19-2023 Note HNO ID: [id number] Author: TONY GALICIA PA-C Service: ? Author Type: Physician Hat Copyist Type: Progress Notes Filed: 08/19/2023 11:32 Note Text: HPI: Immanuel Neumann is a 27 year old male who presents with Sore Throat (Started yesterday afternoon), Cough (Started yesterday), Congestion (Started yesterday ), Muscle Aches (Started yesterday), and Decreased appetite (Started yesterday /). PAST MEDICAL HISTORY Diagnosis Date Anxiety Psychiatric disorder ADD, Bipolar, PTSD, anxiety There is no problem list on file for this patient. Current Outpatient Medications Medication Sig Dispense Refill lamoTRIgine (LAMICTAL) 25 mg tablet Take 25 mg by mouth daily at bedtime. prazosin (MINIPRESS) 1 mg cap Take 1 mg by mouth daily at bedtime. risperiDONE (RISPERDAL) 1 mg tablet Take 1 mg by mouth every morning. traZODone (DESYREL) 100 mg tablet Take 100 mg by mouth daily at bedtime. loratadine (CLARITIN) 10 mg tablet Take 1 tablet by mouth every afternoon. famotidine (PEPCID) 20 mg tablet once daily. clonazePAM (KLONOPIN) 0.5 mg tablet Take 1 tablet by mouth every 12 hours. risperiDONE (RISPERDAL) 2 mg tablet Take 1 tablet by mouth every 12 hours. hydrOXYzine pamoate (VISTARIL) 25 mg capsule TAKE 1 CAPSULE BY MOUTH EVERY 4 HOURS NEEDED FOR ANXIETY escitalopram oxalate (LEXAPRO) 20 mg tablet Take by mouth. Chlorhexidine Gluconate (PERIDEX) 0.12 % solution Rinse around the mouth with approximately 15 ml for 30 seconds then expectorate. 2 times daily. Discontinue use after 2 weeks. (Patient not taking: Reported on 08/19/2023) 473 mL 0 amoxicillin (AMOXIL) 500 mg capsule Take 500 mg by mouth three times a day. (Patient not taking: Reported on 08/19/2023) omeprazole (PRILOSEC) 40 mg capsule Take 1 capsule by mouth once daily. 30 capsule 0 traZODone (DESYREL) 50 mg tablet Take 50 mg by mouth daily at bedtime. (Patient not taking: Reported on 08/19/2023) No current facility-administered medications for this visit. Social History Tobacco Use Smoking status: Every Day Packs/day: 1.50 Years: 15.00 Additional pack years: 0.00 Total pack years: 22.50 Types: Cigarettes Passive exposure: Current Smokeless tobacco: Never Vaping Use Vaping Use: Never used Substance Use Topics Alcohol use: Not Currently Comment: 6-24 cans Drug use: Yes Types: Marijuana Comment: only [facility] at this Alcohol Use: Not Currently (6-24 cans) Tobacco Use: 1.5 packs/day, for 15 years. Types: Cigarettes No family history on file. Review of Systems Constitutional: Positive for fever and malaise/fatigue. HENT: Positive for congestion and sore throat. Eyes: Negative. Respiratory: Positive for cough and wheezing. Negative for shortness of breath. Cardiovascular: Negative for chest pain. Gastrointestinal: Negative for diarrhea, nausea and vomiting. Genitourinary: Negative. Musculoskeletal: Negative. Skin: Negative. Neurological: Negative. Endo/Heme/Allergies: Negative. Psychiatric/Behavioral: Negative. All other systems reviewed and are negative. BP 91/68 Pulse 98 Temp (Src) 99 (Temporal) Resp 19 Wt 138 lb (62.6kg) SpO2 98% Physical Exam Vitals and nursing note reviewed. Constitutional: General: He is not in acute distress. Appearance: Normal appearance. He is normal weight. He is not ill-appearing or toxic-appearing. HENT: Head: Normocephalic and atraumatic. Right Ear: Tympanic membrane, ear canal and external ear normal. Left Ear: Tympanic membrane, ear canal and external ear normal. Nose: Congestion and rhinorrhea present. Mouth/Throat: Mouth: Mucous membranes are moist. Pharynx: Oropharynx is clear. Posterior oropharyngeal erythema present. No oropharyngeal exudate. Eyes: Extraocular Movements: Extraocular movements intact. Conjunctiva/sclera: Conjunctivae normal. Pupils: Pupils are equal, round, and reactive to light. Cardiovascular: Rate and Rhythm: Normal rate and regular rhythm. Pulses: Normal pulses. Heart sounds: Normal heart sounds. Pulmonary: Effort: Pulmonary effort is normal. No respiratory distress. Breath sounds: Wheezing present. Abdominal: General: Abdomen is flat. Bowel sounds are normal. Palpations: Abdomen is soft. Musculoskeletal: General: Normal range of motion. Cervical back: Normal range of motion and neck supple. No tenderness. Lymphadenopathy: Cervical: No cervical adenopathy. Skin: General: Skin is warm and dry. Capillary Refill: Capillary refill takes less than 2 seconds. Neurological: General: No focal deficit present. Mental Status: He is alert and oriented to person, place, and time. Psychiatric: Mood and Affect: Mood normal. Behavior: Behavior normal. Clinical Impression ICD-10-CM 1. Bronchitis J40 Bronchitis (primary encounter diagnosis) PLAN: Antibiotic coverage, inhaler Tony Galicia PA-C This note was generated with voice recognition software and may contain errors, inclu (more content not included)... [facility] 06-22-2023 Note HNO ID: [id number] Author: SOPHIA DIAZ RT(R) Service: ? Author Type: Technologist Type: Progress Notes Filed: 06/22/2023 01:31 Note Text: Radiology Service Progress Note PATIENT NAME: Immanuel Neumann DATE OF SERVICE: June 22, 2023 TIME: 1:31 AM PATIENT IDENTITY VERIFICATION COMPLETED USING TWO (2) IDENTIFIERS: Name and Date of confirmed by patient verbally. FALL SCREENING: Has the patient had 2 falls in the last year or 1 fall with injury or currently using an Ambulatory Assistive Device (Walker, Cane, Wheelchair, Crutches, etc.)? Emergency Room Patient: Screened in ED PATIENT GENDER DATA: Male PATIENT RELEVANT IMPLANT DATA REVIEWED: Not Applicable PATIENT PRESENTS WITH AN IMPLANTABLE OR ATTACHED AIR LIFT OPERATOR: No RADIOLOGY DEPARTMENT: General X-ray: Exam(s) Completed: Chest X-Ray PERIPHERAL IV DATA: Not applicable SIGNED BY: RT Paul(R) June 22, 2023 1:31 AM [facility] 06-22-2023 Note HNO ID: [id number] Author: CONY BECK RT(R) Service: ? Author Type: Technologist Type: Progress Notes Filed: 06/22/2023 01:18 Note Text: Radiology Service Progress Note PATIENT NAME: Immanuel Neumann DATE OF SERVICE: June 22, 2023 TIME: 1:18 AM PATIENT IDENTITY VERIFICATION COMPLETED USING TWO (2) IDENTIFIERS: Name and Date of confirmed by patient verbally. FALL SCREENING: Has the patient had 2 falls in the last year or 1 fall with injury or currently using an Ambulatory Assistive Device (Walker, Cane, Wheelchair, Crutches, etc.)? Emergency Room Patient: Screened in ED PATIENT GENDER DATA: Male PATIENT RELEVANT IMPLANT DATA REVIEWED: Yes PATIENT PRESENTS WITH AN IMPLANTABLE OR ATTACHED AIR LIFT OPERATOR: No RADIOLOGY DEPARTMENT: CT; Exam(s) Completed: Brain PERIPHERAL IV DATA: Not applicable SIGNED BY: RT Oli(R) June 22, 2023 1:18 AM [facility] 05-18-2023 Evaluation + Plan note Diagnostic Tests PendingUrinalysis w/ C&S if Indicated 05/18/23 [facility] 05-18-2023 Hospital Discharge instructions Patient Education 05/18/2023 11:21:12 Anxiety Reaction Anxiety Reaction Anxiety is the feeling we all get when we think something bad might happen. It is a normal response to stress and usually causes only a mild reaction. When anxiety becomes more severe, it can interfere with daily life. In some cases, you may not even be aware of what it is you re anxious about. There may also be a genetic link or it may be a learned behavior in the home. Both psychological and physical triggers cause stress reaction. It's often a response to fear or emotional stress, real or imagined. This stress may come from home, family, work, or social relationships. During an anxiety reaction, you may feel: Helpless Nervous Depressed Irritable Your body may show signs of anxiety in many ways. You may experience: Dry mouth Shakiness Dizziness Weakness Trouble breathing Breathing fast (hyperventilating) Chest pressure Sweating Headache Nausea Diarrhea Tiredness Inability to sleep Sexual problems Home care Try to locate the sources of stress in your life. They may not be obvious. These may include: oDaily hassles of life (such as traffic jams, missed appointments, or car troubles) oMajor life changes, both good (new baby or job promotion) and bad (loss of job or loss of loved one) oOverload: feeling that you have too many responsibilities and can't take care of all of them at once oFeeling helpless or feeling that your problems are beyond what you re able to solve Notice how your body reacts to stress. Learn to listen to your body signals. This will help you take action before the stress becomes severe. When you can, do something about the source of your stress. (Avoid hassles, limit the amount of change that happens in your life at one time and take a break when you feel overloaded). Unfortunately, many stressful situations can't be avoided. It is necessary to learn how to better manage stress. There are many proven methods that will reduce your anxiety. These include simple things like exercise, good nutrition, and adequate rest. Also, there are certain techniques that are helpful: oRelaxation oBreathing exercises oVisualization oBiofeedback oMeditation For more information about this, consult your healthcare provider or go to a local bookstore and review the many books and tapes available on this subject. Follow-up care If you feel that your anxiety is not responding to self-help measures, contact your healthcare provider or make an appointment with a counselor. You may need short-term psychological counseling and temporary medicine to help you manage stress. Call 911 Call 911 if any of these happen: Trouble breathing Confusion Drowsiness or trouble wakening Fainting or loss of consciousness Rapid heart rate Seizure New chest pain that becomes more severe, lasts longer, or spreads into your shoulder, arm, neck, jaw, or back When to seek medical advice Call your healthcare provider right away if any of these happen: Your symptoms get worse Severe headache not relieved by rest and mild pain reliever [id number] [employer]. [address] [place] [address], [place] [address]. All rights reserved. This information is not intended as a substitute for professional medical care. Always follow your healthcare professional's instructions. Follow Up Care 05/18/2023 09:44:06 With:Go to emergency room if symptoms worsen Address:Unknown When:2-4 days With:[facility] Address: [address] [place] [phone] When:2-4 days [facility] 05-18-2023 Emergency department Discharge summary Discharge Instructions Thank you for allowing [facility] to assist you with your healthcare needs. The following is important discharge information regarding your hospital visit. Diagnosis from Today's Visit Chest pain What to Do Next Instructions from Your Care Team No qualifying data available. Post Acute Orders No qualifying data available. You Need to Schedule the Following Appointments Follow Up with Go to emergency room if symptoms worsen When Within 2-4 days Follow Up with [facility], [facility] When Within 2-4 days Where: [facility] [place] [address]- [phone] Allergies NKA Medications Please ask your primary doctor or pharmacist before taking any other medication not listed, including over the counter drugs, herbal medications, vitamins and or supplements as they may interact with your home medications. What How Much When Instructions Last Dose Unchanged clonazePAM (clonazePAM 0.5 mg oral tablet) Unchanged clonazePAM (clonazePAM 0.5 mg oral tablet) Unchanged escitalopram (escitalopram 20 mg oral tablet) Unchanged hydrOXYzine (hydrOXYzine pamoate 25 mg oral capsule) Unchanged risperiDONE (risperiDONE 1 mg oral tablet) Unchanged traZODone (traZODone 50 mg oral tablet) 1 tab(s) by mouth Daily at bedtime as needed for Sleep Please take this list to your next doctor s visit. Bring all medications you take, including over the counter medications, herbals and other supplements with you to your doctor s visit. Patients and families are reminded to discard old lists and to update any records with all medication providers or retail pharmacies. Education Materials Anxiety Reaction Anxiety is the feeling we all get when we think something bad might happen. It is a normal response to stress and usually causes only a mild reaction. When anxiety becomes more severe, it can interfere with daily life. In some cases, you may not even be aware of what it is you re anxious about. There may also be a genetic link or it may be a learned behavior in the home. Both psychological and physical triggers cause stress reaction. It's often a response to fear or emotional stress, real or imagined. This stress may come from home, family, work, or social relationships. During an anxiety reaction, you may feel: Helpless Nervous Depressed Irritable Your body may show signs of anxiety in many ways. You may experience: Dry mouth Shakiness Dizziness Weakness Trouble breathing Breathing fast (hyperventilating) Chest pressure Sweating Headache Nausea Diarrhea Tiredness Inability to sleep Sexual problems Home care Try to locate the sources of stress in your life. They may not be obvious. These may include: oDaily hassles of life (such as traffic jams, missed appointments, or car troubles) oMajor life changes, both good (new baby or job promotion) and bad (loss of job or loss of loved one) oOverload: feeling that you have too many responsibilities and can't take care of all of them at once oFeeling helpless or feeling that your problems are beyond what you re able to solve Notice how your body reacts to stress. Learn to listen to your body signals. This will help you take action before the stress becomes severe. When you can, do something about the source of your stress. (Avoid hassles, limit the amount of change that happens in your life at one time and take a break when you feel overloaded). Unfortunately, many stressful situations can't be avoided. It is necessary to learn how to better manage stress. There are many proven methods that will reduce your anxiety. These include simple things like exercise, good nutrition, and adequate rest. Also, there are certain techniques that are helpful: oRelaxation oBreathing exercises oVisualization oBiofeedback oMeditation For more information about this, consult your healthcare provider or go to a local bookstore and review the many books and tapes available on this subject. Follow-up care If you feel that your anxiety is not responding to self-help measures, contact your healthcare provider or make an appointment with a counselor. You may need short-term psychological counseling and temporary medicine to help you manage stress. Call 911 Call 911 if any of these happen: Trouble breathing Confusion Drowsiness or trouble wakening Fainting or loss of consciousness Rapid heart rate Seizure New chest pain that becomes more severe, lasts longer, or spreads into your shoulder, arm, neck, jaw, or back When to seek medical advice Call your healthcare provider right away if any of these happen: Your symptoms get worse Severe headache not relieved by rest and mild pain reliever [id number] [employer]. [address] [place] [address], [place] [address]. All rights reserved. This information is not intended as a substitute for professional medical care. Always follow your healthcare professional's instructions. Additional Information VACCINATE! IT SAVES LIVES! Members of the community who have not yet received the COVID-19 vaccine and would like to receive it can visit one of [facility] vaccine clinics. There are many vaccine clinic locations within the [facility]. For locations and available times, please visit [email or web address] It is important to note that some COVID mobile vaccine clinics are held outdoors and may be canceled in rainy or stormy conditions. To learn more about pediatric vaccinations (ages 5-11), we invite you to visit the [facility] webpage. https://www.[employer].org/p ages/[email or web address]-Freq pkmtej-Cwicu-Lmtykscsf.[email or web address] To learn more about the COVID-19 vaccine, we invite you to visit the CDC website for a list of frequently asked questions. https://www.cdc.gov/coronavirus/ 2019-ncov/vaccines/faq.html [facility] Patient Portal Access Instructions: Stay connected with your healthcare team and access your personal medical information anytime with the [facility] Patient Portal. If you would like a full copy of your medical records please contact the [facility] Medical Records Department Friday through Friday between 8a.m. and 4:30p.m. Please follow the directions below to access the portal: 1.Access the email account you provided upon registration to the hospital.2.Look for an invitation email from [facility].3.Open the email and access the invitation link: Accept Invitation to [facility].Fill in the required garrett to create your account. Sign into [email or web address] with your username and password that you created in the above steps to stay up to date. You can then view a summary of results, a summary of your visits, and the ability to download your summaries to your computer or send the information securely to a physician. Remember that your healthcare information is confidential, so carefully consider who you will allow to register on the [facility] Patient Portal for access to your information. You can also access the [facility] Patient Portal on the [employer]. Simply click on Health Records under Health Data and then click on the [employer] logo. HOW TO SAFELY DISPOSE OF PRESCRIPTION MEDICATIONS Please use one of the following methods to safely dispose of your unused medications. 1.Use a drug disposal kit: the drug disposal pouch allows you to safely discard your old and unused drugs. Ask your nurse to give you one when you are discharged.2.Visit a local take-back location: Many local pharmacies and police departments have programs that collect old and unwanted prescription drugs. Call your local pharmacy or go to http://[employer], [place]/5Q7Dt3p to find one close to you.3.Make use of household items: Use cat litter or old coffee grounds to dispose medications if other options are not available. Mix your drugs with these household products, seal them in an airtight container and throw it into the garbage. Call [facility]: [phone] to be sure your drugs can be disposed of in this way. Some medicines may require a different approach.4.Never flush your medications down the toilet. IF YOU HAVE BEEN PRESCRIBED AN OPIOIDS FOR PAIN If you have been prescribed an opioid (such as hydrocodone, oxycodone or morphine), it is critical to understand the possible side effects and risks of opioid pain medications. Even when taken as directed, opioids can have several side effects including: Tolerance, meaning you might need to take more of a medication for the same pain relief. Nausea, vomiting and/or constipation. Sleepiness, dizziness, dry mouth, confusion, depression or itching. Physical dependence, meaning you have withdrawal symptoms when a medication is stopped ? this can develop within a few days. KNOW YOUR RESPONSIBILITIES It is important to know exactly how much and how often to take the opioid pain medications you are prescribed. Never take opioids in higher amounts or more often than prescribed. Do not combine opioids with alcohol or other drugs that cause drowsiness, such as benzodiazepines, also known as benzos, including diazepam and alprazolam, muscle relaxants or sleep aids. Never sell or share prescription opioids. This is illegal. Store opioids in a secure place and out of reach of others (including children, family, friends and visitors). The last page(s) of this document has been signed and retained as a CHART COPY Signatures Patient Education Materials Anxiety Reaction Medication Leaflets My discharge plan and instructions have been reviewed and explained to me and THIEN Chappell JOSHUA L understand my current condition and have read and understand these discharge instructions. I have received a written copy of the plan/instructions. If I have questions, I am aware that I should contact my doctor. 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 The lungs are clear bilaterally. There is no evidence of focal consolidation, pulmonary edema, pleural effusion or pneumothorax. IMPRESSION: Stable chest with no acute cardiopulmonary process. Interpreted by: Jaciel Gottlieb MD Preliminary Report By: Jaciel Gottlieb MD Electronically signed By aJciel Gottlieb MD Dictated Date: 05/18/2023 10:23:42 AM Prelim Date: 05/18/2023 10:23:55 AM Sign Date: 05/18/2023 10:23:55 AM Ordering Provider: SAEID HUNT [facility] 05-18-2023 Note SINUS TACHYCARDIA BORDERLINE T ABNORMALITIES, INFERIOR LEADS This EKG was read and contributed directly to the care of the patient Electronic Signature: GUIDO PALMER MD 05/18/2023 10:39:40 [facility] 03-03-2023 Hospital Discharge instructions Patient Education 03/03/2023 13:02:56 Anxiety Reaction Anxiety Reaction Anxiety is the feeling we all get when we think something bad might happen. It is a normal response to stress and usually causes only a mild reaction. When anxiety becomes more severe, it can interfere with daily life. In some cases, you may not even be aware of what it is you re anxious about. There may also be a genetic link or it may be a learned behavior in the home. Both psychological and physical triggers cause stress reaction. It's often a response to fear or emotional stress, real or imagined. This stress may come from home, family, work, or social relationships. During an anxiety reaction, you may feel: Helpless Nervous Depressed Irritable Your body may show signs of anxiety in many ways. You may experience: Dry mouth Shakiness Dizziness Weakness Trouble breathing Breathing fast (hyperventilating) Chest pressure Sweating Headache Nausea Diarrhea Tiredness Inability to sleep Sexual problems Home care Try to locate the sources of stress in your life. They may not be obvious. These may include: oDaily hassles of life (such as traffic jams, missed appointments, or car troubles) oMajor life changes, both good (new baby or job promotion) and bad (loss of job or loss of loved one) oOverload: feeling that you have too many responsibilities and can't take care of all of them at once oFeeling helpless or feeling that your problems are beyond what you re able to solve Notice how your body reacts to stress. Learn to listen to your body signals. This will help you take action before the stress becomes severe. When you can, do something about the source of your stress. (Avoid hassles, limit the amount of change that happens in your life at one time and take a break when you feel overloaded). Unfortunately, many stressful situations can't be avoided. It is necessary to learn how to better manage stress. There are many proven methods that will reduce your anxiety. These include simple things like exercise, good nutrition, and adequate rest. Also, there are certain techniques that are helpful: oRelaxation oBreathing exercises oVisualization oBiofeedback oMeditation For more information about this, consult your healthcare provider or go to a local bookstore and review the many books and tapes available on this subject. Follow-up care If you feel that your anxiety is not responding to self-help measures, contact your healthcare provider or make an appointment with a counselor. You may need short-term psychological counseling and temporary medicine to help you manage stress. Call 911 Call 911 if any of these happen: Trouble breathing Confusion Drowsiness or trouble wakening Fainting or loss of consciousness Rapid heart rate Seizure New chest pain that becomes more severe, lasts longer, or spreads into your shoulder, arm, neck, jaw, or back When to seek medical advice Call your healthcare provider right away if any of these happen: Your symptoms get worse Severe headache not relieved by rest and mild pain reliever [id number] [employer]. [address] [place] [address], [place] [address]. All rights reserved. This information is not intended as a substitute for professional medical care. Always follow your healthcare professional's instructions. Follow Up Care 03/03/2023 09:16:43 With:[facility] Address: [address] [place] [phone] When:2-4 days [facility] 03-03-2023 Emergency department Discharge summary Discharge Instructions Thank you for allowing [facility] to assist you with your healthcare needs. The following is important discharge information regarding your hospital visit. Diagnosis from Today's Visit Anxiety SOB - Shortness of breath What to Do Next Instructions from Your Care Team No qualifying data available. Post Acute Orders No qualifying data available. You Need to Schedule the Following Appointments Follow Up with [facility] When Within 2-4 days Where: [address] [place] [phone] Allergies NKA Medications Please ask your primary doctor or pharmacist before taking any other medication not listed, including over the counter drugs, herbal medications, vitamins and or supplements as they may interact with your home medications. What How Much When Instructions Last Dose Unchanged clonazePAM (clonazePAM 0.5 mg oral tablet) Unchanged escitalopram (escitalopram 20 mg oral tablet) Unchanged haloperidol 2.5 Milligram by mouth Every day @[facility] Unchanged hydrOXYzine (hydrOXYzine pamoate 25 mg oral capsule) Unchanged risperiDONE (risperiDONE 1 mg oral tablet) Unchanged traZODone (traZODone 50 mg oral tablet) 1 tab(s) by mouth Daily at bedtime as needed for Sleep Please take this list to your next doctor s visit. Bring all medications you take, including over the counter medications, herbals and other supplements with you to your doctor s visit. Patients and families are reminded to discard old lists and to update any records with all medication providers or retail pharmacies. Education Materials Anxiety Reaction Anxiety is the feeling we all get when we think something bad might happen. It is a normal response to stress and usually causes only a mild reaction. When anxiety becomes more severe, it can interfere with daily life. In some cases, you may not even be aware of what it is you re anxious about. There may also be a genetic link or it may be a learned behavior in the home. Both psychological and physical triggers cause stress reaction. It's often a response to fear or emotional stress, real or imagined. This stress may come from home, family, work, or social relationships. During an anxiety reaction, you may feel: Helpless Nervous Depressed Irritable Your body may show signs of anxiety in many ways. You may experience: Dry mouth Shakiness Dizziness Weakness Trouble breathing Breathing fast (hyperventilating) Chest pressure Sweating Headache Nausea Diarrhea Tiredness Inability to sleep Sexual problems Home care Try to locate the sources of stress in your life. They may not be obvious. These may include: oDaily hassles of life (such as traffic jams, missed appointments, or car troubles) oMajor life changes, both good (new baby or job promotion) and bad (loss of job or loss of loved one) oOverload: feeling that you have too many responsibilities and can't take care of all of them at once oFeeling helpless or feeling that your problems are beyond what you re able to solve Notice how your body reacts to stress. Learn to listen to your body signals. This will help you take action before the stress becomes severe. When you can, do something about the source of your stress. (Avoid hassles, limit the amount of change that happens in your life at one time and take a break when you feel overloaded). Unfortunately, many stressful situations can't be avoided. It is necessary to learn how to better manage stress. There are many proven methods that will reduce your anxiety. These include simple things like exercise, good nutrition, and adequate rest. Also, there are certain techniques that are helpful: oRelaxation oBreathing exercises oVisualization oBiofeedback oMeditation For more information about this, consult your healthcare provider or go to a local bookstore and review the many books and tapes available on this subject. Follow-up care If you feel that your anxiety is not responding to self-help measures, contact your healthcare provider or make an appointment with a counselor. You may need short-term psychological counseling and temporary medicine to help you manage stress. Call 911 Call 911 if any of these happen: Trouble breathing Confusion Drowsiness or trouble wakening Fainting or loss of consciousness Rapid heart rate Seizure New chest pain that becomes more severe, lasts longer, or spreads into your shoulder, arm, neck, jaw, or back When to seek medical advice Call your healthcare provider right away if any of these happen: Your symptoms get worse Severe headache not relieved by rest and mild pain reliever [id number] [employer]. [address] [place] [address], [place] [address]. All rights reserved. This information is not intended as a substitute for professional medical care. Always follow your healthcare professional's instructions. Additional Information VACCINATE! IT SAVES LIVES! Members of the community who have not yet received the COVID-19 vaccine and would like to receive it can visit one of [facility] vaccine clinics. There are many vaccine clinic locations within the [facility]. For locations and available times, please visit [email or web address] It is important to note that some COVID mobile vaccine clinics are held outdoors and may be canceled in rainy or stormy conditions. To learn more about pediatric vaccinations (ages 5-11), we invite you to visit the [facility] webpage. [email or web address].[facility].org/p ages/9589-Prclk-Njuzfzvftzb-Freq xksczu-Vhjrt-[email or web address].html To learn more about the COVID-19 vaccine, we invite you to visit the CDC website for a list of frequently asked questions. https://www.cdc.gov/coronavirus/ 2019-ncov/vaccines/faq.html [facility] Patient Portal Access Instructions: Stay connected with your healthcare team and access your personal medical information anytime with the [facility] Patient Portal. If you would like a full copy of your medical records please contact the [facility] Medical Records Department Friday through Friday between 8a.m. and 4:30p.m. Please follow the directions below to access the portal: 1.Access the email account you provided upon registration to the [facility].2.Look for an invitation email from [facility].3.Open the email and access the invitation link: Accept Invitation to [facility]4.Fill in the required garrett to create your account. Sign into [email or web address] with your username and password that you created in the above steps to stay up to date. You can then view a summary of results, a summary of your visits, and the ability to download your summaries to your computer or send the information securely to a physician. Remember that your healthcare information is confidential, so carefully consider who you will allow to register on the [facility] Patient Portal for access to your information. You can also access the [facility] Patient Portal on the [facility]. Simply click on Health Records under Health Data and then click on the [facility] logo. HOW TO SAFELY DISPOSE OF PRESCRIPTION MEDICATIONS Please use one of the following methods to safely dispose of your unused medications. 1.Use a drug disposal kit: the drug disposal pouch allows you to safely discard your old and unused drugs. Ask your nurse to give you one when you are discharged.2.Visit a local take-back location: Many local pharmacies and police departments have programs that collect old and unwanted prescription drugs. Call your local pharmacy or go to http://[employer], [place]/1Y7Wa2g to find one close to you.3.Make use of household items: Use cat litter or old coffee grounds to dispose medications if other options are not available. Mix your drugs with these household products, seal them in an airtight container and throw it into the garbage. Call [facility]: [phone] to be sure your drugs can be disposed of in this way. Some medicines may require a different approach.4.Never flush your medications down the toilet. IF YOU HAVE BEEN PRESCRIBED AN OPIOIDS FOR PAIN If you have been prescribed an opioid (such as hydrocodone, oxycodone or morphine), it is critical to understand the possible side effects and risks of opioid pain medications. Even when taken as directed, opioids can have several side effects including: Tolerance, meaning you might need to take more of a medication for the same pain relief. Nausea, vomiting and/or constipation. Sleepiness, dizziness, dry mouth, confusion, depression or itching. Physical dependence, meaning you have withdrawal symptoms when a medication is stopped ? this can develop within a few days. KNOW YOUR RESPONSIBILITIES It is important to know exactly how much and how often to take the opioid pain medications you are prescribed. Never take opioids in higher amounts or more often than prescribed. Do not combine opioids with alcohol or other drugs that cause drowsiness, such as benzodiazepines, also known as benzos, including diazepam and alprazolam, muscle relaxants or sleep aids. Never sell or share prescription opioids. This is illegal. Store opioids in a secure place and out of reach of others (including children, family, friends and visitors). The last page(s) of this document has been signed and retained as a CHART COPY Signatures Patient Education Materials Anxiety Reaction Medication Leaflets My discharge plan and instructions have been reviewed and explained to me and I,IMMANUEL NEUMANN understand my current condition and have read and understand these discharge instructions. I have received a written copy of the plan/instructions. If I have questions, I am aware that I should contact my doctor. 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 HISTORY: ORDERING SYSTEM PROVIDED HISTORY: Reason for Exam: SOB/cough/fever FINDINGS: The cardiomediastinal contours are within normal limits. The lungs are clear bilaterally. There is no evidence of focal consolidation, pulmonary edema, pleural effusion or pneumothorax. IMPRESSION: No acute cardiopulmonary process. Interpreted by: Jaciel Gottlieb MD Preliminary Report By: Jaciel Gottlieb MD Electronically signed By Jaciel Gottlieb MD Dictated Date: 03/03/2023 10:52:13 AM Prelim Date: 03/03/2023 10:52:21 AM Sign Date: 03/03/2023 10:52:21 AM Ordering Provider: BRUNILDA ALLEN [facility] 01-11-2022 Nurse Progress note called pt at 1505 & 1520 for vitals- no answer Digitally Signed by Rosemary Mckinnon RN on 01/11/2022 03:24 PM [facility] Evaluation + Plan note No data available for this section [facility] Evaluation note Diagnosis Acute abdominal pain- Primary Abdominal pain, unspecified site Nausea Nausea alone Diarrhea, unspecified type Anxiousness Anxiety state, unspecified Acute anxiety Physically well but worried Person with feared complaint in whom no diagnosis was made documented in this encounter [facility] Work Phone: Hospital Discharge instructions No data available for this section [facility] Progress note No data available for this section [facility] Summary note* Kamille Marrero: PERFORM Event Display: Patient Summary Documents Authored Date: [id number] [facility] Summary Purpose Family History No Family History Records FoundNo Family History Records FoundNo Family History Records FoundNo Family History Records FoundNo Family History Records FoundNo Family History Records FoundNo Family History Records Found No data available for this section No data available for this section No data available for this section No Family History Records FoundNo Family History Records Found No data available for this section No Family History Records Found No data available for this section No Family History Records FoundNo Family History Records FoundNo Family History Records FoundNo Family History Records FoundNo Family History Records Found Advance Directives No Advanced Directives Records FoundNo Advanced Directives Records FoundNo Advanced Directives Records FoundNo Advanced Directives Records FoundNo Advanced Directives Records FoundNo Advanced Directives Records FoundNo Advanced Directives Records FoundNo Advanced Directives Records FoundNo Advanced Directives Records FoundNo Advanced Directives Records FoundNo Advanced Directives Records FoundNo Advanced Directives Records FoundNo Advanced Directives Records FoundNo Advanced Directives Records FoundNo Advanced Directives Records Found Additional Source Comments (unrecognized sect ion and content) No Status Records FoundNo Status Records FoundNo Status Records FoundNo Status Records FoundNo Status Records FoundNo Status Records FoundNo Status Records FoundNo Status Records FoundNo Status Records FoundNo Status Records FoundNo Status Records FoundNo Status Records FoundNo Status Records FoundNo Status Records FoundNo Status Records Found INFORMATION SOURCE (unrecogn ized section and content) DATE CREATED AUTHOR 02/14/2019 [facility] DATE CREATED AUTHOR AUTHOR'S ORGANIZ ATION 08/23/2021 [facility] DATE CREATED AUTHOR AUTHOR'S ORGANIZ ATION 02/13/2022 [facility] DATE CREATED AUTHOR AUTHOR'S ORGANIZ ATION 02/15/2022 [facility] DATE CREATED AUTHOR AUTHOR'S ORGANIZ ATION 03/08/2022 [facility] DATE CREATED AUTHOR AUTHOR'S ORGANIZ ATION 11/09/2022 [facility] DATE CREATED AUTHOR AUTHOR'S ORGANIZ ATION 11/22/2022 [facility] DATE CREATED AUTHOR AUTHOR'S ORGANIZ ATION 06/13/2023 [facility] DATE CREATED AUTHOR AUTHOR'S ORGANIZ ATION 08/16/2023 [facility] DATE CREATED AUTHOR AUTHOR'S ORGANIZ ATION 12/20/2023 [facility] DATE CREATED AUTHOR AUTHOR'S ORGANIZ ATION 04/17/2024 [facility] DATE CREATED AUTHOR AUTHOR'S ORGANIZ ATION 04/26/2024 [facility] DATE CREATED AUTHOR AUTHOR'S ORGANIZ ATION 05/24/2024 [facility] DATE CREATED AUTHOR AUTHOR'S ORGANIZ ATION 05/25/2024 [facility] DATE CREATED AUTHOR AUTHOR'S ORGANIZ ATION 05/30/2024 [facility] Care Team (unrecognized sect ion and content) Care Team Personnel Name: PHYSICIAN, PATIENT UNSURE Member Role: Primary Care Physician Care Team Personnel Name: PHYSICIAN, NONE Position: Physician Member Role: Primary Care Physician Care Team Related Persons Name: KRUPA JIN Care Team Personnel Name: PHYSICIAN, NONE Position: Physician Member Role: Primary Care Physician Care Team Related Persons Name: KRUPA JIN Name: SAUD NEUMANN Address: Home [address] [place] [address] [phone] Address: Temporary [address] [place] [address] [phone] Care Team Personnel Name: PHYSICIAN, NONE Position: Physician Member Role: Primary Care Physician Care Team Related Persons Name: KRUPA JIN Name: SAUD NEUMANN Address: Home [address] [place] [address] [phone] Address: Temporary [address] [place] [address] [phone] <item> Privacy Markings (unrecogniz ed section and content) Section Author: Tomasa Fernando PROHIBITION ON REDISCLOSURE OF CONFIDENTIAL INFORMATION This notice accompanies a disclosure of information concerning a client made to you with the consent of such client. 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 Reports bloody vomit and black tarry stools Scheduled Active and Recently Administ ered Medications (unrecognized section and content) Medication Order 12/07/2023 12/08/2023 12/09/2023 alum-mag hydroxide-simeth (Mylanta) 200-200-20 mg/5 mL oral suspension 30 mL (COMPLETED) 30 mL, oral, Once, On Fri12/08/23 at 2210, For 1 dose 2236 (Given - Provider: Florentino Monson RN) famotidine (Pepcid) tablet 20 mg (COMPLETED) 20 mg, oral, Once, On Fri12/08/23 at 2210, For 1 dose 2237 (Given - Provider: Florentino Monson RN) hydrOXYzine HCL (Atarax) tablet 25 mg (COMPLETED) 25 mg, oral, Once, On Fri12/08/23 at 2230, For 1 dose 2237 (Given - Provider: Florentino Monson RN) lidocaine (Xylocaine) 2 % mouth solution 15 mL (COMPLETED) 15 mL, oral, Once, On Fri12/08/23 at 2210, For 1 dose 2236 (Given - Provider: Florentino Monson RN) morphine injection 4 mg (COMPLETED) 4 mg, intravenous, Once, On Fri12/08/23 at 2230, For 1 dose 2237 (Given - Provider: Florentino Monson RN) ondansetron (Zofran) injection 4 mg (COMPLETED) 4 mg, intravenous, Once, On Fri12/08/23 at 2230, For 1 dose, When administering via IV Push, administer over 3-5 minutes. 2236 (Given - Provider: Florentino Monson RN) sodium chloride 0.9 % bolus 1,000 mL (COMPLETED) 1,000 mL, intravenous, at 2,000 mL/hr, Administer over 30 Minutes, Once, On Fri12/08/23 at 0, For 1 dose 2237 (New Bag - Provider: Harpal Monson RN)2307 (Stopped - Provider: Harpal Monson RN) FOR RECORDS PERTAINING TO PATIENTS WHO ARE OR HAVE BEEN ENROLLED IN A CHEMICAL DEPENDENCY/SUBSTANCEABUSE PROGRAM, SOME INFORMATION MAY BE OMITTED. This clinical summary was aggregated from multiple sources. Caution should be exercised in using it in the provision of clinical care. This summary normalizes information from multiple sources, and as a consequence, information in this document may materially change the coding, format and clinical context of patient data. In addition, data may be omitted in some cases. CLINICAL DECISIONS SHOULD BE BASED ON THE PRIMARY CLINICAL RECORDS. [facility]. provides no warranty or guarantee of the accuracy or completeness of information in this document.
[2024-09-05 10:57] LABS: Anion Gap 11 (5-15); BUN 6 mg/dL (4-19); BUN/Creat Ratio 7.4 RATIO (10-20); Calcium,Total 9.4 mg/dL (7.6-11.0); Carbon Dioxide 25.3 mmol/L (21.0-32.0); Chloride 103 mmol/L (98-108); Creatinine, Serum 0.85 mg/dL (0.70-1.20); EST Glomerular Filtration Rate 122 (>60); Estimated Creatinine Clearance 109.62 ml/min (50-250); Glucose 113 mg/dL (70-99); Potassium 3.1 mmol/L (3.3-5.1); Sodium Level 140 mmol/L (133-145); Troponin T High Sensitivity < 6 ng/L (<=22)
[2024-09-05 11:28] VITALS: BP 104/62; PULSE 65; RESP 16; O2SAT 98
[2024-09-05 11:40] LABS: D-Dimer Quantitative (DVT/PE) < 0.27 FEU/ug/m (0.27-0.49)
[2024-09-05 12:41] LABS: Troponin T High Sens 2 HR < 6 ng/L (<=22)
[2024-09-05] MEDS: Potassium Chloride Oral Tablet 20 MEQ 40 MEQ PO (13:10)
[2024-09-05 13:11] VITALS: BP 118/64; PULSE 92; RESP 16; TEMP 36.4; O2SAT 99
== END 2024-09-05 13:29 | disposition home or self-care (01) ==
PROVIDERS: Emergency Provider Emergency Medicine; Visit Provider Emergency Medicine
DX: R07.9 Chest pain, unspecified (principal); R05.9 Cough, unspecified; F41.9 Anxiety disorder, unspecified; F17.290 Nicotine dependence, other tobacco product, uncomplicated; Z79.899 Other long term (current) drug therapy
CPT/HCPCS: 71045; 80048; 84484; 85025; 85379; 93005; 96360; 99285; A4216

== ENCOUNTER 2024-09-21 14:14 | Emergency (ER) | payer MEDICARE, MEDICAID, SELFPAY ==
[2024-09-21 14:15] VITALS: BP 109/81; PULSE 111; RESP 18; TEMP 36; O2SAT 98; BMI 16.8
--- NOTE | 2024-09-21 15:08 | EX.ED.GENINJ ---
HPI History of Present Illness Chief Complaint: Laceration Narrative Narrative: Chief complaint and HPI: Right hand abrasions. 28-year-old male presents for evaluation of right hand abrasions. Patient states prior to arrival he accidentally tripped in his house and his right hand went through a glass door. He obtained abrasions to the dorsum of the hand and the 5th and 4th finger. He denies any pain to the fingers or the hand. States that I am only here to receive a tetanus vaccine. Denies any numbness or tingling. Denies hitting his head. No LOC. Review of systems: See HPI Medications: As listed on the chart Allergies: As listed on the chart PFSH: Per chart Gen: A&O x3, NAD Head: Normocephalic, atraumatic Eyes: No sclera icterus, conjunctiva clear ENT: Moist mucous membranes, atraumatic Neck: Trachea midline, full range of motion CV: Regular rate Resp: Nonlabored respirations Musc: Full ROM of all the extremities including the right hand, patient has scattered abrasions to the dorsum of the right hand on the ulnar aspect as well as the 4th and 5th digit, no foreign body or glass, no lacerations that need repaired, no bony tenderness, radial pulse +2, good capillary refill, sensation intact Neuro: Alert, oriented, grossly intact Psych: Cooperative, appropriate mood and affect [facility] Medical History Panic attack GERD (gastroesophageal reflux disease) IBS (irritable bowel syndrome) Anxiety PTSD (post-traumatic stress disorder) Asperger syndrome Schizophrenia Home Medications ?Medication ?Instructions ?Recorded ?Last Taken ?Type buspirone 10 mg tablet 10 mg PO BID 09/05/24 09/04/24 History clonazepam 1 mg tablet 1 mg PO BID PRN 09/05/24 09/05/24 History dextroamphetamine sulfate 10 mg 10 mg PO DAILY 09/05/24 09/04/24 History tablet hydroxyzine HCl 10 mg tablet 10 mg PO TID PRN anxiety 3 days #9 09/05/24 Unknown Rx tabs prazosin 1 mg capsule 1 mg PO QHS 09/05/24 09/04/24 History risperidone 1 mg tablet 1 mg PO DAILY 09/05/24 09/04/24 History risperidone 2 mg tablet 2 mg PO QHS 09/05/24 09/04/24 History venlafaxine 37.5 mg 37.5 mg PO DAILY 09/05/24 09/04/24 History capsule,extended release 24 hr Allergy/AdvReac Type Severity Reaction Status Date / Time zolpidem (From Ambien) AdvReac Mild Other Verified 09/21/24 14:15 Surgical History History of tonsillectomy and adenoidectomy Social History Smoking Status: Current every day smoker tobacco type: cigarettes and e-cigarettes EXAM Physical Exam Const Vital Signs: 09/21/24 14:15 Temperature 96.8 F L Temperature Source Temporal Pulse Rate 111 H Respiratory Rate 18 Blood Pressure 109/81 H Blood Pressure Mean 90 Pulse Ox 98 Oxygen Delivery Method Room Air MDM MDM MDM Narrative Medical decision making narrative: 28-year-old male presents for evaluation of right hand abrasions. Obtained abrasions after he accidentally tripped and his hand went through a glass door. See physical exam findings. No lacerations requiring suture repair. He denies any bony tenderness and has full range of motion. I do not think any x-rays of the hand are needed at this time. Patient's wounds will be cleaned. Tetanus will be updated. Patient was educated to monitor for signs of infection. Follow-up with primary care physician. He confirmed understand the plan. Patient stable to discharge home. Impression: 1. Abrasions to the right hand Discharge Plan Triage Chief Complaint: Laceration ED Provider: Yandel Piper Dx/Rx/DC Orders Prescriptions: No Action clonazepam 1 mg tablet 1 mg PO BID PRN buspirone 10 mg tablet 10 mg PO BID dextroamphetamine sulfate 10 mg tablet 10 mg PO DAILY venlafaxine 37.5 mg capsule,extended release 24hr 37.5 mg PO DAILY prazosin 1 mg capsule 1 mg PO QHS risperidone 2 mg tablet 2 mg PO QHS risperidone 1 mg tablet 1 mg PO DAILY Rx Instructions: AM hydroxyzine HCl 10 mg tablet 10 mg PO TID PRN (Reason: anxiety) 3 Days Qty: 9 0RF Primary Care Provider: Care Physician,No Primary Referrals: Care Physician,No Primary [Primary Care Provider] - Print Language: Ukrainian
[2024-09-21 15:24] VITALS: BP 109/81; PULSE 111; RESP 18; TEMP 36; O2SAT 98
== END 2024-09-21 15:25 | disposition home or self-care (01) ==
PROVIDERS: Emergency Provider Surgery; Visit Provider Surgery
DX: S60.511A Abrasion of right hand, initial encounter (principal); W01.110A Fall on same level from slipping, tripping and stumbling with subsequent striking against sharp glass, initial encounter; Y92.019 Unspecified place in single-family (private) house as the place of occurrence of the external cause; F17.210 Nicotine dependence, cigarettes, uncomplicated; F17.290 Nicotine dependence, other tobacco product, uncomplicated; Z23 Encounter for immunization
CPT/HCPCS: 90471; 90715; 99282

== ENCOUNTER 2024-10-09 16:43 | Emergency (ER) | payer MEDICARE, MEDICAID, SELFPAY ==
[2024-10-09 16:44] VITALS: BP 105/74; PULSE 88; RESP 18; TEMP 37; O2SAT 100; BMI 17.5
--- NOTE | 2024-10-09 16:58 | EDS_ITS ---
<Statement entered by Kirill Kenyon DO - 10/09/24 17:48> Patient was seen and examined with physician funeral assistant Daniela All components of the history and physical confirmed and agreed. History of present illness and physical exam: Patient is a 28-year-old male with past medical history of anxiety, PTSD, IBS, panic attacks, schizophrenia who presented to the emergency department chief complaint of dental pain. He states that his dental pain has been going on for the last few days now and notes that he cannot take the pain any further therefore he came here for further evaluation management. He states that he does not have a dentist currently and is attempting to follow-up with one. Review of systems: Agreed above Physical exam: Agree with above MDM Patient is a 20-year-old male who presented to the emergency department chief complaint of dental pain. On the differential diagnosis includes but limited to dental caries, periapical abscess, however there is no clinical evidence of this and nothing to drain. The patient was placed on penicillin VK and was advised to use the prescriptions as prescribed. He is advised to follow-up with a dentist which she was referred to with a dental referral list. He is encouraged return with worsening symptoms or any concerns. He is agreeable to plan all question concerns answered discharged home in stable condition. Final impression: Dental pain Dental caries History of schizophrenia History of anxiety Disposition: Patient will be discharged home in stable condition Supervising attending attestation: Kirill CHAVEZ History of Present Illness Chief Complaint: Dental Narrative Narrative: Patient presenting today due to right upper dental pain he has chronically that acutely worsened today. He admits to poor dentition. He has had to have multiple teeth removed due to dental decay. He denies any fevers or chills. He suspects that he may need antibiotics. He is able to eat and drink. [facility] Medical History Panic attack GERD (gastroesophageal reflux disease) IBS (irritable bowel syndrome) Anxiety PTSD (post-traumatic stress disorder) Asperger syndrome Schizophrenia Home Medications ?Medication ?Instructions ?Recorded ?Last Taken ?Type buspirone 10 mg tablet 10 mg PO BID 09/05/24 History clonazepam 1 mg tablet 1 mg PO BID PRN 09/05/24 History dextroamphetamine sulfate 10 mg 10 mg PO DAILY 5 09/04/24 History tablet hydroxyzine HCl 10 mg tablet 10 mg PO TID PRN anxiety 3 days #9 09/05/24 Unknown Rx tabs prazosin 1 mg capsule 1 mg PO QHS 09/05/24 5 History risperidone 1 mg tablet 1 mg PO DAILY 09/05/2409/04 History risperidone 2 mg tablet 2 mg PO QHS 09/05/24 5 History venlafaxine 37.5 mg 37.5 mg PO DAILY 09/05/24 History capsule,extended release 24 hr naproxen 500 mg tablet 500 mg PO BID #14 tabs 10/09 Unknown Rx penicillin V potassium 500 mg 500 mg PO 4X/DAY #40 tab s 10/09/24 Unknown Rx tablet Allergy/AdvReac Type Severity Reaction Status Date / Time zolpidem (From Ambien) AdvReac Mild Other Verified 10/09/24 16:44 Surgical History History of tonsillectomy and adenoidectomy Social History Smoking Status: Current every day smoker tobacco type: cigarettes and e- cigarettes ROS ROS ED Constitutional Constitutional ED: Denies chills or fever(s) Cardiovascular Cardiovascular: Denies chest pain Respiratory/Chest Respiratory/Chest: Denies dyspnea Gastrointestinal Gastrointestinal: Denies abdominal pain, nausea or vomiting Integumentary Denies rash Neurologic Neurologic: Denies weakness EXAM Physical Exam Const Vital Signs: 10/09/24 16:44 10/09/24 17:19 Temperature 98.6 F 98.2 F Temperature Source Oral Pulse Rate 88 78 Respiratory Rate 18 16 Blood Pressure 105/74 119/78 Blood Pressure Mean 84 91 Pulse Ox 100 99 Positive well nourished, well developed and no apparent distress General Appearance ED: well developed HEENT Reports normocephalic and head/scalp atraumatic HEENT Narrative: Dental caries and decay to the right upper 2 molars, no dental abscess, no trismus, no sublingual or submental swelling, no evidence of Alfonzo's angina Mouth ED: Yes moist mucous membranes normal Eyes PERRL and EOMs intact bilaterally Neck full ROM and supple Chest Wall inspection of chest normal Resp normal respiratory effort and clear to auscultation bilaterally Cardio regular rate and regular rhythm Back/Spine normal ROM and normal to inspection Extremity normal to inspection and full ROM Neuro oriented x3, CN's II-XII intact bilaterally, moves all extremities, no focal motor deficits and no sensory deficits noted Sensorium / Orientation: awake and alert Psych mental status grossly normal and thought process normal Skin no rashes or lesions noted and no wounds MDM MDM MDM Narrative Medical decision making narrative: Patient presenting today with dental pain, he has a known history of poor dentition and has had to have multiple teeth removed in the past. He has pain to his right upper 1st and 2nd molars which are decayed and have obvious dental caries, there is no surrounding dental abscess, no trismus, no signs of Ludewig's angina. He is otherwise nontoxic-appearing. I will start him on penicillin with first dose here and give him a prescription for naproxen. A dental referral sheet was given, recommended he have close outpatient follow-up with a dentist and he will be discharged home in stable condition. Discharge Plan Triage Chief Complaint: Dental ED Midlevel Provider: Elvia Jacobsen ED Provider: Kirill Kenyon Dx/Rx/DC Orders Clinical Impression: Pain, dental, Dental caries Instructions: ED Dental Pain, ED Dental Cavity Prescriptions: New penicillin V potassium 500 mg tablet 500 mg PO 4X/DAY Qty: 40 0RF naproxen 500 mg tablet 500 mg PO BID Qty: 14 0RF No Action clonazepam 1 mg tablet 1 mg PO BID PRN buspirone 10 mg tablet 10 mg PO BID dextroamphetamine sulfate 10 mg tablet 10 mg PO DAILY venlafaxine 37.5 mg capsule,extended release 24hr 37.5 mg PO DAILY prazosin 1 mg capsule 1 mg PO QHS risperidone 2 mg tablet 2 mg PO QHS risperidone 1 mg tablet 1 mg PO DAILY Rx Instructions: AM hydroxyzine HCl 10 mg tablet 10 mg PO TID PRN (Reason: anxiety) 3 Days Qty: 9 0RF Primary Care Provider: Care Physician,No Primary Referrals: Care Physician,No Primary [Primary Care Provider] - Activity Restrictions/Additional Instructions: Please follow-up with a dentist and return for any worsening symptoms. Print Language: Tanzanian Disposition Disposition: Home, Self Care Discharge Date/Time: 10/09/24 17:20
--- OUTSIDE RECORDS SUMMARY | 2024-10-09 17:00 | XMS RPT_ITS | CCD ---
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 pink frothy sputum. He also notes shortness of breath and chest pain. Onset began this morning. Notes he typically says morning coughs up dark. He states he smokes and vapes. Denies cocaine or methamphetamine. He states this morning as he started coughing it became pink and frothy. Denies syncope. Denies recent sick contacts. Denies other bleeding diathesis. Denies abdominal pain. Denies vomiting or diarrhea. The patient denies recent surgery in the last 4 weeks or immobilization in the last 3 days, denies previous diagnosis of DVT or PE, hemoptysis, unilateral leg swelling or malignancy with treatment the last 6 months or palliative. No estrogen use noted. Patient denies sudden onset of pain, no tearing sensation, no migratory symptoms, no new numbness, weakness or loss of sensation. Patient denies family history or personal history of Connective tissue disorders (Marfan's Syndrome, Cynthia Danlos etc) . REVIEW OF SYSTEMS: Pertinent positives: Chest pain, shortness of breath, cough, hemoptysis Pertinent negatives: Unilateral leg swelling, ripping or tearing pain, syncope, headache or neck pain., Abdominal pain., Flank pain. PHYSICAL EXAM: Nursing triage notes reviewed, Vital signs reviewed Constitutional: please see mdm HENT: MMM Eyes: Pupils equal round and reactive to light, Extraocular muscles intact Neck: No stridor, no JVD, full neck ROM Lungs: Clear to auscultation, No wheezing or rales. No increased work of breathing, no conversational dyspnea, no accessory muscle use, no nasal flaring. No respiratory distress noted Heart: Regular rate and rhythm, No murmurs, No rubs and No gallops, 2+ distal pulses (radial, femoral, posterior tibial) in all extremities Abdomen: Soft, there is no tenderness, rigidity, rebound or guarding, no obvious peritoneal signs, no palpable pulsatile abdominal masses, no auscultated abdominal bruit : No CVAT Extremities: No edema Neuro: No new focal neurological deficits, cranial nerves II through XII intact, 5/5 strength in all present extremities. Intact sensation to light touch in all present extremities, 2+ reflexes bilateral patella tendons. Skin: No rash or lesions noted MEDICAL DECISION MAKING: Chief Complaint: please see HPI External records reviewed: Reviewed prior ED encounters, medications, allergies Factors affecting care: Schizophrenia, anxiety, PTSD, Asperger's syndrome Social determinants of health: History of mental health disorder History obtained from others: none Consults: none MDM Narrative: Patient was initially hemodynamically stable, afebrile, saturating well o (more content not included)... Normal [facility] Eosinophil percentageOrdered By: Cuauhtemoc Reddy on 09-05-2024 Eosinophils/100 WBC (Bld) 1.0 % 0-5 [facility] Erythrocyte distribution wid th ratioOrdered By: Cuauhtemoc Reddy on 09-05-2024 Erythrocyte distribution width (RBC) [Ratio] 11.9 % 11.6-14.6 [facility] Erythrocyte distribution wid th standard deviationOrdered By: Cuauhtemoc Reddy on 09-05-2024 Erythrocyte distribution width (RBC) [Ratio] 38.2 fl 35.1-43.9 [facility] Glomerular filtration rate ( GFR) estimation/1.73 sq m using serum, plasma, or whole bOrdered By: Cuauhtemoc Reddy on 09-05-2024 GFR/1.73 sq M.predicted among non-blacks MDRD (S/P/Bld) [Vol rate/Area] 122 mL/min/{1.73_m2} >60 [facility] Comment on above: mL/min/1.73m2 CKD-EP I Creatinine Equation (2020) Hematocrit Auto (Bld) [Volum e fraction]Ordered By: Cuauhtemoc Reddy on 09-05-2024 Hematocrit (Bld) [Volume fraction] 44.0 % 40-54 [facility] Hemoglobin measurementOrdere d By: Cuauhtemoc Reddy on 09-05-2024 Hemoglobin (Bld) [Mass/Vol] 15.4 g/dL 13.0-16.5 [facility] Immature granulocytes/100 WB C Auto (Bld)Ordered By: Cuauhtemoc Reddy on 09-05-2024 Immature granulocytes/100 WBC (Bld) 0.100 % 0.0-0.9 [facility] Comment on above: IG% - Immature Granu locytes (promyelocytes, myelocytes and metamyelocytes) > 1% indicates that a LEFT SHIFT is Present. L499.0042on 09-05-2024 Trop T High Sen < 6 Normal <=22 [facility] Comment on above: Performed By: #### L 499.0042 #### [facility] [address] [place], [address] L499.0043on 09-05-2024 Trop T High Sen Normal <=22 [facility] Comment on above: Result Comment: Canc elled via OM: Order cancelled - Patient discharged Performed By: #### L 499.0043 #### [facility] [address] [place], [address] L501.4021on 09-05-2024 Trop T High Sen < 6 Normal <=22 [facility] Comment on above: Performed By: #### L 300.8000, L501.4021, L100.0100, L500.2500 ####[facility] [address] [place], [address] MCV (mean corpuscular volume ) determinationOrdered By: Cuauhtemoc Reddy on 09-05-2024 MCV (RBC) [Entitic vol] 87.8 fL 80-94 [facility] Mean corpuscular hemoglobin (MCH) determinationOrdered By: Cuauhtemoc Reddy on 09-05-2024 MCH (RBC) [Entitic mass] 30.7 pg 27.0-32.0 [facility] Mean corpuscular hemoglobin concentration (MCHC) determinationOrdered By: Cuauhtemoc Reddy on 09-05-2024 MCHC (RBC) [Mass/Vol] 35.0 g/dL 32-36 [facility] Mean platelet volume determi nationOrdered By: Cuauhtemoc Reddy on 09-05-2024 Platelet mean volume (Bld) [Entitic vol] 9.5 fL 6.2-12.0 [facility] Monocyte percentageOrdered B y: Cuauhtemoc Reddy on 09-05-2024 Monocytes/100 WBC (Bld) 6.4 % 0-10 [facility] Neutrophil percentageOrdered By: Cuauhtemoc Reddy on 09-05-2024 Neutrophils/100 WBC (Bld) 73.3 % High 47-70 [facility] Nucleated red blood cell per centageOrdered By: Cuauhtemoc Reddy on 09-05-2024 Nucleated RBC/100 WBC (Bld) [Ratio] 0 % 0-5 [facility] Platelet countOrdered By: Timothy Reddy on 09-05-2024 Platelets (Bld) [#/Vol] 217 10*3/uL 150-450 [facility] Potassium measurement (mass/ volume)Ordered By: Cuauhtemoc Reddy on 09-05-2024 Potassium (Unsp spec) [Mass/Vol] 3.1 mmol/L Low 3.3-5.1 [facility] RBC Auto (Bld) [#/Vol]Ordere d By: Cuauhtemoc Reddy on 09-05-2024 RBC (Bld) [#/Vol] 5.01 10*6/uL 4.6-6.2 [facility] Serum creatinine measurement (mass/volume)Ordered By: Cuauhtemoc Reddy on 09-05-2024 Creatinine [Mass/Vol] 0.85 mg/dL 0.70-1.20 [facility] Serum glucose measurement (m ass/volume)Ordered By: Cuauhtemoc Reddy on 09-05-2024 Glucose [Mass/Vol] 113 mg/dL High 70-99 [facility] Serum or plasma calcium silvia urement (mass/volume)Ordered By: Cuauhtemoc Reddy on 09-05-2024 Calcium [Mass/Vol] 9.4 mg/dL 7.6-11.0 [facility] Serum or plasma urea nitroge n measurement (mass/volume)Ordered By: Cuauhtemoc Reddy on 09-05-2024 Urea nitrogen [Mass/Vol] 6 mg/dL 4-19 [facility] Sodium levelOrdered By: Moisés Reddy on 09-05-2024 Sodium [Moles/Vol] 140 mmol/L 133-145 [facility] Troponin T.cardiac [Mass/vol ume] in Serum or Plasma by High sensitivity methodOrdered By: Cuauhtemoc Reddy on 09-05-2024 Troponin T.cardiac High sensitivity method [Mass/Vol] < 6 ng/L <22 [facility] Troponin T.cardiac High sensitivity method [Mass/Vol] < 6 ng/L <22 [facility] White blood cell (WBC) count Ordered By: Cuauhtemoc Reddy on 09-05-2024 WBC (Bld) [#/Vol] 6.7 10*3/uL 4.4-11.0 [facility] ED NOTEon 05-23-2024 ED NOTE HNO ID: [id number] Author: MARGARET DONG, KARIME Service: Emergency Medicine Author Type: Registered Nurse Type: ED Notes Filed: 05/23/2024 01:49 Note Text: Patient is stable and understands discharge instructions [facility] ED NOTE HNO ID: [id number] Author: OMID DIAMOND Medic Service: ? Author Type: Wood Processing Worker and Hoist Cylinder Loader Type: ED Notes Filed: 05/23/2024 00:45 Note Text: MMT called and advised of 20 minute ETA to transport pt back to [place]. [facility] ED NOTE HNO ID: [id number] Author: MARGARET DONG, KARIME Service: Emergency Medicine Author Type: Registered Nurse Type: ED Notes Filed: 05/23/2024 00:42 Note Text: Patient is stable and understands discharge instructuons [facility] ALLIED HEALTHon 05-22-2024 ALLIED HEALTH HNO ID: [id number] Author: CARMELLA DE LA GARZA RT(R) Service: Radiology Author Type: Hoist Cylinder Loader Type: Allied Health Filed: 05/22/2024 21:01 Note [...] PATIENT PRESENTS WITH AN IMPLANTABLE OR ATTACHED ESCROW REPRESENTATIVE: No RADIOLOGY DEPARTMENT: CT; Exam(s) Completed: Abdomen/Pelvis w PERIPHERAL IV DATA: Site assessment: Clean,Dry and Intact, Site disposition Left in for next appointment SIGNED BY: RT Alyce(R) May 22, 2024 9:00 PM Normal [facility] CBC W Auto Differential pane l (Bld)on 05-22-2024 Basophils (Bld) [#/Vol] 0.03 10*3/uL Normal <0.11 [facility] Comment on above: Order Comment: Speci men Type: BLOOD SPECIMEN Ordering Facility: [facility] Address: [address] [place] [address] Performed By: #### 5 7021-8 #### [facility] CLIA [id number] [place] [address] [place] Basophils/100 WBC (Bld) 0.4 % Normal [facility] Comment on above: Order Comment: Speci men Type: BLOOD SPECIMEN Ordering Facility: [facility] Address: [address] [place] [address] Performed By: #### 5 7021-8 #### [facility] CLIA [id number] [place] [address] [place] Differential cell count method Nom (Bld) Auto Normal [facility] Comment on above: Order Comment: Speci men Type: BLOOD SPECIMEN Ordering Facility: [facility] Address: [address] [place] [address] Performed By: #### 5 7021-8 #### [facility] CLIA [id number] [place] [address] [place] Eosinophils (Bld) [#/Vol] 0.14 10*3/uL Normal <0.46 [facility] Comment on above: Order Comment: Speci men Type: BLOOD SPECIMEN Ordering Facility: [facility] Address: [address] [place] [address] Performed By: #### 5 7021-8 #### [facility] CLIA [id number] [place] [id number] [place] Eosinophils/100 WBC (Bld) 2.0 % Normal [facility] Comment on above: Order Comment: Speci men Type: BLOOD SPECIMEN Ordering Facility: [facility] Address: [address] [place] [address] Performed By: #### 5 7021-8 #### [facility] CLIA [id number] [place] [address] [place] Erythrocyte distribution width (RBC) [Ratio] 12.1 % Normal 11.5-15.0 [facility] Comment on above: Order Comment: Speci men Type: BLOOD SPECIMEN Ordering Facility: [facility] Address: [address] [place] [address] Performed By: #### 5 7021-8 #### [facility] CLIA [id number] [place] [address] [place] Hematocrit (Bld) [Volume fraction] 43.9 % Normal 39.0-51.0 [facility] Comment on above: Order Comment: Speci men Type: BLOOD SPECIMEN Ordering Facility: [facility] Address: [address] [place] [address] Performed By: #### 5 7021-8 #### [facility] CLIA [id number] [place] [address] [place] Hemoglobin (Bld) [Mass/Vol] 15.4 g/dL Normal 13.0-17.0 [facility] Comment on above: Order Comment: Speci men Type: BLOOD SPECIMEN Ordering Facility: [facility] Address: [address] [place] [address] Performed By: #### 5 7021-8 #### [facility] CLIA [id number] [place] [address] [place] Immature granulocytes (Bld) [#/Vol] 10*3/uL Normal <0.10 [facility] Comment on above: Order Comment: Speci men Type: BLOOD SPECIMEN Ordering Facility: [facility] Address: [address] [place] [address] Performed By: #### 5 7021-8 #### [facility] CLIA [id number] [place] [address] [place] Immature granulocytes/100 WBC (Bld) 0.3 % Normal [facility] Comment on above: Order Comment: Speci men Type: BLOOD SPECIMEN Ordering Facility: [facility] Address: [address] [place] [address] Performed By: #### 5 7021-8 #### [facility] CLIA [id number] [place] [address] [place] Lymphocytes (Bld) [#/Vol] 2.23 10*3/uL Normal 1.00-4.00 [facility] Comment on above: Order Comment: Speci men Type: BLOOD SPECIMEN Ordering Facility: [facility] Address: [address] [place] [address] Performed By: #### 5 7021-8 #### [facility] CLIA [id number] [place] [address] [place] Lymphocytes/100 WBC (Bld) 31.3 % Normal [facility] Comment on above: Order Comment: Speci men Type: BLOOD SPECIMEN Ordering Facility: [facility] Address: [address] [place] [address] Performed By: #### 5 7021-8 #### [facility] CLIA [id number] [place] [address] [place] MCH (RBC) [Entitic mass] 30.7 pg Normal 26.0-34.0 [facility] Comment on above: Order Comment: Speci men Type: BLOOD SPECIMEN Ordering Facility: [facility] Address: [address] [place] [address] Performed By: #### 5 7021-8 #### [facility] CLIA [id number] [place] [address] [place] MCHC (RBC) [Mass/Vol] 35.1 g/dL Normal 30.5-36.0 [facility] Comment on above: Order Comment: Speci men Type: BLOOD SPECIMEN Ordering Facility: [facility] Address: [address] [place] [address] Performed By: #### 5 7021-8 #### [facility] CLIA [id number] [place] [address] [place] MCV (RBC) [Entitic vol] 87.5 fL Normal 80.0-100.0 [facility] Comment on above: Order Comment: Speci men Type: BLOOD SPECIMEN Ordering Facility: [facility] Address: [address] [place] [address] Performed By: #### 5 7021-8 #### [facility] CLIA [id number] [place] [address] [place] Monocytes (Bld) [#/Vol] 0.53 10*3/uL Normal <0.87 [facility] Comment on above: Order Comment: Speci men Type: BLOOD SPECIMEN Ordering Facility: [facility] Address: [address] [place] [address] Performed By: #### 5 7021-8 #### [facility] CLIA [id number] [place] [address] [place] Monocytes/100 WBC (Bld) 7.4 % Normal [facility] Comment on above: Order Comment: Speci men Type: BLOOD SPECIMEN Ordering Facility: [facility] Address: [address] [place] [address] Performed By: #### 5 7021-8 #### [facility] CLIA [id number] [place] [address] [place] Neutrophils (Bld) [#/Vol] 4.18 10*3/uL Normal 1.45-7.50 [facility] Comment on above: Order Comment: Speci men Type: BLOOD SPECIMEN Ordering Facility: [facility] Address: [address] [place] [address] Performed By: #### 5 7021-8 #### [facility] CLIA [id number] [place] [id number] [place] Neutrophils/100 WBC (Bld) 58.6 % Normal [facility] Comment on above: Order Comment: Speci men Type: BLOOD SPECIMEN Ordering Facility: [facility] Address: [address] [place] [address] Performed By: #### 5 7021-8 #### [facility] CLIA [id number] [place] [address] [place] Nucleated RBC (Bld) [#/Vol] 10*3/uL Normal <0.01 [facility] Comment on above: Order Comment: Speci men Type: BLOOD SPECIMEN Ordering Facility: [facility] Address: [address] [place] [address] Performed By: #### 5 7021-8 #### [facility] CLIA [id number] [place] [address] [place] Nucleated RBC/100 WBC (Bld) [Ratio] 0.0 /100 WBC Normal [facility] Comment on above: Order Comment: Speci men Type: BLOOD SPECIMEN Ordering Facility: [facility] Address: [address] [place] [address] Performed By: #### 5 7021-8 #### [facility] CLIA [id number] [place] [id number] [place] Platelet mean volume (Bld) [Entitic vol] 9.7 fL Normal 9.0-12.7 [facility] Comment on above: Order Comment: Speci men Type: BLOOD SPECIMEN Ordering Facility: [facility] Address: [address] [place] [address] Performed By: #### 5 7021-8 #### [facility] CLIA [id number] [place] [id number] [place] Platelets (Bld) [#/Vol] 257 10*3/uL Normal 150-400 [facility] Comment on above: Order Comment: Speci men Type: BLOOD SPECIMEN Ordering Facility: [facility] Address: [address] [place] [address] Performed By: #### 5 7021-8 #### [facility] CLIA [id number] [place] [address] [place] RBC (Bld) [#/Vol] 5.02 10*6/uL Normal 4.20-6.00 [facility] Comment on above: Order Comment: Speci men Type: BLOOD SPECIMEN Ordering Facility: [facility] Address: [address] [place] [address] Performed By: #### 5 7021-8 #### [facility] CLIA [id number] [place] [address] [place] WBC (Bld) [#/Vol] 7.13 10*3/uL Normal 3.70-11.00 [facility] Comment on above: Order Comment: Speci men Type: BLOOD SPECIMEN Ordering Facility: [facility] Address: [address] [place] [address] Performed By: #### 5 7021-8 #### [facility] CLIA [id number] [place] [address] [place] [address] ABD/PEL W IVCONon 05-22-[address] ABD/PEL W IVCON * * *Final Report* * * DATE OF EXAM: May 22 2024 8:59PM [facility]30 - [place] ABD/PEL W IVCON / [...] 10:34PM EST [id number] CN Normal [facility] Comprehensive metabolic 2000 panelon 05-22-2024 Albumin [Mass/Vol] 4.1 g/dL Normal 3.9-4.9 [facility] Comment on above: Order Comment: Speci men Type: BLOOD SPECIMENOrdering Facility: [facility] Address: [address] [place] [address] Performed By: #### 2 4323-8, 3040-3 ####[facility] [id number] [place] [address] [place] ALP [Catalytic activity/Vol] 53 U/L Normal 38-113 [facility] Comment on above: Order Comment: Speci men Type: BLOOD SPECIMENOrdering Facility: [facility] Address: [address] [place] [address] Performed By: #### 2 4323-8, 3040-3 ####[facility] [id number] [place] [address] [place] ALT [Catalytic activity/Vol] 14 U/L Normal 10-54 [facility] Comment on above: Order Comment: Speci men Type: BLOOD SPECIMENOrdering Facility: [facility] Address: [address] [place] [address] Performed By: #### 2 4323-8, 0-3 ####[facility] [id number] [place] [id number] [place] Anion gap [Moles/Vol] 8 mmol/L Normal 8-15 [facility] Comment on above: Order Comment: Speci men Type: BLOOD SPECIMENOrdering Facility: [facility] Address: [address] [place] [address] Performed By: #### 2 4323-8, 3039-3 ####[facility] [id number] [place] [id number] [place] AST [Catalytic activity/Vol] 16 U/L Normal 14-40 [facility] Comment on above: Order Comment: Speci men Type: BLOOD SPECIMENOrdering Facility: [facility] Address: [address] [place] [address] Performed By: #### 2 4323-8, 3039-3 ####[facility] [id number] [place] [id number] [place] Bilirubin [Mass/Vol] 0.2 mg/dL Normal 0.2-1.3 [facility] Comment on above: Order Comment: Speci men Type: BLOOD SPECIMENOrdering Facility: [facility] Address: [address] [place] [address] Performed By: #### 2 4323-8, 3039-3 ####[facility] [id number] [place] [id number] [place] Calcium [Mass/Vol] 9.3 mg/dL Normal 8.5-10.2 [facility] Comment on above: Order Comment: Speci men Type: BLOOD SPECIMENOrdering Facility: [facility] Address: [address] [place] [address] Performed By: #### 2 4323-8, 0-3 ####[facility] [id number] [place] [id number] [place] Chloride [Moles/Vol] 101 mmol/L Normal 98-107 [facility] Comment on above: Order Comment: Speci men Type: BLOOD SPECIMENOrdering Facility: [facility] Address: [address] [place], [place] [address] Performed By: #### 2 4323-8, 3040-3 ####[facility] LABORATORYCLIA [id number] [place] [id number] [place] CO2 [Moles/Vol] 26 mmol/L Normal 22-30 [facility] Comment on above: Order Comment: Speci men Type: BLOOD SPECIMENOrdering Facility: [facility] Address: [address] [place] [address] Performed By: #### 2 4323-8, 3039-3 ####[facility] LABORATORYCLIA [id number] [place] [address] [place] Creatinine [Mass/Vol] 0.68 mg/dL Low 0.73-1.22 [facility] Comment on above: Order Comment: Speci men Type: BLOOD SPECIMENOrdering Facility: [facility] Address: [address] [place] [address] Performed By: #### 2 4323-8, 3039-3 ####[facility] LABORATORYCLIA [id number] [address] Creatinine and Glomerular filtration rate.predicted panel (S/P/Bld) 130 mL/min/1.73m??? Normal >=60 [facility] Comment on above: Order Comment: Speci men Type: BLOOD SPECIMENOrdering Facility: [facility] Address: [address] [place] [address] Result Comment: Yolanda mated Glomerular Filtration Rate [...] GFR. Performed By: #### 2 4323-8, 3040-3 ####[facility] LABORATORYCLIA [id number] [place] [id number] [place] Glucose [Mass/Vol] 103 mg/dL High 74-99 [facility] Comment on above: Order Comment: Speci men Type: BLOOD SPECIMENOrdering Facility: [facility] Address: [address] [place] [address] Result Comment: The [place] Diabetes Association (ADA) provides guidance for cutoff [...] Standards of Medical Care in Diabetes 2016, [place] Diabetes Association. Diabetes Care. 2016.39(Suppl 1). Performed By: #### 2 4323-8, 3039-3 ####[facility] LABORATORYCLIA [id number] [place] [id number] [place] Potassium [Moles/Vol] 3.9 mmol/L Normal 3.7-5.1 [facility] Comment on above: Order Comment: Speci men Type: BLOOD SPECIMENOrdering Facility: [facility] Address: [address] [place] [address] Performed By: #### 2 4323-8, 3039-3 ####[facility] LABORATORYCLIA [id number] [place] [id number] [place] Protein [Mass/Vol] 6.5 g/dL Normal 6.3-8.0 [facility] Comment on above: Order Comment: Speci men Type: BLOOD SPECIMENOrdering Facility: [facility] Address: [address] [place] [address] Performed By: #### 2 4323-8, 3039-3 ####[facility] LABORATORYCLIA [id number] [place] [address] [place] Sodium [Moles/Vol] 135 mmol/L Low 136-144 [facility] Comment on above: Order Comment: Speci men Type: BLOOD SPECIMENOrdering Facility: [facility] Address: [address] [place] [address] Performed By: #### 2 4323-8, 3040-3 ####[facility] LABORATORYCLIA [id number] [address] [place] Urea nitrogen [Mass/Vol] 8 mg/dL Low 9-24 [facility] Comment on above: Order Comment: Speci men Type: BLOOD SPECIMENOrdering Facility: [facility] Address: [address] [place] [address] Performed By: #### 2 4323-8, 3040-3 ####[facility] LABORATORYCLIA [id number] [place] [id number] [facility] ED NOTEon 05-22-2024 ED NOTE HNO ID: [id number] Author: LUIS HOFFMAN RN Service: Emergency Medicine Author Type: Registered Nurse Type: ED Notes Filed: 05/22/2024 20:22 Note Text: Patient placed on continuous cardiac and O2 monitoring. [facility] ED NOTE HNO ID: [id number] Author: LUIS HOFFMAN RN Service: Emergency Medicine Author Type: Registered Nurse Type: ED Notes Filed: 05/22/2024 20:05 Note Text: Belongings labeled and placed in locker. [facility] ED NOTE HNO ID: [id number] Author: LUIS HOFFMAN RN Service: Emergency Medicine Author Type: Registered Nurse Type: ED Notes Filed: 05/22/2024 19:50 Note Text: Patient to ED via EMS from [facility] where he is being seen for SI. Patient denies HI/SI at this time. [facility] ED NOTE HNO ID: [id number] Author: MAGDA DURBIN RN Service: ? Author Type: Registered Nurse Type: ED Notes Filed: 05/22/2024 19:44 Note Text: Patient presents to ED with complaints of abdominal pain x4 days, constipation, and report of dark, tarry stool x1 episode today. [facility] ED NOTE HNO ID: [id number] Author: LUIS HOFFMAN RN Service: ? Author Type: Registered Nurse Type: ED Notes Filed: 05/22/2024 19:36 Note Text: Bed: ED-G Expected date: Expected time: Means of arrival: Comments: [facility] ED PROV NOTEon 05-22-2024 ED PROV NOTE HNO ID: [id number] Author: LISA GONZALEZ MD Service: Emergency Medicine [...] or swelling, headaches. 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 8 EKG: Sinus rhythm at 66 bpm, normal [...] (more content not included)... Normal [facility] EKGon 05-22-2024 Electrocardiogram Ventricular Rate : 66 BPM Atrial Rate : 66 BPM P-R Interval : 122 ms QRS Duration : 88 ms Q-T Interval : 398 ms QTC Calculation(Bazett) : 417 ms Calculated P [place] : 67 degrees Calculated R [place] : 77 degrees Calculated T [place] : 70 degrees NORMAL SINUS RHYTHM NORMAL ECG NO PREVIOUS ECGS AVAILABLE Confirmed by LISA GONZALEZ MD ([id number]), video news editor JAYDEN CASTANEDA ([id number]) on 05/23/2024 11:23:40 AM NAME : IMMANUEL NEUMANN PID : [id number] : 1995 Gender : Male Race : ORD : Procedure Date : May 22 2024 20:13:12 Edit Date : May 23 2024 11:23:44 Diagnosis: NORMAL SINUS RHYTHM NORMAL ECG NO PREVIOUS ECGS AVAILABLE Confirmed by LISA GONZALEZ MD ([id number]), video news editor JAYDEN CASTANEDA ([id number]) on 05/23/2024 11:23:40 AM Test Reason : Location : 1 : 1 ED Overread By : LISA GONZALEZ MD Edited By : JAYDEN CASTANEDA Referred By : , Acquired by : , Normal [facility] Lipase SerPl-cCncon 05-23-19 25 Lipase [Catalytic activity/Vol] 56 U/L Normal 16- [facility] Comment on above: Order Comment: Speci men Type: BLOOD SPECIMENOrdering Facility: [facility] Address: [address] [place] [address] Performed By: #### 2 4323-8, 3040-3 ####[facility] LABORATORYCLIA [id number] [place] [address] [facility] CNOVon 04-25-2024 CNOV Office Visit ([facility]) IMMANUEL NEUMANN ([id number]) 1995 M Date Time Provider Department 04/25/24 11:40 AM [facility] During your visit today, we recorded the following information about you: Temperature Pulse Respiration Blood pressure 97.8 degrees 120/minute 18/minute 95/64 Weight 61.7 kg Carolina Holman APRN.SKI PATROL 04/25/2024 11:55 AM Signed HPI: Immanuel Neumann [...] Drug use: Yes Types: Marijuana Comment[facility] Alcohol Use: Not Currently [...] episodic and non-intrac (more content not included)... [facility] CNPNon 04-16-2024 [facility] Telephone ([facility]) IMMANUEL NEUMANN ([id number]) 1995 M Date Time Provider Department 04/16/24 REGGIE DONNELLY [facility] During your visit today, we recorded the following information about you: Reggie Donnelly APRN.SKI PATROL 04/16/2024 4:18 PM Signed Patient was negative for chlamydia and gonorrhea. Please call and let patient know that the culture was also negative. If symptoms persist follow-up with primary care. Abbie Sloan, KARIME 04/16/2024 4:21 PM Signed Called and notified pt and given instructions. Allergies As of Date: 04/16/2024 Noted Allergy Reaction AMBIEN (ZOLPIDEM) 08/15/2023 1 - Mental Status Change Date Reviewed: 04/15/2024 Reviewed by: Ced Granger APRN.SKI PATROL - Fully Assessed Reason for Visit: Results [...] Encounter Status:Closed by ABBIE SLOAN on 04/16/24 [facility]UM[facility] ([id number]) 1995 M Date Time Provider Department 04/16/24 REGGIE DONNELLY [facility] During your visit today, we recorded the following information about you: Reggie Donnelly APRN.CNP 04/16/2024 7:18 AM Signed Patient was negative for chlamydia and gonorrhea. Still waiting on the urine culture. Anjelica Mathews MA 04/16/2024 2:39 PM Signed Patient notified of results, verbalized understanding. Anjelica Mathews MA Allergies As of Date: 04/16/2024 Noted Allergy Reaction AMBIEN (ZOLPIDEM) 08/15/2023 1 - Mental Status Change Date Reviewed: 04/15/2024 Reviewed by: Ced Granger APRN.SKI PATROL - Fully Assessed Reason for Visit: Results [...] Of Date: 04/16/2024 (None) Encounter Status:Closed by ANJELICA MATHEWS on 04/16/24 Normal [facility] Abdomen/Pelvis without Conto n 04-15-2024 Abdomen/Pelvis without Cont [facility] Imaging Services [address] [place] [address] Abdomen/Pelvis without Cont MR#: [id number] Acct: [id number] Name: IMMANUEL NEUMANN Rep #: [id number] : 1995 M 28 From: Galo Barnes PCP: Care Physician,No Primary Status: REG ER Study: Abdomen/Pelvis without Cont Date of Exam: 03/19 Exam# [id number] Ordering Dr: Sage Spears MD PROCEDURE: ABDOMEN/PELVIS [...] use of iterative reconstruction technique). Reading Location: [address] CC: Dr. 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, [address] CA,Total 9.3 mg/dL Normal 8.5-10.1 [facility] Comment on above: Performed By: #### L 500.2500, L100.0100 #### [facility] [address] [place], [address] Chloride [Moles/Vol] 103 mmol/L Normal 98-107 [facility] Comment on above: Performed By: #### L 500.2500, L100.0100 #### [facility] [address] [place], [address] CO2 [Moles/Vol] 29.0 mmol/L Normal 21.0-32.0 [facility] Comment on above: Performed By: #### L 500.2500, L100.0100 #### [facility] [address] [place], [address] Creatinine [Mass/Vol] 0.84 mg/dL Normal 0.70-1.30 [facility] Comment on above: Result Comment: The validity of the calculated GFR GFRAA in patients over 70 years has not been determined. Clinical correlation is essential. Performed By: #### L 500.2500, L100.0100 #### [facility] [address] [place], [address] ECRCL 120.12 ml/min Normal [facility] Comment on above: Performed By: #### L 500.2500, L100.0100 #### [facility] [address] [place], [address] EST GFR - AA 140 mL/min Normal >60 [facility] Comment on above: Result Comment: Afri can [place] GFR Calc Performed By: #### L 500.2500, L100.0100 #### [facility] [address] [place], [address] GAP 6 Normal 5-15 [facility] Comment on above: Performed By: #### L 500.2500, L100.0100 #### [facility] [address] [place], [address] GFR/1.73 sq M.predicted among non-blacks MDRD (S/P/Bld) [Vol rate/Area] 115 mL/min/{1.73_m2} Normal >60 [facility] Comment on above: Result Comment: Non- GFR Calc Performed By: #### L 500.2500, L100.0100 #### [facility] [address] [place], [address] Glucose [Mass/Vol] 92 mg/dL Normal 74-106 [facility] Comment on above: Performed By: #### L 500.2500, L100.0100 #### [facility] [address] [place], [address] Potassium [Moles/Vol] 2.7 mmol/L Invalid Interpretation Code 3.5-5.1 [facility] Comment on above: Result Comment: Crit ical Result(s) Called at: 16:05:02 04/15/2024 by: SOPHIA CHACON. Results read back by Rene Guzman Performed By: #### L 500.2500, L100.0100 #### [facility] [address] [place], [address] Sodium [Moles/Vol] 137 mmol/L Normal 136-145 [facility] Comment on above: Performed By: #### L 500.2500, L100.0100 #### [facility] [address] [place], [address] Urea nitrogen [Mass/Vol] 2 mg/dL Low 7-18 [facility] Comment on above: Performed By: #### L 500.2500, L100.0100 #### [facility] [address] [place], [address] C. trachomatis+N. gonorrhoea e DNA DERICK+probe Ql (Unsp spec)on 04-15-2024 C. trachomatis rRNA DERICK+probe Ql (Unsp spec) Not detected Normal Not detected [facility] Comment on above: Order Comment: Speci men Type: URINE SPECIMEN [facility]ing Facility: [facility] Address: [address] [place] [address] Performed By: #### 3 6902-5 #### [facility] CLIA [id number] [address] [place] [address] [place] N. gonorrhoeae rRNA DERICK+probe Ql (Unsp spec) Not detected Normal Not detected [facility] Comment on above: Order Comment: Speci men Type: URINE SPECIMEN Ordering Facility: [facility] Address: [address] [place] [address] Performed By: #### 3 6902-5 #### [facility] CLIA [id number] [address] [place] [address] [place] CBC W/Diff, Automatedon -3 0-2024 Absolute Lymph 1.46 X10 3/uL Normal 0.83-4.51 [facility] Comment on above: Performed By: #### L 500.2500, L100.0100 #### [facility] [address] [place], [address] Absolute Neut 7.5 X10 3/uL Normal 2.0-7.7 [facility] Comment on above: Performed By: #### L 500.2500, L100.0100 #### [facility] [address] [place], [address] Basophils/100 WBC (Bld) 0.3 % Normal 0-1 [facility] Comment on above: Performed By: #### L 500.2500, L100.0100 #### [facility] [address] [place], [address] Eosinophils/100 WBC (Bld) 1.1 % Normal 0-5 [facility] Comment on above: Performed By: #### L 500.2500, L100.0100 #### [facility] [address] [place], [address] Erythrocyte distribution width (RBC) [Ratio] 12.4 % Normal 11.6-14.6 [facility] Comment on above: Performed By: #### L 500.2500, L100.0100 #### [facility] [address] [place], [address] Hematocrit (Bld) [Volume fraction] 46.1 % Normal 40-54 [facility] Comment on above: Performed By: #### L 500.2500, L100.0100 #### [facility] [address] [place], [address] Hemoglobin (Bld) [Mass/Vol] 16.0 g/dL Normal 13.0-16.5 [facility] Comment on above: Performed By: #### L 500.2500, L100.0100 #### [facility] [address], [address] IG% 0.200 Normal 0.0-0.9 [facility] Comment on above: Result Comment: IG% - Immature Granulocytes (promyelocytes, myelocytes and metamyelocytes) > 1% indicates that a LEFT SHIFT is Present. Performed By: #### L 500.2500, L100.0100 #### [facility] [address] [place], [address] Lymphocytes/100 WBC (Bld) 15.1 % Low 19-41 [facility] Comment on above: Performed By: #### L 500.2500, L100.0100 #### [facility] [address] [place], [address] MCH (RBC) [Entitic mass] 30.0 pg Normal 27.0-32.0 [facility] Comment on above: Performed By: #### L 500.2500, L100.0100 #### [facility] [address] [place], [address] MCHC (RBC) [Mass/Vol] 34.7 g/dL Normal 32-36 [facility] Comment on above: Performed By: #### L 500.2500, L100.0100 #### [facility] [address] [place], [address] MCV (RBC) [Entitic vol] 86.5 fL Normal 80-94 [facility] Comment on above: Performed By: #### L 500.2500, L100.0100 #### [facility] [address] [place], [address] Monocytes/100 WBC (Bld) 6.0 % Normal 0-10 [facility] Comment on above: Performed By: #### L 500.2500, L100.0100 #### [facility] [address] [place], [address] Neutrophils/100 WBC (Bld) 77.3 % High 47-70 [facility] Comment on above: Performed By: #### L 500.2500, L100.0100 #### [facility] [address] [place], [address] Nucleated RBC (Bld) [#/Vol] 0 10*3/uL Normal 0-5 [facility] Comment on above: Performed By: #### L 500.2500, L100.0100 #### [facility] [address] [place], [address] Platelet mean volume (Bld) [Entitic vol] 9.1 fL Normal 6.2-12.0 [facility] Comment on above: Performed By: #### L 500.2500, L100.0100 #### [facility] [address] [place], [address] Platelets (Bld) [#/Vol] 279 10*3/uL Normal 150-450 [facility] Comment on above: Performed By: #### L 500.2500, L100.0100 #### [facility] [address] [place], [address] RBC (Bld) [#/Vol] 5.33 10*6/uL Normal 4.6-6.2 [facility] Comment on above: Performed By: #### L 500.2500, L100.0100 #### [facility] [address] [place], [address] RDW SD 39.1 fl Normal 35.1-43.9 [facility] Comment on above: Performed By: #### L 500.2500, L100.0100 #### [facility] [address] [place], [address] WBC (Bld) [#/Vol] 9.7 10*3/uL Normal 4.4-11.0 [facility] Comment on above: Performed By: #### L 500.2500, L100.0100 #### [facility] [address] [place], [address] CNOVon 04-15-2024 [facility] ([id number]) 1995 M Date Time Provider Department 04/15/24 1:30 PM CED GRANGER [facility] During your visit today, we recorded the following information about you: Temperature Pulse Respiration Blood pressure 99.1 degrees 102/minute 20/minute 103/70 Weight 61.8 kg Ced Granger APRN.SKI PATROL 04/15/2024 2:04 PM Signed Subjective HPI Nontoxic-appearing [...] or te (more content not included)... Normal [facility] Emergency Department Summary on 04-15-2024 Emergency Department Summary [facility] Medical Records Department [address] [place] [address] Emergency Department Summary 04/15/24 MR#: [id number] Acct: [id number] Name: IMMANUEL NEUMANN Rep #: [id number] : 1995 28 From: Sage Spears MD [...] so he is here for more answers. [facility] Medical History Anxiety PTSD (post-traumatic stress disorder) [...] and hi (more content not included)... Normal [facility] Urinalysis, Completeon 04-15 BACTERIA 0 SEEN Normal None Seen [facility] Comment on above: Order Comment: CLEAN CATCH Performed By: #### L 400.0001 #### [facility] [address] [place], [address] EPI,SQUAMOUS 0 SEEN Normal 0-5 [facility] Comment on above: Order Comment: CLEAN CATCH Performed By: #### L 400.0001 #### [facility] [address] [place], [address] Mucus Ql (Urine sed) 0 SEEN Normal [facility] Comment on above: Order Comment: CLEAN CATCH Performed By: #### L 400.0001 #### [facility] [address] [place], [address] RBC 0 SEEN Normal 0-5 [facility] Comment on above: Order Comment: CLEAN CATCH Performed By: #### L 400.0001 #### [facility] [address] [place], [address] WBC 0 SEEN Normal 0-5 [facility] Comment on above: Order Comment: CLEAN CATCH Performed By: #### L 400.0001 #### [facility] [address] [place], [address] CNOVon 04-12-2024 CNOV Office Visit ([facility]) IMMANUEL NEUMANN ([id number]) 1995 M Date Time Provider Department 04/12/24 10:20 AM FERMIN MANCERA JR [facility] During your visit today, we recorded the following information about you: Temperature Pulse Respiration Blood pressure 97.9 degrees 101/minute 18/minute 111/76 Weight 64.4 kg Zandra Liu LPN 04/12/2024 11:16 AM Signed Patient declined depression screening at this time. SINDY Mondragon Paul J Jr., INSURANCE POLICY CLERK.SKI PATROL 04/12/2024 11:04 AM Signed Take medications as prescribed. Follow-up with PCP or return if symptoms do not resolve visit Urgent Care. Fermin Mancera Jr., INSURANCE POLICY CLERK.SKI PATROL 04/12/2024 11:16 AM Signed Immanuel Neumann is [...] above: Performed By: #### C VFLRS #### [facility] CLIA [id number] [address] [place] [address] [place] CBC W Auto Differential pane l (Bld)on 12-08-2023 Basophils (Bld) [#/Vol] 0.02 10*3/uL [facility] Basophils/100 WBC (Bld) 0.2 % 0.0 - 2.0 % [facility] Eosinophils (Bld) [#/Vol] 0.03 10*3/uL [facility] Eosinophils/100 WBC (Bld) 0.3 % 0.0 - 6.0 % [facility] Erythrocyte distribution width (RBC) [Ratio] 12.6 % 11.5 - 14.5 % [facility] Hematocrit (Bld) [Volume fraction] 49.3 % 41.0 - 52.0 % [facility] Hemoglobin (Bld) [Mass/Vol] 17.7 g/dL High 13.5 - 17.5 g/dL [facility] Immature granulocytes (Bld) [#/Vol] 0.01 10*3/uL [facility] Immature granulocytes/100 WBC (Bld) 0.1 % 0.0 - 0.9 % [facility] Comment on above: Immature Granulocyte Count (IG) includes promyelocytes, myelocytes and metamyelocytes but does not include bands. Percent differential counts (%) should be interpreted in the context of the absolute cell counts (cells/UL). Interpretation and review of laboratory results Abnormal [facility] Lymphocytes (Bld) [#/Vol] 2.00 10*3/uL [facility] Lymphocytes/100 WBC (Bld) 22.9 % 13.0 - 44.0 % [facility] MCH (RBC) [Entitic mass] 30.8 pg 26.0 - 34.0 pg [facility] MCHC (RBC) [Mass/Vol] 35.9 g/dL 32.0 - 36.0 g/dL [facility] MCV (RBC) [Entitic vol] 86 fL 80 - 100 fL [facility] Monocytes (Bld) [#/Vol] 0.56 10*3/uL [facility] Monocytes/100 WBC (Bld) 6.4 % 2.0 - 10.0 % [facility] Neutrophils (Bld) [#/Vol] 6.12 10*3/uL [facility] Comment on above: Percent differential counts (%) should be interpreted in the context of the absolute cell counts (cells/uL). Neutrophils/100 WBC (Bld) 70.1 % 40.0 - 80.0 % [facility] Nucleated RBC/100 WBC (Bld) [Ratio] 0.0 % [facility] Platelets (Bld) [#/Vol] 267 10*3/uL [facility] RBC (Bld) [#/Vol] 5.75 10*6/uL [facility] WBC (Bld) [#/Vol] 8.7 10*3/uL [facility] Basophils (Bld) [#/Vol] 0.02 x10*3/uL Normal 0.00-0.10 [facility] Comment on above: Performed By: #### 5 7021-8 #### DARLING Bravo ([id number]) [facility] () [address] [place] [address] Basophils/100 WBC (Bld) 0.2 % Normal 0.0-2.0 [facility] Comment on above: Performed By: #### 70-8 #### DARLING Bravo ([id number]) [facility] () [address] [place] [address] Eosinophils (Bld) [#/Vol] 0.03 x10*3/uL Normal 0.00-0.70 [facility] Comment on above: Performed By: #### 5 7021-8 #### [facility] [facility] ([id number]) [facility] () [place] [address] Eosinophils/100 WBC (Bld) 0.3 % Normal 0.0-6.0 [facility] Comment on above: Performed By: #### 5 7021-8 #### DARLING Bravo (04037) [facility] () [address] [place] [address] Erythrocyte distribution width (RBC) [Ratio] 12.6 % Normal 11.5-14.5 [facility] Comment on above: Performed By: #### 5 7021-8 #### DARLING Bravo (18123) [facility] () [address] [place] [address] Hematocrit (Bld) [Volume fraction] 49.3 % Normal 41.0-52.0 [facility] Comment on above: Performed By: #### 7021-8 #### DARLING Bravo (85937) [facility] () [address] [place] [address] Hemoglobin (Bld) [Mass/Vol] 17.7 g/dL High 13.5-17.5 [facility] Comment on above: Performed By: #### 7021-8 #### DARLING Bravo (80333) [facility] () [address] [place] [address] Immature granulocytes (Bld) [#/Vol] 0.01 x10*3/uL Normal 0.00-0.70 [facility] Comment on above: Performed By: #### 5 7021-8 #### DARLING Bravo (54930) [facility] () [address] [place] [address] Immature granulocytes/100 WBC (Bld) 0.1 % Normal 0.0-0.9 [facility] Comment on above: Result Comment: Klaudia ture Granulocyte Count (IG) includes promyelocytes, myelocytes and metamyelocytes but does not include bands. Percent differential counts (%) should be interpreted in the context of the absolute cell counts (cells/UL). Performed By: #### 5 7021-8 #### DARLING Bravo (30396) [facility] () [address] [place] [address] Lymphocytes (Bld) [#/Vol] 2.00 x10*3/uL Normal 1.20-4.80 [facility] Comment on above: Performed By: #### 5 7021-8 #### DARLING Bravo (41622) [facility] () [address] [place] [address] Lymphocytes/100 WBC (Bld) 22.9 % Normal 13.0-44.0 [facility] Comment on above: Performed By: #### 5 7021-8 #### DARLING Bravo (37150) [facility] () [address] [place] [address] MCH (RBC) [Entitic mass] 30.8 pg Normal 26.0-34.0 [facility] Comment on above: Performed By: #### 5 7021-8 #### DARLING Bravo (55117) [facility] () [address] [place] [address] MCHC (RBC) [Mass/Vol] 35.9 g/dL Normal 32.0-36.0 [facility] Comment on above: Performed By: #### 5 7021-8 #### DARLING Bravo (52133) [facility] () [address] [place] [address] MCV (RBC) [Entitic vol] 86 fL Normal 80-100 [facility] Comment on above: Performed By: #### 5 7021-8 #### DARLING Bravo (81073) [facility] () [address] [place] [address] Monocytes (Bld) [#/Vol] 0.56 x10*3/uL Normal 0.10-1.00 [facility] Comment on above: Performed By: #### 5 7021-8 #### DARLING Bravo (21041) [facility] () [address] [place] [address] Monocytes/100 WBC (Bld) 6.4 % Normal 2.0-10.0 [facility] Comment on above: Performed By: #### 5 7021-8 #### DARLING Bravo (52585) [facility] () [address] [place] [address] Neutrophils (Bld) [#/Vol] 6.12 x10*3/uL Normal 1.20-7.70 [facility] Comment on above: Result Comment: Perc ent differential counts (%) should be interpreted in the context of the absolute cell counts (cells/uL). Performed By: #### 5 7021-8 #### DARLING Bravo (15388) [facility] () [address] [place] [address] Neutrophils/100 WBC (Bld) 70.1 % Normal 40.0-80.0 [facility] Comment on above: Performed By: #### 5 7021-8 #### DARLING Bravo (46146) [facility] () [address] [place] [address] Nucleated RBC/100 WBC (Bld) [Ratio] 0.0 /100 WBCs Normal 0.0-0.0 [facility] Comment on above: Performed By: #### 5 7021-8 #### DARLING Bravo (79782) [facility] () [address] [place] [address] Platelets (Bld) [#/Vol] 267 x10*3/uL Normal 150-450 [facility] Comment on above: Performed By: #### 5 7021-8 #### DARLING Bravo (43593) [facility] () [address] [place] [address] RBC (Bld) [#/Vol] 5.75 x10*6/uL Normal 4.50-5.90 [facility] Comment on above: Performed By: #### 5 7021-8 #### DARLING Bravo (42715) [facility] () [address] [place] [address] WBC (Bld) [#/Vol] 8.7 x10*3/uL Normal 4.4-11.3 [facility] Comment on above: Performed By: #### 5 7021-8 #### DARLING Bravo (99172) [facility] () [address] [place] [address] Comprehensive metabolic 2000 panelon 12-08-2023 Albumin BCP dye [Mass/Vol] 5.0 g/dL 3.4 - 5.0 g/dL [facility] ALP [Catalytic activity/Vol] 43 U/L 33 - 120 U/L [facility] ALT With P-5'-P [Catalytic activity/Vol] 17 U/L 10 - 52 U/L [facility] Comment on above: Patients treated wit h Sulfasalazine may generate falsely decreased results for ALT. Anion gap [Moles/Vol] 14 mmol/L 10 - 2 0 mmol/L [facility] AST With P-5'-P [Catalytic activity/Vol] 21 U/L 9 - 39 U/L [facility] Bilirubin [Mass/Vol] 0.5 mg/dL 0.0 - 1 .2 mg/dL [facility] Calcium [Mass/Vol] 10.2 mg/dL 8.6 - 10. 3 mg/dL [facility] Chloride [Moles/Vol] 105 mmol/L 98 - 10 7 mmol/L [facility] CO2 [Moles/Vol] 24 mmol/L 21 - 32 mmol/L [facility] Creatinine [Mass/Vol] 0.89 mg/dL 0.50 - 1.30 mg/dL [facility] eGFR - PINF [facility] Comment on above: Calculations of yolanda mated GFR are performed using the 2020 CKD-EPI Study Refit equation without the race variable for the IDMS-Traceable creatinine methods. https://jasn.asnjournals.org/content/early//ASN.2020 672840 Glucose [Mass/Vol] 99 mg/dL 74 - 99 mg[facility] Potassium [Moles/Vol] 3.6 mmol/L 3.5 - 5.3 mmol/L [facility] Protein [Mass/Vol] 7.3 g/dL 6.4 - 8.2 g/dL [facility] Sodium [Moles/Vol] 139 mmol/L 136 - 145 mmol/L [facility] Urea nitrogen [Mass/Vol] 11 mg/dL 6 - 23 mg/dL [facility] Albumin BCP dye [Mass/Vol] 5.0 g/dL Normal 3.4-5.0 [facility] Comment on above: Performed By: #### 2 4323-8 #### DARLING Bravo (21690) [facility] () [address] [place] [address] ALP [Catalytic activity/Vol] 43 U/L Normal 33-120 [facility] Comment on above: Performed By: #### 2 4323-8 #### DARLING Bravo (86055) [facility] () [address] [place] [address] ALT With P-5'-P [Catalytic activity/Vol] 17 U/L Normal 10-52 [facility] Comment on above: Result Comment: Edna ents treated with Sulfasalazine may generate falsely decreased results for ALT. Performed By: #### 2 4323-8 #### DARLING Bravo (10206) [facility] () [address] [place] [address] Anion gap [Moles/Vol] 14 mmol/L Normal 10-20 [facility] Comment on above: Performed By: #### 2 4323-8 #### DARLING Bravo (69137) [facility] () [address] [place] [address] AST With P-5'-P [Catalytic activity/Vol] 21 U/L Normal 9-39 [facility] Comment on above: Performed By: #### 2 4323-8 #### DARLING Bravo (75894) [facility] () [address] [place] [address] Bilirubin [Mass/Vol] 0.5 mg/dL Normal 0.0-1.2 [facility] Comment on above: Performed By: #### 2 4323-8 #### DARLING Bravo (25421) [facility] () [address] [place] [address] Calcium [Mass/Vol] 10.2 mg/dL Normal 8.6-10.3 [facility] Comment on above: Performed By: #### 2 4323-8 #### DARLING Bravo (62996) [facility] () [address] [place] [address] Chloride [Moles/Vol] 105 mmol/L Normal 98-107 [facility] Comment on above: Performed By: #### 2 4323-8 #### DARLING Bravo (55968) [facility] () [address] [place] [address] CO2 [Moles/Vol] 24 mmol/L Normal 21-32 [facility] Comment on above: Performed By: #### 2 4323-8 #### DARLING Bravo (00440) [facility] (MW) [address] [place] [address] Creatinine [Mass/Vol] 0.89 mg/dL Normal 0.50-1.30 [facility] Comment on above: Performed By: #### 2 4323-8 #### DARLING Bravo (98436) [facility] (MW) [address] [place] [address] GFR/1.73 sq M.predicted MDRD (S/P/Bld) [Vol rate/Area] mL/min/{1.73_m2} Normal >60 [facility] Comment on above: Result Comment: Calc ulations of estimated GFR are performed using the 2020 CKD-EPI Study Refit equation without the race variable for the IDMS-Traceable creatinine methods. https://jasn.asnjournals.org/content/early//ASN.2020 688722 Performed By: #### 2 4323-8 #### ADRLING Bravo (52174) [facility] () [address] [place] [address] Glucose [Mass/Vol] 99 mg/dL Normal 74-99 [facility] Comment on above: Performed By: #### 2 4323-8 #### DARLING Bravo (94138) [facility] () [address] [place] [address] Potassium [Moles/Vol] 3.6 mmol/L Normal 3.5-5.3 [facility] Comment on above: Performed By: #### 2 4323-8 #### DARLING Bravo (09033) [facility] () [address] [place] [address] Protein [Mass/Vol] 7.3 g/dL Normal 6.4-8.2 [facility] Comment on above: Performed By: #### 2 4323-8 #### DARLING Bravo (80772) [facility] () [address] [place] [address] Sodium [Moles/Vol] 139 mmol/L Normal 136-145 [facility] Comment on above: Performed By: #### 2 4323-8 #### DARLING Bravo (65961) [facility] () [address] [place] [address] Urea nitrogen [Mass/Vol] 11 mg/dL Normal 6-23 [facility] Comment on above: Performed By: #### 2 4323-8 #### DARLING Bravo (33031) [facility] () [address] [place] [address] Lipaseon 12-08-2023 Lipase [Catalytic activity/Vol] 68 U/L - U/L [facility] Lipase [Catalytic activity/V ol]on 12-08-2023 Interpretation and review of laboratory results Normal [facility] Venipuncture immediately after or during the administration of Metamizole may lead to falsely low results. Testing should be performed immediately prior to Metamizole dosing. [facility] Magnesiumon 12-08-2023 Magnesium [Mass/Vol] 2.26 mg/dL 1.60 - 2.40 mg/dL [facility] Magnesium [Mass/Vol] 2.26 mg/dL Normal 1.60-2.40 [facility] Comment on above: Performed By: #### 1 9123-9 #### DARLING Bravo (50672) [facility] () [address] [place] [address] No Panel Informationon 12-07 Interpretation and review of laboratory results Normal [facility] Triacylglycerol lipaseon Lipase [Catalytic activity/Vol] 68 U/L Normal [facility] Comment on above: Order Comment: Venip uncture immediately after or during the administration of Metamizole may lead to falsely low results. Testing should be performed immediately prior to Metamizole dosing. Performed By: #### 3 040-3 #### DARLING Bravo (52876) [facility] () [address] [place] [address] Urinalysis complete W Reflex Culture panel (U)on 12-08-2023 Appearance (U) Clear Clear [facility] Bilirubin (U) [Mass/Vol] Negative NEGATIVE [facility] Color (U) Colorless Abnormal Light-Yellow, Yellow, Dark-Yellow [facility] Glucose Auto test strip (U) [Mass/Vol] Normal Normal mg/dL [facility] Interpretation and review of laboratory results Abnormal [facility] Ketones (U) [Mass/Vol] Negative NEGAT BENNIE mg/dL [facility] Leukocyte esterase Auto test strip Ql (U) Negative NEGATIVE [facility] Nitrite Auto test strip Ql (U) Negative NEGATIVE [facility] pH (U) 7.5 [pH] 5.0, 5.5, 6.0, 6.5, 7.0, 7.5, 8.0 [facility] Protein (U) [Mass/Vol] Negative NEGAT BENNIE, 10 (TRACE), 20 (TRACE) mg/dL [facility] RBC (U) [#/Vol] Negative NEGATIVE [facility] Specific gravity (U) [Rel density] 1.005 1.005 - 1.035 [facility] Urobilinogen (U) [Mass/Vol] Normal Normal mg/dL [facility] Appearance (U) Clear Normal Clear [facility] Comment on above: Performed By: #### 5 8077-9 #### DARLING Bravo (35192) [facility] () [address] [place] [address] Bilirubin (U) [Mass/Vol] Negative Normal NEGATIVE [facility] Comment on above: Performed By: #### 5 8077-9 #### DARLING Bravo (49085) [facility] () [address] [place] [address] Color (U) Colorless Normal Light-Yellow, Yellow, Dark-Yellow [facility] Comment on above: Performed By: #### 5 8077-9 #### DARLING Bravo (60466) [facility] () [address] [place] [address] Glucose Auto test strip (U) [Mass/Vol] Normal Normal Normal [facility] Comment on above: Performed By: #### 5 8077-9 #### DARLING Bravo (39710) [facility] () [address] [place] [address] Ketones (U) [Mass/Vol] Negative Normal NEGATIVE Un [facility] Comment on above: Performed By: #### 5 8077-9 #### DARLING Bravo (51892) [facility] () [address] [place] [address] Leukocyte esterase Auto test strip Ql (U) Negative Normal NEGATIVE [facility] Comment on above: Performed By: #### 5 8077-9 #### DARLING Bravo (92533) [facility] () [address] [place] [address] Nitrite Auto test strip Ql (U) Negative Normal NEGATIVE [facility] Comment on above: Performed By: #### 5 8077-9 #### DARLING Bravo (26018) [facility] () [address] [place] [address] pH (U) 7.5 [pH] Normal 5.0, 5.5, 6.0, 6.5, 7.0, 7.5, 8.0 [facility] Comment on above: Performed By: #### 5 8077-9 #### DARLING Bravo (45540) [facility] () [address] [place] [address] Protein (U) [Mass/Vol] Negative Normal NEGAT BENNIE, 10 (TRACE), 20 (TRACE) [facility] Comment on above: Performed By: #### 5 8077-9 #### DARLING Bravo (88723) [facility] () [address] [place] [address] RBC (U) [#/Vol] Negative Normal NEGATIVE [facility] Comment on above: Performed By: #### 5 8077-9 #### DARLING Bravo (88269) [facility] () [address] [place] [address] Specific gravity (U) [Rel density] 1.005 Normal 1.005-1.035 [facility] Comment on above: Performed By: #### 5 8077-9 #### DARLING Bravo (19176) [facility] () [address] [place] [address] Urobilinogen (U) [Mass/Vol] Normal Normal Normal [facility] Comment on above: Performed By: #### 5 8077-9 #### DARLING Bravo (75624) [facility] () [address] [place] [address] .Auto Diffon 12-04-2023 Basophil, Absolute 0.0 10 3/mcL Normal 0.0-0.3 [facility] Comment on above: Performed By: #### C VFLURV #### [address] [address] Basophils/100 WBC (Bld) 0.8 % Normal 0.0-2.5 [facility] Comment on above: Performed By: #### C VFLURV #### [address] [address] Eosinophil, Absolute 0.1 10 3/mcL Normal 0.0-0.7 [facility] Comment on above: Performed By: #### C VFLURV #### [address] [address] Eosinophils/100 WBC (Bld) 2.1 % Normal 0.0-6.0 [facility] Comment on above: Performed By: #### C VFLURV #### [address] [address] Lymphocyte, Absolute 1.0 10 3/mcL Normal 0.9-4.3 [facility] Comment on above: Performed By: #### C VFLURV #### [address] [address] Lymphocytes/100 WBC (Bld) 20.2 % Normal 20.0-40.0 [facility] Comment on above: Performed By: #### C VFLURV #### [address] [address] Monocyte, Absolute 0.3 10 3/mcL Normal 0.1-1.4 [facility] Comment on above: Performed By: #### C VFLURV #### [address] [address] Monocytes/100 WBC (Bld) 6.9 % Normal 2.0-13.0 [facility] Comment on above: Performed By: #### C VFLURV #### [address] [address] Neutrophils/100 WBC (Bld) 70.0 % Normal 50.0-75.0 [facility] Comment on above: Performed By: #### C VFLURV #### [address] [address] .GFRon 12-04-2023 GFR >60 Normal [facility] Comment on above: Result Comment: GFR [...] meters Performed By: #### C VFLURV #### [address] [address] GFR Non- >[address] [facility] Comment on above: Result Comment: GFR [...] meters Performed By: #### C VFLURV #### [place] [address] .MDWon 12-04-2023 Monocyte Distribution Width 16.52 Normal 0.00-20.00 [facility] Comment on above: Result Comment: For ED adult patients suspected of sepsis, MDW<=20.0 does not rule out sepsis or risk of sepsis Performed By: #### C VFLURV #### [place] [address] .NEUABSon 12-04-2023 Neutrophil, Absolute 3.4 10 3/mcL Normal 2.3-8.1 [facility] Comment on above: Performed By: #### C VFLURV #### [place] [address] CBCon 12-04-2023 Erythrocyte distribution width (RBC) [Ratio] 13.1 % Normal 11.5-15.5 [facility] Comment on above: Performed By: #### C VFLURV #### [place] [address] Hematocrit (Bld) [Volume fraction] 43.2 % Normal 40.0-52.0 [facility] Comment on above: Performed By: #### C VFLURV #### [place] [address] Hgb 15.3 G/dL Normal 13.0-17.5 [facility] Comment on above: Performed By: #### C VFLURV #### [place] [address] MCH (RBC) [Entitic mass] 31.4 pg Normal 27.0-33.0 [facility] Comment on above: Performed By: #### C VFLURV #### [place] [address] MCHC 35.5 G/dL Normal 32.0-36.0 [facility] Comment on above: Performed By: #### C VFLURV #### [place] [address] MCV (RBC) [Entitic vol] 88.6 fL Normal 81.0-100.0 [facility] Comment on above: Performed By: #### C VFLURV #### [place] [address] Platelet 221 10 3/mcL Normal 150-450 [facility] Comment on above: Performed By: #### C VFLURV #### [place] [address] Platelet mean volume (Bld) [Entitic vol] 7.4 fL Normal 6.4-10.5 [facility] Comment on above: Performed By: #### C VFLURV #### [place] [address] RBC 4.88 10 6/mcL Normal 4.50-6.00 [facility] Comment on above: Performed By: #### C VFLURV #### [place] [address] WBC 4.9 10 3/mcL Normal 4.5-10.8 [facility] Comment on above: Performed By: #### C VFLURV #### [place] [address] CKon 12-04-2023 CK [Catalytic activity/Vol] 72 U/L Normal 7-185 [facility] Comment on above: Performed By: #### D RUGU #### [place] [address] CMPon 12-04-2023 BUN/Creatinine Ratio Unable to Calculate Normal 10.0-[address] [facility] Comment on above: Result Comment: Unab le to calculate this test result accurately. Results used to calculate this test are outside the reportable range. Performed By: #### C VFLURV #### [address] [address] Urea nitrogen [Mass/Vol] mg/dL Low 8.0-22.0 [facility] Comment on above: Performed By: #### C VFLURV #### [place] [id number] Albumin Level 3.5 G/dL Normal 3.2-4.8 [facility] Comment on above: Performed By: #### C VFLURV #### [place] [id number] Albumin/Globulin [Mass ratio] 1.4 {ratio} Normal 0.9-1.6 [facility] Comment on above: Performed By: #### C VFLURV #### [place] [id number] ALP [Catalytic activity/Vol] 48 U/L Normal 38-126 [facility] Comment on above: Performed By: #### C VFLURV #### [place] [id number] ALT/SGPT <8 Low 12-55 [facility] Comment on above: Performed By: #### C VFLURV #### [place] [id number] AST [Catalytic activity/Vol] 13 U/L Normal 8-34 [facility] Comment on above: Performed By: #### C VFLURV #### [place] [id number] Bili Total 0.50 mg/dL Normal 0.20-1.20 [facility] Comment on above: Result Comment: Use of this assay is not recommended for patients undergoing treatment with eltrombopag due to the potential for falsely elevated results. Performed By: #### C VFLURV #### [place] [id number] Calcium [Mass/Vol] 9.0 mg/dL Normal 8.7-10.4 [facility] Comment on above: Performed By: #### C VFLURV #### [place] [id number] Chloride [Moles/Vol] 107 mmol/L Normal 98-110 [facility] Comment on above: Performed By: #### C VFLURV #### [address] [address] CO2 [Moles/Vol] 30 mmol/L Normal 22-32 [facility] Comment on above: Performed By: #### C VFLURV #### [address] [address] Creatinine [Mass/Vol] 0.82 mg/dL Normal 0.60-1.40 [facility] Comment on above: Result Comment: Test ing performed on Privy analyzer using enzymatic creatinine methodology. Performed By: #### C VFLURV #### [address] [address] Electrolyte Balance 4.0 mEq/L Normal 4.0-15.0 [facility] Comment on above: Performed By: #### C VFLURV #### [address] [address] Globulin 2.5 G/dL Normal 1.5-3.8 [facility] Comment on above: Performed By: #### C VFLURV #### [address] [address] Glucose [Mass/Vol] 101 mg/dL Normal 70-110 [facility] Comment on above: Performed By: #### C VFLURV #### [address] [address] Potassium [Moles/Vol] 3.1 mmol/L Low 3.5-5.0 [facility] Comment on above: Performed By: #### C VFLURV #### [address] [address] Sodium [Moles/Vol] 141 mmol/L Normal 136-145 [facility] Comment on above: Performed By: #### C VFLURV #### [address] [address] Total Protein 6.0 G/dL Normal 5.7-8.2 [facility] Comment on above: Result Comment: No te - New Reference Range in effect 19 Performed By: #### C VFLURV #### [place] [address] CVFLURVon 12-04-2023 FLU A PCR Negative Normal Negative [facility] Comment on above: Result Comment: Note s Performed By: #### C VFLURV #### [place] [address] FLU B PCR Negative Normal Negative [facility] Comment on above: Result Comment: Note s Performed By: #### C VFLURV #### [place] [address] RSV PCR Negative Normal Negative [facility] Comment on above: Result Comment: Note s Performed By: #### C VFLURV #### [place] [address] SARS-CoV-2 (COVID-19) RNA DERICK+probe Ql (Unsp spec) Negative Normal Negative [facility] Comment on above: Result Comment: Note [...] results. Performed By: #### C VFLURV #### [place] [address] FLU A PCR Negative Normal Negative [facility] Comment on above: Result Comment: [place] [id number] Performed By: #### C VFLURV #### [place] [address] FLU B PCR Negative Normal Negative [facility] Comment on above: Result Comment: [place] [id number] Performed By: #### C VFLURV #### [facility] [address] [place], [place] [id number] RSV PCR Negative Normal Negative [facility] Comment on above: Result Comment: [place] [id number] Performed By: #### C VFLURV #### [place] [address] SARS-CoV-2 (COVID-19) RNA DERICK+probe Ql (Unsp spec) Negative Normal Negative [facility] MA[facility] Comment on above: Result Comment: Note s [id number] This test has been authorized by FDA [...] results. Performed By: #### C VFLURV #### [place] [address] DRUGSon 12-04-2023 Acetaminophen [Mass/Vol] ug/mL Low 10.0-20.0 [facility] Comment on above: Performed By: #### C VFLURV #### [place] [address] Ethanol Level <10.0 [facility] MAIN Comment on above: Performed By: #### C VFLURV #### [place] [address] Salicylate Lvl (ds) <3.0 Low 10.0-25.0 [facility] MAIN Comment on above: Performed By: #### C VFLURV #### [place] [address] Serum Drugs screened: See Below Normal [facility] MAIN Comment on above: Result Comment: This drug screen is a presumptive screening only. No confirmation will be performed unless requested. Drugs included in the serum drug screen are: Threshold Ethanol 10.0 mg/dL Salicylate 2.0 mg/dl Acetaminophen 2.0 mcg/mL Testing has been performed FOR MEDICAL PURPOSES ONLY. Performed By: #### C VFLURV #### [place] [address] DRUGUon 12-04-2023 Cannabinoid (u) Positive Abnormal Negative [facility] Comment on above: Performed By: #### Molly RUGU #### [place] [address] Amphetamine (u) Negative Normal Negative [facility] Comment on above: Performed By: #### Molly RUGU #### [place] [address] Barbiturate (u) Negative Normal Negative [facility] Comment on above: Performed By: #### Molly RUGU #### [place] [address] Benzodiazepine (u) Negative Normal Negative [facility] MAIN Comment on above: Performed By: #### Molly RUGU #### [place] [id number] Cocaine Ql (U) Negative Normal Negative [facility] Comment on above: Performed By: #### Molly RUGU #### [place] [id number] Fentanyl (u) Negative Normal Negative [facility] Comment on above: Result Comment: Test ing has been performed FOR MEDICAL PURPOSES ONLY. Performed By: #### Molly RUGU #### [address] [address] Methadone Ql (U) Negative Normal Negative [facility] Comment on above: Performed By: #### D RUGU #### [address] [address] Opiate (u) Negative Normal Negative [facility] Comment on above: Performed By: #### D RUGU #### [address] [address] Oxycodone (u) Negative Normal Negative [facility] Comment on above: Result Comment: Test ing has been performed FOR MEDICAL PURPOSES ONLY. Performed By: #### D RUGU #### [place] [id number] PCP (u) Negative Normal Negative [facility] Comment on above: Performed By: #### D RUGU #### [place] [id number] Propoxyphene (u) Negative Normal Negative [facility] Comment on above: Performed By: #### D RUGU #### [place] [id number] U pH Drug Scrn 7.0 Normal 5.0-8.0 [facility] Comment on above: Performed By: #### D RUGU #### [place] [address] Urine Drugs screened: See Below Normal [facility] MAIN Comment on above: Result Comment: This [...] MEDICAL PURPOSES ONLY. Performed By: #### D RUGU #### [place] [address] LABORATORYOrdered By: Viviana Canales on 12-04-2023 FLUAV [...] ng/L Male: 0-54 ng/L Testing performed on [employer] IM analyzer using direct chemiluminescent technology. Albumin BCP dye [Mass/Vol] 3.5 G/dL Normal 3.2 - 4.8 G/dL ADM SS Albumin/Globulin [Mass ratio] 1.4 {ratio} Normal 0.9 - 1.6 ratio AH ADM SS ALP [Catalytic activity/Vol] 48 U/L [...] Chloride [Moles/Vol] 107 mmol/L Normal 98 - 11 0 mEq/L ADM SS CO2 [Moles/Vol] 30 mmol/L Normal 22 - 32 mEq/L ADM SS Creatinine [Mass/Vol] 0.82 mg/dL Normal 0.60 - 1.40 mg/dL ADM SS Comment on above: Interpretive Data: T esting performed on [employer] CH analyzer using enzymatic creatinine methodology. Electrolyte Balance 4.0 mEq/L Normal 4.0 - 15 .0 mEq/L AH ADM SS Eosinophils (Bld) [#/Vol] 0.1 103/mcL Normal 0.0 - 0.7 10^3/mcL Workflow SS Eosinophils/100 WBC (Bld) 2.1 % Normal 0.0 - 6.0 % Workflow SS Erythrocyte distribution width (RBC) [Ratio] 13.1 % Normal 11.5 - 15.5 % Workflow SS GFR/1.73 sq M.predicted among blacks MDRD (S/P/Bld) [Vol rate/Area] ml/min/1.73sqm Invalid Interpretation Code [facility] Comment on above: Interpretive Data: GFR [...] (S/P/Bld) [Vol rate/Area] ml/min/1.73sqm Invalid Interpretation Code [facility] Comment on above: Interpretive Data: GFR [...] 43.2 % Normal 40.0 - 52.0 % Workflow SS Hemoglobin (Bld) [Mass/Vol] 15.3 G/dL Normal 13.0 - 17.5 G/dL Workflow SS Lymphocytes (Bld) [#/Vol] 1.0 103/mcL Normal 0.9 - 4.3 10^3/mcL AH Workflow SS Lymphocytes/100 WBC (Bld) 20.2 % Normal 20.0 - 40.0 % AH Workflow SS MCH (RBC) [Entitic mass] 31.4 pg Normal 27.0 - 33.0 pg AH Workflow SS MCHC 35.5 G/dL Normal 32.0 - 36.0 G/dL AH Workflow SS MCV (RBC) [Entitic vol] 88.6 fL Normal 81.0 - 100.0 fL AH Workflow SS Monocyte distribution width Auto (Bld) [Entitic vol] 16.52 1 Normal 0.00 - 20.00 AH Workflow [...] 70.0 % Normal 50.0 - 75.0 % AH Workflow SS [...] ng/L Male: 0-54 ng/L Testing performed on [employer] IM analyzer using direct chemiluminescent technology. WBC [...] (U) 7.0 [pH] Normal 5.0 - 8.0 Chemistry S Phencyclidine Ql (U) Negative *NA* [...] [Mass/Vol] mg/dL Low 8.0 - 22.0 mg/dL AH ADM SS Urea nitrogen/Creatinine [Mass ratio] Unable [...] Comment on above: Result Comment: [place] [id number] FLUBV RNA DERICK+probe Ql (Resp) Negative 19 (12/04/23 11:29 AM) Normal Negative AH Auto Viro/Sero SS Comment on above: Result Comment: Note s [id number] RSV PCR Negative 21 (12/04/23 11:29 AM) Normal Negative AH Auto Viro/Sero SS Comment on above: Result Comment: Note s [id number] SARS-CoV-2 (COVID-19) RNA DERICK+probe Ql (Resp) Negative 14, 15 (12/04/23 11:29 AM) Normal Negative AH Auto Viro/Sero SS Comment on above: Result Comment: Note s [id number] Interpretive Data: T his test has been [...] influenza vaccines may cause inaccurate positive results. [facility] 12-04-2023 High Sensitivity Troponin I <3 Normal 0-54 [facility] Comment on above: Result Comment: High Sensitive Troponin I Reference Ranges: Female: 0-34 ng/L Male: 0-54 ng/L Testing performed on [employer] IM analyzer using direct chemiluminescent technology. Performed By: #### D RUGU #### [place] [address] High Sensitivity Troponin I <3 Normal 0-54 [facility] Comment on above: Result Comment: High Sensitive Troponin I Reference Ranges: Female: 0-34 ng/L Male: 0-54 ng/L Testing performed on [employer] IM analyzer using direct chemiluminescent technology. Performed By: #### C VFLURV #### [place] [address] .Auto Diffon 11-29-2023 Basophil, Absolute 0.0 10 3/mcL Normal 0.0-0.3 [facility] MAIN Comment on above: Performed By: #### T ROPHS, GFR, BMP, MDW, CBC, ADIFF, ANEU #### [address] [address] Basophils/100 WBC (Bld) 0.3 % Normal 0.0-2.5 [facility] MAIN Comment on above: Performed By: #### T ROPHS, GFR, BMP, MDW, CBC, ADIFF, ANEU #### [address] [address] Eosinophil, Absolute 0.0 10 3/mcL Normal 0.0-0.7 [facility] MAIN Comment on above: Performed By: #### T ROPHS, GFR, BMP, MDW, CBC, ADIFF, ANEU #### [address] [address] Eosinophils/100 WBC (Bld) 0.1 % Normal 0.0-6.0 [facility] Comment on above: Performed By: #### T ROPHS, GFR, BMP, MDW, CBC, ADIFF, ANEU #### [address] [address] Lymphocyte, Absolute 1.0 10 3/mcL Normal 0.9-4.3 [facility] MAIN Comment on above: Performed By: #### T ROPHS, GFR, BMP, MDW, CBC, ADIFF, ANEU #### [address] [address] Lymphocytes/100 WBC (Bld) 14.5 % Low 20.0-40.0 [facility] Comment on above: Performed By: #### T ROPHS, GFR, BMP, MDW, CBC, ADIFF, ANEU #### [address] [address] Monocyte, Absolute 0.4 10 3/mcL Normal 0.1-1.4 [facility] MA[facility] Comment on above: Performed By: #### T ROPHS, GFR, BMP, MDW, CBC, ADIFF, ANEU #### [address] [address] Monocytes/100 WBC (Bld) 5.5 % Normal 2.0-13.0 [facility] MAIN Comment on above: Performed By: #### T JOVAN, GFR, BMP, MDW, CBC, ADIFF, ANEU #### [address] [address] Neutrophils/100 WBC (Bld) 79.6 % High 50.0-75.0 [facility] Comment on above: Performed By: #### T JOVAN, GFR, BMP, MDW, CBC, ADIFF, ANEU #### [address] [address] .GFRon 11-29-2023 GFR Non- >60 [facility] MAIN Comment on above: Result Comment: GFR [...] mL/min/1.73 square meters Performed By: #### T JOVAN, GFR, BMP, MDW, CBC, ADIFF, ANEU #### [address] [address] GFR >60 Normal [facility] MAIN Comment on above: Result Comment: GFR [...] GFR, BMP, MDW, CBC, ADIFF, ANEU #### [address] [address] .MDWon 11-29-2023 Monocyte Distribution Width 16.65 Normal 0.00-20.00 [facility] Comment on above: Result Comment: For ED adult patients suspected of sepsis, MDW<=20.0 does not rule out sepsis or risk of sepsis Performed By: #### C VFLURV #### [address] [address] .NEUABSon 11-29-2023 Neutrophil, Absolute 5.4 10 3/mcL Normal 2.3-8.1 [facility] MAIN Comment on above: Performed By: #### T MALLORYHS, GFR, BMP, MDW, CBC, ADIFF, ANEU #### [place] [address] BMPon 11-29-2023 BUN/Creatinine Ratio Unable to Calculate Normal 10.0-[address] [facility] Comment on above: Result Comment: Unab le to calculate this test result accurately. Results used to calculate this test are outside the reportable range. Performed By: #### T JOVAN, GFR, BMP, MDW, CBC, ADIFF, ANEU #### [place] [id number] Urea nitrogen [Mass/Vol] mg/dL Low 8.0-22.0 [facility] Comment on above: Performed By: #### T JOVAN, GFR, BMP, MDW, CBC, ADIFF, ANEU #### [address] [address] Calcium [Mass/Vol] 9.6 mg/dL Normal 8.7-10.4 [facility] MAIN Comment on above: Performed By: #### T ROPTOMASZ, GFR, BMP, MDW, CBC, ADIFF, ANEU #### [place] [id number] Chloride [Moles/Vol] 108 mmol/L Normal 98-110 [facility] MAIN Comment on above: Performed By: #### T ROPHS, GFR, BMP, MDW, CBC, ADIFF, ANEU #### [address] [address] CO2 [Moles/Vol] 26 mmol/L Normal 22-32 [facility] Comment on above: Performed By: #### T JOVAN, GFR, BMP, MDW, CBC, ADIFF, ANEU #### [address] [address] Creatinine [Mass/Vol] 0.71 mg/dL Normal 0.60-1.40 [facility] MAIN Comment on above: Result Comment: Test ing performed on [employer] analyzer using enzymatic creatinine methodology. Performed By: #### T JOVAN, GFR, BMP, MDW, CBC, ADIFF, ANEU #### [address] [address] Electrolyte Balance 6.0 mEq/L Normal 4.0-15.0 [facility] MAIN Comment on above: Performed By: #### T JOVAN, GFR, BMP, MDW, CBC, ADIFF, ANEU #### [address] [address] Glucose [Mass/Vol] 115 mg/dL High 70-110 [facility] MAIN Comment on above: Performed By: #### T JOVAN, GFR, BMP, MDW, CBC, ADIFF, ANEU #### [address] [address] Potassium [Moles/Vol] 2.8 mmol/L Low 3.5-5.0 [facility] MAIN Comment on above: Performed By: #### T JOVAN, GFR, BMP, MDW, CBC, ADIFF, ANEU #### [address] [address] Sodium [Moles/Vol] 140 mmol/L Normal 136-145 [facility] MAIN Comment on above: Performed By: #### T JOVAN, GFR, BMP, MDW, CBC, ADIFF, ANEU #### [address] [address] CBCon 11-29-2023 Erythrocyte distribution width (RBC) [Ratio] 13.0 % Normal 11.5-15.5 [facility] Comment on above: Performed By: #### T ROPHS, GFR, BMP, MDW, CBC, ADIFF, ANEU #### [place] [address] Hematocrit (Bld) [Volume fraction] 44.3 % Normal 40.0-52.0 [facility] Comment on above: Performed By: #### T ROPHS, GFR, BMP, MDW, CBC, ADIFF, ANEU #### [place] [address] Hgb 16.0 G/dL Normal 13.0-17.5 [facility] Comment on above: Performed By: #### T ROPHS, GFR, BMP, MDW, CBC, ADIFF, ANEU #### [place] [address] MCH (RBC) [Entitic mass] 31.4 pg Normal 27.0-33.0 [facility] Comment on above: Performed By: #### T JOVAN, GFR, BMP, MDW, CBC, ADIFF, ANEU #### [place] [address] MCHC 36.1 G/dL High 32.0-36.0 [facility] Comment on above: Performed By: #### T ROPTOMASZ, GFR, BMP, MDW, CBC, ADIFF, ANEU #### [place] [id number] MCV (RBC) [Entitic vol] 87.0 fL Normal 81.0-100.0 [facility] MAIN Comment on above: Performed By: #### T ROPHS, GFR, BMP, MDW, CBC, ADIFF, ANEU #### [place] [id number] Platelet 239 10 3/mcL Normal 150-450 [facility] Comment on above: Performed By: #### T ROPHS, GFR, BMP, MDW, CBC, ADIFF, ANEU #### [place] [id number] Platelet mean volume (Bld) [Entitic vol] 7.3 fL Normal 6.4-10.5 [facility] Comment on above: Performed By: #### T MALLORYHS, GFR, BMP, MDW, CBC, ADIFF, ANEU #### [place] [address] RBC 5.09 10 6/mcL Normal 4.50-6.00 [facility] Comment on above: Performed By: #### T JOVAN, GFR, BMP, MDW, CBC, ADIFF, ANEU #### [place] [id number] WBC 6.8 10 3/mcL Normal 4.5-10.8 [facility] Comment on above: Performed By: #### T JOVAN, GFR, BMP, MDW, CBC, ADIFF, ANEU #### [place] [address] LABORATORYOrdered By: SYSTEM SYSTEM on 11-29-2023 Troponin I.cardiac DL <= 0.01 ng/mL [Mass/Vol] 6 ng/L Normal 0 - 54 ng/L ADM SS Comment on above: Interpretive Data: High Sensitive Troponin I Reference Ranges: Female: 0-34 ng/L Male: 0-54 ng/L Testing performed on [employer] IM analyzer using direct chemiluminescent technology. Basophils (Bld) [#/Vol] 0.0 103/mcL Normal 0.0 - 0.3 10^3/mcL AH Workflow SS Basophils/100 WBC (Bld) 0.3 % Normal 0.0 - 2.5 % AH Workflow SS Calcium [Mass/Vol] 9.6 mg/dL Normal 8.7 - 10. 4 mg/dL ADM SS Chloride [Moles/Vol] 108 mmol/L Normal 98 - 11 0 mEq/L ADM SS CO2 [Moles/Vol] 26 mmol/L Normal 22 - 32 mEq/L ADM SS Creatinine [Mass/Vol] 0.71 mg/dL Normal 0.60 - 1.40 mg/dL ADM SS Comment on above: Interpretive Data: T esting performed on [employer] CH analyzer using enzymatic creatinine methodology. Electrolyte Balance 6.0 mEq/L Normal 4.0 - 15 .0 mEq/L ADM SS Eosinophils (Bld) [#/Vol] 0.0 103/mcL Normal 0.0 - 0.7 10^3/mcL AH Workflow SS Eosinophils/100 WBC (Bld) 0.1 % Normal 0.0 - 6.0 % Workflow Erythrocyte distribution width (RBC) [Ratio] 13.0 % Normal 11.5 - 15.5 % Workflow GFR/1.73 sq M.predicted among blacks MDRD (S/P/Bld) [Vol rate/Area] ml/min/1.73sqm Invalid Interpretation Code [facility] Comment on above: Interpretive Data: GFR [...] (S/P/Bld) [Vol rate/Area] ml/min/1.73sqm Invalid Interpretation Code [facility] Comment on above: Interpretive Data: GFR [...] 115 mg/dL High 70 - 110 mg/dL [facility] Hematocrit (Bld) [Volume fraction] 44.3 % Normal 40.0 - 52.0 % Workflow Hemoglobin (Bld) [Mass/Vol] 16.0 G/dL Normal 13.0 [...] 0 10^6/mcL AH Workflow SS Sodium [Moles/Vol] 140 mmol/L Normal 136 - 145 mEq/L AH ADM SS Troponin I.cardiac DL <= 0.01 ng/mL [Mass/Vol] 4 ng/L Normal 0 - 54 ng/L AH [...] this test are outside the reportable range. TROPHSon 11-29-2023 High Sensitivity Troponin I 6 ng/L Normal 0-54 [facility] Comment on above: Result Comment: High Sensitive Troponin I Reference Ranges: Female: 0-34 ng/L Male: 0-54 ng/L Testing performed on [employer] IM analyzer using direct chemiluminescent technology. Performed By: #### C VFLURV #### [place] [address] High Sensitivity Troponin I 4 ng/L Normal 0-54 [facility] Comment on above: Result Comment: High Sensitive Troponin I Reference Ranges: Female: 0-34 ng/L Male: 0-54 ng/L Testing performed on [employer] IM analyzer using direct chemiluminescent technology. Performed By: #### T ROPHS, GFR, BMP, MDW, CBC, ADIFF, ANEU #### [place] [address] XR CHEST 1 VIEWon 11-29-2023 XR CHEST [...] 11/29/2023 9:48:41 AM Ordering Provider: SAVI GARCIA [facility] 08-19-2023 [facility] Office Visit ([facility]) IMMANUEL NEUMANN ([id number]) 1995 M Date Time Provider Department 08/19/23 11:10 AM [facility] During your visit today, we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 imen slightly hemolyzed. Performed By: #### P RO, BMP, GFR, ANEU, MDW, CBC, ADIFF, TROPHS #### [place] [address] Sodium [Moles/Vol] 141 mmol/L Normal 136-145 [facility] ([place]) Comment on above: Performed By: #### P RO, BMP, GFR, ANEU, MDW, CBC, ADIFF, TROPHS #### [place] [id number] Urea nitrogen [Mass/Vol] 7.0 mg/dL Low 8.0-22.0 [facility] ([place] Comment on above: Performed By: #### P RO, BMP, GFR, ANEU, MDW, CBC, ADIFF, TROPHS #### [address] [address] CBCon 05-18-2023 Erythrocyte distribution width (RBC) [Ratio] 12.7 % Normal 11.5-15.5 [facility] ([place] Comment on above: Performed By: #### P RO, BMP, GFR, ANEU, MDW, CBC, ADIFF, TROPHS #### [place] [id number] Hematocrit (Bld) [Volume fraction] 46.4 % Normal 40.0-52.0 [facility] ([place] Comment on above: Performed By: #### P RO, BMP, GFR, ANEU, MDW, CBC, ADIFF, TROPHS #### [place] [id number] Hgb 15.9 G/dL Normal 13.0-17.5 [facility] ([place] Comment on above: Performed By: #### P RO, BMP, GFR, ANEU, MDW, CBC, ADIFF, TROPHS #### [place] [address] MCH (RBC) [Entitic mass] 29.8 pg Normal 27.0-33.0 [facility] [place] ([place] Comment on above: Performed By: #### P RO, BMP, GFR, ANEU, MDW, CBC, ADIFF, TROPHS #### [place] [id number] MCHC 34.2 G/dL Normal 32.0-36.0 [facility] [place] ([place] Comment on above: Performed By: #### P RO, BMP, GFR, ANEU, MDW, CBC, ADIFF, TROPHS #### [place] [id number] MCV (RBC) [Entitic vol] 87.1 fL Normal 81.0-100.0 [facility] [facility] ([place]) Comment on above: Performed By: #### P RO, BMP, GFR, ANEU, MDW, CBC, ADIFF, TROPHS #### [place] [id number] Platelet 242 10 3/mcL Normal 150-450 [facility] ([place]) Comment on above: Performed By: #### P RO, BMP, GFR, ANEU, MDW, CBC, ADIFF, TROPHS #### [place] [id number] Platelet mean volume (Bld) [Entitic vol] 8.0 fL Normal 6.4-10.5 [facility] ([place] Comment on above: Performed By: #### P RO, BMP, GFR, ANEU, MDW, CBC, ADIFF, TROPHS #### [place] [address] RBC 5.32 10 6/mcL Normal 4.50-6.00 [facility] ([place] Comment on above: Performed By: #### P RO, BMP, GFR, ANEU, MDW, CBC, ADIFF, TROPHS #### [place] [address] WBC 13.0 10 3/mcL High 4.5-10.8 [facility] [place] Comment on above: Performed By: #### P RO, BMP, GFR, ANEU, MDW, CBC, ADIFF, TROPHS #### [place] [address] DRUGSon 05-18-2023 Acetaminophen [Mass/Vol] ug/mL Low 10.0-20.0 [facility] [place] Comment on above: Performed By: #### P RO, BMP, GFR, ANEU, MDW, CBC, ADIFF, TROPHS #### [place] [address] Ethanol Level <10.0 Normal [facility] ([place] Comment on above: Performed By: #### P RO, BMP, GFR, ANEU, MDW, CBC, ADIFF, TROPHS #### [place] [address] Salicylate Lvl (ds) <3.0 Low 10.0-25.0 [facility] ([place]) Comment on above: Performed By: #### P RO, BMP, GFR, ANEU, MDW, CBC, ADIFF, TROPHS #### [place] [address] Serum Drugs screened: See Below Normal [facility] ([place]) Comment on above: Result Comment: This drug screen is a presumptive screening only. No confirmation will be performed unless requested. Drugs included in the ER serum drug screen are: Threshold Ethanol 10.0 mg/dL Salicylate 2.0 mg/dl Acetaminophen 2.0 mcg/mL Testing has been performed FOR MEDICAL PURPOSES ONLY. Performed By: #### P RO, BMP, GFR, ANEU, MDW, CBC, ADIFF, TROPHS #### [facility] [address] [place] [address] LABORATORYOrdered By: Griselda Ryan on 05-18-2023 Acetaminophen [Mass/Vol] mcg/mL Low 10.0 - 20.0 mcg/mL ADM SS Ethanol [Mass/Vol] mg/dL Invalid Interpretation Code ADM SS Salicylates [Mass/Vol] mg/dL Low 10.0 - 25.0 mg/dL ADM SS Serum Drugs screened: See Below 7 (05/18/23 10:34 AM) Normal Chemistry S Comment on above: [...] s Normal 25.0 - 35.0 seconds [facility] Comment on above: Interpretive Data: F or Heparin anticoagulation therapy, the recommended therapeutic range is: 54-77 seconds (APTT Correlation with Anti-Xa therapeutic range of 0.3-0.7 units/ml). PLEASE REFERENCE THE PHARMACY PROTOCOL FOR DOSING. Heparin dose (APTT) None Normal Coagulation S PT Coag (PPP) [Time] 12.3 s Normal 9.0 - 1 4.2 seconds [facility] Comment on above: Interpretive Data: E ffective 09/29/07, Protime results may be affected by some antibiotics (i.e. Ciprofloxacin, Azithromycin, Bactrim) which may potentiate the action of oral anticoagulants, with further increases in Protime/INR. PT International Ratio 1.1 ratio Invalid Interpretation Code [facility] SS Comment on above: Interpretive Data: T owen [employer] [place] [employer] (CHEST, 1992, 102:312S-25S) recommended therapeutic range for oral anticoagulant therapy is: LOW RISK: Prophylaxis of venous thrombosis INR: 2.0-3.0 Treatment of pulmonary embolism 2.0-3.0 Prevention of systemic embolism 2.0-3.0 HIGH RISK: Mechanical prosthetic valves 2.5-3.5 LABORATORYOrdered By: SYSTEM SYSTEM on 05-18-2023 Basophils (Bld) [#/Vol] 0.0 103/mcL Normal 0.0 - 0.3 10^3/mcL Workflow SS Basophils/100 WBC (Bld) 0.2 % Normal 0.0 - 2.5 % AH Workflow SS Calcium [Mass/Vol] 10.1 mg/dL Normal 8.7 - 10. 4 mg/dL ADM SS Chloride [Moles/Vol] 109 mmol/L Normal 98 - 11 0 mEq/L ADM SS CO2 [Moles/Vol] 24 mmol/L Normal 22 - 32 mEq/L ADM SS Creatinine [Mass/Vol] 0.72 mg/dL Normal 0.60 - 1.40 mg/dL ADM SS Electrolyte Balance 8.0 mEq/L Normal 4.0 - 15 .0 mEq/L ADM SS Eosinophils (Bld) [#/Vol] 0.0 103/mcL Normal 0.0 - 0.7 10^3/mcL Workflow SS Eosinophils/100 WBC (Bld) 0.1 % Normal 0.0 - 6.0 % Workflow SS Erythrocyte distribution width (RBC) [Ratio] 12.7 % Normal 11.5 - 15.5 % Workflow [...] Coag (PPP) [Relative time] 1.1 {INR} Normal [facility] ([place]) Comment on above: Result Comment: [employer] [place] [employer] (CHEST, 1991, 102:312S-25S) recommended therapeutic range for oral anticoagulant therapy is: LOW RISK: Prophylaxis of venous thrombosis INR: 2.0-3.0 Treatment of pulmonary embolism 2.0-3.0 Prevention of systemic embolism 2.0-3.0 HIGH RISK: Mechanical prosthetic valves 2.5-3.5 Performed By: #### P RO, BMP, GFR, ANEU, MDW, CBC, ANGIE, TROPHChon #### [place] [address] PT Coag (PPP) [Time] 12.3 s Normal 9.0-14.2 [facility] ([place]) Comment on above: Result Comment: Effe ctive 09/29/07, Protime results may be affected by some antibiotics (i.e. Ciprofloxacin, Azithromycin, Bactrim) which may potentiate the action of oral anticoagulants, with further increases in Protime/INR. Performed By: #### P RO, BMP, GFR, JAMIE, MDW, CBC, ADIFF, TROPHS #### [address] [address] TROPHSon 05-18-2023 Troponin I High Sensitivity 7.00 ng/L Normal 0.00-54.00 [facility] ([place]) Comment on above: Performed By: #### P RO, BMP, GFR, JAMIE, MDW, CBC, ADIFF, TROPHS #### [place] [address] XR CHEST 1 VIEWon 05-18-2023 XR CHEST [...] 05/18/2023 10:23:55 AM Ordering Provider: SAEID Paulson [facility] ([place]) CVFLURVon 03-03-2023 FLU A PCR Negative Normal Negative [facility] ([place]) Comment on above: Result Comment: Note s Performed By: #### P RO, BMP, GFR, MD JAMIEW, CBC, ADIFF, TROPHS #### [place] [address] FLU B PCR Negative Normal Negative [facility] ([place]) Comment on above: Result Comment: Note s Performed By: #### P RO, BMP, GFR, JAMIE, MDW, CBC, ADIFF, TROPHS #### [place] [id number] [place] [address] RSV PCR Negative Normal Negative [facility] ([place]) Comment on above: Result Comment: Note s Performed By: #### P KAMILA ACUNA, JAMIE CONNELL MDW, CBC, ADIFF, TROPHS #### [place] [address] [place] [address] SARS-CoV-2 (COVID-19) RNA DERICK+probe Ql (Unsp spec) Negative Normal Negative [facility] ([place]) Comment on above: Result Comment: Note s [id number] This test has been authorized by FDA [...] inaccurate positive results. Performed By: #### P KAMILA ACUNA, BECKI, BRYON AYALA, CBC, ADSELVIN, TROPHS #### [address] [address] LABORATORYOrdered By: Calista Villagomez on 03-03-2023 FLUAV RNA DERICK+probe Ql (Resp) Negative 3 (03/03/23 11:01 AM) Normal Negative [facility] SS Comment on above: Result Comment: Note s FLUBV RNA DERICK+probe Ql (Resp) Negative 4 (03/03/23 11:01 AM) Normal Negative [facility] SS Comment on above: Result Comment: [place] [id number] RSV PCR Negative 5 (03/03/23 11:01 AM) Normal Negative [facility] SS Comment on above: Result Comment: Note s [address] SARS-CoV-2 (COVID-19) RNA DERICK+probe Ql (Resp) Negative 1, 2 (03/03/23 11:01 AM) Normal Negative [facility] SS Comment on above: Result Comment: Note s [id number] Interpretive Data: T his test has been [...] 03/03/2023 10:52:21 AM Ordering Provider: BRUNILDA ALLEN [facility] ([place]) ED PROV NOTEon 11-08-2022 ED PROV NOTE HNO ID: [id number] Author: Jason Guzman Service: ? Author Type: Physician Type: ED Provider Notes Filed: 11/08/2022 7:49 AM Note Text: [place] [address] [facility] INFORMATION MANAGEMENT EMERGENCY DEPARTMENT REPORT Patient: IMMANUEL NEUMANN JASON GUZMAN D.O. [id number] [age] M Status: DEP ER ED [...] note for final disposition. Report#: Dict ID [id number] / Int ID [id number] 11/08/22 0746 _ JASON GUZMAN D.O. cc: JASON GUZMAN D.O.; No Physician << Signature on File>> Reported By: JASON GUZMAN D.O. Signed By: JASON GUZMAN D.O. Tests performed at: [address] [address] [facility] ED PROV NOTE HNO ID: [id number] Author: Jason Guzman Service: ? Author Type: Physician Type: ED Provider Notes Filed: 11/08/2022 7:49 AM Note Text: [place] [address] HEALTH INFORMATION MANAGEMENT EMERGENCY DEPARTMENT REPORT Patient: IMMANUEL NEUMANN JASON GUZMAN D.O. [id number] [age] M Status: DEP ER ED [...] that he can be evaluated by the psychiatric aides teacher. Differential diagnosis would include, but not limited to acute liz, decompensated schizophrenia, amongst others. Addendum to follow. Report#: Dict ID [id number] / Int ID [id number] 11/08/22 0746 _ JASON GUZMAN D.O. cc: JASON GUZMAN D.O.; No Physician << Signature on File>> Reported By: JASON GUZMAN D.O. Signed By: JASON GUZMAN D.O. Tests performed at: [address] [address] [facility] EMERGENCY DEPARTMENT REPORTo n 11-08-2022 EMERGENCY [place] [address] [facility] INFORMATION MANAGEMENT EMERGENCY DEPARTMENT REPORT Patient: IMMANUEL NEUMANN JASON GUZMAN D.O. [id number] [age] M Status: [facility] ER ED Date of Service: 11/07/22 ADDENDUM: [...] note for final disposition. Report#: Dict ID [id number] / Int ID [id number] 11/08/22 0746 _ JASON GUZMAN D.O. cc: JASON GUZMAN D.O.; No Physician << Signature on File>> Reported By: JASON GUZMAN D.O. Signed By: JASON GUZMAN D.O. Tests performed at: [address] [address] [facility] [place]ERGENCY [place] [address] HEALTH INFORMATION MANAGEMENT EMERGENCY DEPARTMENT REPORT Patient: IMMANUEL NEUMANN JASON GUZMAN D.O. [id number] [age] M Status: [facility] ER ED Date of Service: 11/07/22 CHIEF [...] that he can be evaluated by the psychiatric aides teacher. Differential diagnosis would include, but not limited to acute liz, decompensated schizophrenia, amongst others. Addendum to follow. Report#: Dict ID [id number] / Int ID [id number] 11/08/22 0746 _ JASON GUZMAN D.O. cc: JASON GUZMAN D.O.; No Physician << Signature on File>> Reported By: JASON GUZMAN D.O. Signed By: GUZMAN,JASON G D.O. Tests performed at: [address] [address] [facility] [place]ERGENCY [place] [address] HEALTH INFORMATION MANAGEMENT EMERGENCY DEPARTMENT REPORT Patient: IMMANUEL NEUMANN JACIEL PERSAUD M.D. [id number] [age] M Status: DEP ER ED [...] family doctor as needed. Report#: Dict ID [id number] / Int ID [id number] 11/08/22 1333 _ JAICEL PERSAUD M.D. cc: JACIEL PERSAUD M.D.; No Physician << Signature on File>> Reported By: JACIEL PERSAUD M.D. Signed By: JACIEL PERSAUD M.D. Tests performed at: [address] [address] [facility] ACETAMINOPHENon 11-07-2022 Acetaminophen [Mass/Vol] ug/mL Low 10-30 [facility] Comment on above: Performed By: #### L 100.0700, L100.0530, L100.0690 #### [facility] [address] [place] [address] ALCOHOLon 11-07-2022 ALCOHOL < 0.00 Low 0-0.01 [facility] Comment on above: Performed By: #### L 100.0700, L100.0530, L100.0690 #### [facility] - LABORATORY [address] [place] [address] BMPon 11-07-2022 Anion gap [Moles/Vol] 15.4 mmol/L Normal 15-22 [facility] Comment on above: Performed By: #### L 100.0010, L100.0030 #### [facility] - LABORATORY [address] [place] [address] Calcium [Mass/Vol] 9.7 mg/dL Normal 8.6-10.0 [facility] Comment on above: Performed By: #### L 100.0010, L100.0030 #### ML [facility] [address] [place] [address]852 Chloride [Moles/Vol] 105 mmol/L Normal 98-107 [facility] Comment on above: Performed By: #### L 100.0010, L100.0030 #### ML [facility] [address] [place] [address]133 CO2 [Moles/Vol] 24 mmol/L Normal 22-29 [facility] Comment on above: Performed By: #### L 100.0010, L100.0030 #### [facility] [address] [place] [address] Creatinine [Mass/Vol] 0.83 mg/dL Normal 0.73-1.22 [facility] Comment on above: Performed By: #### L 100.0010, L100.0030 #### ML - LABORATORY [address] [place] [address]99 eGFR if AFR ELDA > 60 ml/min/1.73m2 Normal [facility] Comment on above: Result Comment: eGFR >= [...] L 100.0010, L100.0030 #### [facility] - LABORATORY [address] [place] [address] eGFR nonAFR Elda > 60 ml/Min/1.73m2 Normal [facility] Comment on above: Performed By: #### L 100.0010, L100.0030 #### ML - LABORATORY [address] [place] [address] Glucose [Mass/Vol] 114 mg/dL High 74-106 [facility] Comment on above: Performed By: #### L 100.0010, L100.0030 #### ML - LABORATORY [address] [place] [address] Potassium [Moles/Vol] 3.4 mmol/L Low 3.5-5.0 [facility] Comment on above: Performed By: #### L 100.0010, L100.0030 #### [facility] - [facility]ATORY [address] [place] [address]87 Sodium [Moles/Vol] 141 mmol/L Normal 135-145 [facility] Comment on above: Performed By: #### L 100.0010, L100.0030 #### ML - LABORATORY [address] [place] [address] Urea nitrogen [Mass/Vol] 4 mg/dL Low 6-20 [facility] Comment on above: Performed By: #### L 100.0010, L100.0030 #### ML - LABORATORY [address] [place] [address] CBCon 11-07-2022 BASO# 0.02 x10(3) Normal 0.00-0.10 [facility] Comment on above: Performed By: #### L 200.0010 #### ML - LABORATORY [address] [place] [address] Basophils/100 WBC (Bld) 0.3 % Normal 0.0-1.0 [facility] Comment on above: Performed By: #### L 200.0010 #### ML - LABORATORY [address] [place] [address] EOS# 0.03 x10(3) Normal 0.00-0.54 [facility] Comment on above: Performed By: #### L 200.0010 #### ML - LABORATORY [address] [place] [address] Eosinophils/100 WBC (Bld) 0.5 % Normal 0.5-4.9 [facility] Comment on above: Performed By: #### L 200.0010 #### ML - LABORATORY [address] [place] [address] Erythrocyte distribution width (RBC) [Ratio] 12.0 % Low 12.7-15.3 [facility] Comment on above: Performed By: #### L 200.0010 #### ML - LABORATORY [address] [place] [address] Hematocrit (Bld) [Volume fraction] 45.2 % Normal 42.0-51.0 [facility] Comment on above: Performed By: #### L 200.0010 #### ML - LABORATORY [address] [place] [address]20 Hemoglobin (Bld) [Mass/Vol] 15.8 g/dL Normal 14.0-17.2 [facility] Comment on above: Performed By: #### L 200.0010 #### ML - LABORATORY [address] [place] [address] IMM GRAN# 0.01 x10(3) High 0-0 [facility] Comment on above: Performed By: #### L 200.0010 #### ML - LABORATORY [address] [place] [address] IMM GRAN% 0.2 % Normal [facility] Comment on above: Performed By: #### L 200.0010 #### ML - LABORATORY [address] [place] [address] LYMPH# 1.77 x10(3) Normal 1.00-3.50 [facility] Comment on above: Performed By: #### L 200.0010 #### [facility] [address] [place] [address] Lymphocytes/100 WBC (Bld) 28.6 % Normal 16.0-48.0 [facility] Comment on above: Performed By: #### L 200.0010 #### ML [facility] [address] [place] [address]52 MCH (RBC) [Entitic mass] 29.5 pg Normal 28.8-32.2 [facility] Comment on above: Performed By: #### L 200.0010 #### [facility] [address] [place] [address] MCHC (RBC) [Mass/Vol] 35.0 g/dL Normal 33.0-36.0 [facility] Comment on above: Performed By: #### L 200.0010 #### ML [facility] [address] [place] [address]76 MCV (RBC) [Entitic vol] 84.5 fL Normal 80.0-94.0 [facility] Comment on above: Performed By: #### L 200.0010 #### [facility] [address] [place] [address] MONO# 0.42 x10(3) Normal 0.30-0.80 [facility] Comment on above: Performed By: #### L 200.0010 #### ML [facility] [address] [place] [address] Monocytes/100 WBC (Bld) 6.8 % Normal 4.3-11.2 [facility] Comment on above: Performed By: #### L 200.0010 #### [facility] [address] [place] [address]197 NEUT# 3.94 x10(3) Normal 1.40-6.50 [facility] Comment on above: Performed By: #### L 200.0010 #### [facility] [address] [place] [address]50 Neutrophils/100 WBC (Bld) 63.6 % Normal 45.0-73.0 [facility] Comment on above: Performed By: #### L 200.0010 #### [facility] [address] [place] [address]35 Platelet mean volume (Bld) [Entitic vol] 9.5 fL High 7.4-9.2 [facility] Comment on above: Performed By: #### L 200.0010 #### ML [facility] [address] [place] [address] 46817 PLT 241 X10(3) Normal 150-450 [facility] Comment on above: Performed By: #### L 200.0010 #### [facility] [address] [place] [address] 04804 RBC 5.35 x10(6) Normal 4.80-5.50 [facility] Comment on above: Performed By: #### L 200.0010 #### [facility] [address] [place] [address]2013 WBC 6.2 x10(3) Normal 4.5-10.0 [facility] Comment on above: Performed By: #### L 200.0010 #### [facility] [address] [place] [address]278 DRUG SCREENon 11-07-2022 AMPHETAMINE Negative Normal NEGATIVE [facility] Comment on above: Performed By: #### L 100.0700, L100.0530, L100.0690 #### [facility] [address] [place] [address] 28962 BARBITUATES Negative Normal NEGATIVE [facility] Comment on above: Performed By: #### L 100.0700, L100.0530, L100.0690 #### [facility] [address] [place] [address] 46298 BENZODIAZEPINE Negative Normal NEGATIVE [facility] Comment on above: Performed By: #### L 100.0700, L100.0530, L100.0690 #### [facility] [address] [place] [address] 89863 CANNABINOID Positive Invalid Interpretation Code NEGATIVE [facility] Comment on above: Result Comment: THIS RESULT IS OBTAINED BY A SCREENING METHOD. IF CONFIRMATION IS DESIRED, PLEASE CONTACT THE LAB AT EXT.[id number] WITHIN 7 DAYS AND ORDER A URINE CONFIRMATION TEST AN ADD-ON TEST. Performed By: #### L 100.0700, L100.0530, L100.0690 #### [facility] - LABORATORY [address] [place] [address] 88680 Cocaine Ql (U) Negative Normal NEGATIVE [facility] Comment on above: Performed By: #### L 100.0700, L100.0530, L100.0690 #### [facility] - [facility] [address] [place] [address] 11547 Opiates Ql (U) Negative Normal NEGATIVE [facility] Comment on above: Performed By: #### L 100.0700, L100.0530, L100.0690 #### - LABORATORY [address] [place] [address] 64691 OXYCODONE Negative Normal NEGATIVE [facility] Comment on above: Performed By: #### L 100.0700, L100.0530, L100.0690 #### [facility] - [facility]AT[facility] [address] [place] [address] 73192 Phencyclidine Ql (U) Negative Normal NEGATIVE [facility] Comment on above: Result Comment: COMM [...] 100.0700, L100.0530, L100.0690 #### ML - LABORATORY [address] [place] [address] 47710 HEPATIC PANELon 11-07-2022 A:G RATIO 1.87 Normal 1.1-2.5 [facility] Comment on above: Performed By: #### L 100.0010, L100.0030 #### ML - LABORATORY [address] [place] [address] 60110 Albumin [Mass/Vol] 4.5 g/dL Normal 3.5-5.2 [facility] Comment on above: Performed By: #### L 100.0010, L100.0030 #### [facility] - [facility]ATORY [address] [place] [address] 18225 ALK. PHOS 54 U/L Normal 40-130 [facility] Comment on above: Performed By: #### L 100.0010, L100.0030 #### ML - LAB[facility]ATORY [address] [place] [address] 37559 ALT [Catalytic activity/Vol] 20 U/L Normal 5-41 [facility] Comment on above: Performed By: #### L 100.0010, L100.0030 #### ML - LAB[facility]ATORY [address] [place] [address] 55395 AST [Catalytic activity/Vol] 21 U/L Normal 5-40 [facility] Comment on above: Performed By: #### L 100.0010, L100.0030 #### [facility] - LAB[facility]ATORY [address] [place] [address] 20683 Bilirubin [Mass/Vol] 0.6 mg/dL Normal 0.2-1.2 [facility] Comment on above: Performed By: #### L 100.0010, L100.0030 #### ML - LABORATORY [address] [place] [address] 63404 DIRECT BILIRUBI <0.2 Normal 0.0-0.3 [facility] Comment on above: Performed By: #### L 100.0010, L100.0030 #### [facility] - [facility] [address] [place] [address] 05796 Globulin (S) [Mass/Vol] 2.4 g/dL Normal 1.5-4.5 [facility] Comment on above: Performed By: #### L 100.0010, L100.0030 #### ML - [facility]ATORY [address] [place] [address] 72692 Protein [Mass/Vol] 6.9 g/dL Normal 6.4-8.3 [facility] Comment on above: Performed By: #### L 100.0010, L100.0030 #### [facility] [address] [place] [address] 36471 RAPID COVIDon 11-07-2022 SARS-CoV-2 (COVID-19) RNA DERICK+probe Ql (Unsp spec) Negative Normal NEGATIVE [facility] Comment on above: Result Comment: THIS TEST HAS BEEN AUTHORIZED BY FDA UNDER AN EMERGENCY USE AUTHORIZATION (EUA). NEGATIVE: NEGATIVE FOR COVID19 (SARS-CoV-2) BY PCR POSITIVE: POSITIVE FOR COVID19 (SARS-CoV-2) BY PCR PRESUMPTIVE POSITIVE: POSITIVE BY SINGLE [place] SARS-CoV TARGET. SARS-CoV-1 CANNOT BE EXCLUDED, BUT IS NOT CURRENTLY CIRCULATING IN [place]. Performed By: #### L 399.994 #### [facility] [address] [place] [address] 82627 SALICYLATEon 11-07-2022 SALICYLATE < 0.3 Normal 0-10 [facility] Comment on above: Performed By: #### L 100.0700, L100.0530, L100.0690 #### [facility] [address] [place] [address] 87296 URINALYSISon 11-07-2022 Bilirubin Ql (U) Negative Normal NEGATIVE [facility] Comment on above: Order Comment: Urine Specimen Source+ CATH Performed By: #### L 100.0700, L100.0530, L100.0690 #### [facility] [address] [place] [address] 94948 Color (U) YELLOW Normal YELLOW [facility] Comment on above: Order Comment: Urine Specimen Source+ CATH Performed By: #### L 100.0700, L100.0530, L100.0690 #### ML [facility] [address] [place] [address] 37702 Glucose Ql (U) Negative Normal NEGATIVE [facility] Comment on above: Order Comment: Urine Specimen Source+ CATH Performed By: #### L 100.0700, L100.0530, L100.0690 #### [facility] - [facility]AT[facility] [address] [place] [address] 13018 Hemoglobin Ql (U) Negative Normal NEGATIVE [facility] Comment on above: Order Comment: Urine Specimen Source+ CATH Performed By: #### L 100.0700, L100.0530, L100.0690 #### [facility] - [facility] [address] [place] [id number] Leukocyte esterase Test strip Ql (U) Negative Normal NEGATIVE [facility] Comment on above: Order Comment: Urine Specimen Source+ CATH Performed By: #### L 100.0700, L100.0530, L100.0690 #### ML - LABORATORY [address] [place] [address] Nitrite Ql (U) Negative Normal NEGATIVE [facility] Comment on above: Order Comment: Urine Specimen Source+ CATH Performed By: #### L 100.0700, L100.0530, L100.0690 #### [facility] - LABORATORY [address] [place] [address] pH (U) 7.5 [pH] Normal 5.0-8.0 [facility] Comment on above: Order Comment: Urine Specimen Source+ CATH Performed By: #### L 100.0700, L100.0530, L100.0690 #### ML - LABORATORY [address] [place] [address] Protein Ql (U) Negative Normal NEGATIVE [facility] Comment on above: Order Comment: Urine Specimen Source+ CATH Performed By: #### L 100.0700, L100.0530, L100.0690 #### ML - LABORATORY [address] [place] [address] URINE APPEARANC CLEAR Normal CLEAR [facility] Comment on above: Order Comment: Urine Specimen Source+ CATH Performed By: #### L 100.0700, L100.0530, L100.0690 #### ML - LABORATORY [address] [place] [address] URINE KETONE Negative Normal NEGATIVE [facility] Comment on above: Order Comment: Urine Specimen Source+ CATH Performed By: #### L 100.0700, L100.0530, L100.0690 #### ML - LABORATORY [address] [place] [address] URINE SPECIFIC 1.010 Normal 1.001-1.035 [facility] Comment on above: Order Comment: Urine Specimen Source+ CATH Performed By: #### L 100.0700, L100.0530, L100.0690 #### ML - LABORATORY [address] [place] [address] URINE UROBILINO 0.2 EU/DL Normal 0.2-1.0 [facility] Comment on above: Order Comment: Urine Specimen Source+ CATH Performed By: #### L 100.0700, L100.0530, L100.0690 #### ML - LABORATORY [address] [place] [address] Provider Note - ED v3on 11-2 Provider [...] medical d (more content not included)... Normal [facility] Triage - EDon 02-11-2022 Triage - ED [...] BMI (kg/m2): 16.533 Calculated BSA (m2) 1.78 [place] Coma Scale: Best Eye Response: (E4) spontaneous Best Motor Response: (M6) obeys commands Best Verbal Response: (V5) oriented Vienna Score: 15 Cough lasting greater than 3 [...] Updated: 11-Feb-2022 11:29 by Richard Florentino (EMT-P) Normal [facility] APTTon 02-10-2022 aPTT Coag (Bld) [Time] 30 s Normal 26 - 39 [facility] Comment on above: Result Comment: THE APTT IS NO LONGER USED FOR MONITORING UNFRACTIONATED HEPARIN THERAPY. FOR MONITORING HEPARIN THERAPY, USE THE HEPARIN ASSAY. Performed By: #### A PTT #### [facility] [address] [place] [address] CBC AND DIFFERENTIALon 02-10 % AUTOMATED IMMATURE GRAN 0.2 % Normal 0.0 - 0.9 [facility] Comment on above: Result Comment: Klaudia ture Granulocyte Count (IG) includes promyelocytes, myelocytes and metamyelocytes but does not include bands. Percent differential counts (%) should be interpreted in the context of the absolute cell counts (cells/L). Performed By: #### C BCDF #### [facility]NOTE 3] [address] [place] [address] Basophils (Bld) [#/Vol] 0.04 10*3/uL Normal 0.00 - 0.1 0 [facility] Comment on above: Performed By: #### C BCDF #### [facility][NOTE 3] [address] [place] [address] Basophils/100 WBC (Bld) 0.5 % Normal 0.0 - 2.0 [facility] Comment on above: Performed By: #### C BCDF #### [facility]NOTE 3] [address] [place] [address] Eosinophils (Bld) [#/Vol] 0.18 10*3/uL Normal 0.00 - 0.70 [facility] Comment on above: Performed By: #### C BCDF #### [facility]NOTE 3] [address] [place] [address] Eosinophils/100 WBC (Bld) 2.1 % Normal 0.0 - 6.0 [facility] Comment on above: Performed By: #### C BCDF #### [facility]NOTE 3] [address] [place] [address]329[address] Erythrocyte distribution width (RBC) [Ratio] 12.2 % Normal 11.5 - 14.5 [facility] Comment on above: Performed By: #### C BCDF #### [facility]NOTE 3] [address] [place] [address] Hematocrit (Bld) [Volume fraction] 46.6 % Normal 41.0 - 52.0 [facility] Comment on above: Performed By: #### C BCDF #### [facility]NOTE 3] [address] [place] [address] Hemoglobin (Bld) [Mass/Vol] 15.8 g/dL Normal 13.5 - 17.5 [facility] Comment on above: Performed By: #### C BCDF #### [facility] [address] [place] [address] Lymphocytes (Bld) [#/Vol] 3.42 10*3/uL Normal 1.20 - 4.80 [facility] Comment on above: Performed By: #### C BCDF #### [facility] [address] [place] [address] Lymphocytes/100 WBC (Bld) 40.5 % Normal 13.0 - 44.0 [facility] Comment on above: Performed By: #### C BCDF #### [facility] [address] [place] [address] MCHC (RBC) [Mass/Vol] 33.9 g/dL Normal 32.0 - 36.0 [facility] Comment on above: Performed By: #### C BCDF #### [facility] [address] [place] [address] MCV (RBC) [Entitic vol] 88 fL Normal 80 - 100 [facility] Comment on above: Performed By: #### C BCDF #### [facility] [address] [place] [address] Monocytes (Bld) [#/Vol] 0.67 10*3/uL Normal 0.10 - 1.0 0 [facility] Comment on above: Performed By: #### C BCDF #### [facility] [address] [place] [address] Monocytes/100 WBC (Bld) 7.9 % Normal 2.0 - 10.0 [facility] Comment on above: Performed By: #### C BCDF #### [facility] [address] [place] [address] Neutrophils (Bld) [#/Vol] 4.11 10*3/uL Normal 1.20 - 7.70 [facility] Comment on above: Performed By: #### C BCDF #### [facility] [address] [place] [address] Neutrophils/100 WBC (Bld) 48.8 % Normal 40.0 - 80.0 [facility] Comment on above: Performed By: #### C BCDF #### [facility] [address] [place] [address] Platelets (Bld) [#/Vol] 289 10*3/uL Normal 150 - 450 [facility] Comment on above: Performed By: #### C BCDF #### [facility] [address] [place] [address]329222 RBC 5.31 x10E12/L Normal 4.50 - 5.90 [facility] Comment on above: Performed By: #### C BCDF #### [facility] [address] [place] [address] WBC (Bld) [#/Vol] 8.4 10*3/uL Normal 4.4 - 11.3 [facility] Comment on above: Performed By: #### C BCDF #### [facility] [address] [place] [address]329222 COMPREHENSIVE PANELon 2021 Albumin [Mass/Vol] 4.4 g/dL Normal 3.4 - 5.0 [facility] Comment on above: Performed By: #### C MP #### [facility] [address] [place] [address] ALP [Catalytic activity/Vol] 36 U/L Normal 33 - 120 [facility] Comment on above: Performed By: #### C MP #### [facility] [address] [place] [address]329222 ALT [Catalytic activity/Vol] 24 U/L Normal 10 - 52 [facility] Comment on above: Result Comment: Edna ents treated with Sulfasalazine may generate falsely decreased results for ALT. Performed By: #### C MP #### [facility] [address] [place] [address]329222 Anion gap [Moles/Vol] 10 mmol/L Normal 10 - 20 [facility] Comment on above: Performed By: #### C MP #### [facility] [address] [place] [address]329222 AST [Catalytic activity/Vol] 22 U/L Normal 9 - 39 [facility] Comment on above: Performed By: #### C MP #### [facility] [address] [place] [address] Bilirubin [Mass/Vol] 0.3 mg/dL Normal 0.0 - 1.2 [facility] Comment on above: Performed By: #### C MP #### [facility] [address] [place] [address] Calcium [Mass/Vol] 9.6 mg/dL Normal 8.6 - 10.3 [facility] Comment on above: Performed By: #### C MP #### [facility] [address] [place] [address] Chloride [Moles/Vol] 103 mmol/L Normal 98 - 107 [facility] Comment on above: Performed By: #### C MP #### [facility] [address] [place] [address] Creatinine [Mass/Vol] 0.89 mg/dL Normal 0.50 - 1.30 [facility] Comment on above: Performed By: #### C MP #### [facility] [address] [place] [address] eGFR MALE >90 Normal >90 [facility] Comment on above: Result Comment: CALC ULATIONS OF ESTIMATED GFR ARE PERFORMED USING THE 2020 CKD-EPI STUDY REFIT EQUATION WITHOUT THE RACE VARIABLE FOR THE IDMS-TRACEABLE CREATININE METHODS. https://jasn.asnjournals.org/content/early/ASN.2020 359308 Performed By: #### C MP #### [facility] [address] [place] [address] Glucose [Mass/Vol] 93 mg/dL Normal 74 - 99 [facility] Comment on above: Performed By: #### C MP #### [facility] [address] [place] [address] HCO3 (Bld) [Moles/Vol] 32 mmol/L Normal 21 - 32 [facility] Comment on above: Performed By: #### C MP #### [facility] [address] [place] [address] Potassium [Moles/Vol] 3.8 mmol/L Normal 3.5 - 5.3 [facility] Comment on above: Performed By: #### C MP #### [facility] [address] [place] [address] Protein [Mass/Vol] 6.7 g/dL Normal 6.4 - 8.2 [facility] Comment on above: Performed By: #### C MP #### [facility] [address] [place] [address]329222 Sodium [Moles/Vol] 141 mmol/L Normal 136 - 145 [facility] Comment on above: Performed By: #### C MP #### [facility] [address] [place] [address]329222 Urea nitrogen [Mass/Vol] 15 mg/dL Normal 6 - 23 [facility] Comment on above: Performed By: #### C MP #### [facility] [address] [place] [address] CORONAVIRUS 2019, SCREEN ASY MPTOMATICon 02-10-2022 SARS-CoV-2 (COVID-19) RNA DERICK+probe Ql (Unsp spec) Not detected Normal Not Detected [facility] Comment on above: Result Comment: . This test has received FDA Emergency Use Authorization (EUA) and has been verified by [facility]. This test is only authorized for the duration of time that circumstances exist to justify the authorization of the emergency use of in vitro diagnostic tests for the detection of SARS-CoV-2 virus and/or diagnosis of COVID-19 infection under section 564(b)(1) of the Act, 21 U.S.C. 360bbb-3(b)(1), unless the authorization is terminated or revoked sooner. [facility] is certified under CLIA-88 as qualified to perform high complexity testing. Testing is performed in the [facility] laboratory located at [address] [place] [address]. SARS-CoV-2/Flu/RSV Multiplex Test: Fact sheet for providers: https://www.fda.gov/media/405316/download Fact sheet for patients: https://www.fda.gov/media/915669/download Performed By: #### C OVSC #### [facility] [address] [place] [address] Lab Specimen Source Nasal, Nasopharyngeal Normal [facility] Comment on above: Performed By: #### C OVSC #### [facility] [address] [place] [address] CT ABDOMEN AND PELVIS W IV C ONTRASTon 02-10-2022 CT ABDOMEN AND PELVIS W IV CONTRAST Patient Name: IMMANUEL NEUMANN STUDY: CT ABDOMEN AND PELVIS W IV CONTRAST; ; 02/10/2022 1:14 am INDICATION: RLQ Abdominal pain x1 day. McBurney's tenderness, + Obturator and rovsing signs. R/o APpy . COMPARISON: None. ACCESSION NUMBER(S): [id number] ORDERING CLINICIAN: GABRIELA JANG TECHNIQUE: Axial CT [...] Electronically signed by: DOMI CRAIG MD Normal [facility] Covid 19 Resultson 2 SARS-CoV-2 (COVID-19) RNA [...] You may also be contacted by the [facility] to see if any of your close [...] or Naproxen (Aleve) can also be used. Wzjg-kpy-shnzamz cough and cold medicines can be used according to the instructions on the package. Some msun-jcn-duuiekr medicines also contain acetaminophen. Make sure you [...] water are not available, use alcohol-based hand eviction specialist. Avoid touching your eyes, nose, and mouth [...] 24 katina (more content not included)... Normal [facility] LIPASEon 02-10-2022 Lipase [Catalytic activity/Vol] 83 U/L High 9 - 82 [facility] Comment on above: Result Comment: Rona puncture immediately after or during the administration of Metamizole may lead to falsely low results. Testing should be performed immediately prior to Metamizole dosing. Q-wifbtq-r-benzoquinone imine (metabolite of Acetaminophen) will generate erroneously low results in samples for patients that have taken toxic doses of acetaminophen. Performed By: #### C MP #### [facility] [address] [place] [address] PT/INRon 02-10-2022 PT Coag (PPP) [Time] 11.1 s Normal 9.8 - 13.4 [facility] Comment on above: Performed By: #### P TINR #### [facility] [address] [place] [address] PT, INR 1.0 Normal 0.9 - 1.1 [facility] Comment on above: Performed By: #### P TINR #### [facility] [address] [place] [address] Provider Note - ED v3on 01-16 Provider Note - ED v3 Provider Note: [...] use but none currently. Currently residing at [facility] for mental health. Allergies: NKDA Medications: Reviewed [...] for Reconciliation (more content not included)... Normal [facility] TYPE + SCREENon 02-10-2022 ABO TYPE A Normal [facility] Comment on above: Performed By: #### T +S #### [facility]NOTE 3] [address] [place] [address] RH TYPE Positive Normal [facility] Comment on above: Performed By: #### T +S #### [facility]NOTE 3] [address] [place] [address] URINALYSIS WITH CULTURE IF I NDICATEDon 02-10-2022 Bilirubin Ql (U) Negative Normal NEGATIVE [facility] Comment on above: Performed By: #### U ARFX #### [facility][NOTE 3] [address] [place] [address]329[address] Glucose Ql (U) Negative Normal NEGATIVE [facility] Comment on above: Performed By: #### U ARFX #### [facility]NOTE 3] [address] [place] [address]329222 Hemoglobin Ql (U) Negative Normal NEGATIVE [facility] Comment on above: Performed By: #### U ARFX #### [facility] [address] [place] [address]329222 Ketones Ql (U) Negative Normal NEGATIVE [facility] Comment on above: Performed By: #### U ARFX #### [facility]NOTE 3] [address] [place] [address]329222 Leukocyte esterase Test strip Ql (U) Negative Normal NEGATIVE [facility] Comment on above: Performed By: #### U ARFX #### [facility] [address] [place] [address]329222 Nitrite Ql (U) Negative Normal NEGATIVE [facility] Comment on above: Performed By: #### U ARFX #### [facility]NOTE 3] [address] [place] [address]329222 pH (U) 7.5 [pH] Normal 5.0 - 8.0 [facility] Comment on above: Performed By: #### U ARFX #### [facility]NOTE 3] [address] [place] [address]329222 Protein Ql (U) Negative Normal NEGATIVE [facility] Comment on above: Performed By: #### U ARFX #### [facility]NOTE 3] [address] [place] [address]329[address] Specific gravity (U) [Rel density] <1.005 Abnormal 1.005 - 1.035 [facility] Comment on above: Performed By: #### U ARFX #### [facility]NOTE 3] [address] [place] [address]329[address] Urobilinogen (U) [Mass/Vol] mg/dL Normal 0.0 - 1.9 [facility] Comment on above: Performed By: #### U ARFX #### [facility]NOTE 3] [address] [place] [address]329[address] Appearance (U) HAZY Normal CLEAR [facility] Comment on above: Performed By: #### U ARFX #### [facility]NOTE 3] [address] [place] [address] Color (U) STRAW Normal STRAW,YELLOW [facility] Comment on above: Performed By: #### U ARFX #### [facility]NOTE 3] [address] [place] [address] LABORATORYOrdered By: Viviana Sharma on 09-15-2021 Date of Onset [id number] Invalid Interpretation Code AH Auto Viro/Sero SS Employed in Healthcare No (09/15/21 11:00 AM) Invalid Interpretation Code AH Auto Viro/Sero SS First Test No (09/15/21 11:00 AM) Invalid Interpretation Code AH Auto Viro/Sero SS FLU A PCR Negative 4 (09/15/21 11:00 AM) Invalid Interpretation Code Negative AH [facility] Comment on above: Result Comment: [place] [id number] FLU B PCR Negative 5 (09/15/21 11:00 AM) Invalid Interpretation Code Negative AH [facility] Comment on above: Result Comment: [place] [id number] Hospitalized No (09/15/21 11:00 AM) Invalid Interpretation Code AH Auto Viro/Sero SS ICU No (09/15/21 11:00 AM) Invalid Interpretation Code AH Auto Viro/Sero SS Not (09/15/21 11:00 AM) Invalid Interpretation Code AH Auto Viro/Sero SS Resides in Congregate Care Setting No (09/15/21 11:00 AM) Invalid Interpretation Code AH Auto Viro/Sero SS RSV PCR Negative 6 (09/15/21 11:00 AM) Invalid Interpretation Code Negative AH [facility] Comment on above: Result Comment: [place] s [id number] SARS-CoV-2 (COVID-19) RNA DERICK+probe Ql (Unsp spec) Negative 3 (09/15/21 11:00 AM) Invalid Interpretation Code Negative AH [facility] Comment on above: Result Comment: [place] [id number] Symptomatic as Defined by CDC No (09/15/21 11:00 AM) Invalid Interpretation Code AH Auto Viro/Sero SS LABORATORYOrdered By: Griselda Wellington on 09-14-2021 Acetaminophen [Mass/Vol] mcg/mL Invalid Interpretation Code 10.0 - 20.0 mcg/mL AH ADM SS ER Drug Screen (s) Negative (09/14/21 10:42 PM) Invalid Interpretation Code AH Chemistry S ER Drug Screen Interp Serum shows no evidence of drugs routinely screened Invalid Interpretation Code AH Chemistry S ER Serum Drugs Screened: See Below (09/14/21 10:42 PM) Invalid Interpretation Code Chemistry S ER U Drug Screen Positive *ABN* (09/14/21 10:42 PM) Invalid Interpretation Code Chemistry S ER U Drug Screen Interp In the urine, th e following drug(s) or drug class(es) were screened [...] order contact the Chemistry Department at ext. [phone]. U ER Drugs Screened: See Below (09/14/21 10:42 PM) Invalid Interpretation Code Chemistry S LABORATORYOrdered By: SYSTEM SYSTEM on 09-14-2021 Albumin BCP dye [Mass/Vol] 4.3 G/dL Invalid Interpretation Code 3.2 - 4.8 G/dL ADM SS Albumin/Globulin [Mass ratio] 1.9 {ratio} Invalid Interpretation Code 0.9 - 1.6 ratio AH ADM SS ALP [Catalytic activity/Vol] 57 U/L Invalid Interpretation Code 38 - 126 U/L ADM SS ALT No additional P-5'-P [Catalytic activity/Vol] 20 U/L Invalid Interpretation Code 12 - 55 U/L ADM SS AST [Catalytic activity/Vol] 23 U/L Invalid Interpretation Code 8 - 34 U/L ADM SS Basophils (Bld) [#/Vol] 0.1 103/mcL [...] Invalid Interpretation Code 20.0 - 40.0 % Workflow SS MCH (RBC) [Entitic mass] 31.0 pg Invalid Interpretation Code 27.0 - 33.0 pg Workflow SS MCHC 34.3 G/dL Invalid Interpretation Code 32.0 - 36.0 G/dL Workflow SS MCV (RBC) [Entitic vol] 90.3 fL Invalid Interpretation Code 81.0 - 100.0 fL Workflow SS Monocyte [...] ACETAMINOPHENon 08-22-2021 Acetaminophen [Mass/Vol] 2 ug/mL Low 10- [facility] Comment on above: Order Comment: Sylvain s: M Performed By: #### L 530.63285, L500.86697, L500.71257, L500.15312, L500.60613, L520.21642, L520.09669 #### [facility] LAB[facility] [place] [address] ALC ETHANOLon 08-22-2021 ALC ETHANOL LESS THAN 0.003 Normal LESS THN 0.01 [facility] Comment on above: Order Comment: Campu s: M Performed By: #### L 530.77012, L500.87322, L500.52810, L500.80752, L500.47720, L520.35241, L520.39223 #### [facility] [address] [place] [address] BMPon 08-22-2021 Anion gap [Moles/Vol] 6 mmol/L Normal 5-16 [facility] Comment on above: Order Comment: Campu s: M Performed By: #### L 530.31719, L500.84620, L500.55027, L500.00968, L500.48036, L520.77692, L520.75445 #### [facility] [address] [place], [place] [address] BUN/CREA TNP Normal 15-24 [facility] Comment on above: Order Comment: Campu s: M Performed By: #### L 530.50250, L500.66471, L500.05216, L500.96726, L500.18342, L520.75756, L520.71705 #### [facility] [address] [place] [address] Calcium [Mass/Vol] 9.8 mg/dL Normal 8.5-10.5 [facility] Comment on above: Order Comment: Campu s: M Result Comment: NOTE NEW NORMAL RANGE DUE TO REAGENT CHANGE Performed By: #### L 530.09695, L500.37937, L500.22043, L500.52867, L500.54915, L520.75972, L520.28905 #### [facility] [address] [place] [address] Chloride [Moles/Vol] 108 mmol/L High 98-107 [facility] Comment on above: Order Comment: Sylvain s: M Performed By: #### L 530.49537, L500.29245, L500.16836, L500.80599, L500.94600, L520.38304, L520.54050 #### [facility] [place] [address] CO2 [Moles/Vol] 27.0 mmol/L Normal 21-32 [facility] Comment on above: Order Comment: Sylvain s: M Performed By: #### L 530.38362, L500.21982, L500.05925, L500.37044, L500.15184, L520.74241, L520.64377 #### [facility] [address] [place] [address] Creatinine [Mass/Vol] 0.73 mg/dL Normal 0.5-1.4 [facility] Comment on above: Order Comment: Sylvain s: M Result Comment: NOTE NEW NORMAL RANGE DUE TO REAGENT CHANGE Patients receiving either N-Acetylcysteine (NAC) or Metamizole prior to venipuncture, may have falsely depressed results. Performed By: #### L 530.47038, L500.71982, L500.50306, L500.61045, L500.33499, L520.63828, L520.05860 #### [facility] [place] [address] Glucose [Mass/Vol] 154 mg/dL High 70-100 [facility] Comment on above: Order Comment: Sylvain s: M Result Comment: 70-1 00- Normal Fasting; 100-125 Impaired Fasting; greater than 126 on more than one result- Diabetes. ADA guidelines. Results may be falsely elevated after the administration of Sulfapyridine. Results may be falsely depressed after the administration of Sulfasalazine. Performed By: #### L 530.34149, L500.26748, L500.27767, L500.44945, L500.08558, L520.40512, L520.45928 #### [facility] [place] [address] Potassium [Moles/Vol] 3.0 mmol/L Low 3.5-5.1 [facility] Comment on above: Order Comment: Campu s: M Performed By: #### L 530.82529, L500.15208, L500.33347, L500.06842, L500.12746, L520.89525, L520.63833 #### [facility] [address] [place], [place] [address] Sodium [Moles/Vol] 141 mmol/L Normal 136-145 [facility] Comment on above: Order Comment: Campu s: M Performed By: #### L 530.33350, L500.06174, L500.85231, L500.75269, L500.51573, L520.69055, L520.98858 #### [facility] [address] [place], [place] [address] Urea nitrogen [Mass/Vol] 5 mg/dL Low 7-26 [facility] Comment on above: Order Comment: Campu s: M Performed By: #### L 530.06021, L500.40482, L500.29731, L500.98464, L500.96880, L520.08100, L520.91241 #### [facility] [address] [place], [place] [address] CBC W/DIFFon 08-22-2021 BASO ABS 0.00 K/CU MM Normal 0-0.2 [facility] Comment on above: Order Comment: Campu s: M Performed By: #### L 200.43551 #### [facility] [address] [place], [place] [address] Basophils/100 WBC (Bld) 0.4 % Normal 0-2 M [facility] Comment on above: Order Comment: Campu s: M Performed By: #### L 200.11360 #### [facility] [address] [place] [address] EOS ABS 0.00 K/CU MM Normal 0-0.5 [facility] Comment on above: Order Comment: Campu s: M Performed By: #### L 200.52110 #### [facility] [address] [place] [address] Eosinophils/100 WBC (Bld) 0.4 % Normal 0-5 [facility] Comment on above: Order Comment: Campu s: M Performed By: #### L 200.84159 #### [facility] [address] [place] [address] Erythrocyte distribution width (RBC) [Ratio] 12.5 % Normal 11-14.5 [facility] Comment on above: Order Comment: Campu s: M Performed By: #### L 200.40324 #### [facility] [address] [place] [address] Hematocrit (Bld) [Volume fraction] 42.4 % Normal 41.0-53.0 [facility] Comment on above: Order Comment: Campu s: M Performed By: #### L 200.49635 #### [facility] [address] [place] [address] Hemoglobin (Bld) [Mass/Vol] 15.2 g/dL Normal 13.5-17.5 [facility] Comment on above: Order Comment: Campu s: M Performed By: #### L 200.73113 #### [facility] [address] [place] [address] IMMATR GRAN ABS 0.00 K/CU MM Normal Less than 2 [facility] Comment on above: Order Comment: Campu s: M Performed By: #### L 200.34599 #### [facility] [address] [place] [address] IMMATURE GRAN % 0.2 % Normal Less than 2 [facility] Comment on above: Order Comment: Campu s: M Performed By: #### L 200.48984 #### [facility] [address] [place] [address] LYMPH ABS 1.80 K/CU MM Normal 0.9-4.4 [facility] Comment on above: Order Comment: Campu s: M Performed By: #### L 200.78628 #### [facility] [address] [place] [address] Lymphocytes/100 WBC (Bld) 21.8 % Normal 20-40 [facility] Comment on above: Order Comment: Campu s: M Performed By: #### L 200.15873 #### [facility] [address] [place] [address] MCHC (RBC) [Mass/Vol] 35.8 g/dL Normal 32.0-36.0 [facility] Comment on above: Order Comment: Campu s: M Performed By: #### L 200.00717 #### [facility] [address] [place] [address] MCV (RBC) [Entitic vol] 86.4 fL Normal 80.0-99.0 [facility] Comment on above: Order Comment: Campu s: M Performed By: #### L 200.83885 #### [facility] [address] [place] [address] MONO ABS 0.50 K/CU MM Normal 0.1-1.1 [facility] Comment on above: Order Comment: Campu s: M Performed By: #### L 200.98490 #### [facility] [address] [place] [address] Monocytes/100 WBC (Bld) 5.7 % Normal 2-10 M [facility] Comment on above: Order Comment: Campu s: M Performed By: #### L 200.06270 #### [facility] [address] [place] [address] NEUTROPHIL ABS 6.00 K/CU MM Normal 2.0-8.3 [facility] Comment on above: Order Comment: Campu s: M Performed By: #### L .25250 #### [facility] [address] [place] [address] Neutrophils/100 WBC (Bld) 71.5 % Normal 45-75 [facility] Comment on above: Order Comment: Campu s: M Performed By: #### L .91234 #### [facility] [address] [place] [address] Nucleated RBC/100 WBC (Bld) [Ratio] 0.0 % Normal Less than 1 [facility] Comment on above: Order Comment: Campu s: M Performed By: #### L .90697 #### [facility] [address] [place] [address] Platelet mean volume (Bld) [Entitic vol] 9.6 fL Normal 9.4-12.4 [facility] Comment on above: Order Comment: Campu s: M Performed By: #### L .17457 #### [facility] [address] [place] [address] PLT 312 K/CU MM Normal 150-450 [facility] Comment on above: Order Comment: Campu s: M Performed By: #### L 200.38232 #### [facility] [address] [place] [address] RBC 4.91 M/CU MM Normal 4.50-6.00 [facility] Comment on above: Order Comment: Campu s: M Performed By: #### L 200.96085 #### [facility] [address] [place] [address] WBC 8.4 K/CUMM Normal 4.5-11.0 [facility] Comment on above: Order Comment: Sylvain s: M Performed By: #### L 200.36649 #### [facility] [address] [place] [address] CKon 08-22-2021 CK [Catalytic activity/Vol] 109 U/L Normal 26-192 [facility] Comment on above: Order Comment: Brigidou s: M Result Comment: NOTE NEW NORMAL RANGE DUE TO REAGENT CHANGE Performed By: #### L 530.12248, L500.73656, L500.82000, L500.00842, L500.92080, L520.56801, L520.89721 #### [facility] [place] [address] EKGon 08-22-2021 Electrocardiogram Procedure Date and Time: [...] longer evident in Lateral leads Confirmed by PRESTON RAMIREZ A. ([id number]) on 08/23/2021 1:13:43 PM Referred By: Annette Sterling Confirmed By:Ita RAMIREZ M.D.FACC Annabella DDandT: 08/22/21 1600 TDandT: [facility] PATIENT NAME: THIENIMMANUEL L [address] [place] MEDICAL REC #: [id number] [place] [address] ADMIT DATE: DISCHARGE DATE: 08/22/21 ATTENDING PHY: Osei Davis MD ELECTROCARDIOGRAM REPORT CLB cc: [facility] PATIENT NAME: IMMANUEL NEUMANN [address] [place] MEDICAL REC #: [id number] [place] [address] ADMIT DATE: DISCHARGE DATE: 08/22/21 ATTENDING PHY: Osei Davis MD ELECTROCARDIOGRAM REPORT Normal [facility] Rachele 08-22-2021 EMERGENCY PHYSICIAN REPORT This is a preliminary report only, as the practitioner review and authentication has not occurred. Normal [facility] ER PHYSICIAN ASSESSMENT RECORDS : Discharge Report Event Time: 08/22/2021 18:49 : FlexChartData Event Time: 08/22/2021 19:20 Status: Signed [facility] Immanuel Neumann [[id number]] Attending Physician / 1995 Chart (V2b) Chart created at 08/22/2021 18:47 by Osei Davis Chart closed at 08/22/2021 18:49 Entry in Emergency Department at 08/22/2021 13:46, departure at 08/22/2021 19:13 Patient Name: Immanuel Neumann Record Number: [id number] Date: 08/22/2021 18:47 Entered Department at: 08/22/2021 [...] evaluated patient here in the ED. The cabin worker felt that the patient is stable for [facility] PATIENT NAME[facility] MED[facility] REC #: [id number] [place] [address] EMERGENCY DEPARTMENT REPORT EMERGENCY DEPARTMENT PHYSICIAN discharge home does not represent an imminent risk to self. He has psychiatric follow-up established. Clinical Impression: 1. Bipolar disorder Disposition: Discharged . MSE completed. I assumed care of this patient from the previous ED attending physician.. : FlexChartData Event Time: 08/22/2021 18:05 Status: Draft [facility] Immanuel Neumann [[id number]] Attending Physician 1995 Chart (V2b) Chart created at 08/22/2021 17:45 by Annette Sterling Entry in Emergency Department at 08/22/2021 13:46 Patient Name: Immanuel Neumann Record Number: [id number] Date: 08/22/2021 17:45 Entered Department at: 08/22/2021 13:46 Patient Seen at: 08/22/2021 17:31 Historian: EMS and Patient Chief Complaint: Initial Vital Signs reviewed. Pulse: 102. Respiratory Rate: 18. Blood-pressure: 118/71. Oxygen Saturation: 97%. History of Present Illness: Patient was brought to the emergency department via EMS under the direction of [facility] Emergency [facility] PATIENT NAME: IMMANUEL NEUMANN Antonella Valentin MEDICAL REC #: [id number] [place] [address] EMERGENCY DEPARTMENT REPORT EMERGENCY DEPARTMENT PHYSICIAN Physicians. Chief complaint is psych eval. Patient is a 25-year-old male with a history of bipolar disorder. He is not compliant with his medication. Here for mental evaluation. He ran away from the [facility]. Stating that his life was so should show. He is noncompliant with his medication. Verbalized to the [facility] and EMS that he wanted to kill [...] and Non-tender Extremity: No Calf Tenderness, No [facility] PATIENT NAME: IMMANUEL NEUMANN [address] [place] MEDICAL REC #: [id number] [place] [address] EMERGENCY DEPARTMENT REPORT EMERGENCY DEPARTMENT PHYSICIAN edema and Normal Equal pulses Neurological: Alert, Oriented X3 and No Gross Weakness Skin: No rash, No Petechiae, Warm and Dry Psychological: Very anxious a (more content not included)... Normal [facility] GFR ESTon 08-22-2021 IF AMER Greater than 60 Normal [facility] Comment on above: Order Comment: Campu s: M Performed By: #### L 530.72383, L500.03024, L500.38205, L500.49343, L500.35687, L520.40963, L520.55123 #### [facility] [address] [place] [address] IF non-AFR AMER Greater than 60 Normal [facility] Comment on above: Order Comment: Brigidou s: M Performed By: #### L 530.01288, L500.08798, L500.12531, L500.59006, L500.83578, L520.22371, L520.81156 #### [facility] [address] [place] [address] LIVERon 08-22-2021 Albumin [Mass/Vol] 4.1 g/dL Normal 3.2-5.0 [facility] Comment on above: Order Comment: Campu s: M Performed By: #### L 530.90062, L500.54198, L500.26889, L500.95880, L500.77824, L520.52205, L520.42832 #### [facility] [address] [place] [address] Albumin/Globulin [Mass ratio] 1.8 {ratio} Normal 0.8-2.0 [facility] Comment on above: Order Comment: Campu s: M Performed By: #### L 530.83194, L500.50280, L500.15972, L500.90936, L500.25468, L520.26130, L520.98241 #### [facility] [address] [place], [place] [address] ALK PHOS 60 U/L Normal 45-117 [facility] Comment on above: Order Comment: Sylvain s: M Performed By: #### L 530.77156, L500.01132, L500.85678, L500.87264, L500.49838, L520.77471, L520.58370 #### [facility] [place] [address] ALT [Catalytic activity/Vol] 22 U/L Normal 13-61 [facility] Comment on above: Order Comment: Sylvain s: M Result Comment: RESU LTS MAY BE FALSELY DEPRESSED AFTER THE ADMINISTRATION OF SULFASALAZINE AND/OR SULFAPYRIDINE. Performed By: #### L 530.43131, L500.22056, L500.66743, L500.38598, L500.19623, L520.76482, L520.73190 #### [facility] [address] [place] [address] AST [Catalytic activity/Vol] 23 U/L Normal 8-34 [facility] Comment on above: Order Comment: Sylvain s: M Result Comment: RESU LTS MAY BE FALSELY DEPRESSED AFTER THE ADMINISTRATION OF SULFASALAZINE AND/OR SULFAPYRIDINE. Performed By: #### L 530.14271, L500.09750, L500.26723, L500.08433, L500.00026, L520.94764, L520.55091 #### [facility] [address] [place], [place] [address] BILI DIRECT 0.5 MG/DL High 0.00-0.36 [facility] Comment on above: Order Comment: Sylvain s: M Result Comment: NOTE NEW NORMAL RANGE DUE TO REAGENT CHANGE Performed By: #### L 530.05199, L500.96698, L500.01969, L500.86132, L500.68311, L520.01416, L520.30492 #### [facility] [address] [place], [place] [address] BILI TOTAL 0.90 MG/DL Normal 0.2-1.0 [facility] Comment on above: Order Comment: Brigidou s: M Performed By: #### L 530.53548, L500.20758, L500.34284, L500.70587, L500.31131, L520.64848, L520.94328 #### [facility] [place] [address] Globulin (S) [Mass/Vol] 2.3 g/dL Normal 2.2-4.2 M [facility] Comment on above: Order Comment: Sylvain s: M Performed By: #### L 530.36000, L500.73876, L500.22258, L500.67905, L500.69676, L520.14669, L520.42762 #### [facility] [place] [address] Protein [Mass/Vol] 6.4 g/dL Normal 6.0-8.5 [facility] Comment on above: Order Comment: Sylvain s: M Performed By: #### L 530.78042, L500.73828, L500.18119, L500.11213, L500.38827, L520.66103, L520.77535 #### [facility] [address] [place], [place] [address] [id number] 08-22-2021 SARS-CoV-2 (COVID-19) RNA DERICK+probe Ql (Unsp spec) Negative Invalid Interpretation Code Negative [facility] Comment on above: Order Comment: Sylvain s: M Result Comment: RESU LTS CALLED TO AND READ BACK BY VIC DAVID AT 6707 08/22/21 BY CEDRIC ARMIJO Negative results do not preclude SARS-CoV-2 infection and should not be used as the sole basis for treatment or other patient management decisions. Negative results must be combined with clinical observation, patient history, and epidemiological information. This test was performed by PCR. Performed By: #### L 530.57785, L500.20137, L500.67069, L500.44538, L500.85242, L520.87171, L520.16134 #### [facility] [address] [place] [address] SALon 08-22-2021 WES LESS THAN 3.0 Normal 2.8-20.0 [facility] Comment on above: Order Comment: Brigidou s: M Performed By: #### L 530.46100, L500.09330, L500.12966, L500.49158, L500.72167, L520.70667, L520.76599 #### [facility] [address] [place] [address] UR DRUG ABUSEon 08-22-2021 UR AMPH Negative Normal Lexrzt=7345 [facility] Comment on above: Order Comment: Sylvain s: M Performed By: #### L 600.49512 #### [facility] [address] [place] [address] UR MARY Negative Normal Kpnlxj=334 [facility] Comment on above: Order Comment: Sylvain s: M Performed By: #### L 600.59754 #### [facility] [address] [place] [address] UR KIMBERLY Negative Normal Ikpmpt=399 [facility] Comment on above: Order Comment: Brigidou s: M Performed By: #### L 600.35616 #### [facility] [address] [place] [address] UR KONG/THC Positive Normal Cutoff=50 [facility] Comment on above: Order Comment: Brigidou s: M Performed By: #### L 600.29260 #### [facility] [address] [place] [address] UR CHELLY Negative Normal Vbqoev=832 [facility] Comment on above: Order Comment: Sylvain s: M Performed By: #### L 600.00018 #### [facility] [address] [place] [address] UR OPIAT Negative Normal Rhtpym=055 [facility] Comment on above: Order Comment: Brigidou s: M Performed By: #### L 600.35081 #### [facility] [address] [facility] [address] UR PCP Negative Normal Cutoff=25 [facility] Comment on above: Order Comment: Campu s: M Performed By: #### L 600.80385 #### [facility] [address] [place] [id number] DRAB COMMENT Normal [facility] Comment on above: Order Comment: Brigidou s: M Result Comment: [facility] [employer] results are qualitative, providing a preliminary analytical result. A positive result for an assay should be confirmed by another nonimmunological, reference method. A negative result indicates that the assay material is either not present, or present at levels below the cutoff threshold for the analytical method range (AMR) validation. Performed By: #### L 600.04067 #### [facility] [address] [place], [place] [address] Rachele 01-15-2021 EMERGENCY PHYSICIAN REPORT This is a preliminary report only, as the practitioner review and authentication has not occurred. Normal [facility] ER PHYSICIAN ASSESSMENT RECORDS : Discharge Report Event Time: 01/15/2021 00:32 : FlexChartData Event Time: 01/15/2021 01:05 Status: Signed [facility] Immanuel Neumann [[id number]] Attending Physician / 1995 Chart (V2b) Chart created at 01/15/2021 00:28 by Jayce Ugarte Chart closed at 01/15/2021 00:31 Entry in Emergency Department at 01/14/2021 23:19, departure at 01/15/2021 00:41 Patient Name: Immanuel Neumann Record Number: [id number] Date: 01/15/2021 00:28 Entered Department at: 01/14/2021 [...] Patient presents today secondary to a panic [facility] PATIENT NAME: IMMANUEL NEUMANN [address] [place] MEDICAL REC #: [id number] [place] [id number] EMERGENCY DEPARTMENT REPORT EMERGENCY DEPARTMENT PHYSICIAN attack. [...] Abdomen: Non-tender and Soft Back: No CVA [facility] PATIENT NAME: IMMANUEL NEUMANN [address] [place] MEDICAL REC #: [id number] [place] [id number] EMERGENCY DEPARTMENT REPORT EMERGENCY DEPARTMENT PHYSICIAN tenderness, [...] any new, worsening (more content not included)... [facility] ED NOTEon 01-24-2019 ED NOTE HNO ID: [id number] Author: Blaire Zacarias RN Service: ? Author Type: Registered Nurse Type: ED Notes Filed: 01/23/2019 10:42 PM Note Text: Report given to [facility]AN. [facility] ED NOTE HNO ID: [id number] Author: Blaire Zacarias RN Service: ? Author Type: Registered Nurse Type: ED Notes Filed: 01/23/2019 10:21 PM Note Text: D/c and follow up reviewed with pt. [facility] ED NOTE HNO ID: [id number] Author: CLARK Damian Service: ? Author Type: [place]set Stitcher Type: ED Notes Filed: 01/23/2019 10:19 PM Note Text: [facility]AN ETA 10 minutes [facility] ED NOTE HNO ID: [id number] Author: Blaire Zacarias RN Service: ? Author Type: Registered Nurse Type: ED Notes Filed: 01/23/2019 10:21 PM Note Text: Urine obtained and sent. [facility] Urinalysison 01-24-2019 Bilirubin [Mass/Vol] Negative Normal Negative [facility] Comment on above: Performed By: #### C BCDIF, PT, UA, GBCHEM, GBTSH, HIVC, MG, GBHCV, HAVIGM, HBCAB, HBSAG, RPR #### [facility] [address] [place] [address] Clarity (U) Clear Normal Clear [facility] Comment on above: Performed By: #### C BCDIF, PT, UA, GBCHEM, GBTSH, HIVC, MG, GBHCV, HAVIGM, HBCAB, HBSAG, RPR #### [facility] [address] [place] [address] Color (U) Straw Critically abnormal Yellow [facility] Comment on above: Performed By: #### C BCDIF, PT, UA, GBCHEM, GBTSH, HIVC, MG, GBHCV, HAVIGM, HBCAB, HBSAG, RPR #### [facility] [address] [place] [address] Comments MICROSCOPIC ANALYSIS NOT DONE ON URINES WITH NEGATIVE BIOCHEMICAL TESTS Normal [facility] Comment on above: Performed By: #### C BCDIF, PT, UA, GBCHEM, GBTSH, HIVC, MG, GBHCV, HAVIGM, HBCAB, HBSAG, RPR #### [facility] [address] [place] [address] Glucose [Mass/Vol] Negative Normal Negative [facility] Comment on above: Performed By: #### C BCDIF, PT, UA, GBCHEM, GBTSH, HIVC, MG, GBHCV, HAVIGM, HBCAB, HBSAG, RPR #### [facility] [address] [place] [address] Hemoglobin/Blood Negative Normal Negative [facility] Comment on above: Performed By: #### C BCDIF, PT, UA, GBCHEM, GBTSH, HIVC, MG, GBHCV, HAVIGM, HBCAB, HBSAG, RPR #### [facility] [address] [place] [address] Ketone Negative Normal Negative [facility] Comment on above: Performed By: #### C BCDIF, PT, UA, GBCHEM, GBTSH, HIVC, MG, GBHCV, HAVIGM, HBCAB, HBSAG, RPR #### [facility] [address] [place] [address] Leukest Negative Normal Negative [facility] Comment on above: Performed By: #### C BCDIF, PT, UA, GBCHEM, GBTSH, HIVC, MG, GBHCV, HAVIGM, HBCAB, HBSAG, RPR #### [facility] [address] [place], [place] [id number] Nitrite Ql (U) Negative Normal Negative [facility] Comment on above: Performed By: #### C BCDIF, PT, UA, GBCHEM, GBTSH, HIVC, MG, GBHCV, HAVIGM, HBCAB, HBSAG, RPR #### [facility] [address] [place], [place] [address] pH (U) 7.0 [pH] Normal 5-7 [facility] Comment on above: Performed By: #### C BCDIF, PT, UA, GBCHEM, GBTSH, HIVC, MG, GBHCV, HAVIGM, HBCAB, HBSAG, RPR #### [facility] [address] [place], [place] [id number] Protein (U) [Mass/Vol] Negative Normal Negative [facility] Comment on above: Performed By: #### C BCDIF, PT, UA, GBCHEM, GBTSH, HIVC, MG, GBHCV, HAVIGM, HBCAB, HBSAG, RPR #### [facility] [address] [place] [address] Urine Spec [place] 1.014 Normal 1.005-1.030 [facility] Comment on above: Performed By: #### C BCDIF, PT, UA, GBCHEM, GBTSH, HIVC, MG, GBHCV, HAVIGM, HBCAB, HBSAG, RPR #### [facility] [address] [place] [address] Urobilinogen Qn (U) <2.0 Normal 0.0-1.0 [facility] Comment on above: Performed By: #### C BCDIF, PT, UA, GBCHEM, GBTSH, HIVC, MG, GBHCV, HAVIGM, HBCAB, HBSAG, RPR #### [facility] [address] [place], [place] [id number] CBCDIFon 01-23-2019 Abs Baso 0.03 k/uL Normal 0-0.2 [facility] Comment on above: Performed By: #### C BCDIF, PT, UA, GBCHEM, GBTSH, HIVC, MG, GBHCV, HAVIGM, HBCAB, HBSAG, RPR #### [facility] [address] [place], [place] [id number] Abs [place] 0.81 k/uL High 0-0.8 [facility] Comment on above: Performed By: #### C BCDIF, PT, UA, GBCHEM, GBTSH, HIVC, MG, GBHCV, HAVIGM, HBCAB, HBSAG, RPR #### [facility] [address] [place] [address] Abs Neut 6.47 k/uL Normal 1.8-7.7 [facility] Comment on above: Performed By: #### C BCDIF, PT, UA, GBCHEM, GBTSH, HIVC, MG, GBHCV, HAVIGM, HBCAB, HBSAG, RPR #### [facility] [address] [place] [address] Basophils/100 WBC (Bld) 0.3 % Normal 0-1 [facility] Comment on above: Performed By: #### C BCDIF, PT, UA, GBCHEM, GBTSH, HIVC, MG, GBHCV, HAVIGM, HBCAB, HBSAG, RPR #### [facility] [address] [place], [place] [id number] Eosinophils (Bld) [#/Vol] 0.12 10*3/uL Normal 0-0.4 [facility] Comment on above: Performed By: #### C BCDIF, PT, UA, GBCHEM, GBTSH, HIVC, MG, GBHCV, HAVIGM, HBCAB, HBSAG, RPR #### [facility] [address] [place] [address] Eosinophils/100 WBC (Bld) 1.2 % Normal 0-4 [facility] Comment on above: Performed By: #### C BCDIF, PT, UA, GBCHEM, GBTSH, HIVC, MG, GBHCV, HAVIGM, HBCAB, HBSAG, RPR #### [facility] [address] [place] [address] Erythrocyte distribution width (RBC) [Ratio] 12.9 % Normal 11.5-14.5 [facility] Comment on above: Performed By: #### C BCDIF, PT, UA, GBCHEM, GBTSH, HIVC, MG, GBHCV, HAVIGM, HBCAB, HBSAG, RPR #### [facility] [address] [place] [address] Hematocrit (Bld) [Volume fraction] 45.6 % Normal 41.0-53.0 [facility] Comment on above: Performed By: #### C BCDIF, PT, UA, GBCHEM, GBTSH, HIVC, MG, GBHCV, HAVIGM, HBCAB, HBSAG, RPR #### [facility] [address] [place] [address] Hemoglobin (Bld) [Mass/Vol] 15.8 g/dL Normal 13.5-17.5 [facility] Comment on above: Performed By: #### C BCDIF, PT, UA, GBCHEM, GBTSH, HIVC, MG, GBHCV, HAVIGM, HBCAB, HBSAG, RPR #### [facility] Clinical Lab [address] [place] [address] Immature Gran 0.30 % Normal 0-1.9 [facility] Comment on above: Performed By: #### C BCDIF, PT, UA, GBCHEM, GBTSH, HIVC, MG, GBHCV, HAVIGM, HBCAB, HBSAG, RPR #### [facility] Clinical Lab [address] [place] [address] Lymphocytes (Bld) [#/Vol] 2.28 10*3/uL Normal 1.0-4.0 [facility] Comment on above: Performed By: #### C BCDIF, PT, UA, GBCHEM, GBTSH, HIVC, MG, GBHCV, HAVIGM, HBCAB, HBSAG, RPR #### [facility] [address] [place] [address] Lymphocytes/100 WBC (Bld) 23.4 % Normal 22-44 [facility] Comment on above: Performed By: #### C BCDIF, PT, UA, GBCHEM, GBTSH, HIVC, MG, GBHCV, HAVIGM, HBCAB, HBSAG, RPR #### [facility] [address] [place] [address] MCH (RBC) [Entitic mass] 31.0 pG Normal 26-34 [facility] Comment on above: Performed By: #### C BCDIF, PT, UA, GBCHEM, GBTSH, HIVC, MG, GBHCV, HAVIGM, HBCAB, HBSAG, RPR #### [facility] Lab [address] [place] [address] MCHC (RBC) [Mass/Vol] 34.6 g/dL Normal 31-37 [facility] Comment on above: Performed By: #### C BCDIF, PT, UA, GBCHEM, GBTSH, HIVC, MG, GBHCV, HAVIGM, HBCAB, HBSAG, RPR #### [facility] [address] [place] [address] MCV (RBC) [Entitic vol] 89.4 fL Normal 80-100 [facility] Comment on above: Performed By: #### C BCDIF, PT, UA, GBCHEM, GBTSH, HIVC, MG, GBHCV, HAVIGM, HBCAB, HBSAG, RPR #### [facility] [address] [place] [address] Monocytes/100 WBC (Bld) 8.3 % Normal 4-12 [facility] Comment on above: Performed By: #### C BCDIF, PT, UA, GBCHEM, GBTSH, HIVC, MG, GBHCV, HAVIGM, HBCAB, HBSAG, RPR #### [facility] Clinical Lab [address] [place] [address] Neutrophils/100 WBC (Bld) 66.5 % Normal 40-70 [facility] Comment on above: Performed By: #### C BCDIF, PT, UA, GBCHEM, GBTSH, HIVC, MG, GBHCV, HAVIGM, HBCAB, HBSAG, RPR #### [facility] Clinical Lab [address] [place] [address] NRBCs 0 /100 WBC Normal 0-0.9 [facility] Comment on above: Performed By: #### C BCDIF, PT, UA, GBCHEM, GBTSH, HIVC, MG, GBHCV, HAVIGM, HBCAB, HBSAG, RPR #### [facility] Clinical Lab [address] [place] [address] Platelets (Bld) [#/Vol] 370 10*3/uL Normal 150-450 [facility] Comment on above: Performed By: #### C BCDIF, PT, UA, GBCHEM, GBTSH, HIVC, MG, GBHCV, HAVIGM, HBCAB, HBSAG, RPR #### [facility] Clinical Lab [address] [place] [address] RBC (Bld) [#/Vol] 5.10 10*6/uL Normal 4.50-5.90 [facility] Comment on above: Performed By: #### C BCDIF, PT, UA, GBCHEM, GBTSH, HIVC, MG, GBHCV, HAVIGM, HBCAB, HBSAG, RPR #### [facility] Clinical Lab [address] [place] [address] WBC (Bld) [#/Vol] 9.74 10*3/uL Normal 4.5-11.0 [facility] Comment on above: Performed By: #### C BCDIF, PT, UA, GBCHEM, GBTSH, HIVC, MG, GBHCV, HAVIGM, HBCAB, HBSAG, RPR #### [facility] Clinical Lab [address] [place] [address] CT ABD/PEL W IVCONon 019 CT ABD/PEL [...] Lower thorax: Unremarkable. IMPRESSION: Normal abdomen pelvis [employer]: MARY LOU Transcribe Date/Time: Jan 23 2019 9:50P Dictated by : LUIS F CARCAMO MD This examination was interpreted and the report reviewed and electronically signed by: LUIS F CARCAMO MD on Jan 23 2019 9:55PM EST [id number] Normal [facility] Comp Metabolic Panelon 01-23 Albumin [Mass/Vol] 4.7 g/dL Normal 3.5-5.0 [facility] Comment on above: Performed By: #### C BCDIF, PT, UA, GBCHEM, GBTSH, HIVC, MG, GBHCV, HAVIGM, HBCAB, HBSAG, RPR #### [facility] [address] [place], [place] [id number] Alkaline Phos 58 U/L Normal 38-125 [facility] Comment on above: Performed By: #### C BCDIF, PT, UA, GBCHEM, GBTSH, HIVC, MG, GBHCV, HAVIGM, HBCAB, HBSAG, RPR #### [facility] [address] [place], [place] [id number] ALT [Catalytic activity/Vol] 29 U/L Normal 21-72 [facility] Comment on above: Performed By: #### C BCDIF, PT, UA, GBCHEM, GBTSH, HIVC, MG, GBHCV, HAVIGM, HBCAB, HBSAG, RPR #### [facility] [address] [place], [place] [id number] Anion gap [Moles/Vol] 12 mmol/L Normal 0-15 [facility] Comment on above: Performed By: #### C BCDIF, PT, UA, GBCHEM, GBTSH, HIVC, MG, GBHCV, HAVIGM, HBCAB, HBSAG, RPR #### [facility] [address] [place], [place] [id number] AST [Catalytic activity/Vol] 31 U/L Normal 17-59 [facility] Comment on above: Performed By: #### C BCDIF, PT, UA, GBCHEM, GBTSH, HIVC, MG, GBHCV, HAVIGM, HBCAB, HBSAG, RPR #### [facility] [address] [place], [place] [id number] Bilirubin Ql (U) 0.4 mg/dL Normal 0.2-1.3 [facility] Comment on above: Performed By: #### C BCDIF, PT, UA, GBCHEM, GBTSH, HIVC, MG, GBHCV, HAVIGM, HBCAB, HBSAG, RPR #### [facility] Clinical Lab [address] [place] [address] Calcium [Mass/Vol] 10.4 mg/dL High 8.4-10.2 [facility] Comment on above: Performed By: #### C BCDIF, PT, UA, GBCHEM, GBTSH, HIVC, MG, GBHCV, HAVIGM, HBCAB, HBSAG, RPR #### [facility] Clinical Lab [address] [place] [address] Chloride [Moles/Vol] 99 mmol/L Normal 98-107 [facility] Comment on above: Performed By: #### C BCDIF, PT, UA, GBCHEM, GBTSH, HIVC, MG, GBHCV, HAVIGM, HBCAB, HBSAG, RPR #### [facility] Clinical Lab [address] [place], [place] 6843324 CO2 [Moles/Vol] 29 mmol/L Normal 22-30 [facility] Comment on above: Performed By: #### C BCDIF, PT, UA, GBCHEM, GBTSH, HIVC, MG, GBHCV, HAVIGM, HBCAB, HBSAG, RPR #### [facility] Clinical Lab [address] [place], [place] 7235524 Creatinine [Mass/Vol] 0.75 mg/dL Normal 0.66-1.25 [facility] Comment on above: Performed By: #### C BCDIF, PT, UA, GBCHEM, GBTSH, HIVC, MG, GBHCV, HAVIGM, HBCAB, HBSAG, RPR #### [facility] Clinical Lab [address] [place] [address] eGFR Amer >60 Normal >60 [facility] Comment on above: Result Comment: MDRD calculation used for eGFR results. Performed By: #### C BCDIF, PT, UA, GBCHEM, GBTSH, HIVC, MG, GBHCV, HAVIGM, HBCAB, HBSAG, RPR #### [facility] Clinical Lab [address] [place] [address] eGFR non Am >60 Normal >60 [facility] Comment on above: Performed By: #### C BCDIF, PT, UA, GBCHEM, GBTSH, HIVC, MG, GBHCV, HAVIGM, HBCAB, HBSAG, RPR #### [facility] [address] [place], [place] 1700324 Glucose [Mass/Vol] 102 mg/dL Normal 74-106 [facility] Comment on above: Performed By: #### C BCDIF, PT, UA, GBCHEM, GBTSH, HIVC, MG, GBHCV, HAVIGM, HBCAB, HBSAG, RPR #### [facility] Clinical Lab [address] [place], [place] 4375124 Potassium [Moles/Vol] 4.3 mmol/L Normal 3.5-5.1 [facility] Comment on above: Performed By: #### C BCDIF, PT, UA, GBCHEM, GBTSH, HIVC, MG, GBHCV, HAVIGM, HBCAB, HBSAG, RPR #### [facility] Clinical Lab [address] [place], [place] 3917724 Protein [Mass/Vol] 8.1 g/dL Normal 6.2-8.2 [facility] Comment on above: Performed By: #### C BCDIF, PT, UA, GBCHEM, GBTSH, HIVC, MG, GBHCV, HAVIGM, HBCAB, HBSAG, RPR #### [facility] [address] [place], [place] 7286424 Sodium [Moles/Vol] 136 mmol/L Low 137-145 [facility] Comment on above: Performed By: #### C BCDIF, PT, UA, GBCHEM, GBTSH, HIVC, MG, GBHCV, HAVIGM, HBCAB, HBSAG, RPR #### [facility] [address] [place], [place] 66[address]24 Urea nitrogen [Mass/Vol] 13 mg/dL Normal - [facility] Comment on above: Performed By: #### C BCDIF, PT, UA, GBCHEM, GBTSH, HIVC, MG, GBHCV, HAVIGM, HBCAB, HBSAG, RPR #### [facility] [address] [place], [place] 9742524 ED NOTEon 01-23-2019 ED NOTE HNO ID: [id number] Author: Blaire Zacarias RN Service: ? Author Type: Registered Nurse Type: ED Notes Filed: 01/23/2019 9:42 PM Note Text: Pt back from ct. [facility] ED NOTE HNO ID: [id number] Author: Blaire Zacarias RN Service: ? Author Type: Registered Nurse Type: ED Notes Filed: 01/23/2019 9:15 PM Note Text: Pt presents to ED from [facility] for RLQ abd pain that started around 1630 tonight with nausea. Last BM per pt about 1 week ago. Pt is in rehab for etoh abuse. [facility] ED PROV NOTEon 01-23-2019 ED PROV NOTE HNO ID: [id number] Author: iNi Garcia MD Service: Emergency Medicine Author Type: [...] Sexual Activity - Alcohol use: Yes Comment: 6-24 cans - Drug use: Yes Types: Crack [...] Abnormal; Notable for the following components: Abs [place] 0.81 (*) 0 - 0.8 k/uL All [...] MD Nii Robert MD 01/23/19 2217 Normal [facility] Sed Rate Westergrenon 2018 Sed Rate Westergren 10 mm/hr Normal <15 [facility] Comment on above: Performed By: #### C BCDIF, PT, UA, GBCHEM, GBTSH, HIVC, MG, GBHCV, HAVIGM, HBCAB, HBSAG, RPR #### [facility] Clinical Lab [address] [place] [address] CBCDIFon 01-21-2019 Abs Baso 0.03 k/uL Normal 0-0.2 [facility] Comment on above: Performed By: #### C BCDIF, PT, UA, GBCHEM, GBTSH, HIVC, MG, GBHCV, HAVIGM, HBCAB, HBSAG, RPR #### [facility] Clinical Lab [address] [place] [address] Abs [place] 0.56 k/uL Normal 0-0.8 [facility] Comment on above: Performed By: #### C BCDIF, PT, UA, GBCHEM, GBTSH, HIVC, MG, GBHCV, HAVIGM, HBCAB, HBSAG, RPR #### [facility] Clinical Lab [address] [place] [address] Abs Neut 3.43 k/uL Normal 1.8-7.7 [facility] Comment on above: Performed By: #### C BCDIF, PT, UA, GBCHEM, GBTSH, HIVC, MG, GBHCV, HAVIGM, HBCAB, HBSAG, RPR #### [facility] [address] [place] [address] Basophils/100 WBC (Bld) 0.5 % Normal 0-1 A [facility] Comment on above: Performed By: #### C BCDIF, PT, UA, GBCHEM, GBTSH, HIVC, MG, GBHCV, HAVIGM, HBCAB, HBSAG, RPR #### [facility] Clinical Lab [address] [place] [address] Eosinophils (Bld) [#/Vol] 0.22 10*3/uL Normal 0-0.4 [facility] Comment on above: Performed By: #### C BCDIF, PT, UA, GBCHEM, GBTSH, HIVC, MG, GBHCV, HAVIGM, HBCAB, HBSAG, RPR #### [facility] Clinical Lab [address] [place], [place] [phone] Eosinophils/100 WBC (Bld) 3.5 % Normal 0-4 [facility] Comment on above: Performed By: #### C BCDIF, PT, UA, GBCHEM, GBTSH, HIVC, MG, GBHCV, HAVIGM, HBCAB, HBSAG, RPR #### [facility] Clinical Lab [address] [place], [place] [address]1824 Erythrocyte distribution width (RBC) [Ratio] 13.1 % Normal 11.5-14.5 [facility] Comment on above: Performed By: #### C BCDIF, PT, UA, GBCHEM, GBTSH, HIVC, MG, GBHCV, HAVIGM, HBCAB, HBSAG, RPR #### [facility] Clinical Lab [address] [place], [place] [address]81124 Hematocrit (Bld) [Volume fraction] 47.0 % Normal 41.0-53.0 [facility] Comment on above: Performed By: #### C BCDIF, PT, UA, GBCHEM, GBTSH, HIVC, MG, GBHCV, HAVIGM, HBCAB, HBSAG, RPR #### [facility] Clinical Lab [address] [place] [address] Hemoglobin (Bld) [Mass/Vol] 16.0 g/dL Normal 13.5-17.5 [facility] Comment on above: Performed By: #### C BCDIF, PT, UA, GBCHEM, GBTSH, HIVC, MG, GBHCV, HAVIGM, HBCAB, HBSAG, RPR #### [facility] Clinical Lab [address] [place], [place] 8777724 Immature Gran 0.60 % Normal 0-1.9 [facility] Comment on above: Performed By: #### C BCDIF, PT, UA, GBCHEM, GBTSH, HIVC, MG, GBHCV, HAVIGM, HBCAB, HBSAG, RPR #### [facility] Clinical Lab [address] [place] [address] Lymphocytes (Bld) [#/Vol] 2.05 10*3/uL Normal 1.0-4.0 [facility] Comment on above: Performed By: #### C BCDIF, PT, UA, GBCHEM, GBTSH, HIVC, MG, GBHCV, HAVIGM, HBCAB, HBSAG, RPR #### [facility] Clinical Lab [address] [place] [id number] Lymphocytes/100 WBC (Bld) 32.4 % Normal 22-44 [facility] Comment on above: Performed By: #### C BCDIF, PT, UA, GBCHEM, GBTSH, HIVC, MG, GBHCV, HAVIGM, HBCAB, HBSAG, RPR #### [facility] Clinical Lab [address] [place], [place] 2418824 MCH (RBC) [Entitic mass] 30.9 pG Normal 26-34 [facility] Comment on above: Performed By: #### C BCDIF, PT, UA, GBCHEM, GBTSH, HIVC, MG, GBHCV, HAVIGM, HBCAB, HBSAG, RPR #### [facility] Clinical Lab [address] [place], [place] 1533524 MCHC (RBC) [Mass/Vol] 34.0 g/dL Normal 31-37 [facility] Comment on above: Performed By: #### C BCDIF, PT, UA, GBCHEM, GBTSH, HIVC, MG, GBHCV, HAVIGM, HBCAB, HBSAG, RPR #### [facility] [address] [place] [address] MCV (RBC) [Entitic vol] 90.7 fL Normal 80-100 [facility] Comment on above: Performed By: #### C BCDIF, PT, UA, GBCHEM, GBTSH, HIVC, MG, GBHCV, HAVIGM, HBCAB, HBSAG, RPR #### [facility] [address] [place] [address] Monocytes/100 WBC (Bld) 8.8 % Normal 4-12 [facility] Comment on above: Performed By: #### C BCDIF, PT, UA, GBCHEM, GBTSH, HIVC, MG, GBHCV, HAVIGM, HBCAB, HBSAG, RPR #### [facility] [address] [place] [address] Neutrophils/100 WBC (Bld) 54.2 % Normal 40-70 [facility] Comment on above: Performed By: #### C BCDIF, PT, UA, GBCHEM, GBTSH, HIVC, MG, GBHCV, HAVIGM, HBCAB, HBSAG, RPR #### [facility] [address] [place] [address] NRBCs 0 /100 WBC Normal 0-0.9 [facility] Comment on above: Performed By: #### C BCDIF, PT, UA, GBCHEM, GBTSH, HIVC, MG, GBHCV, HAVIGM, HBCAB, HBSAG, RPR #### [facility] [address] [place] [address] Platelets (Bld) [#/Vol] 352 10*3/uL Normal 150-450 [facility] Comment on above: Performed By: #### C BCDIF, PT, UA, GBCHEM, GBTSH, HIVC, MG, GBHCV, HAVIGM, HBCAB, HBSAG, RPR #### [facility] Clinical Lab [address] [place], [place] [phone] RBC (Bld) [#/Vol] 5.18 10*6/uL Normal 4.50-5.90 [facility] Comment on above: Performed By: #### C BCDIF, PT, UA, GBCHEM, GBTSH, HIVC, MG, GBHCV, HAVIGM, HBCAB, HBSAG, RPR #### [facility] Clinical Lab [address] [place], [place] [phone] WBC (Bld) [#/Vol] 6.33 10*3/uL Normal 4.5-11.0 [facility] Comment on above: Performed By: #### C BCDIF, PT, UA, GBCHEM, GBTSH, HIVC, MG, GBHCV, HAVIGM, HBCAB, HBSAG, RPR #### [facility] Clinical Lab [address] [place], [place] 0703024 [facility] Albumin [Mass/Vol] 4.6 g/dL Normal 3.5-5.0 [facility] Comment on above: Performed By: #### C BCDIF, PT, UA, GBCHEM, GBTSH, HIVC, MG, GBHCV, HAVIGM, HBCAB, HBSAG, RPR #### [facility] Clinical Lab [address] [place], [place] 8[address]1324 Alkaline Phos 55 U/L Normal 38-125 [facility] Comment on above: Performed By: #### C BCDIF, PT, UA, GBCHEM, GBTSH, HIVC, MG, GBHCV, HAVIGM, HBCAB, HBSAG, RPR #### [facility] Clinical Lab [address] [place] [address] ALT [Catalytic activity/Vol] 19 U/L Low 21-72 [facility] Comment on above: Performed By: #### C BCDIF, PT, UA, GBCHEM, GBTSH, HIVC, MG, GBHCV, HAVIGM, HBCAB, HBSAG, RPR #### [facility] [address] [place] [address] Amylase [Catalytic activity/Vol] 93 U/L Normal 30-110 [facility] Comment on above: Performed By: #### C BCDIF, PT, UA, GBCHEM, GBTSH, HIVC, MG, GBHCV, HAVIGM, HBCAB, HBSAG, RPR #### [facility] Clinical Lab [address] [place] [address] Anion gap [Moles/Vol] 14 mmol/L Normal 0-15 [facility] Comment on above: Performed By: #### C BCDIF, PT, UA, GBCHEM, GBTSH, HIVC, MG, GBHCV, HAVIGM, HBCAB, HBSAG, RPR #### [facility] Clinical Lab [address] [place] [address] AST [Catalytic activity/Vol] 26 U/L Normal 17-59 [facility] Comment on above: Performed By: #### C BCDIF, PT, UA, GBCHEM, GBTSH, HIVC, MG, GBHCV, HAVIGM, HBCAB, HBSAG, RPR #### [facility] Clinical Lab [address] [place] [address] Bilirubin Ql (U) 0.6 mg/dL Normal 0.2-1.3 [facility] Comment on above: Performed By: #### C BCDIF, PT, UA, GBCHEM, GBTSH, HIVC, MG, GBHCV, HAVIGM, HBCAB, HBSAG, RPR #### [facility] Clinical Lab [address] [place] [address] Calcium [Mass/Vol] 9.8 mg/dL Normal 8.4-10.2 [facility] Comment on above: Performed By: #### C BCDIF, PT, UA, GBCHEM, GBTSH, HIVC, MG, GBHCV, HAVIGM, HBCAB, HBSAG, RPR #### [facility] Clinical Lab [address] [place] [address] Chloride [Moles/Vol] 103 mmol/L Normal 98-107 [facility] Comment on above: Performed By: #### C BCDIF, PT, UA, GBCHEM, GBTSH, HIVC, MG, GBHCV, HAVIGM, HBCAB, HBSAG, RPR #### [facility] Clinical Lab [address] [place] [address] Cholesterol [Mass/Vol] 116 mg/dL Normal 100-199 [facility] Comment on above: Performed By: #### C BCDIF, PT, UA, GBCHEM, GBTSH, HIVC, MG, GBHCV, HAVIGM, HBCAB, HBSAG, RPR #### [facility] Clinical Lab [address] [place], [place] [phone] CO2 [Moles/Vol] 28 mmol/L Normal 22-30 [facility] Comment on above: Performed By: #### C BCDIF, PT, UA, GBCHEM, GBTSH, HIVC, MG, GBHCV, HAVIGM, HBCAB, HBSAG, RPR #### [facility] Clinical Lab [address] [place], [place] [phone] Creatinine [Mass/Vol] 0.88 mg/dL Normal 0.66-1.25 [facility] Comment on above: Performed By: #### C BCDIF, PT, UA, GBCHEM, GBTSH, HIVC, MG, GBHCV, HAVIGM, HBCAB, HBSAG, RPR #### [facility] Clinical Lab [address] [place], [place] [phone] eGFR Amer >60 Normal >60 [facility] Comment on above: Result Comment: MDRD calculation used for eGFR results. Performed By: #### C BCDIF, PT, UA, GBCHEM, GBTSH, HIVC, MG, GBHCV, HAVIGM, HBCAB, HBSAG, RPR #### [facility] Clinical Lab [address] [place] [address] eGFR non Am >60 Normal >60 [facility] Comment on above: Performed By: #### C BCDIF, PT, UA, GBCHEM, GBTSH, HIVC, MG, GBHCV, HAVIGM, HBCAB, HBSAG, RPR #### [facility] [address] [place] [address] Gamma glutamyl transferase [Catalytic activity/Vol] 23 U/L Normal 15-73 [facility] Comment on above: Performed By: #### C BCDIF, PT, UA, GBCHEM, GBTSH, HIVC, MG, GBHCV, HAVIGM, HBCAB, HBSAG, RPR #### [facility] Clinical Lab [address] [place], [place] 0[address]0224 Glucose [Mass/Vol] 93 mg/dL Normal 74-106 [facility] Comment on above: Performed By: #### C BCDIF, PT, UA, GBCHEM, GBTSH, HIVC, MG, GBHCV, HAVIGM, HBCAB, HBSAG, RPR #### [facility] [address] [place], [place] 4195924 LDH 359 U/L Normal 318-618 [facility] Comment on above: Performed By: #### C BCDIF, PT, UA, GBCHEM, GBTSH, HIVC, MG, GBHCV, HAVIGM, HBCAB, HBSAG, RPR #### [facility] [address] [place], [place] 9570224 Phosphate [Mass/Vol] 4.0 mg/dL Normal 2.5-4.5 [facility] Comment on above: Performed By: #### C BCDIF, PT, UA, GBCHEM, GBTSH, HIVC, MG, GBHCV, HAVIGM, HBCAB, HBSAG, RPR #### [facility] [address] [place], [place] [phone] Potassium [Moles/Vol] 4.2 mmol/L Normal 3.5-5.1 [facility] Comment on above: Performed By: #### C BCDIF, PT, UA, GBCHEM, GBTSH, HIVC, MG, GBHCV, HAVIGM, HBCAB, HBSAG, RPR #### [facility] [address] [place] [address] Protein [Mass/Vol] 7.6 g/dL Normal 6.2-8.2 [facility] Comment on above: Performed By: #### C BCDIF, PT, UA, GBCHEM, GBTSH, HIVC, MG, GBHCV, HAVIGM, HBCAB, HBSAG, RPR #### [facility] Lab [address] [place] [address] Sodium [Moles/Vol] 141 mmol/L Normal 137-145 [facility] Comment on above: Performed By: #### C BCDIF, PT, UA, GBCHEM, GBTSH, HIVC, MG, GBHCV, HAVIGM, HBCAB, HBSAG, RPR #### [facility] [address] [place] [address] Triglyceride [Mass/Vol] 111 mg/dL Normal 35-150 [facility] Comment on above: Performed By: #### C BCDIF, PT, UA, GBCHEM, GBTSH, HIVC, MG, GBHCV, HAVIGM, HBCAB, HBSAG, RPR #### [facility] [address] [place] [address] Urate [Mass/Vol] 6.4 mg/dL Normal 3.5-8.5 [facility] Comment on above: Performed By: #### C BCDIF, PT, UA, GBCHEM, GBTSH, HIVC, MG, GBHCV, HAVIGM, HBCAB, HBSAG, RPR #### [facility] [address] [place] [address] Urea nitrogen [Mass/Vol] 12 mg/dL Normal 9-20 [facility] Comment on above: Performed By: #### C BCDIF, PT, UA, GBCHEM, GBTSH, HIVC, MG, GBHCV, HAVIGM, HBCAB, HBSAG, RPR #### [facility] Lab [address] [place], [place] 1827724 [facility] Hep C Abon 019 [facility] Hep C Ab Nonreactive Normal Nonreactive [facility] Comment on above: Performed By: #### C BCDIF, PT, UA, GBCHEM, GBTSH, HIVC, MG, GBHCV, HAVIGM, HBCAB, HBSAG, RPR #### [facility] Lab [address] [place], [place] 1641824 [facility] TSHon 01-21-2019 TSH Qn 1.470 uU/mL Normal 0.465-4.680 [facility] Comment on above: Result Comment: Biot [...] MG, GBHCV, HAVIGM, HBCAB, HBSAG, RPR #### [facility] Lab [address] [place], [place] 8080624 HIV Comboon 01-21-2019 HIV Combo Nonreactive [facility] Comment on above: Performed By: #### C BCDIF, PT, UA, GBCHEM, GBTSH, HIVC, MG, GBHCV, HAVIGM, HBCAB, HBSAG, RPR #### [facility] [address] [place] [address] Hep A IgM Antibodyon 019 Hep A IgM Antibody Nonreactive Normal Nonreactive [facility] Comment on above: Result Comment: Biot [...] MG, GBHCV, HAVIGM, HBCAB, HBSAG, RPR #### [facility] [address] [place] [address] Hep B Core Total Abon 2018 Hep B Core Total Ab Nonreactive Normal Nonreactive [facility] Comment on above: Performed By: #### C BCDIF, PT, UA, GBCHEM, GBTSH, HIVC, MG, GBHCV, HAVIGM, HBCAB, HBSAG, RPR #### [facility] [address] [place] [address] Hep B Surf Antigenon 019 Hep B Surf Antigen Nonreactive Normal Nonreactive [facility] Comment on above: Performed By: #### C BCDIF, PT, UA, GBCHEM, GBTSH, HIVC, MG, GBHCV, HAVIGM, HBCAB, HBSAG, RPR #### [facility] [address] [place] [address] Magnesiumon 01-21-2019 Magnesium [Mass/Vol] 2.1 mg/dL Normal 1.3-2.3 [facility] Comment on above: Performed By: #### C BCDIF, PT, UA, GBCHEM, GBTSH, HIVC, MG, GBHCV, HAVIGM, HBCAB, HBSAG, RPR #### [facility] [address] [place] [address] Protimeon 01-21-2019 PT Coag (PPP) [Time] 0.9 s Normal 0.6-1.1 [facility] Comment on above: Result Comment: The PT/INR [...] MG, GBHCV, HAVIGM, HBCAB, HBSAG, RPR #### [facility] [address] [place] [address] PT Coag (PPP) [Time] 12.3 s Normal 11.8-14.1 [facility] Comment on above: Performed By: #### C BCDIF, PT, UA, GBCHEM, GBTSH, HIVC, MG, GBHCV, HAVIGM, HBCAB, HBSAG, RPR #### [facility] [address] [place] [address] RPRon 01-21-2019 Reagin Ab RPR Ql (S) Nonreactive Normal Nonreactive [facility] Comment on above: Performed By: #### C BCDIF, PT, UA, GBCHEM, GBTSH, HIVC, MG, GBHCV, HAVIGM, HBCAB, HBSAG, RPR #### [facility] [address] [place] [address] Urinalysison 01-21-2019 Bilirubin [Mass/Vol] Negative Normal Negative [facility] Comment on above: Performed By: #### C BCDIF, PT, UA, GBCHEM, GBTSH, HIVC, MG, GBHCV, HAVIGM, HBCAB, HBSAG, RPR #### [facility] [address] [place] [address] Clarity (U) Clear Normal Clear [facility] Comment on above: Performed By: #### C BCDIF, PT, UA, GBCHEM, GBTSH, HIVC, MG, GBHCV, HAVIGM, HBCAB, HBSAG, RPR #### [facility] [address] [place] [address] Color (U) Yellow Normal Yellow [facility] Comment on above: Performed By: #### C BCDIF, PT, UA, GBCHEM, GBTSH, HIVC, MG, GBHCV, HAVIGM, HBCAB, HBSAG, RPR #### [facility] [address] [place] [address] Comments MICROSCOPIC ANALYSIS NOT DONE ON URINES WITH NEGATIVE BIOCHEMICAL TESTS Normal [facility] Comment on above: Performed By: #### C BCDIF, PT, UA, GBCHEM, GBTSH, HIVC, MG, GBHCV, HAVIGM, HBCAB, HBSAG, RPR #### [facility] [address] [place] [address] Glucose [Mass/Vol] Negative Normal Negative [facility] Comment on above: Performed By: #### C BCDIF, PT, UA, GBCHEM, GBTSH, HIVC, MG, GBHCV, HAVIGM, HBCAB, HBSAG, RPR #### [facility] [address] [place] [address] Hemoglobin/Blood Negative Normal Negative [facility] Comment on above: Performed By: #### C BCDIF, PT, UA, GBCHEM, GBTSH, HIVC, MG, GBHCV, HAVIGM, HBCAB, HBSAG, RPR #### [facility] [address] [place] [address] Ketone Negative Normal Negative [facility] Comment on above: Performed By: #### C BCDIF, PT, UA, GBCHEM, GBTSH, HIVC, MG, GBHCV, HAVIGM, HBCAB, HBSAG, RPR #### [facility] [address] [place] [address] Leukest Negative Normal Negative [facility] Comment on above: Performed By: #### C BCDIF, PT, UA, GBCHEM, GBTSH, HIVC, MG, GBHCV, HAVIGM, HBCAB, HBSAG, RPR #### [facility] [address] [place], [place] [id number] Nitrite Ql (U) Negative Normal Negative [facility] Comment on above: Performed By: #### C BCDIF, PT, UA, GBCHEM, GBTSH, HIVC, MG, GBHCV, HAVIGM, HBCAB, HBSAG, RPR #### [facility] [address] [place], [place] [id number] pH (U) 6.0 [pH] Normal 5-7 [facility] Comment on above: Performed By: #### C BCDIF, PT, UA, GBCHEM, GBTSH, HIVC, MG, GBHCV, HAVIGM, HBCAB, HBSAG, RPR #### [facility] [address] [place], [place] [id number] Protein (U) [Mass/Vol] Negative Normal Negative [facility] Comment on above: Performed By: #### C BCDIF, PT, UA, GBCHEM, GBTSH, HIVC, MG, GBHCV, HAVIGM, HBCAB, HBSAG, RPR #### [facility] [address] [place] [address] Urine Spec [place] 1.019 Normal 1.005-1.030 [facility] Comment on above: Performed By: #### C BCDIF, PT, UA, GBCHEM, GBTSH, HIVC, MG, GBHCV, HAVIGM, HBCAB, HBSAG, RPR #### [facility] [address] [place], [place] [id number] Urobilinogen Qn (U) <2.0 Normal 0.0-1.0 [facility] Comment on above: Performed By: #### C BCDIF, PT, UA, GBCHEM, GBTSH, HIVC, MG, GBHCV, HAVIGM, HBCAB, HBSAG, RPR #### [facility] [address] [place], [place] [id number] Vital Signs Date Time Vital Sign Value Performing Clinician Facility 09-21-2024 15:24-0400 Body temperature 96.8 [degF] No Primary Care Physician [facility] 09-21-2024 15:24-0400 Diastolic blood pressure 81 mm[Hg] No Primary Care Physician [facility] 09-21-2024 15:24-0400 Heart rate 111 /min No Primary Care Physician [facility] 09-21-2024 15:24-0400 Respiratory rate 18 /min No Primary Care Physician [facility] 09-21-2024 15:24-0400 SaO2% (BldA) [Mass fraction] 98 % No Primary Care Physician [facility] 09-21-2024 15:24-0400 Systolic blood pressure 109 mm[Hg] No Primary Care Physician [facility] 09-21-2024 14:15-0400 Body height 187.96 cm No Primary Care Physician [facility] 09-21-2024 14:15-0400 Body mass index (BMI) [Ratio] 16.8 kg/m2 No Primary Care Physician [facility] 09-21-2024 14:15-0400 Body weight 59.46 kg No Primary Care Physician [facility] 09-05-2024 13:11-0400 Body temperature 97.5 [degF] No Primary Care Physician [facility] 09-05-2024 13:11-0400 Diastolic blood pressure 64 mm[Hg] No Primary Care Physician [facility] 09-05-2024 13:11-0400 Heart rate 92 /min No Primary Care Physician [facility] 09-05-2024 13:11-0400 Respiratory rate 16 /min No Primary Care Physician [facility] 09-05-2024 13:11-0400 SaO2% (BldA) [Mass fraction] 99 % No Primary Care Physician [facility] 09-05-2024 13:11-0400 Systolic blood pressure 118 mm[Hg] No Primary Care Physician [facility] 09-05-2024 09:18-0400 Body height 187.96 cm No Primary Care Physician [facility] 09-05-2024 09:18-0400 Body mass index (BMI) [Ratio] 16.9 kg/m2 No Primary Care Physician [facility] 09-05-2024 09:18-0400 Body weight 59.9 kg No Primary Care Physician [facility] 12-09-2023 00:33-0400 Diastolic blood pressure 77 mm[Hg] Jesus Koch MD Work Phone: [phone] [place] [address] 12-09-2023 00:33-0400 Heart rate 78 /min Jesus Koch MD Work Phone: 6(002)[phone] [address] 12-09-2023 00:33-0400 Respiratory rate 16 /min Jesus Koch MD Work Phone: 5([phone] [place] [address] 12-09-2023 00:33-0400 SaO2% (BldA) [Mass fraction] 98 % Jesus Koch MD Work Phone: 5([phone] [place] [address] 12-09-2023 00:33-0400 Systolic blood pressure 108 mm[Hg] Jesus Koch MD Work Phone: 3([phone] [place] [address] 12-08-2023 22:21-0400 Body height 188 cm Jesus Koch MD Work Phone: [phone])[phone] [place] [address] 12-08-2023 22:21-0400 Body mass index (BMI) [Ratio] 17.33 kg/m2 Jesus Koch MD Work Phone: [phone] [place] [address] 12-08-2023 22:21-0400 Body temperature 97.7 [degF] Jesus Koch MD Work Phone: 5([phone] [place] [address] 12-08-2023 22:21-0400 Body weight 61.24 kg Jesus Koch MD Work Phone: [phone] [place] [address] 12-05-2023 03:31-0400 Body temperature 97.88 [degF] NICOLE CHUNG MD [facility] 12-05-2023 03:31-0400 Diastolic Blood Pressure Non-Invasive 56 mm[Hg] NICOLE CHUNG MD [facility] 12-05-2023 03:31-0400 Heart rate 58 /min NICOLE CHUNG MD [facility] 12-05-2023 03:31-0400 Respiratory rate 16 /min NICOLE CHUNG MD [facility] 12-05-2023 03:31-0400 Systolic Blood Pressure Non-Invasive 96 mm[Hg] NICOLE CHUNG MD [facility] 12-05-2023 02:37-0400 Diastolic Blood Pressure Non-Invasive 54 mm[Hg] NICOLE CHUNG MD [facility] 12-05-2023 02:37-0400 Heart rate 57 /min NICOLE CHUNG MD [facility] 12-05-2023 02:37-0400 Respiratory rate 16 /min NICOLE CHUNG MD [facility] 12-05-2023 02:37-0400 Systolic Blood Pressure Non-Invasive 91 mm[Hg] NICOLE CHUNG MD [facility] 12-04-2023 20:59-0400 Blood Pressure Cuff Size NICOLE CHUNG MD [facility] 12-04-2023 20:59-0400 Blood Pressure Location NICOLE CHUNG MD [facility] 12-04-2023 20:59-0400 Blood Pressure Method NICOLE CHUNG MD [facility] 12-04-2023 20:59-0400 Diastolic Blood Pressure Non-Invasive 62 mm[Hg] NICOLE CHUNG MD [facility] 12-04-2023 20:59-0400 Heart rate 59 /min NICOLE CHUNG MD [facility] 12-04-2023 20:59-0400 Respiratory rate 16 /min NICOLE CHUNG MD [facility] 12-04-2023 20:59-0400 Systolic Blood Pressure Non-Invasive 94 mm[Hg] NICOLE CHUNG MD [facility] 12-04-2023 17:31-0400 Blood Pressure Cuff Size NICOLE CHUNG MD [facility] 12-04-2023 17:31-0400 Blood Pressure Location NICOLE CHUNG MD [facility] 12-04-2023 17:31-0400 Blood Pressure Method NICOLE CHUNG MD [facility] 12-04-2023 17:31-0400 Heart rate 58 /min NICOLE CHUNG MD [facility] 12-04-2023 16:44-0400 Blood Pressure Cuff Size NICOLE CHUNG MD [facility] 12-04-2023 16:44-0400 Blood Pressure Location NICOLE CHUNG MD [facility] 12-04-2023 16:44-0400 Blood Pressure Method NICOLE CHUNG MD [facility] 12-04-2023 13:50-0400 Heart rate 71 /min NICOLE CHUNG MD [facility] 12-04-2023 13:26-0400 Heart rate 66 /min NICOLE CHUNG MD [facility] 12-04-2023 11:18-0400 Body temperature 96.8 [degF] NICOLE CHUNG MD [facility] 12-04-2023 11:18-0400 Body weight 54.5 kg NICOLE CHUNG MD [facility] 11-29-2023 12:25-0400 Diastolic Blood Pressure Non-Invasive 72 mm[Hg] NICOLE CHUNG MD [facility] 11-29-2023 12:25-0400 Heart rate 93 /min NICOLE CHUNG MD [facility] 11-29-2023 12:25-0400 Respiratory rate 18 /min NICOLE CHUNG MD [facility] 11-29-2023 12:25-0400 Systolic Blood Pressure Non-Invasive 106 mm[Hg] NICOLE CHUNG MD [facility] 11-29-2023 10:30-0400 Diastolic Blood Pressure Non-Invasive 60 mm[Hg] NICOLE CHUNG MD [facility] 11-29-2023 10:30-0400 Heart rate 80 /min NICOLE CHUNG MD [facility] 11-29-2023 10:30-0400 Respiratory rate 18 /min NICOLE CHUNG MD [facility] 11-29-2023 10:30-0400 Systolic Blood Pressure Non-Invasive 112 mm[Hg] NICOLE CHUNG MD [facility] 11-29-2023 09:25-0400 Diastolic Blood Pressure Non-Invasive 65 mm[Hg] NICOLE CHUNG MD [facility] 11-29-2023 09:25-0400 Heart rate 115 /min NICOLE CHUNG MD [facility] 11-29-2023 09:25-0400 Respiratory rate 20 /min NICOLE CHUNG MD [facility] 11-29-2023 09:25-0400 Systolic Blood Pressure Non-Invasive 104 mm[Hg] NICOLE CHUNG MD [facility] 11-29-2023 09:02-0400 Body temperature 98.06 [degF] NICOLE CHUNG MD [facility] 11-29-2023 09:02-0400 Body weight 68.1 kg NICOLE CHUNG MD [facility] 05-18-2023 11:31-0500 Diastolic Blood Pressure Non-Invasive 53 mm[Hg] SAEID HUNT DO [facility] 05-18-2023 11:31-0500 Heart rate 90 /min SAEID HUNT DO [facility] 05-18-2023 11:31-0500 Respiratory rate 19 /min SAEID HUNT DO [facility] 05-18-2023 11:31-0500 Systolic Blood Pressure Non-Invasive 109 mm[Hg] SAEID HUNT DO [facility] 05-18-2023 09:55-0500 Body temperature 98.24 [degF] SAEID HUNT DO [facility] 05-18-2023 09:55-0500 Body weight 54 kg SAEID HUNT DO [facility] 05-18-2023 09:55-0500 Diastolic Blood Pressure Non-Invasive 68 mm[Hg] SAEID HUNT DO [facility] 05-18-2023 09:55-0500 Heart rate 115 /min SAEID HUNT DO [facility] 05-18-2023 09:55-0500 Respiratory rate 20 /min SAEID HUNT DO [facility] 05-18-2023 09:55-0500 Systolic Blood Pressure Non-Invasive 132 mm[Hg] SAEID HUNT DO [facility] 03-03-2023 11:18-0500 Body temperature 97.7 [degF] MARCELINA SERVINT DO [facility] 03-03-2023 11:18-0500 Diastolic Blood Pressure Non-Invasive 75 mm[Hg] MARCELINA FROMMELT DO [facility] 03-03-2023 11:18-0500 Heart rate 99 /min MARCELINA FROMMELT DO [facility] 03-03-2023 11:18-0500 Respiratory rate 22 /min MARCELINA FROMMELT DO [facility] 03-03-2023 11:18-0500 Systolic Blood Pressure Non-Invasive 108 mm[Hg] MARCELINA SUERO DO [facility] 03-03-2023 11:00-0500 Diastolic Blood Pressure Non-Invasive 85 mm[Hg] MARCELINA SUERO DO [facility] 03-03-2023 11:00-0500 Heart rate 83 /min MARCELINA SUERO DO [facility] 03-03-2023 11:00-0500 Respiratory rate 21 /min MARCELINA SUERO DO [facility] 03-03-2023 11:00-0500 Systolic Blood Pressure Non-Invasive 117 mm[Hg] MARCELINA SUERO DO [facility] 03-03-2023 09:17-0500 Body temperature 97.88 [degF] MARCELINA SUERO DO [facility] 03-03-2023 09:17-0500 Body weight 60 kg MARCELINA SUERO DO [facility] 03-03-2023 09:17-0500 Diastolic Blood Pressure Non-Invasive 90 mm[Hg] MARCELINA SUERO DO [facility] 03-03-2023 09:17-0500 Heart rate 133 /min MARCELINA SUERO [email or web address] [facility] 03-03-2023 09:17-0500 Respiratory rate 24 /min MARCELINA SUERO [email or web address] [facility] 03-03-2023 09:17-0500 Systolic Blood Pressure Non-Invasive 124 mm[Hg] MARCELINA SUERO DO [facility] 02-24-2023 00:06-0500 Blood Pressure Cuff Size DANIS STILES MD [facility] 02-24-2023 00:06-0500 Blood Pressure Location DANIS STILES MD [facility] 02-24-2023 00:06-0500 Blood Pressure Method DANIS STILES MD [facility] 02-24-2023 00:06-0500 Body temperature 98.96 [degF] DANIS STILES MD [facility] 02-24-2023 00:06-0500 Body weight 58.9 kg DANIS STILES MD [facility] 02-24-2023 00:06-0500 Diastolic Blood Pressure Non-Invasive 85 mm[Hg] DANIS STILES MD [facility] 02-24-2023 00:06-0500 Heart rate 105 /min DANIS STILES MD [facility] 02-24-2023 00:06-0500 Respiratory rate 20 /min DANIS STILES MD [facility] 02-24-2023 00:06-0500 Systolic Blood Pressure Non-Invasive 121 mm[Hg] DANIS STILES MD [facility] 02-11-2022 22:19-0500 Diastolic blood pressure 81 mm[Hg] Pcp Unknown [facility] 02-11-2022 22:19-0500 Heart rate 79 /min Pcp Unknown [facility] 02-11-2022 22:19-0500 Respiratory rate 18 /min Pcp Unknown [facility] 02-11-2022 22:19-0500 SaO2% (BldA) [Mass fraction] 95 % Pcp Unknown [facility] 02-11-2022 22:19-0500 Systolic blood pressure 129 mm[Hg] Pcp Unknown [facility] 02-11-2022 13:27-0500 Body height 190.5 cm Pcp Unknown [facility] 02-11-2022 13:27-0500 Body temperature 97.88 [degF] Pcp Unknown [facility] 02-11-2022 13:27-0500 Body weight 60 kg Pcp Unknown [facility] 10-19-2021 03:52-0400 Body temperature 98.24 [degF] DANIS STILES MD [facility] 10-19-2021 03:52-0400 Body weight 60.3 kg DANIS STILES MD [facility] 10-19-2021 03:52-0400 Diastolic blood pressure 74 mm[Hg] DANIS STILES MD [facility] 10-19-2021 03:52-0400 Heart rate 81 /min DANIS STILES MD [facility] 10-19-2021 03:52-0400 Respiratory rate 18 /min DANIS STILES MD [facility] 10-19-2021 03:52-0400 Systolic blood pressure 115 mm[Hg] DANIS STILES MD [facility] 09-15-2021 07:29-0400 Body temperature 97.52 [degF] DR ROYER BEE DO [facility] 09-15-2021 07:29-0400 Diastolic blood pressure 64 mm[Hg] DR ROYER BEE DO [address] 09-15-2021 07:29-0400 Heart rate 83 /min DR ROYER BEE DO [address] 09-15-2021 07:29-0400 Respiratory rate 18 /min DR ROYER BEE DO [address] [place] [address] 09-15-2021 07:29-0400 Systolic blood pressure 100 mm[Hg] DR ROYER BEE DO [address] [place] [address] 09-15-2021 04:10-0400 Diastolic blood pressure 62 mm[Hg] DR ROYER BEE DO [address] [place] [address] 09-15-2021 04:10-0400 Heart rate 84 /min DR ROYER BEE DO [address] [place] [address] 09-15-2021 04:10-0400 Mean blood pressure 76 mm[Hg] DR ROYER BEE DO [facility] 09-15-2021 04:10-0400 Reason For Taking VItal Signs DR ROYER BEE DO [facility] 09-15-2021 04:10-0400 Respiratory rate 16 /min DR ROYER BEE DO [facility] 09-15-2021 04:10-0400 Systolic blood pressure 103 mm[Hg] DR ROYER BEE DO [facility] 09-14-2021 21:48-0400 Body temperature 98.06 [degF] DR ROYER BEE DO [facility] 09-14-2021 21:48-0400 Diastolic blood pressure 68 mm[Hg] DR ROYER BEE DO [facility] 09-14-2021 21:48-0400 Heart rate 87 /min DR ROYER BEE DO [facility] 09-14-2021 21:48-0400 Respiratory rate 18 /min DR ROYER BEE DO [facility] 09-14-2021 21:48-0400 Systolic blood pressure 106 mm[Hg] DR ROYER BEE DO [facility] Encounters Encounter Date Encounter Type Care Provider Facility Start: 09-21-2024 End: 09-21-2024 Emergency department patient visit No Primary Care Physician -Emergency Department Work Phone: Start: 09-05-2024 End: 09-05-2024 Emergency department patient visit No Primary Care Physician -Emergency Department Work Phone: Start: 05-22-2024 End: 05-23-2024 Emergency department patient visit Facility:[facility] Start: 04-25-2024 End: 04-25-2024 ambulatory SELF Facility:[id number] Start: 04-15-2024 End: 04-15-2024 Emergency department patient visit [facility] Facility:[facility] Start: 04-15-2024 End: 04-15-2024 ambulatory Facility:[facility] Start: 04-12-2024 End: 04-12-2024 ambulatory SELF Facility:[id number] Start: 12-08-2023 End: 12-09-2023 Emergency department patient visit Jesus Koch MD Work Phone: [facility] Comment on above: Acute abdominal pain (Primary Dx); Nausea; Diarrhea, unspecified type; Anxiousness; Acute anxiety; Physically well but worried Start: 12-04-2023 End: 12-05-2023 Emergency department patient visit NICOLE CHUNG MD [facility] Start: 11-29-2023 End: 11-29-2023 Emergency department patient visit [facility] Facility:A Start: 08-19-2023 End: 08-19-2023 ambulatory TONY RIRIMARTA Facility:[id number] Start: 08-15-2023 Emergency department patient visit IMMANUEL LAN Facility:[id number] Start: 07-06-2023 Emergency department patient visit TONY MENEZESMARTA Facility:[id number] Start: 06-22-2023 End: 06-22-2023 Emergency department patient visit IMMANUEL DANIS ANON Facility:[id number] Start: 05-18-2023 End: 05-18-2023 Emergency department patient visit GUIDO PALMER MD Facility:A Start: 05-18-2023 End: 05-18-2023 Emergency department patient visit SAEID HUNT DO [facility] Start: 04-17-2023 End: 04-17-2023 Emergency department patient visit JESSICA PURVIS MD Facility:A Start: 03-03-2023 End: 03-03-2023 Emergency department patient visit MARCELINA SUERO DO Facility:A Start: 03-03-2023 End: 03-03-2023 Emergency department patient visit MARCELINA SUERO DO [facility] Start: 03-02-[address] CHAPARRO BEAL MD Fa cility:P Start: 02-24-2023 End: 02-24-2023 Emergency department patient visit DANIS STILES MD Facility:A Start: 02-24-2023 End: 02-24-2023 Emergency department patient visit DANIS STILES MD [facility] Start: 11-07-2022 End: 11-07-2022 Emergency department patient visit JASON GUZMAN Facility:[facility] Start: 08-16-[address] CHAPARRO BEAL MD Fa cility:P Start: 02-11-2022 End: 02-11-2022 Emergency department patient visit Darion Clay [facility] ED Bed 16 Start: 02-10-2022 End: 02-10-2022 Emergency department patient visit PCP UNKNOWN Facility:[facility] Start: 02-09-2022 ambulatory Ms. Kelsi Goode Fa cility:[id number] Start: 02-07-2022 ambulatory PCP UNKNOWN Facility:[id number] Start: 02-05-2022 ambulatory Ms. Kelsi Goode Fa cility:[id number] Start: 01-11-2022 End: 01-11-2022 Emergency department patient visit DANIS STILES MD [facility] Start: 12-23-2021 ambulatory Ms. Kelsi Goode Fa cility:[id number] Start: 12-22-2021 ambulatory Ms. Kelsi Goode Fa cility:[id number] Start: 10-19-2021 End: 10-19-2021 Emergency department patient visit DANIS STILES MD [facility] Start: 09-14-2021 End: 09-15-2021 Emergency department patient visit DR ROYER BEE DO [facility] Start: 09-12-2021 End: 09-12-2021 Emergency department patient visit DANIS STILES MD [facility] Procedures Date Procedure Procedure Detail Performing Clinician Start: 09-05-2024 D-dimer assay, quantitative No Primary Care Physician Comment on above: NORMAL D-Dimer level (<0.50) indicates no DVT or PE. Start: 09-05-2024 Estimated creatinine clearance No Primary Care Physician Start: 09-05-2024 Plain chest X-ray No Pr imary Care Physician Start: 12-08-2023 Comprehensive metabo lic panel Jesus Koch MD Work Phone: Start: 12-08-2023 Urnls dip stick/tabl et rgnt auto w/o microscopy Jesus Koch MD Work Phone: Start: 02-10-2022 Antibody screen PCP AR[facility]UR[facility] FRANCISCON Comment on above: Performed By: #### T +S #### [facility] [address] [place] [address] Start: 08-22-2021 Ecg routine ecg w/le ast 12 lds i&r only Plan of Treatment Date Care Activity Detail Author Start: 10-31-2045 Zoster Vaccines (1 o f 2) Zoster Vaccines (1 of 2) [facility] Start: 09-21-2024 [facility] Start: 09-05-2024 [facility] Start: 09-05-2024 [facility] Start: 11-16-2023 COVID-19 Vaccine ( season) COVID-19 Vaccine ( season) [facility] Start: 11-16-2023 Influenza vaccination Influenza Vacc ine (#1) [facility] Start: 10-31-2017 DTaP/Tdap/Td Vaccine s (1 - Tdap) DTaP/Tdap/Td Vaccines (1 - Tdap) [facility] Start: 10-31-2014 Hepatitis B Vaccines (1 of 3 - 19+ 3-dose series) Hepatitis B Vaccines (1 of 3 - 19+ 3-dose series) [facility] Start: 10-31-2013 Hepatitis C screening Hepatitis C Sc reening [facility] Start: 10-31-2008 Varicella vaccination Varicell a Vaccines (1 of 2 - 13+ 2-dose series) [facility] Start: 10-31-1996 MMR Vaccines (1 of 1 - Standard series) MMR Vaccines (1 of 1 - Standard series) [facility] Start: 1995 HIV screening HIV Screening [facility] Start: 1995 Lipid panel Lipid Panel [facility] Start: 1995 Medicare Annual Wellness Visit Medicare Annual Wellness Visit (AWV) [facility] End: 12-08-2023 Extra Urine [facility] Extra Urine [facility] Lab Timed Once for 1 Occurrences starting 12/08/2023 until 12/08/2023 [facility] Work Phone: Comment on above: Once for 1 Occurrenc es starting 12/08/2023 until 12/08/2023 Patient Education [facility] Work Phone: Patient referral [facility] Work Phone: End: 12-08-2023 Urinalysis complete W Reflex Culture panel - Urine [facility] Service Area Work Phone: Comment on above: Once (Lab) for 1 Occ urrences starting 12/08/2023 until 12/08/2023 Immunizations Immunization Date Immunization Notes Care Provider Benjamin guevara 09-21-2024 tetanus toxoid, redu hope diphtheria toxoid, and acellular pertussis vaccine, adsorbed No Primary Care Physician [facility] Payers Date Payer Category Payer Self-pay 2022 Unknown 2022 Medicaid [id number] 2021 Unknown [id number] 2019 Medicare MEDICARE MEDICAR E PART A AND B [id number] 2019-Present [address] [place] [address] [id number] 2019 Medicare [id number] 1995 Unknown [id number] 1995 Unknown [id number] 1995 Unknown [id number] 1995 Unknown [id number] 1995 Unknown [id number] 1995 Unknown [id number] 1995 Unknown [id number] [id number] 1995 Unknown [id number] [id number] 1995 Unknown [id number] [id number] 1995 Unknown [id number] [id number] 1995 Unknown [id number] [id number] 1995 Unknown [id number] [id number] 1995 Unknown [id number] 1995 Unknown [id number] 1995 Unknown [id number] 1995 Unknown [id number] Unknown 189 Unknown [id number] Unknown [id number] Unknown [id number] Unknown [id number] Social History Date Type Detail Facility Tobacco smoking status [facility] Start: 1995 Sex Assigned At Male [facility] Tobacco smoking consumption unknown [facility] Start: 08-20-2022 End: 03-07-2023 Tobacco smoking status Light tobacco smoker (finding) [facility] Start: 12-08-2023 Gender identity Identifies as male gender (finding) [facility] Work Phone: Sexual orientation Not on file [facility] Work Phone: Start: 11-28-2023 End: 12-09-2023 Exposure to SARS-CoV-2 (event) Not sure [facility] Work Phone: Start: 09-05-2024 Tobacco smoking status [facility] Current Heavy tobacco smoker [facility] Start: 09-21-2024 Tobacco smoking status TXIS Smokes tobacco daily (finding) [facility] Functional Status Date Assessment Result Facility 12-05-2023 Functional Status Activity Assistance Min imum assistance [facility] 12-04-2023 Functional Status Room check per formed, Pusher Operator at bedside [facility] 12-04-2023 Functional Status [facility] 12-04-2023 Functional Status [facility] 12-04-2023 Functional Status [facility] 12-04-2023 Functional Status Pre-restraint Alternatives Attempted Enhanced observation, Environmental changes, Positioning/Turning, Reality orientation, Intervention attempted, not successful [facility] 11-29-2023 Functional Status Independent [facility] 11-29-2023 Functional Status Repositioned r ight side, Repositions self [facility] 11-29-2023 Functional Status [facility] 05-18-2023 Functional Status Room check performed [facility] 03-03-2023 Functional Status Independent [facility] 03-03-2023 Functional Status Standard Safet y ID band on, Call device within reach, Bed in low position, Wheels locked, Upper/Half-Length side-rails up, Phone within reach, personal items within reach, Bedside Cart Locked, Safety level maintained [facility] 09-15-2021 Functional Status Independent [facility] 09-14-2021 Functional Status Room check performed [facility] Mental Status Date Assessment Result Facility 12-05-2023 Mental Status Orientation Oriented x 4 [facility] 12-04-2023 Mental Status [facility] 11-29-2023 Mental Status Orientation Oriented x 4 [facility] 11-29-2023 Mental Status [facility] 05-18-2023 Mental Status Orientation Oriented x 4 [facility] 03-03-2023 Mental Status Orientation Oriented x 4 [facility] 03-03-2023 Mental Status [facility] 09-15-2021 Mental Status Orientation Oriented x 4 [facility] 09-15-2021 Mental Status [facility] 09-14-2021 Mental Status [facility] Clinical Notes 01-11-2022 to 09-21-2024 Note Date & Type Note Facility 09-21-2024 Discharge summary [facility] 09-21-2024 Discharge summary Note Date/Time September 21, 2024 3:10pm [facility] Medical Records Department [address] [place] [address] Emergency Department Summary 09/21/24 MR#: [id number] Acct: [id number] Name: IMMANUEL NEUMANN Adele Rep #:[id number] : 1995 28 From: Yandel gomez DO PCP: Care Physician,No Primary Status :REG ER Location: ED HPI History of Present Illness Chief Complaint: Laceration Narrative Narrative: Chief complaint and HPI: Right hand abrasions. 28-year-old male presents for evaluation of right hand abrasions. Patient states prior to arrival he accidentally tripped in his house and his right hand went through a glass door. He obtained abrasions to the dorsum of the hand and the 5th and 4th finger. He denies any pain to the fingers or the hand. States that I am only here to receive a tetanus vaccine. Denies any numbness or tingling. Denies hitting hishead. No LOC. Review of systems: See HPI Medications: As listed on the chart Allergies: As listed on the chart PFSH: Per chart Gen: A&O x3, NAD Head: Normocephalic, atraumatic Eyes: No sclera icterus, conjunctiva clear ENT: Moist mucous membranes, atraumatic Neck: Trachea midline, full range of motion CV: Regular rate Resp: Nonlabored respirations Musc: Full ROM of all the extremities including the right hand, patient has scattered abrasions to the dorsum of the right hand on the ulnar aspect as well as the 4th and 5th digit, no foreign body or glass, no lacerations that need repaired, no bony tenderness, radial pulse +2, good capillary refill, sensation intact Neuro: Alert, oriented, grossly intact Psych: Cooperative, appropriate mood and affect [facility] Medical History Panic attack GERD (gastroesophageal reflux disease) IBS (irritable bowel syndrome) Anxiety PTSD (post-traumatic stress disorder) Asperger syndrome Schizophrenia Home Medications ?Medication ?Instructions ?Recorded ?Last Taken ?Type buspirone 10 mg tablet 10 mg PO BID 09/05/24 History clonazepam 1 mg tablet 1 mg PO BID PRN 09/05/24 History dextroamphetamine sulfate 10 mg 10 mg PO DAILY 5 09/04/24 History tablet hydroxyzine HCl 10 mg tablet 10 mg PO TID PRN anxiety 3 days #9 09/05/24 Unknown Rx tabs prazosin 1 mg capsule 1 mg PO QHS 09/05/24 5 History risperidone 1 mg tablet 1 mg PO DAILY 09/05/2409/04 History risperidone 2 mg tablet 2 mg PO QHS 09/05/24 5 History venlafaxine 37.5 mg 37.5 mg PO DAILY 09/05/24 History capsule,extended release 24 hr Allergy/AdvReac Type Severity Reaction Status Date / Time zolpidem (From Ambien) AdvReac Mild Other Verified 09/21/24 14:15 Surgical History History of tonsillectomy and adenoidectomy Social History Smoking Status: Current every day smoker tobacco type: cigarettes and e-cigarettes EXAM Physical Exam Const Vital Signs: 09/21/24 14:15 Temperature 96.8 F L Temperature Source Temporal Pulse Rate 111 H Respiratory Rate 18 Blood Pressure 109/81 H Blood Pressure Mean 90 Pulse Ox 98 Oxygen Delivery Method Room Air MDM MDM MDM Narrative Medical decision making narrative: 28-year-old male presents for evaluation of right hand abrasions. Obtained abrasions after he accidentally tripped and his hand went through a glass door. See physical exam findings. No lacerations requiring suture repair. He denies any bony tenderness and has full range of motion. I do not think any x-rays of the hand are needed at this time. Patient's wounds will be cleaned. Tetanus will be updated. Patient was educated to monitor for signs of infection. Follow-up with primary care physician. He confirmed understand the plan. Patient stable to discharge home. Impression: 1. Abrasions to the right hand Discharge Plan Triage Chief Complaint: Laceration ED Provider: Yandel Piper Dx/Rx/DC Orders Prescriptions: No Action clonazepam 1 mg tablet 1 mg PO BID PRN buspirone 10 mg tablet 10 mg PO BID dextroamphetamine sulfate 10 mg tablet 10 mg PO DAILY venlafaxine 37.5 mg capsule,extended release 24hr 37.5 mg PO DAILY prazosin 1 mg capsule 1 mg PO QHS risperidone 2 mg tablet 2 mg PO QHS risperidone 1 mg tablet 1 mg PO DAILY Rx Instructions: AM hydroxyzine HCl 10 mg tablet 10 mg PO TID PRN (Reason: anxiety) 3 Days Qty: 9 0RF Primary Care Provider: Care Physician,No Primary Referrals: Care Physician,No Primary [Primary Care Provider] - Print Language: Estonian What to do if you have Problems For any increased pain, shortness of breath, bleeding, nausea or vomiting, chestpain, or any unexpected problems, contact your Primary Care Provider. Call [facility] ([phone]) or report to the closest Emergency Room. Call 911 if necessary. 09/21/24 [id number] <Electronically signed by Yandel Piper DO> Cosigner Signature (if applicable): CC: No Primary Care Physician ~ Signed [facility] Work Phone: 1(837) 188-112906-22-2025 Discharge summary [facility] Medical Records Department [address] [place] [address] Emergency Department Summary 09/05/24 MR#: [id number] Acct: [id number] Name: IMMANUEL NEUMANN Rep #:[id number] : 1995 28 From: Cuauhtemoc Thorpe PCP: Care Physician,No Primary Status :REG ER Location: ED HPI History of Present Illness Chief Complaint: Anxiety [facility] Medical History (Updated 09/05/24 @ 09:26 by Gladis Ramirez) Panic attack GERD (gastroesophageal reflux disease) IBS (irritable bowel syndrome) Anxiety PTSD (post-traumatic stress disorder) Asperger syndrome Schizophrenia Home Medications ?Medication ?Instructions ?Recorded ?Last Taken ?Type buspirone 10 mg tablet 10 mg PO BID 09/05/24 History clonazepam 1 mg tablet 1 mg PO BID PRN 09/05/24 History dextroamphetamine sulfate 10 mg 10 mg PO DAILY 5 09/04/24 History tablet prazosin 1 mg capsule 1 mg PO QHS 09/05/24 5 History risperidone 1 mg tablet 1 mg PO DAILY 09/05/2409/04 History risperidone 2 mg tablet 2 mg PO QHS 09/05/24 5 History venlafaxine 37.5 mg 37.5 mg PO DAILY 09/05/24 History capsule,extended release 24 hr Allergy/AdvReac Type Severity Reaction Status Date / Time zolpidem (From Ambien) AdvReac Mild Other Verified 04/15/24 14:18 Surgical History History of tonsillectomy and adenoidectomy Social History Smoking Status: Heavy Smoker (>10/day) EXAM Physical Exam Const Vital Signs: 09/05/24 09:18 09/05/24 09:33 09/05/24 11:28 Temperature 98.6 F Temperature Source Oral Pulse Rate 115 H 65 Respiratory Rate 12 16 Blood Pressure 119/85 H 104/62 Blood Pressure Mean 96 76 Pulse Ox 100 98 Oxygen Delivery Method Room Air Room Air Room Air [facility] Narrative Medical decision making narrative: HISTORY OF PRESENT ILLNESS: Chief complaint: Anxiety 28-year-old male presents with concern for anxiety. He notes he has been comingdown with a cold. Hestates he has been coughing up pink frothy sputum. He also notes shortness of breath and chest pain. Onset began this morning. Noteshe typically says morning coughs up dark. He states he smokes and vapes. Denies cocaine or methamphetamine. He states this morning as he started coughing it becamepink and frothy. Denies syncope. Denies recent sick contacts. Denies other bleeding diathesis. Denies abdominal pain. Denies vomiting or diarrhea. The patient denies recent surgery in the last 4 weeks or immobilization in the last 3 days, denies previous diagnosis of DVT or PE, hemoptysis, unilateral leg swelling or malignancy with treatment the last 6 months or palliative. No estrogen use noted. Patient denies sudden onset of pain, no tearing sensation, no migratory symptoms, no new numbness, weakness or loss of sensation. Patient denies familyhistory or personal history of Connective tissuedisorders (Marfan's Syndrome, Cynthia Danlos etc) . REVIEW OF SYSTEMS: Pertinent positives: Chest pain, shortness of breath, cough, hemoptysis Pertinent negatives: Unilateral leg swelling, ripping or tearing pain, syncope,headache or neck pain., Abdominal pain., Flank pain. PHYSICAL EXAM: Nursing triage notes reviewed, Vital signs reviewed Constitutional: please see mdm HENT: MMM Eyes: Pupils equal round and reactive to light, Extraocular muscles intact Neck: No stridor, no JVD, full neck ROM Lungs: Clear to auscultation, No wheezing or rales. No increased work of breathing, no conversational dyspnea, no accessory muscle use, no nasal flaring. No respiratory distress noted Heart: Regular rate and rhythm, No murmurs, No rubs and No gallops, 2+ distal pulses (radial, femoral, posterior tibial) in all extremities Abdomen: Soft, there is no tenderness, rigidity, rebound or guarding, no obviousperitoneal signs, no palpable pulsatile abdominal masses, no auscultated abdominal bruit : No CVAT Extremities: No edema Neuro: No new focal neurological deficits, cranial nerves II through XII intact,5/5 strength in allpresent extremities. Intact sensation to light touch in all present extremities, 2+ reflexes bilateral patella tendons. Skin: No rash or lesions noted MEDICAL DECISION MAKING: Chief Complaint: please see HPI External records reviewed: Reviewed prior ED encounters, medications, allergies Factors affecting care: Schizophrenia, anxiety, PTSD, Asperger's syndrome Social determinants of health: History of mental health disorder History obtained from others: none Consults: none [facility] Narrative: Patient was initially hemodynamically stable, afebrile, saturating well on room air. I considered the following differential diagnosis: ACS, arrhythmia, anemia, pneumonia, PE, aortic dissection, panic attack ALL IMAGES (IF OBTAINED) HAVE BEEN PERSONALLY REVIEWED AND INTERPRETED BY MYSELF. EKG was sinus tachycardia rate 110, normal axis, normal intervals, no STEMI, no sign of WPW, ARVD, cauda syndrome, no sign of right heart strain, S1,Q3,T3 High-sensitivity troponin is negative, no evidence of myocardial ischemia x2 effectively ruling outACS per [place] high-sensitivity troponin protocol D-dimer negative making VTE and dissection less likely I have personally reviewed the patient's chest x-ray. Chest x-ray is unremarkable for pulmonary edema, pneumothorax, pneumonia or focal cardiopulmonary abnormality. CBC without leukocytosis, severe anemia, no thrombocytopenia. BMP with hypokalemia (replace), no anion gap or acute kidney injury The synthesis of the patient's history, physical exam, labs images suggest no acute life or limb threat in etiology. Specifically no sign of ACS, PE, dissection, significant electrolyte abnormality, anemia or arrhythmia Suspect patient's presentation is related to anxiety as suggested by improvementin symptoms after benzodiazepines Upon reassessment patient's vital signs improved heart rate improved to 65. He is comfortable. He was discharged on Atarax. Outpatient PCP evaluation recommended. Strict return precautions were discussed The patient and/or family, caregivers express understanding. The patient and/orfamily, caregivers agrees with the plan. Shared decision making: I will have a discussion with the patient and or visitors regarding risk/benefits of further testing or admission. They will be made aware of of the risk/benefits inherent in this decision they will be given the opportunity to voice understanding. Total critical care time today provided was at least 0 minutes. This excludes separately billable procedures. Critical care time (if documented) is secondary to the patient having high probability ofclinically significant/life threatening deterioration in the patient's condition which required my urgent intervention. Impression: 1. Chest pain 2. Cough 3. Tachycardia (resolved) Dispo: Discharge home This note was generated with [employer] dictation software. It may contain incorrectwords, spelling, and punctuation that were not noted in review of the chart prior to signing. Lab Data Labs: Laboratory Results - last 24 hr 09/05/24 09/05/24 09/05/24 10:05 11:22 12:05 WBC 6.7 RBC 5.01 Hgb 15.4 Hct 44.0 MCV 87.8 MCH 30.7 MCHC 35.0 RDW Std Deviation 38.2 RDW Coeff of Prisca 11.9 Plt Count 217 MPV 9.5 Immature Gran % (Auto) 0.100 Neut % (Auto) 73.3 H Lymph % (Auto) 18.8 L [place] % (Auto) 6.4 Eos % (Auto) 1.0 Baso % (Auto) 0.4 Absolute Neuts (auto) 4.9 Absolute Lymphs (auto) 1.26 Nucleated RBC % 0 D-Dimer Quant (PE/DVT) < 0.27 L Sodium 140 Potassium 3.1 L Chloride 103 Carbon Dioxide 25.3 Anion Gap 11 BUN 6 Creatinine 0.85 Estim Creat Clear Calc 109.62 Est GFR (MDRD) Non-Af 122 BUN/Creatinine Ratio 7.4 L Glucose 113 H Calcium 9.4 Troponin T High Sens < 6 Troponin T Hi Sens 2 Hr < 6 Radiography Diagnostic Testing: Clinical Impression(s) from Imaging Studies Chest X-Ray 09/05/24 09:33 IMPRESSION: Normal chest radiograph. Reading Location: [facility] Discharge Plan Triage Chief Complaint: Anxiety ED Provider: Cuauhtemoc Reddy Dx/Rx/DC Orders Prescriptions: No Action clonazepam 1 mg tablet 1 mg PO BID PRN buspirone 10 mg tablet 10 mg PO BID dextroamphetamine sulfate 10 mg tablet 10 mg PO DAILY venlafaxine 37.5 mg capsule,extended release 24hr 37.5 mg PO DAILY prazosin 1 mg capsule 1 mg PO QHS risperidone 2 mg tablet 2 mg PO QHS risperidone 1 mg tablet 1 mg PO DAILY Rx Instructions: AM Primary Care Provider: Care Physician,No Primary Referrals: Care Physician,No Primary [Primary Care Provider] - Print Language: Estonian What to do if you have Problems For any increased pain, shortness of breath, bleeding, nausea or vomiting, chestpain, or any unexpected problems, contact your Primary Care Provider. Call [facility] ([phone]) or report tothe closest Emergency Room. Call 911 if necessary. 09/05/24 1305 Cosigner Signature (if applicable): CC: No Primary Care Physician ~ Signed [facility]06-22-2025 Radiology Diagnostic study note [facility] Imaging Services [address] [place], [place] [id number] Chest 1 View (Portable) MR#: [id number] Acct: [id number] Name: IMMANUEL NEUMANN Rep #: [id number] : 1995 M 28 From: Shahida Flood MD PCP: Care Physician,No Primary Status: PRE ER Study:Chest 1 View (Portable) Date of Exam: 09/05/24 Exam# [id number] Ordering Dr: Shelly Reddy DO PROCEDURE: CHEST 1 VIEW (PORTABLE) 09/05/2024 REASON FOR EXAM: CHEST PAIN TECHNIQUE: Frontal view of the chest. COMPARISON: None. FINDINGS: Hardware: None. Heart: The heart size is normal. Lungs: No focal consolidation, pleural effusion or pneumothorax. Bones: The bones are unremarkable. RAD/Chest 1 View (Portable) IMPRESSION: Normal chest radiograph. Reading Location: [id number] CC: Dr. Cuauhtemoc Rdedy DO; No Primary Care Physician ~ Roller Mill Tender: Signed [facility]03-08-2025 [id number] (AGENT OF COVID-19) RNA: Not detected INFLUENZA A RNA: Not detected INFLUENZA B RNA: Not detected RESPIRATORY SYNCYTIAL VIRUS (RSV) RNA: Not detectedSouthpointe HospitalComment on above:Performed By: #### [id number] #### [facility] [place] [id number] [place] [address] OF [id number] NoteHNO ID: [id number] Author: CAROLINA HOLMAN APRN.QUINTON Service: ? Author Type: Nurse Practitioner Type: Progress Notes Filed: 04/25/2024 11:55 Note Text: HPI: Immanuel Neumann is a 28 year [...] Types: Marijuana Comment: only robinson at this Alcohol Use: Not Currently (quit [...] Zofran will be appropr (more content not included)...[facility]01-30-2025 NoteHNO ID: [id number] Author: CED GRANGER APRN.SKI PATROL Service: ? Author Type: Nurse Practitioner Type: [...] Types: Marijuana Comment: only marjuana at this BP 103/70 Pulse 102 Temp [...] No uvula swelling. Tonsi (more content not included)...[facility]01-27-2025 NoteHNO ID: [id number] Author: FERMIN MANCERA JR, APRN.SKI PATROL Service: ? Author Type: Nurse Practitioner Type: [...] Drug use: Yes Types: Marijuana Comment: only [facility] at this Alcohol Use: Not Currently (quit [...] Tympanic membrane normal. Nos (more content not included)...[facility]01-27-2025 NoteHNO ID: [id number] Author: ZANDRA LIU LPN Service: ? Author Type: LICENSED NURSE Type: Progress Notes Filed: 04/12/2024 11:16 Note Text: Patient declined depression screening at this time. Zandra Liu [facility]09-23-2024 Hospital Discharge instructions* Discharge Instructions* Jesus Koch MD - 12/08/2023 11:52 PM [...] source of your symptoms and identify any life- threatening conditions. These life-threatening conditions that were attempted [...] you may be experiencing symptoms that are [id number] but are uncomfortable and disruptive to your [...] eliminate any chance of unfavorable outcomes while inthe Emergency Department. My team encourages you to be vigilant with your health and follow-up withthe appropriate providers outlined in your discharge paperwork. Please return to the Emergency Department if you feel that your health has not improved or experiencing worsening symptoms. Special instructions please take the medication as prescribed. Please make follow-up point with your primary care physician to further manage her symptoms address your health concerns. Incidental findings: None documented in this [facility] Work Phone: 1(564) 567-577609-20-2024 Emergency department Discharge summary Discharge Instructions Thank you for allowing [facility] to assist you with your healthcare needs. The following is importantdischarge information regarding your hospital visit. What to Do Next Instructions from Your Care Team No qualifying data available. Post Acute Orders No qualifying data available. Allergies NKA Medications Please ask your primary doctor or pharmacist before taking any other medication not listed, including over the counter drugs, herbal medications, vitamins and or supplements as they may interact withyour home medications. What How Much When Instructions Last Dose Unchanged albuterol (Albuterol (Eqv- ProAir HFA) 90 mcg/ inh inhalation aerosol) 2 [...] to receive it can visit one of [facility] vaccine clinics. There are many vaccine clinic locations within the [facility]. For locations and available times, please visit www.gettheshot.coronavirus.[place].gov/. It is important to note that some COVID mobile vaccine clinics are held outdoors and may be canceled in rainy or stormy conditions. To learn more about pediatric vaccinations (ages 5-11), we invite you to visit the [employer] webpage. https://[email or web address]/[email or web address] [email or web address].htmlTo learn more about the COVID-19 vaccine, we invite you to visit the CDC website for a list of frequently asked questions. https://www.cdc.gov/coronavirus/2019-ncov/vaccines/faq.html [facility] Patient Portal Access Instructions: Stay connected with your healthcare team and access your personal medical information anytime with the [facility] Patient Portal. If you would like a full copy of your medical records please contact the [facility] Medical Records Department Friday through Friday between 8a.m. and 4:30p.m. Please follow the directions below to access the portal: 1.Access the email account you provided upon registration to the hospital.2.Look for an invitation email from [facility].3.Open the email and access the invitation link: Accept Invitation to [facility]4.Fill in the required garrett to create your account. Sign into www.[employer] with your username and password that you [...] you will allow to register on the [facility] Patient Portal for access to your information. You can also access the [facility] Patient Portal on the [employer] osvaldo. Simply click on Health Records under [employer] and then click on the [employer] logo. HOW TO SAFELY DISPOSE OF PRESCRIPTION MEDICATIONS Please use one of the following methods to safely dispose of your unused medications. 1.Use a drug disposal kit: the drug disposal pouch allows you to safely discard your old and unuseddrugs. Ask your nurse to give you one when you are discharged.2.Visit a local take-back location: Many local pharmacies and police departments have programs that collect old and unwanted prescriptiondrugs. Call your local pharmacy or go to http://[email or web address]/[email or web address] to find one close to you.3.Make use of household items: Use cat litter or old coffee grounds to dispose medications if other options arenot available. Mix your drugs with these household products, seal them in an airtight container andthrow it into the garbage. Call [facility]: [phone] to be sure your drugs can be [...] drowsiness, such as benzodiazepines, also known as benzos,including diazepam and alprazolam, muscle relaxants or sleep aids. Never sell or share prescriptionopioids. This is illegal. Store opioids in a secure place and out of reach of others (including children, family, friends and visitors). The last page(s) of this document has been signed and retained as a CHART COPY Signatures Patient Education Materials Medication Leaflets My discharge plan and instructions have been reviewed and explained to me and I,THIEN IMMANUEL Adele understand my current condition and have read and understand these discharge instructions. I have received a written copy of the plan/instructions. If I have questions, I am aware that I should contact my doctor. Patient/Customs And Immigration Officer Signature: Date/Time: Relationship to Patient: Witness Name/Signature: [id number] NoteSINUS RHYTHM BORDERLINE PROLONGED QT INTERVAL Electronic Signature: DANIS STILES MD 12/04/2023 14:34:00[facility] 09-14-2024 Emergency department Discharge summary Discharge Instructions Thank you for allowing [facility] to assist you with your healthcare needs. The following is importantdischarge information regarding your hospital visit. What to Do Next Instructions from Your Care Team No qualifying data available. Post Acute Orders No qualifying data available. You Need to Schedule the Following Appointments Follow Up with [facility] When:Within 2-4 days Where:[address] [place] [phone] Allergies NKA Medications Please ask your primary doctor or pharmacist before taking any other medication not listed, including over the counter drugs, herbal medications, vitamins and or supplements as they may interact withur home medications. What How Much When Instructions [...] you drink at 1 time affects your health.And so does drinking often. Alcohol affects your [...] affects how the liver works. And it raisesthe risk for hepatitis. This condition leads to [...] makes it harder to fight off infections andcolds. You will also have a higher risk [...] your healthcare provider before you stop drinking. Theymay be able to help you with medicine. [...] www.aa.org. Wild gives support to families. Call 372-250-3952, or go to www.al-anon.org. National [place] on Alcoholism and Drug Dependence (NCADD) has helpful resources. NCADD can be reached at 012-406-5395 and www.ncadd.org. Call 911 Call 911 if [...] upper belly that gets worse Repeated vomiting 3691-0299 [employer]. [address] [place] [address], [place] [address]. All rights reserved. This information is not intended as a substitute for professional medical care. Always follow yourhealthcare professional's instructions. Additional Information VACCINATE! IT SAVES LIVES! Members of the community who have not yet received the COVID-19 vaccine and would like to receive it can visit one of [facility] vaccine clinics. There are many vaccine clinic locations within the [facility]. For locations and available times, please visit www.gettheshot.coronavirus.[place].gov/. It is important to note that some COVID mobile vaccine clinics are held outdoors and may be canceled in rainy or stormy conditions. To learn more about pediatric vaccinations (ages 5-11), we invite you to visit the [facility] webpage. https://www.[facility].org/pages/8071-Hnrmh-Nzjhqdsvozu-Urapfhzbyc-Tkmer-Wmd stions.htmlTo learn more about the COVID-19 vaccine, we invite you to visit the CDC website for a list of frequently asked questions. https://www.cdc.gov/coronavirus/2019-ncov/vaccines/faq.html [facility] Patient Portal Access Instructions: Stay connected with your healthcare team and access your personal medical information anytime with the [facility] Patient Portal. If you would like a full copy of your medical records please contact the [facility] Medical Records Department Friday through Friday between 8a.m. and 4:30p.m. Please follow the directions below to access the portal: 1.Access the email account you provided upon registration to the [facility].2.Look for an invitation email from [facility].3.Open the email and access the invitation link: Accept Invitation to [facility]4.Fill in the required garrett to create your account. Sign into www.[employer] with your username and password that you [...] you will allow to register on the [facility] Patient Portal for access to your information. You can also access the [facility] Patient Portal on the [employer] osvaldo. Simply click on Health Records under [employer] and then click on the Anum logo. HOW TO SAFELY DISPOSE OF PRESCRIPTION MEDICATIONS Please use one of the following methods to safely dispose of your unused medications. 1.Use a drug disposal kit: the drug disposal pouch allows you to safely discard your old and unuseddrugs. Ask your nurse to give you one when you are discharged.2.Visit a local take-back location: Many local pharmacies and police departments have programs that collect old and unwanted prescriptiondrugs. Call your local pharmacy or go to http://bit.HealOr/9P8Ke6m to find one close to you.3.Make use of household items: Use cat litter or old coffee grounds to dispose medications if other options arenot available. Mix your drugs with these household products, seal them in an airtight container andthrow it into the garbage. Call [facility]: [phone] to be sure your drugs can be [...] drowsiness, such as benzodiazepines, also known as benzos,including diazepam and alprazolam, muscle relaxants or sleep aids. Never sell or share prescriptionopioids. This is illegal. Store opioids in a [...] aware that I should contact my doctor. Patient/Customs And Immigration Officer Signature: Date/Time: Relationship to Patient: Witness Name/Signature: Date/Time: [id number] Hospital Discharge instructions Patient Education 11/29/2023 09:58:58 [...] you drink at 1 time affects your health.And so does drinking often. Alcohol affects your [...] affects how the liver works. And it raisesthe risk for hepatitis. This condition leads to [...] makes it harder to fight off infections andcolds. You will also have a higher risk [...] your healthcare provider before you stop drinking. Theymay be able to help you with medicine. [...] www.aa.org. Wild gives support to families. Call 087-290-4119, or go to www.al-anon.org. National [place] on Alcoholism and Drug Dependence (NCADD) has helpful resources. NCADD can be reached at 910-170-7565 and www.ncadd.org. Call 911 Call 911 if [...] upper belly that gets worse Repeated vomiting 5673-2400 [employer]. [address] [place] [address]. All rights reserved. This information is not intended as a substitute for professional medical care. Always follow yourhealthcare professional's instructions. Follow Up Care 11/29/2023 08:54:28 With:[facility] Address: [address] [place] [phone] When:2-4 days [facility] 09-14-2024 Note ORIGINAL EXAMINATION: ONE XRAY VIEW OF [...] Sign Date: 11/29/2023 9:48:41 AM Ordering Provider: [facility]09-14-2024 NoteSINUS TACHYCARDIA NONSPECIFIC T ABNORMALITIES, INFERIOR LEADS PROLONGED QT INTERVAL Electronic Signature: NICOLE CHUNG MD 11/29/2023 09:41:41[facility] 06-04-2024 NoteHNO ID: [id number] Author: TONY GALICIA PA-C Service: ? Author Type: Physician Real Estate Loan Processor Type: Progress Notes Filed: 08/19/2023 11:32 Note [...] Drug use: Yes Types: Marijuana Comment[facility] Alcohol Use: Not Currently [...] may contain errors, inclu (more content not included)...[facility]04-07-2024 NoteHNO ID: [id number] Author: SOPHIA DIAZ RT(R) Service: ? Author [...] PATIENT PRESENTS WITH AN IMPLANTABLE OR ATTACHED ESCROW REPRESENTATIVE: No RADIOLOGY DEPARTMENT: General X-ray: Exam(s) Completed: Chest X-Ray PERIPHERAL IV DATA: Not applicable SIGNED BY: RT Paul(R) June 22, 2023 1:31 [facility]o70-52-4866 NoteHNO ID: [id number] Author: CONY BECK RT(R) Service: ? Author [...] PATIENT PRESENTS WITH AN IMPLANTABLE OR ATTACHED ESCROW REPRESENTATIVE: No RADIOLOGY DEPARTMENT: CT; Exam(s) Completed: Brain PERIPHERAL IV DATA: Not applicable SIGNED BY: RT Oli(R) June 22, 2023 1:18 [id number] Evaluation + Plan note Diagnostic Tests Pending * Urinalysis w/ C&S if Indicated 05/18/23 [facility] 03-03-2024 Hospital Discharge instructions Patient Education 05/18/2023 11:21:12 Anxiety Reaction Anxiety Reaction Anxiety is the feeling we all get when we think something bad might happen. It is a normal responseto stress and usually causes only a mild [...] relieved by rest and mild pain reliever 1189-5917 [employer]. [address] [place] [address]. All rights reserved. This information is not intended as a substitute for professional medical care. Always follow yourhealthcare professional's instructions. Follow Up Care 05/18/2023 09:44:06 With:Go to emergency room if symptoms worsen Address:Unknown When:2-4 days With:[facility] Address: [address] [place] [address] [phone] When:2-4 days [facility] 03-03-2024 Emergency department Discharge summary Discharge Instructions Thank you for allowing [facility] to assist you with your healthcare needs. The following is importantdischarge information regarding your hospital visit. Diagnosis from Today's Visit Chest pain What to Do Next Instructions from Your Care Team No qualifying data available. Post Acute Orders No qualifying data available. You Need to Schedule the Following Appointments Follow Up with Go to emergency room if symptoms worsen When Within 2-4 days [facility] with [facility] When Within 2-4 days Where: [address] [place] [phone] Allergies NKA Medications Please ask your primary doctor or pharmacist before taking any other medication not listed, including over the counter drugs, herbal medications, vitamins and or supplements as they may interact withyour home medications. What How Much When Instructions [...] bad might happen. It is a normal responseto stress and usually causes only a mild [...] relieved by rest and mild pain reliever 7169-9588 [employer]. [address] [facility], [place] [address]. All rights reserved. This information is not intended as a substitute for professional medical care. Always follow yourhealthcare professional's instructions. Additional Information VACCINATE! IT SAVES LIVES! Members of the community who have not yet received the COVID-19 vaccine and would like to receive it can visit one of [facility] vaccine clinics. There are many vaccine clinic locations within the [facility]. For locations and available times, please visit www.gettheshot.coronavirus.[place].gov/. It is important to note that some COVID mobile vaccine clinics are held outdoors and may be canceled in rainy or stormy conditions. To learn more about pediatric vaccinations (ages 5-11), we invite you to visit the [facility] webpage. https://www.[facility].org/pages/9746-Zapjp-Hqzvtwstlzd-Kmjfobrbyl-Hjrnz-Fbm stions.htmlTo learn more about the COVID-19 vaccine, we invite you to visit the CDC website for a list of frequently asked questions. https://www.cdc.gov/coronavirus/2019-ncov/vaccines/faq.html [facility] Patient Portal Access Instructions: Stay connected with your healthcare team and access your personal medical information anytime with the [facility] Patient Portal. If you would like a full copy of your medical records please contact the [facility] Medical Records Department Friday through Friday between 8a.m. and 4:30p.m. Please follow the directions below to access the portal: 1.Access the email account you provided upon registration to the hospital.2.Look for an invitation email from [facility].3.Open the email and access the invitation link: Accept Invitation to [facility]4.Fill in the required garrett to create your account. Sign into www.[employer] with your username and password that you [...] you will allow to register on the [facility] Patient Portal for access to your information. You can also access the [facility] Patient Portal on the [employer] osvaldo. Simply click on Health Records under [employer] and then click on the Anum logo. HOW TO SAFELY DISPOSE OF PRESCRIPTION MEDICATIONS Please use one of the following methods to safely dispose of your unused medications. 1.Use a drug disposal kit: the drug disposal pouch allows you to safely discard your old and unuseddrugs. Ask your nurse to give you one when you are discharged.2.Visit a local take-back location: Many local pharmacies and police departments have programs that collect old and unwanted prescriptiondrugs. Call your local pharmacy or go to http://[employer].HealOr/9C4Gh5s to find one close to you.3.Make use of household items: Use cat litter or old coffee grounds to dispose medications if other options arenot available. Mix your drugs with these household products, seal them in an airtight container andthrow it into the garbage. Call [facility]: [phone] to be sure your drugs can be [...] drowsiness, such as benzodiazepines, also known as benzos,including diazepam and alprazolam, muscle relaxants or sleep aids. Never sell or share prescriptionopioids. This is illegal. Store opioids in a [...] aware that I should contact my doctor. Patient/Customs And Immigration Officer Signature: Date/Time: Relationship to Patient: Witness Name/Signature: Date/Time: [facility] [id number] Note ORIGINAL EXAMINATION: ONE XRAY VIEW OF [...] Sign Date: 05/18/2023 10:23:55 AM Ordering Provider: [facility]03-03-2024 NoteSINUS TACHYCARDIA BORDERLINE T ABNORMALITIES, INFERIOR LEADS This EKG was read and contributed directly to the care of the patient Electronic Signature: GUIDO PALMER MD 05/18/2023 10:39:40[facility] 12-18-2023 Hospital Discharge instructions Patient Education 03/03/2023 13:02:56 Anxiety Reaction Anxiety Reaction Anxiety is the feeling we all get when we think something bad might happen. It is a normal responseto stress and usually causes only a mild [...] relieved by rest and mild pain reliever 0781-8437 [employer]. [address] [place] [address], [place] [address]. All rights reserved. This information is not intended as a substitute for professional medical care. Always follow yourhealthcare professional's instructions. Follow Up Care 03/03/2023 09:16:43 With:[facility] Address: [address] [place] [phone] When:2-4 days [facility] 12-18-2023 Emergency department Discharge summary Discharge Instructions Thank you for allowing [facility] to assist you with your healthcare needs. The following is importantdischarge information regarding your hospital visit. Diagnosis from Today's Visit Anxiety SOB - Shortness of breath What to Do Next Instructions from Your Care Team No qualifying data available. Post Acute Orders No qualifying data available. You Need to Schedule the Following Appointments Follow Up with [facility] When Within 2-4 days Where: [address] [place] [phone] Allergies NKA Medications Please ask your primary doctor or pharmacist before taking any other medication not listed, including over the counter drugs, herbal medications, vitamins and or supplements as they may interact withyour home medications. What How Much When Instructions [...] bad might happen. It is a normal responseto stress and usually causes only a mild [...] relieved by rest and mild pain reliever 2140-2410 [employer]. [address] [place] [address]. All rights reserved. This information is not intended as a substitute for professional medical care. Always follow yourhealthcare professional's instructions. Additional Information VACCINATE! IT SAVES LIVES! Members of the community who have not yet received the COVID-19 vaccine and would like to receive it can visit one of [facility] vaccine clinics. There are many vaccine clinic locations within the [facility]. For locations and available times, please visit www.gettheshot.coronavirus.[place].gov/. It is important to note that some COVID mobile vaccine clinics are held outdoors and may be canceled in rainy or stormy conditions. To learn more about pediatric vaccinations (ages 5-11), we invite you to visit the [facility] webpage. https://www.[facility].org/pages/1603-Yhifq-Tdvsidwnlqr-Nsavwqufgy-Tqbxc-Efg stions.htmlTo learn more about the COVID-19 vaccine, we invite you to visit the CDC website for a list of frequently asked questions. https://www.cdc.gov/coronavirus/2019-ncov/vaccines/faq.html [facility] Patient Portal Access Instructions: Stay connected with your healthcare team and access your personal medical information anytime with the [facility] Patient Portal. If you would like a full copy of your medical records please contact the [facility] Medical Records Department Friday through Friday between 8a.m. and 4:30p.m. Please follow the directions below to access the portal: 1.Access the email account you provided upon registration to the [facility].2.Look for an invitation email from [facility].3.Open the email and access the invitation link: Accept Invitation to [facility]4.Fill in the required garrett to create your account. Sign into www.[employer] with your username and password that you [...] you will allow to register on the [facility] Patient Portal for access to your information. You can also access the [facility] Patient Portal on the [employer]. Simply click on Health Records under PsychologyOnline and then click on the [employer] logo. HOW TO SAFELY DISPOSE OF PRESCRIPTION MEDICATIONS Please use one of the following methods to safely dispose of your unused medications. 1.Use a drug disposal kit: the drug disposal pouch allows you to safely discard your old and unuseddrugs. Ask your nurse to give you one when you are discharged.2.Visit a local take-back location: Many local pharmacies and police departments have programs that collect old and unwanted prescriptiondrugs. Call your local pharmacy or go to http://[employer] Media.HealOr/2M8Ho8b to find one close to you.3.Make use of household items: Use cat litter or old coffee grounds to dispose medications if other options arenot available. Mix your drugs with these household products, seal them in an airtight container andthrow it into the garbage. Call [facility]: [phone] to be sure your drugs can be [...] drowsiness, such as benzodiazepines, also known as benzos,including diazepam and alprazolam, muscle relaxants or sleep aids. Never sell or share prescriptionopioids. This is illegal. Store opioids in a secure place and out of reach of others (including children, family, friends and visitors). The last page(s) of this document has been signed and retained as a CHART COPY Signatures Patient Education Materials Anxiety Reaction Medication Leaflets My discharge plan and instructions have been reviewed and explained to me and I,THIEN IMMANUEL L understand my current condition and have read and understand these discharge instructions. I have received a written copy of the plan/instructions. If I have questions, I am aware that I should contact my doctor. Patient/Customs And Immigration Officer Signature: Date/Time: Relationship to Patient: Witness Name/Signature: Date/Time: [id number] Note ORIGINAL EXAMINATION: ONE XRAY VIEW OF [...] Sign Date: 03/03/2023 10:52:21 AM Ordering Provider: [facility]10-28-2022 Nurse Progress note called pt at 1505 & 1520 for vitals- no answer Digitally Signed by Rosemary Mckinnon RN on 01/11/2022 03:24 PM [facility] Author Cuauhtemoc Reddy [facility] Note Date/Time September 05, 2024 1:05 pm [facility] Medical Records Department [address] [place] [address] Emergency Department Summary 09/05/24 MR#: [id number] Acct: [id number] Name: IMMANUEL NEUMANN Rep #:[id number] : 1995 From: Cuauhtemoc Thorpe PCP: Care Physician,No Primary Status :REG ER Location: ED HPI History of Present Illness Chief Complaint: [facility] Medical History (Updated 09/05/24 @ 09:26 by Gladis Ramirez) Panic attack GERD (gastroesophageal reflux disease) IBS (irritable bowel syndrome) Anxiety PTSD (post-traumatic stress disorder) Asperger syndrome Schizophrenia Home Medications ?Medication ?Instructions ?Recorded ?Last Taken ?Type buspirone 10 mg tablet 10 mg PO BID 09/05/24 History clonazepam 1 mg tablet 1 mg PO BID PRN 09/05/24 History dextroamphetamine sulfate 10 mg 10 mg PO DAILY 5 09/04/24 History tablet prazosin 1 mg capsule 1 mg PO QHS 09/05/24 5 History risperidone 1 mg tablet 1 mg PO DAILY 09/05/2409/04 History risperidone 2 mg tablet 2 mg PO QHS 09/05/24 5 History venlafaxine 37.5 mg 37.5 mg PO DAILY 09/05/24 History capsule,extended release 24 hr Allergy/AdvReac Type Severity Reaction Status Date / Time zolpidem (From Ambien) AdvReac Mild Other Verified 04/15/24 14:18 Surgical History History of tonsillectomy and adenoidectomy Social History Smoking Status: Heavy Smoker (>10/day) EXAM Physical Exam Const Vital Signs: 09/05/24 09:18 09/05/24 09:33 09/05/24 11:28 Temperature 98.6 F Temperature Source Oral Pulse Rate 115 H 65 Respiratory Rate 12 16 Blood Pressure 119/85 H 104/62 Blood Pressure Mean 96 76 Pulse Ox 100 98 Oxygen Delivery Method Room Air Room Air Room Air [facility] Narr[place] Medical decision making narrative: HISTORY OF PRESENT ILLNESS: Chief complaint: Anxiety 28-year-old male presents with concern for anxiety. He notes he has been comingdown with a cold. He states he has been coughing up pink frothy sputum. He also notes shortness of breath and chest pain. Onset began this morning. Noteshe typically says morning coughs up dark. He states he smokes and vapes. Denies cocaine or methamphetamine. He states this morning as he started coughing it became pink and frothy. Denies syncope. Denies recent sick contacts. Denies other bleeding diathesis. Denies abdominal pain. Denies vomiting or diarrhea. The patient denies recent surgery in the last 4 weeks or immobilization in the last 3 days, denies previous diagnosis of DVT or PE, hemoptysis, unilateral leg swelling or malignancy with treatment the last 6 months or palliative. No estrogen use noted. Patient denies sudden onset of pain, no tearing sensation, no migratory symptoms, no new numbness, weakness or loss of sensation. Patient denies familyhistory or personal history of Connective tissue disorders (Marfan's Syndrome, Cynthia Danlos etc) . REVIEW OF SYSTEMS: Pertinent positives: Chest pain, shortness of breath, cough, hemoptysis Pertinent negatives: Unilateral leg swelling, ripping or tearing pain, syncope,headache or neck pain., Abdominal pain., Flank pain. PHYSICAL EXAM: Nursing triage notes reviewed, Vital signs reviewed Constitutional: please see mdm HENT: MMM Eyes: Pupils equal round and reactive to light, Extraocular muscles intact Neck: No stridor, no JVD, full neck ROM Lungs: Clear to auscultation, No wheezing or rales. No increased work of breathing, no conversational dyspnea, no accessory muscle use, no nasal flaring. No respiratory distress noted Heart: Regular rate and rhythm, No murmurs, No rubs and No gallops, 2+ distal pulses (radial, femoral, posterior tibial) in all extremities Abdomen: Soft, there is no tenderness, rigidity, rebound or guarding, no obviousperitoneal signs, no palpable pulsatile abdominal masses, no auscultated abdominal bruit : No CVAT Extremities: No edema Neuro: No new focal neurological deficits, cranial nerves II through XII intact,5/5 strength in all present extremities. Intact sensation to light touch in all present extremities, 2+ reflexes bilateral patella tendons. Skin: No rash or lesions noted MEDICAL DECISION MAKING: Chief Complaint: please see HPI External records reviewed: Reviewed prior ED encounters, medications, allergies Factors affecting care: Schizophrenia, anxiety, PTSD, Asperger's syndrome Social determinants of health: History of mental health disorder History obtained from others: none Consults: none MDM Narrative: Patient was initially hemodynamically stable, afebrile, saturating well on room air. I considered the following differential diagnosis: ACS, arrhythmia, anemia, pneumonia, PE, aortic dissection, panic attack ALL IMAGES (IF OBTAINED) HAVE BEEN PERSONALLY REVIEWED AND INTERPRETED BY MYSELF. EKG was sinus tachycardia rate 110, normal axis, normal intervals, no STEMI, no sign of WPW, ARVD, cauda syndrome, no sign of right heart strain, S1,Q3,T3 High-sensitivity troponin is negative, no evidence of myocardial ischemia x2 effectively ruling out ACS per [place] high-sensitivity troponin protocol D-dimer negative making VTE and dissection less likely I have personally reviewed the patient's chest x-ray. Chest x-ray is unremarkable for pulmonary edema, pneumothorax, pneumonia or focal cardiopulmonary abnormality. CBC without leukocytosis, severe anemia, no thrombocytopenia. BMP with hypokalemia (replace), no anion gap or acute kidney injury The synthesis of the patient's history, physical exam, labs images suggest no acute life or limb threat in etiology. Specifically no sign of ACS, PE, dissection, significant electrolyte abnormality, anemia or arrhythmia Suspect patient's presentation is related to anxiety as suggested by improvementin symptoms after benzodiazepines Upon reassessment patient's vital signs improved heart rate improved to 65. He is comfortable. He was discharged on Atarax. Outpatient PCP evaluation recommended. Strict return precautions were discussed The patient and/or family, caregivers express understanding. The patient and/orfamily, caregivers agrees with the plan. Shared decision making: I will have a discussion with the patient and or visitors regarding risk/benefits of further testing or admission. They will be made aware of of the risk/benefits inherent in this decision they will be given the opportunity to voice understanding. Total critical care time today provided was at least 0 minutes. This excludes separately billable procedures. Critical care time (if documented) is secondary to the patient having high probability of clinically significant/life threatening deterioration in the patient's condition which required my urgent intervention. Impression: 1. Chest pain 2. Cough 3. Tachycardia (resolved) Dispo: Discharge home This note was generated with [employer] dictation software. It may contain incorrectwords, spelling, and punctuation that were not noted in review of the chart prior to signing. Lab Data Labs: Laboratory Results - last 24 hr 09/05/24 09/05/24 09/05/24 10:05 11:22 12:05 WBC 6.7 RBC 5.01 Hgb 15.4 Hct 44.0 MCV 87.8 MCH 30.7 MCHC 35.0 RDW Std Deviation 38.2 RDW Coeff of Prisca 11.9 Plt Count 217 MPV 9.5 Immature Gran % (Auto) 0.100 Neut % (Auto) 73.3 H Lymph % (Auto) 18.8 L [place] % (Auto) 6.4 Eos % (Auto) 1.0 Baso % (Auto) 0.4 Absolute Neuts (auto) 4.9 Absolute Lymphs (auto) 1.26 Nucleated RBC % 0 D-Dimer Quant (PE/DVT) < 0.27 L Sodium 140 Potassium 3.1 L Chloride 103 Carbon Dioxide 25.3 Anion Gap 11 BUN 6 Creatinine 0.85 Estim Creat Clear Calc 109.62 Est GFR (MDRD) Non-Af 122 BUN/Creatinine Ratio 7.4 L Glucose 113 H Calcium 9.4 Troponin T High Sens < 6 Troponin T Hi Sens 2 Hr < 6 Radiography Diagnostic Testing: Clinical Impression(s) from Imaging Studies Chest X-Ray 09/05/24 09:33 IMPRESSION: Normal chest radiograph. Reading Location: [id number] Discharge Plan Triage Chief Complaint: Anxiety ED Provider: Cuauhtemoc Reddy Dx/Rx/DC Orders Prescriptions: No Action clonazepam 1 mg tablet 1 mg PO BID PRN buspirone 10 mg tablet 10 mg PO BID dextroamphetamine sulfate 10 mg tablet 10 mg PO DAILY venlafaxine 37.5 mg capsule,extended release 24hr 37.5 mg PO DAILY prazosin 1 mg capsule 1 mg PO QHS risperidone 2 mg tablet 2 mg PO QHS risperidone 1 mg tablet 1 mg PO DAILY Rx Instructions: AM Primary Care Provider: Care Physician,No Primary Referrals: Care Physician,No Primary [Primary Care Provider] - Print Language: Estonian What to do if you have Problems For any increased pain, shortness of breath, bleeding, nausea or vomiting, chestpain, or any unexpected problems, contact your Primary Care Provider. Call [facility] ([phone]) or report to the closest Emergency Room. Call 911 if necessary. 09/05/24 1305 <Electronically signed by Cuauhtemoc Reddy DO> Cosigner Signature (if applicable): CC: No Primary Care Physician ~ Signed [facility] Work Phone: Evaluation + Plan note No data available for this section [facility] Evaluation note* Diagnosis Acute abdominal pain- Primary Abdominal pain, unspecified site Nausea Nausea alone Diarrhea, unspecified type Anxiousness Anxiety state, unspecified Acute anxiety Physically well but worried Person with feared complaint in whom no diagnosis was made documented in this encounter [facility] Work Phone: Evaluation noteNo assessment information available [facility] Work Phone: Hospital Discharge instructions No data available for this section [facility] Hospital Discharge instructions Additional Instructions Thank you for trusting us with your care today! Your labs and images were reassuring. No sign of a life or limb threatening problem to be identified Please take Tylenol (2 pills, 650 mg), ibuprofen (2 pills, 400 mg) every 6 hours as needed for pain and fever control. Please return to the emergency department if your symptoms change or worsen. Please follow with your primary care physician for further outpatient evaluation and management.[facility] Work Phone: Hospital Discharge instructionsAdditional Instructions Monitor for signs of infection. Follow-up with your primary care physician. [facility] Work Phone: Progress note No data available for this section [facility] Reason for referral (narrative)No reason for referral information availableWAvita [facility] Work Phone: Summary note* Kamille Marrero: PERFORM Event Display: Patient Summary Documents Authored Date: [id number] [facility] Summary Purpose Family History No Family History [...] Found Advance Directives No Advanced Directives Records Found Advance Directive Response Recorded Date/ Time Do you have a Healthcare Power of Director Of Market Analysis? No September 05, 2024 9:18am Advance Directive Response Recorded Date/ Time Do you have a Healthcare Power of Director Of Market Analysis? No September 05, 2024 9:18am Do you have a Healthcare Power of Director Of Market Analysis? No September 21, 2024 2:22pm Chief Complaint and Reason for Visit Chief Complaint Admit Date woke coughing with pink foamy sputum the n panic September 05, 2024 9:17am Chief Complaint Admit Date woke coughing with pink foamy sputum the n panic September 05, 2024 9:17am laceration September 21, 2024 2:14p m Additional Source Comments (unrecognized sect ion and [...] section and content) DATE CREATED AUTHOR 02/14/2019 [facility] DATE CREATED AUTHOR AUTHOR'S ORGANIZ ATION 08/23/2021 [facility] DATE CREATED AUTHOR AUTHOR'S ORGANIZ ATION 02/13/2022 [facility] DATE CREATED AUTHOR AUTHOR'S ORGANIZ ATION 02/15/2022 [facility] DATE CREATED AUTHOR AUTHOR'S ORGANIZ ATION 03/08/2022 [facility] DATE CREATED AUTHOR AUTHOR'S ORGANIZ ATION 11/09/2022 [facility] DATE CREATED AUTHOR AUTHOR'S ORGANIZ ATION 11/22/2022 [facility] DATE CREATED AUTHOR AUTHOR'S ORGANIZ ATION 06/13/2023 [facility] DATE CREATED AUTHOR AUTHOR'S ORGANIZ ATION 08/16/2023 [facility] DATE CREATED AUTHOR AUTHOR'S ORGANIZ ATION 12/20/2023 [facility] DATE CREATED AUTHOR AUTHOR'S ORGANIZ ATION 04/17/2024 [facility] DATE CREATED AUTHOR AUTHOR'S ORGANIZ ATION 04/26/2024 [facility] DATE CREATED AUTHOR AUTHOR'S ORGANIZ ATION 05/24/2024 [facility] DATE CREATED AUTHOR AUTHOR'S ORGANIZ ATION 05/25/2024 [facility] DATE CREATED AUTHOR AUTHOR'S ORGANIZ ATION 10/01/2024 [facility] Care Team (unrecognized sect ion and [...] KRUPA JIN Name: SAUD NEUMANN Address: Home [address] [place] [address] [phone] Address: Temporary [address] [place] [address] [phone] Care Team Personnel Name: PHYSICIAN, NONE Position: Physician Member Role: Primary Care Physician Care Team Related Persons Name: DAVIN KRUPA Name: SAUD NEUMANN Address: Home [address] [place] [address] [phone] Address: Temporary [address] [place] [address] [phone] <item> Privacy Markings (unrecogniz ed section and content) Section Author: Tomasa Fernando PROHIBITION ON REDISCLOSURE OF CONFIDENTIAL INFORMATION This notice accompanies a disclosure of information concerning a client made to you with the consent of such client. Patient Care team informatio n (unrecognized section and content) Pharmacy Buyer Relationship Specialty Start Date End Date Generic Provider, No Assigned Pcp, [place] [address] PCP - General Broadcast Checker 12/08/23 Team Status: Active Member Role Status Dates No Primary Care Physician Primary Care Provider Active Team Status: Inactive Member Role Status Dates No Primary Care Physician Primary Care Provider Active Start: September 05, 2024 End: September 05, 2024 Dr. Cuauhtemoc Reddy , DO Emergency Provider Active Start: September 05, 2024 End: September 05, 2024 Team Status: Active Member Role/Relationship Status Dates No Primary Care Physician Primary Care Provider Active Team Status: Inactive Member Role/Relationship Status Dates No Primary Care Physician Primary Care Provider Active Start: September 05, 2024 End: September 05, 2024 Dr. Cuauhtemoc Reddy , DO Attending Provider Active Start: September 05, 2024 End: September 05, 2024 Dr. Cuauhtemoc Reddy , DO Emergency Provider Active Start: September 05, 2024 End: September 05, 2024 Team Status: Inactive Member Role/Relationship Status Dates No Primary Care Physician Primary Care Provider Active Start: September 21, 2024 End: September 21, 2024 Dr. Yandel Piper , DO Emergency Provider Activ e Start: September 21, 2024 End: September 21, 2024 Reason for Visit (unrecogniz ed section and [...] 15 mL, oral, Once, On Fri12/08/23 at 0, For 1 dose 2236 (Given - Provider: Florentino Monson RN) morphine injection 4 mg (COMPLETED) 4 mg, intravenous, Once, On Fri12/08/23 at 0, For 1 dose 2237 (Given - Provider: Florentino Monson RN) ondansetron (Zofran) injection 4 mg (COMPLETED) 4 mg, intravenous, Once, On Fri12/08/23 at 0, For 1 dose, When administering via IV Push, administer over 3-5 minutes. 2236 (Given - Provider: Florentino Monson, KARIME) sodium chloride 0.9 % bolus 1,000 mL (COMPLETED) 1,000 mL, intravenous, at 2,000 mL/hr, Administer over 30 Minutes, Once, On Fri12/08/23 at 2230, For 1 dose 2237 (New Bag - Provider: Harpal Monson RN)2307 (Stopped - Provider: Harpal Monson RN) Goals (unrecognized section and content) Goals may be documented in a n alternate section FOR RECORDS PERTAINING TO PATIENTS WHO ARE [...] BE BASED ON THE PRIMARY CLINICAL RECORDS. [facility] [employer] [facility]. provides no warranty or guarantee of the accuracy or completeness of information in this document.
--- NOTE | 2024-10-09 17:10 | CM.ED ---
Social Work Date of referral: 10/09/24 Reason for referral: No Primary Care Physician (PCP) on file. Referred by: Social Work Identification Patient provided consent for Social Work Visit. Patient confirmed he does not have a PCP. Supply Cataloguer provided a written hand-out for [facility] which patient accepted and expressed appreciation for. Kathia Sanderson, CHAMFERING MACHINE OPERATOR, GRAIN COMBINER
[2024-10-09 17:19] VITALS: BP 119/78; PULSE 78; RESP 16; TEMP 36.8; O2SAT 99
== END 2024-10-09 17:20 | disposition home or self-care (01) ==
PROVIDERS: Emergency Provider Emergency Medicine; Visit Provider Emergency Medicine
DX: K08.89 Other specified disorders of teeth and supporting structures (principal); F20.9 Schizophrenia, unspecified; K02.9 Dental caries, unspecified; F41.9 Anxiety disorder, unspecified; Z79.899 Other long term (current) drug therapy; F17.290 Nicotine dependence, other tobacco product, uncomplicated
CPT/HCPCS: 99283

== ENCOUNTER 2024-10-13 16:02 | Emergency (ER) | payer MEDICARE, MEDICAID, SELFPAY ==
[2024-10-13 16:02] VITALS: BP 121/75; PULSE 93; RESP 18; TEMP 36.4; O2SAT 99; BMI 17.5
--- NOTE | 2024-10-13 16:30 | ED.VIS.DENTA ---
HPI History of Present Illness Chief Complaint: Dental Informant: patient Onset/Context/Timing Onset: Days Context: Gradual Onset Timing: Continuous Quality: Throbbing, sharp Location: Right upper molars Worsened by: Nothing Relieved by: - (Nothing) Associated Symptoms Assocated Symptom - Dental: cold sensitivity and hot sensitivity; Negative for fever, jaw swelling or face swelling Narrative Narrative: Patient presents with dental pain that has been getting worse over the past several days. Patient was seen here recently was started on Pen-Vee K. Patient states he has been taking the antibiotic as prescribed. Patient states his pain is mainly over the right upper teeth. Patient describes his pain as throbbing and sharp. Patient states nothing makes it better nothing makes it worse. Patient admits to hot and cold sensitivity. Patient states he is trying to find a dentist to have all of his teeth pulled. [facility] Medical History Panic attack GERD (gastroesophageal reflux disease) IBS (irritable bowel syndrome) Anxiety PTSD (post-traumatic stress disorder) Asperger syndrome Schizophrenia Home Medications ?Medication ?Instructions ?Recorded ?Last Taken ?Type buspirone 10 mg tablet 10 mg PO BID 09/05/24 09/04/24 History clonazepam 1 mg tablet 1 mg PO BID PRN 09/05/24 09/05/24 History dextroamphetamine sulfate 10 mg 10 mg PO DAILY 09/05/24 09/04/24 History tablet hydroxyzine HCl 10 mg tablet 10 mg PO TID PRN anxiety 3 days #9 09/05/24 Unknown Rx tabs prazosin 1 mg capsule 1 mg PO QHS 09/05/24 09/04/24 History risperidone 1 mg tablet 1 mg PO DAILY 09/05/24 09/04/24 History risperidone 2 mg tablet 2 mg PO QHS 09/05/24 09/04/24 History venlafaxine 37.5 mg 37.5 mg PO DAILY 09/05/24 09/04/24 History capsule,extended release 24 hr naproxen 500 mg tablet 500 mg PO BID #14 tabs 10/09/24 Unknown Rx amoxicillin 875 mg-potassium 875 mg PO Q12H #20 TABLETS 10/13/24 Unknown Rx clavulanate 125 mg tablet Allergy/AdvReac Type Severity Reaction Status Date / Time zolpidem (From Ambien) AdvReac Mild Other Verified 10/13/24 16:04 Surgical History History of tonsillectomy and adenoidectomy Social History (Updated 10/13/24 @ 16:[address] Jayce Basurto DO) Smoking Status: Current every day smoker tobacco type: cigarettes and e-cigarettes substance use type: marijuana ROS ROS ED Constitutional Constitutional ED: Denies chills or fever(s) Eyes Eyes: Denies blurry vision or change in vision ENT ENT ED: Reports rhinorrhea and sore throat Cardiovascular Cardiovascular: Denies chest pain or palpitations Respiratory/Chest Respiratory/Chest: Reports cough and dyspnea Gastrointestinal Gastrointestinal: Denies nausea or vomiting Genitourinary Genitourinary ED: Denies dysuria or hematuria Musculoskeletal Musculoskeletal: Reports neck pain; Denies back pain Integumentary Denies abscess or rash Neurologic Neurologic: Denies headache(s) or weakness Allergic/Immunologic Allergic/Immunologic ED: Denies mouth swelling or urticaria EXAM Physical Exam Const Vital Signs: 10/13/24 16:02 Temperature 97.5 F L Temperature Source Oral Pulse Rate 93 Respiratory Rate 18 Blood Pressure 121/75 H Blood Pressure Mean 90 Pulse Ox 99 Oxygen Delivery Method Room Air Positive well nourished and well developed General Appearance ED: well developed and NAD HEENT HEENT Narrative: There are multiple dental caries noted of the bilateral upper and lower molars. There is some gingival edema of the right upper molar area. There is no fluctuance. There is no evidence of any abscess. Oropharynx is clear. Airway is patent. Neck is supple. Trachea is midline. There is no sublingual edema or evidence of Alfonzo's angina. Teeth and Gingiva: caries and gingiva abnormal Positive for gingival edema Neck supple and no JVD General: normal visual inspection Neuro oriented x3, CN's II-XII intact bilaterally, moves all extremities, no focal motor deficits and no sensory deficits noted Sensorium / Orientation: alert Motor Exam: strength 5/5 throughout Psych Mood & Affect: anxious MDM MDM MDM Narrative Medical decision making narrative: Patient was advised that his left foot acute dental caries. Patient was instructed to stop taking the Pen-Vee K. Patient was given a prescription for Augmentin. Patient was given his first dose here. Patient was also given a dose of [place] here. Patient was instructed to continue the Naprosyn for pain. Patient was given a dental referral sheet. Patient was instructed to follow-up in 5 to 7 days. Patient understood and was agreeable with plan. All questions were answered. History & Record Review Additional record(s) reviewed:: Prior ED visit Discharge Plan Triage Chief Complaint: Dental ED Provider: Jayce Basurto Dx/Rx/DC Orders Clinical Impression: Infected dental caries, Pain, dental Instructions: ED Dental Pain, ED Dental Cavity Prescriptions: New amoxicillin-pot clavulanate 875-125 mg tablet 875 mg PO Q12H Qty: 20 0RF Discontinued penicillin V potassium 500 mg tablet 500 mg PO 4X/DAY Qty: 40 0RF No Action clonazepam 1 mg tablet 1 mg PO BID PRN buspirone 10 mg tablet 10 mg PO BID dextroamphetamine sulfate 10 mg tablet 10 mg PO DAILY venlafaxine 37.5 mg capsule,extended release 24hr 37.5 mg PO DAILY prazosin 1 mg capsule 1 mg PO QHS risperidone 2 mg tablet 2 mg PO QHS risperidone 1 mg tablet 1 mg PO DAILY Rx Instructions: AM hydroxyzine HCl 10 mg tablet 10 mg PO TID PRN (Reason: anxiety) 3 Days Qty: 9 0RF naproxen 500 mg tablet 500 mg PO BID Qty: 14 0RF Primary Care Provider: Care Physician,No Primary Referrals: Care Physician,No Primary [Primary Care Provider] - Print Language: Bahraini Disposition Disposition: Home, Self Care
--- NOTE | 2024-10-13 17:09 | CM.ED ---
Social Work SW met with patient and provided a list of dentists and oral surgeons that take Medicaid and sliding scale payments. Patient thanked social welfare administrator for the list. Elisabeth Montero, FUR DRUMMER, COAL CARRIER
[2024-10-13] MEDS: HYDROcodone Bitartrate/Apap 5/325 Tablet PO (17:25)
[2024-10-13 17:31] VITALS: BP 120/85; PULSE 89; RESP 16; TEMP 36.6; O2SAT 100
== END 2024-10-13 17:31 | disposition home or self-care (01) ==
PROVIDERS: Emergency Provider Emergency Medicine; Visit Provider Emergency Medicine
DX: K02.9 Dental caries, unspecified (principal); F20.9 Schizophrenia, unspecified; K08.89 Other specified disorders of teeth and supporting structures; F17.210 Nicotine dependence, cigarettes, uncomplicated; Z79.899 Other long term (current) drug therapy; F17.290 Nicotine dependence, other tobacco product, uncomplicated; F41.9 Anxiety disorder, unspecified
CPT/HCPCS: 99283

== ENCOUNTER 2024-10-14 14:31 | Emergency (ER) | payer MEDICARE, MEDICAID, SELFPAY ==
[2024-10-14 14:32] VITALS: BP 111/57; PULSE 116; RESP 18; TEMP 36.9; O2SAT 98
== END 2024-10-14 15:24 | disposition left against medical advice (07) ==
LOC: ED 16:00
DX: Z00.00 Encounter for general adult medical examination without abnormal findings (principal)
CPT/HCPCS: 99281

== ENCOUNTER 2024-10-27 09:51 | Emergency (ER) | payer MEDICARE, MEDICAID, SELFPAY ==
[2024-10-27 09:53] VITALS: BP 117/83; PULSE 123; RESP 17; TEMP 36.8; O2SAT 99; BMI 16.5
--- NOTE | 2024-10-27 10:08 | EX.ED.GENINJ ---
HPI History of Present Illness Chief Complaint: Other, Pain/Inj PFSH PFSH Medical History Panic attack GERD (gastroesophageal reflux disease) IBS (irritable bowel syndrome) Anxiety PTSD (post-traumatic stress disorder) Asperger syndrome Schizophrenia Home Medications ?Medication ?Instructions ?Recorded ?Last Taken ?Type buspirone 10 mg tablet 10 mg PO BID 09/05/24 09/04/24 History clonazepam 1 mg tablet 1 mg PO BID PRN 09/05/24 09/05/24 History dextroamphetamine sulfate 10 mg 10 mg PO DAILY 09/05/24 09/04/24 History tablet hydroxyzine HCl 10 mg tablet 10 mg PO TID PRN anxiety 3 days #9 09/05/24 Unknown Rx tabs prazosin 1 mg capsule 1 mg PO QHS 09/05/24 09/04/24 History risperidone 1 mg tablet 1 mg PO DAILY 09/05/24 09/04/24 History risperidone 2 mg tablet 2 mg PO QHS 09/05/24 09/04/24 History venlafaxine 37.5 mg 37.5 mg PO DAILY 09/05/24 09/04/24 History capsule,extended release 24 hr naproxen 500 mg tablet 500 mg PO BID #14 tabs 10/09/24 Unknown Rx amoxicillin 875 mg-potassium 875 mg PO Q12H #20 TABLETS 10/13/24 Unknown Rx clavulanate 125 mg tablet Allergy/AdvReac Type Severity Reaction Status Date / Time zolpidem (From Ambien) AdvReac Mild Other Verified 10/27/24 09:55 Surgical History History of tonsillectomy and adenoidectomy Social History (Updated 10/13/24 @ 16:[address] Jayce Basurto, DO) Smoking Status: Current every day smoker tobacco type: cigarettes and e-cigarettes substance use type: marijuana EXAM Physical Exam Const Vital Signs: 10/27/24 09:52 10/27/24 09:53 10/27/24 11:25 Temperature 98.2 F Temperature Source Oral Pulse Rate 123 H 65 Respiratory Rate 17 Respiratory Effort Normal Non-Labored Respiratory Pattern Normal Blood Pressure 117/83 H 113/65 Blood Pressure Mean 94 81 Pulse Ox 99 100 Oxygen Delivery Method Room Air Room Air 10/27/24 11:27 Temperature 98.2 F Temperature Source Pulse Rate 65 Respiratory Rate 17 Respiratory Effort Respiratory Pattern Blood Pressure 113/65 Blood Pressure Mean 81 Pulse Ox 100 Oxygen Delivery Method [facility] [place] Narrative Medical decision making narrative: HISTORY OF PRESENT ILLNESS: Chief complaint: Esophageal foreign body 28-year-old male history of PTSD, panic attack, IBS, anxiety, Asperger syndrome and schizophrenia presents with concern for globus sensation/foreign body stuck in throat. He states he has been taking antibiotics last several weeks. Notes he took his antibody this morning for low bit of water and felt like something was stuck in his throat. Denies vomiting or drooling. Denies abdominal pain. REVIEW OF SYSTEMS: Pertinent positives: Globus sensation Pertinent negatives: As per HPI PHYSICAL EXAM: Nursing triage notes reviewed, Vital signs reviewed Constitutional: please see [facility] HENT: MMM, posterior oropharynx clear. Controlling secretions. No stridor, no trismus, no submandibular edema. Uvula midline. No tonsillar erythema or exudates. Eyes: Pupils equal round and reactive to light, Extraocular muscles intact Neck: No stridor, no JVD, full neck ROM Lungs: Clear to auscultation, No wheezing or rales. No increased work of breathing, no conversational dyspnea, no accessory muscle use, no nasal flaring. No respiratory distress noted Heart: Regular rate and rhythm, No murmurs, No rubs and No gallops, 2+ distal pulses (radial, femoral, posterior tibial) in all extremities Abdomen: Soft, there is no tenderness, rigidity, rebound or guarding, no obvious peritoneal signs, no palpable pulsatile abdominal masses, no auscultated abdominal bruit : No CVAT Extremities: No edema Neuro: No new focal neurological deficits, cranial nerves II through XII intact, 5/5 strength in all present extremities. Intact sensation to light touch in all present extremities, 2+ reflexes bilateral patella tendons. Skin: No rash or lesions noted MEDICAL DECISION MAKING: Chief Complaint: please see [facility] External records reviewed: Reviewed prior ED visit Factors affecting care: As per HPI Social determinants of health: History mental health disorder History obtained from others: History of Consults: none [facility] Narrative: Patient was initially tachycardic otherwise afebrile and nontoxic-appearing. Exam without obvious abnormalities I considered the following differential diagnosis: Esophageal foreign body versus globus sensation versus pill esophagitis Initially treated the patient with a GI cocktail. Upon reassessment vital signs showed improvement. Patient symptomatically better. I suspect esophagitis likely pill esophagitis. Strict return precautions were discussed. The patient and/or family, caregivers express understanding. The patient and/or family, caregivers agrees with the plan. Shared decision making: I will have a discussion with the patient and or visitors regarding risk/benefits of further testing or admission. They will be made aware of of the risk/benefits inherent in this decision they will be given the opportunity to voice understanding. Total critical care time today provided was at least 0 minutes. This excludes separately billable procedures. Critical care time (if documented) is secondary to the patient having high probability of clinically significant/life threatening deterioration in the patient's condition which required my urgent intervention. Impression: 1. Pill esophagitis 2. Tachycardia (resolved) Dispo: Discharge home This note was generated with [employer] dictation software. It may contain incorrect words, spelling, and punctuation that were not noted in review of the chart prior to signing. Discharge Plan Triage Chief Complaint: Other, Pain/Inj ED Provider: Cuauhtemoc Reddy Dx/Rx/DC Orders Instructions: Esophagitis Prescriptions: No Action clonazepam 1 mg tablet 1 mg PO BID PRN buspirone 10 mg tablet 10 mg PO BID dextroamphetamine sulfate 10 mg tablet 10 mg PO DAILY venlafaxine 37.5 mg capsule,extended release 24hr 37.5 mg PO DAILY prazosin 1 mg capsule 1 mg PO QHS risperidone 2 mg tablet 2 mg PO QHS risperidone 1 mg tablet 1 mg PO DAILY Rx Instructions: AM hydroxyzine HCl 10 mg tablet 10 mg PO TID PRN (Reason: anxiety) 3 Days Qty: 9 0RF naproxen 500 mg tablet 500 mg PO BID Qty: 14 0RF amoxicillin-pot clavulanate 875-125 mg tablet 875 mg PO Q12H Qty: 20 0RF Primary Care Provider: Care Physician,No Primary Referrals: Robert Fitch MD [[facility] - [facility]] - Activity Restrictions/Additional Instructions: Thank you for trusting us with your care today! You likely are suffering from pill esophagitis. This occurs when you take medicines proper amount of water or food beforehand. Please drink plenty of water when taking any medication. Please return to the emergency department if your symptoms change or worsen. Please follow with your primary care physician for further outpatient evaluation and management. Print Language: Lebanese Disposition Disposition: Home, Self Care Discharge Date/Time: 10/27/24 11:57
[2024-10-27] MEDS: Lidocaine 2% Viscous15 ML UDC 15 ML PO (10:25)
[2024-10-27 11:25] VITALS: BP 113/65; PULSE 65; O2SAT 100
[2024-10-27 11:27] VITALS: BP 113/65; PULSE 65; RESP 17; TEMP 36.8; O2SAT 100
== END 2024-10-27 11:57 | disposition home or self-care (01) ==
PROVIDERS: Emergency Provider Emergency Medicine; Visit Provider Emergency Medicine
DX: K20.80 Other esophagitis without bleeding (principal); F20.9 Schizophrenia, unspecified; F41.9 Anxiety disorder, unspecified; F17.210 Nicotine dependence, cigarettes, uncomplicated; R00.0 Tachycardia, unspecified; Z79.899 Other long term (current) drug therapy; F17.290 Nicotine dependence, other tobacco product, uncomplicated
CPT/HCPCS: 99282

== ENCOUNTER 2024-10-29 13:42 | Emergency (ER) | payer MEDICARE, MEDICAID, SELFPAY ==
[2024-10-29 13:43] VITALS: BP 105/69; PULSE 125; RESP 16; TEMP 36.6; O2SAT 100
--- NOTE | 2024-10-29 14:13 | CT_ITS ---
PROCEDURE: ABDOMEN/PELVIS WITHOUT CONT 10/29/2024 REASON FOR EXAM: KIDNEY STONE TECHNIQUE: ABDOMEN/PELVIS WITHOUT CONT Noncontrast technique limits evaluation of the abdominal and pelvic viscera. Coronal and Sagittal reconstruction series were provided. One or more dose reduction techniques were used (e.g., Automated exposure control, adjustment of the mA and/or kV according to patient size, use of iterative reconstruction technique). RADIATION DOSE SUMMARY: CTDlvol: 5.16 mGy DLP: 249.10 mGycm COMPARISON: Prior study dated April 15, 2024. FINDINGS: Lung bases: The lung bases are clear. Liver: Normal size. No obvious mass. Gallbladder: Unremarkable Spleen: Normal size. Pancreas: Normal size. No surrounding inflammation. Adrenals: Unremarkable Kidneys: No urolithiasis. No hydronephrosis. Bladder: Distended urinary bladder. Bowel: Unremarkable Appendix: The appendix is not identified. There is no inflammatory process identified in the right lower quadrant to suggest appendicitis. Lymph nodes: No suspicious lymph node enlargement. Vasculature: The abdominal aorta and IVC contours are normal. Noncontrast technique limits evaluation. Peritoneum / Retroperitoneum: Unremarkable Bones: Unremarkable CT/Abdomen/Pelvis without Cont IMPRESSION: No acute abnormality is seen. Reading Location: [facility]
[2024-10-29] MEDS: 0.9% Normal Saline (1000mL) 1,000 ML 1000 ML IV (14:38)
[2024-10-29] MEDS: Ketorolac 30 MG/ML Syringe IV (14:39)
[2024-10-29 14:41] VITALS: BP 105/69; PULSE 125; RESP 16; TEMP 36.6; O2SAT 100
[2024-10-29 14:44] VITALS: BMI 16.5
--- NOTE | 2024-10-29 14:52 | EDS_ITS ---
HPI History of Present Illness Chief Complaint: Flank Pain Detail of Chief Complaint: Right flank pain and dark-colored urine Informant: patient Onset/Context/Timing Onset: Today Context: Sudden Onset Timing: Continuous Quality: Pain Location: Right flank Current Severity: Moderate Maximum Severity: Severe Worsened by: Nothing Relieved by: Nothing Associated Symptoms Associated Symptoms: Nausea and dark-colored urine Narrative Narrative: Patient is a 28-year-old male with history of panic attacks, schizophrenia who stopped taking his antipsychotic medication because he is on antibiotics for dental infection. He denies fever, chills or night sweats. He denies headache, visual, ocular auditory symptoms. He denies cardiac or respiratory symptoms. He denies abdominal pain. He does endorse nausea without vomiting diarrhea. He does endorse frequency urgency and change in color of his urine. He denies testicular or scrotal pain or swelling. He has no known history of renal or ureterolithiasis. There is a family history. Prior similar symptoms: No Recent Illness/Hospitalization: No [facility] Medical History Panic attack GERD (gastroesophageal reflux disease) IBS (irritable bowel syndrome) Anxiety PTSD (post-traumatic stress disorder) Asperger syndrome Schizophrenia Home Medications ?Medication ?Instructions ?Recorded ?Last Taken ?Type buspirone 10 mg tablet 10 mg PO BID 09/05/24 History clonazepam 1 mg tablet 1 mg PO BID PRN 09/05/24 History dextroamphetamine sulfate 10 mg 10 mg PO DAILY 5 09/04/24 History tablet hydroxyzine HCl 10 mg tablet 10 mg PO TID PRN anxiety 3 days #9 09/05/24 Unknown Rx tabs prazosin 1 mg capsule 1 mg PO QHS 09/05/24 5 History risperidone 1 mg tablet 1 mg PO DAILY 09/05/2409/04 History risperidone 2 mg tablet 2 mg PO QHS 09/05/24 5 History venlafaxine 37.5 mg 37.5 mg PO DAILY 09/05/24 History capsule,extended release 24 hr naproxen 500 mg tablet 500 mg PO BID #14 tabs 10/09 Unknown Rx amoxicillin 875 mg-potassium 875 mg PO Q12H #20 TABLET S 10/13/24 Unknown Rx clavulanate 125 mg tablet Allergy/AdvReac Type Severity Reaction Status Date / Time zolpidem (From Ambien) AdvReac Mild Other Verified 10/29/24 13:46 Surgical History History of tonsillectomy and adenoidectomy Social History Smoking Status: Current every day smoker tobacco type: cigarettes and e- cigarettes substance use type: marijuana ROS ROS ED Constitutional Constitutional ED: Denies chills, fever(s), subjective or sweats Cardiovascular Cardiovascular: Denies chest pain or palpitations Respiratory/Chest Respiratory/Chest: Denies cough, dyspnea or dyspnea on exertion Gastrointestinal Gastrointestinal: Reports nausea; Denies abdominal pain, constipation, diarrhea, melena or vomiting Genitourinary Genitourinary ED: Reports hematuria, urinary frequency and other Details: He also has urgency. ; Denies dysuria Musculoskeletal Musculoskeletal: Denies arthralgias or myalgias Integumentary Denies Abrasions or rash Psychiatric Psychiatric: Reports anxiety Hematologic/Lymphatic Hematologic/Lymphatic: Reports systems reviewed and no addt'l complaints, except as documented EXAM Physical Exam Const Vital Signs: 10/29/24 13:43 10/29/24 14:41 Temperature 97.9 F 97.9 F Temperature Source Oral Temporal Pulse Rate 125 H 125 H Respiratory Rate 16 16 Blood Pressure 105/69 105/69 Blood Pressure Mean 81 81 Pulse Ox 100 100 Oxygen Delivery Method Room Air Room Air Positive well nourished and well developed Constitutional Narrative: Patient appears anxious. General Appearance ED: well developed and pallor; Negative for cyanotic or diaphoretic HEENT Reports moist mucous membranes HEENT Narrative: Head is atraumatic and normocephalic. Ears normal. Nares patent Eyes PERRL and EOMs intact bilaterally General Eye ED: Negative for pale conjunctiva or scleral icterus Neck no lymphadenopathy, supple and no JVD Chest Wall inspection of chest normal and palpation of chest normal Resp normal respiratory effort and clear to auscultation bilaterally Cardio regular rhythm, S1 normal heart sound, S2 normal heart sound and no murmurs Rate: tachycardic GI normal to inspection, nondistended, normoactive bowel sounds, non-tender, non- distended and no masses; Negative for hepatosplenomegaly Back/Spine General Back: CVA tenderness right Cervical Spine: Negative for cervical spine tenderness Thoracic Spine / Upper Back: Negative for thoracic spinal tenderness Extremity normal to inspection General Extremety ED: Negative for edema or tenderness General Extremity: Negative for edema Neuro oriented x3 and CN's II-XII intact bilaterally Sensorium / Orientation: alert Psych mental status grossly normal Skin no rashes or lesions noted, no wounds and skin turgor normal General Skin Exam: pallor; Negative for elasticity normal or jaundice MDM MDM MDM Narrative Medical decision making narrative: Since patient has no scleral icterus doubt this is due to liver disease. Need to rule out renal ureteral stone, infection, if macro was positive blood with no microscopic blood need to consider rhabdomyolysis. History is more consistent with ureterolithiasis. Patient was medicated with Zofran and ketorolac. CT of the abdomen pelvis without contrast was ordered. UA was ordered to assess for specific gravity, ketones and blood and rule out more importantly infection. BMP to assess renal function if there is a concern for rhabdomyolysis and determine if NSAIDs are appropriate or not. Discharge Plan Triage Chief Complaint: Flank Pain ED Provider: Noe Bowers Dx/Rx/DC Orders Prescriptions: No Action clonazepam 1 mg tablet 1 mg PO BID PRN buspirone 10 mg tablet 10 mg PO BID dextroamphetamine sulfate 10 mg tablet 10 mg PO DAILY venlafaxine 37.5 mg capsule,extended release 24hr 37.5 mg PO DAILY prazosin 1 mg capsule 1 mg PO QHS risperidone 2 mg tablet 2 mg PO QHS risperidone 1 mg tablet 1 mg PO DAILY Rx Instructions: AM hydroxyzine HCl 10 mg tablet 10 mg PO TID PRN (Reason: anxiety) 3 Days Qty: 9 0RF naproxen 500 mg tablet 500 mg PO BID Qty: 14 0RF amoxicillin-pot clavulanate 875-125 mg tablet 875 mg PO Q12H Qty: 20 0RF Primary Care Provider: Care Physician,No Primary Referrals: Care Physician,No Primary [Primary Care Provider] - Print Language: Greek
--- NOTE | 2024-10-29 14:52 | EX.ED.DYSGE1 ---
HPI History of Present Illness Chief Complaint: Flank Pain Detail of Chief Complaint: Right flank pain and dark-colored urine Informant: patient Onset/Context/Timing Onset: Today Context: Sudden Onset Timing: Continuous Quality: Pain Location: Right flank Current Severity: Moderate Maximum Severity: Severe Worsened by: Nothing Relieved by: Nothing Associated Symptoms Associated Symptoms: Nausea and dark-colored urine Narrative Narrative: Patient is a 28-year-old male with history of panic attacks, schizophrenia who stopped taking his antipsychotic medication because he is on antibiotics for dental infection. He denies fever, chills or night sweats. He denies headache, visual, ocular auditory symptoms. He denies cardiac or respiratory symptoms. He denies abdominal pain. He does endorse nausea without vomiting diarrhea. He does endorse frequency urgency and change in color of his urine. He denies testicular or scrotal pain or swelling. He has no known history of renal or ureterolithiasis. There is a family history. Prior similar symptoms: No Recent Illness/Hospitalization: No [facility] Medical History Panic attack GERD (gastroesophageal reflux disease) IBS (irritable bowel syndrome) Anxiety PTSD (post-traumatic stress disorder) Asperger syndrome Schizophrenia Home Medications ?Medication ?Instructions ?Recorded ?Last Taken ?Type buspirone 10 mg tablet 10 mg PO BID 09/05/24 09/04/24 History clonazepam 1 mg tablet 1 mg PO BID PRN 09/05/24 09/05/24 History dextroamphetamine sulfate 10 mg 10 mg PO DAILY 09/05/24 09/04/24 History tablet prazosin 1 mg capsule 1 mg PO QHS 09/05/24 09/04/24 History risperidone 1 mg tablet 1 mg PO DAILY 09/05/24 09/04/24 History risperidone 2 mg tablet 2 mg PO QHS 09/05/24 09/04/24 History venlafaxine 37.5 mg 37.5 mg PO DAILY 09/05/24 09/04/24 History capsule,extended release 24 hr amoxicillin 875 mg-potassium 875 mg PO Q12H #20 TABLETS 10/13/24 Unknown Rx clavulanate 125 mg tablet cephalexin 500 mg capsule 500 mg PO TID 10/29/24 Unknown History ibuprofen 800 mg tablet 800 mg PO TID dental infection 10/29/24 Unknown History metronidazole 500 mg tablet 500 mg PO TID dental infection 10/29/24 Unknown History naproxen 500 mg tablet 500 mg PO BID PRN pain 10/29/24 Unknown History Allergy/AdvReac Type Severity Reaction Status Date / Time zolpidem (From Ambien) AdvReac Mild Other Verified 10/29/24 13:46 Surgical History History of tonsillectomy and adenoidectomy Social History Smoking Status: Current every day smoker tobacco type: cigarettes and e-cigarettes substance use type: marijuana ROS ROS ED Constitutional Constitutional ED: Denies chills, fever(s), subjective or sweats Cardiovascular Cardiovascular: Denies chest pain or palpitations Respiratory/Chest Respiratory/Chest: Denies cough, dyspnea or dyspnea on exertion Gastrointestinal Gastrointestinal: Reports nausea; Denies abdominal pain, constipation, diarrhea, melena or vomiting Genitourinary Genitourinary ED: Reports hematuria, urinary frequency and other Details: He also has urgency. ; Denies dysuria Musculoskeletal Musculoskeletal: Denies arthralgias or myalgias Integumentary Denies Abrasions or rash Psychiatric Psychiatric: Reports anxiety Hematologic/Lymphatic Hematologic/Lymphatic: Reports systems reviewed and no addt'l complaints, except as documented EXAM Physical Exam Const Vital Signs: 10/29/24 13:43 10/29/24 14:41 10/29/24 15:00 Temperature 97.9 F 97.9 F 98 F Temperature Source Oral Temporal Oral Pulse Rate 125 H 125 H 64 Respiratory Rate 16 16 14 Blood Pressure 105/69 105/69 107/78 Blood Pressure Mean 81 81 87 Pulse Ox 100 100 98 Oxygen Delivery Method Room Air Room Air Room Air 10/29/24 15:45 10/29/24 16:00 Temperature 98 F Temperature Source Oral Pulse Rate 74 98 Respiratory Rate 12 14 Blood Pressure 94/65 98/60 Blood Pressure Mean 74 72 Pulse Ox 99 99 Oxygen Delivery Method Room Air Room Air Positive well nourished and well developed Constitutional Narrative: Patient appears anxious. General Appearance ED: well developed and pallor; Negative for cyanotic or diaphoretic HEENT Reports moist mucous membranes HEENT Narrative: Head is atraumatic and normocephalic. Ears normal. Nares patent Eyes PERRL and EOMs intact bilaterally General Eye ED: Negative for pale conjunctiva or scleral icterus Neck no lymphadenopathy, supple and no JVD Chest Wall inspection of chest normal and palpation of chest normal Resp normal respiratory effort and clear to auscultation bilaterally Cardio regular rhythm, S1 normal heart sound, S2 normal heart sound and no murmurs Rate: tachycardic GI normal to inspection, nondistended, normoactive bowel sounds, non-tender, non-distended and no masses; Negative for hepatosplenomegaly Back/Spine General Back: CVA tenderness right Cervical Spine: Negative for cervical spine tenderness Thoracic Spine / Upper Back: Negative for thoracic spinal tenderness Extremity normal to inspection General Extremety ED: Negative for edema or tenderness General Extremity: Negative for edema Neuro oriented x3 and CN's II-XII intact bilaterally Sensorium / Orientation: alert Psych mental status grossly normal Skin no rashes or lesions noted, no wounds and skin turgor normal General Skin Exam: pallor; Negative for elasticity normal or jaundice MDM MDM MDM Narrative Medical decision making narrative: Since patient has no scleral icterus doubt this is due to liver disease. Need to rule out renal ureteral stone, infection, if macro was positive blood with no microscopic blood need to consider rhabdomyolysis. History is more consistent with ureterolithiasis. Patient was medicated with Zofran and ketorolac. CT of the abdomen pelvis without contrast was ordered. UA was ordered to assess for specific gravity, ketones and blood and rule out more importantly infection. BMP to assess renal function if there is a concern for rhabdomyolysis and determine if NSAIDs are appropriate or not. Lab Data Attestation: I reviewed the patient's lab results. Lab results narrative: CBC is normal. Basic metabolic panel is remarkable slight elevation in glucose of 105. Urinalysis is unremarkable. Labs: Laboratory Results - last 24 hr 10/29/24 14:49 WBC 4.9 RBC 5.18 Hgb 16.0 Hct 44.4 MCV 85.7 MCH 30.9 MCHC 36.0 RDW Std Deviation 36.3 RDW Coeff of Prisca 11.5 L Plt Count 213 MPV 9.7 Immature Gran % (Auto) 0.200 Neut % (Auto) 59.3 Lymph % (Auto) 31.4 [place] % (Auto) 7.1 Eos % (Auto) 1.4 Baso % (Auto) 0.6 Absolute Neuts (auto) 2.9 Absolute Lymphs (auto) 1.54 Nucleated RBC % 0 Sodium 138 Potassium 3.5 Chloride 101 Carbon Dioxide 26.0 Anion Gap 11 BUN 5 Creatinine 0.79 Estim Creat Clear Calc 115.39 Est GFR (MDRD) Non-Af 124 BUN/Creatinine Ratio 6.8 L Glucose 105 H Calcium 9.5 Urine Color Yellow Urine Clarity Clear Urine pH 8.0 Ur Specific [place] 1.010 Urine Protein 15 H Urine Glucose (UA) Normal Urine Ketones Negative Urine Occult Blood Negative Urine Nitrite Negative Urine Bilirubin Negative Urine Urobilinogen Normal Ur Leukocyte Esterase 25 H Urine RBC 0 SEEN Urine WBC 0-5 SEEN Ur Squamous Epith Cells 0 SEEN Amorphous Sediment 1+ Urine Bacteria RARE Urine Mucus 0 SEEN Radiography Diagnostic Testing: Clinical Impression(s) from Imaging Studies Abdomen/Pelvis CT 10/29/24 14:13 IMPRESSION: No acute abnormality is seen. Reading Location: [place] [id number] CT of the abdomen pelvis was interpreted radiologist reviewed by me. There is no acute abnormality. Patient be discharged to home. 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, Hx of anxiety disorder Prescriptions: No Action clonazepam 1 mg tablet 1 mg PO BID PRN buspirone 10 mg tablet 10 mg PO BID dextroamphetamine sulfate 10 mg tablet 10 mg PO DAILY venlafaxine 37.5 mg capsule,extended release 24hr 37.5 mg PO DAILY prazosin 1 mg capsule 1 mg PO QHS risperidone 2 mg tablet 2 mg PO QHS risperidone 1 mg tablet 1 mg PO DAILY Rx Instructions: AM amoxicillin-pot clavulanate 875-125 mg tablet 875 mg PO Q12H Qty: 20 0RF metronidazole 500 mg tablet 500 mg PO TID ibuprofen 800 mg tablet 800 mg PO TID cephalexin 500 mg capsule 500 mg PO TID naproxen 500 mg tablet 500 mg PO BID PRN (Reason: pain) Primary Care Provider: Care Physician,No Primary Referrals: Care Physician,No Primary [Primary Care Provider] - Activity Restrictions/Additional Instructions: follow-up with your doctor who you were assigned to by your insurance carrier my care. The cause of your pain is unknown. Print Language: Turkish Disposition Disposition: Home, Self Care
[2024-10-29 14:53] LABS: Mucous, Urine 0 SEEN /hpf (<or=2+); Red Blood Cells-Urine 0 SEEN /hpf (0-5); Squamous Epithelial Cells - UA 0 SEEN /hpf (0-5)
[2024-10-29 14:55] LABS: Color, Urine Yellow (Yellow); Glucose, Dipstick Normal (Normal); Ketone-Dipstick Negative (Negative); Leukocyte Esterase-Dipstick 25 /ul (Negative); Nitrite-Dipstick Negative (Negative); Occult Blood-Urine Negative /ul (Negative); Protein-Dipstick 15 mg/dl (Negative); Specific Gravity, Urine 1.010 (1.002-1.030); Urine Bilirubin Dipstick Negative (Negative)
[2024-10-29 15:00] VITALS: BP 107/78; PULSE 64; RESP 14; TEMP 36.6; O2SAT 98
[2024-10-29 15:02] LABS: Hematocrit 44.4 % (40-54); Hemoglobin 16.0 g/dL (13.0-16.5); Immature Granulocytes Count 0.010 X10^3/uL (0.0-0.0); Mean Corp Hgb Conc 36.0 g/dL (32-36); Mean Corpuscular Volume 85.7 fL (80-94); Mean Platelet Vol. 9.7 fl (6.2-12.0); NRBC Flagged by Analyzer 0 % (0-5); Platelet Count 213 K/mm3 (150-450); RBC Distribution Width CV 11.5 % (11.6-14.6); RBC Distribution Width SD 36.3 fl (35.1-43.9); Red Blood Count 5.18 M/mm3 (4.6-6.2); White Blood Count 4.9 K/mm3 (4.4-11.0)
--- NOTE | 2024-10-29 15:14 | ED.RN ---
Provider asked, pt. requesting to take home klonopin because he missed his morning dose and is anxious, or be given a dose of Ativan in the department. Provider response, he can have his overdue klonopin.
[2024-10-29 15:24] LABS: Anion Gap 11 (5-15); BUN 5 mg/dL (4-19); BUN/Creat Ratio 6.8 RATIO (10-20); Calcium,Total 9.5 mg/dL (7.6-11.0); Carbon Dioxide 26.0 mmol/L (21.0-32.0); Chloride 101 mmol/L (98-108); Estimated Creatinine Clearance 115.39 ml/min (50-250); Glucose 105 mg/dL (70-99); Potassium 3.5 mmol/L (3.3-5.1)
[2024-10-29 15:45] VITALS: BP 94/65; PULSE 74; RESP 12; O2SAT 99
[2024-10-29 16:00] VITALS: BP 98/60; PULSE 98; RESP 14; TEMP 36.6; O2SAT 99
[2024-10-29 16:49] VITALS: BP 98/66; PULSE 92; RESP 14; TEMP 37; O2SAT 100
== END 2024-10-29 16:50 | disposition home or self-care (01) ==
PROVIDERS: Emergency Provider Emergency Medicine; Visit Provider Emergency Medicine
DX: R10.9 Unspecified abdominal pain (principal); F17.210 Nicotine dependence, cigarettes, uncomplicated; F41.9 Anxiety disorder, unspecified; R11.0 Nausea; F17.290 Nicotine dependence, other tobacco product, uncomplicated; R00.0 Tachycardia, unspecified
CPT/HCPCS: 74176; 80048; 81001; 85025; 96361; 96374; 96375; 99283; A4216; J2405

== ENCOUNTER 2024-11-11 11:32 | Emergency (ER) | payer MEDICARE, MEDICAID, SELFPAY ==
[2024-11-11 11:33] VITALS: BP 109/69; PULSE 99; RESP 16; TEMP 37.3; O2SAT 98; BMI 17.6
--- NOTE | 2024-11-11 12:17 | ED.VIS.DENTA ---
HPI <MACHO Winston - Last Filed: 11/11/24 15:14> History of Present Illness Chief Complaint: Dental Narrative Narrative: Patient presenting today due to concerns for mild oozing of blood from the socket of his right upper molar that he had pulled around 8:30 AM this morning at [facility]. He is not on any blood thinners. He denies any fevers or chills. PFSH <MACHO Winston - Last Filed: 11/11/24 15:14> [facility], [facility] Medical History Panic attack GERD (gastroesophageal reflux disease) IBS (irritable bowel syndrome) Anxiety PTSD (post-traumatic stress disorder) Asperger syndrome Schizophrenia Home Medications ?Medication ?Instructions ?Recorded ?Last Taken ?Type buspirone 10 mg tablet 10 mg PO BID 09/05/24 09/04/24 History clonazepam 1 mg tablet 1 mg PO BID PRN 09/05/24 09/05/24 History dextroamphetamine sulfate 10 mg 10 mg PO DAILY 09/05/24 09/04/24 History tablet prazosin 1 mg capsule 1 mg PO QHS 09/05/24 09/04/24 History risperidone 1 mg tablet 1 mg PO DAILY 09/05/24 09/04/24 History risperidone 2 mg tablet 2 mg PO QHS 09/05/24 09/04/24 History venlafaxine 37.5 mg 37.5 mg PO DAILY 09/05/24 09/04/24 History capsule,extended release 24 hr ibuprofen 800 mg tablet 800 mg PO TID dental infection 10/29/24 Unknown History naproxen 500 mg tablet 500 mg PO BID PRN pain 10/29/24 Unknown History Allergy/AdvReac Type Severity Reaction Status Date / Time zolpidem (From Ambien) AdvReac Mild Other Verified 11/11/24 11:33 Surgical History History of tonsillectomy and adenoidectomy Social History Smoking Status: Current every day smoker tobacco type: cigarettes and e-cigarettes substance use type: marijuana ROS <MACHO Winston - Last Filed: 11/11/24 15:14> ROS ED Constitutional Constitutional ED: Denies chills or fever(s) ENT ENT ED: Reports other Details: Bleeding dental socket Cardiovascular Cardiovascular: Denies chest pain Respiratory/Chest Respiratory/Chest: Denies dyspnea Gastrointestinal Gastrointestinal: Denies abdominal pain, nausea or vomiting Musculoskeletal Musculoskeletal: Denies arthralgias or myalgias Integumentary Denies rash Neurologic Neurologic: Denies weakness EXAM <MACHO Winston - Last Filed: 11/11/24 15:14> Physical Exam Const Vital Signs: 11/11/24 11:33 Temperature 99.1 F Temperature Source Temporal Pulse Rate 99 Respiratory Rate 16 Blood Pressure 109/69 Blood Pressure Mean 82 Pulse Ox 98 Oxygen Delivery Method Room Air Positive well nourished, well developed and no apparent distress General Appearance ED: well developed HEENT Reports normocephalic and head/scalp atraumatic HEENT Narrative: Very minimal bleeding from the right maxillary molar dental socket Mouth ED: Yes moist mucous membranes normal Eyes PERRL and EOMs intact bilaterally Neck full ROM and supple Chest Wall inspection of chest normal Resp normal respiratory effort and clear to auscultation bilaterally Cardio regular rate and regular rhythm Back/Spine normal ROM and normal to inspection Extremity normal to inspection and full ROM Neuro oriented x3, CN's II-XII intact bilaterally, moves all extremities, no focal motor deficits and no sensory deficits noted Sensorium / Orientation: awake and alert Psych mental status grossly normal and thought process normal Skin no rashes or lesions noted and no wounds <Dr. Natali Resendez DO - Last Filed: 11/15/24 05:12> Physical Exam Const Vital Signs: 11/11/24 11:33 Temperature 99.1 F Temperature Source Temporal Pulse Rate 99 Respiratory Rate 16 Blood Pressure 109/69 Blood Pressure Mean 82 Pulse Ox 98 Oxygen Delivery Method Room Air MDM <MACHO Winston - Last Filed: 11/11/24 15:14> [facility] Narrative Medical decision making narrative: Patient presenting today due to concerns for bleeding from his right maxillary molar dental socket after having his molar pulled this morning. He is biting on a piece of gauze and has very minimal bleeding from the area, no active oozing. He is otherwise well-appearing and in no acute distress. TXA was soaked on a cottonball and placed in the socket, this was removed and he then had complete hemostasis. Recommended he follow-up with his dentist and he will be discharged home in stable condition. <Dr. Natali Resendez, DO - Last Filed: 11/15/24 05:12> [facility] Narrative Medical decision making narrative: Patient presenting today due to concerns for bleeding from his right maxillary molar dental socket after having his molar pulled this morning. He is biting on a piece of gauze and has very minimal bleeding from the area, no active oozing. He is otherwise well-appearing and in no acute distress. TXA was soaked on a cottonball and placed in the socket, this was removed and he then had complete hemostasis. Recommended he follow-up with his dentist and he will be discharged home in stable condition. I have personally performed a face to face assessment of the patient and have reviewed the JUAN Note. I performed a substantive portion of the visit including all aspects of the following. My sharma findings include: History is patient is a 29-year-old male with history of multiple dental extractions, PTSD, Asperger's and psychiatric disorder presenting for bleeding and pain after dental extraction of right maxillary molar. Has not had any thing for pain. On my examination patient had already had TXA soaked cottonball placed in the socket and the bleeding seems of stopped. There is a nice clot of blood in the area and low suspicion for dry socket. Patient is given dose of Motrin as well as Zofran (developed nausea from the taste of the TXA). Counseled follow-up with his dentist. Counseled on dental care at home and given return precautions emergency room. He verbalized agreement understand this plan. Discharged home in stable condition. Other additions or changes: [None] Discharge Plan Triage Chief Complaint: Dental ED Midlevel Provider: Elvia Jacobsen ED Provider: Natali Resendez Dx/Rx/DC Orders Clinical Impression: Bleeding post tooth extraction Instructions: ED Dental Pain, ED Post Op Wound Check, Bleeding Prescriptions: No Action clonazepam 1 mg tablet 1 mg PO BID PRN buspirone 10 mg tablet 10 mg PO BID dextroamphetamine sulfate 10 mg tablet 10 mg PO DAILY venlafaxine 37.5 mg capsule,extended release 24hr 37.5 mg PO DAILY prazosin 1 mg capsule 1 mg PO QHS risperidone 2 mg tablet 2 mg PO QHS risperidone 1 mg tablet 1 mg PO DAILY Rx Instructions: AM ibuprofen 800 mg tablet 800 mg PO TID naproxen 500 mg tablet 500 mg PO BID PRN (Reason: pain) Primary Care Provider: Care Physician,No Primary Referrals: Care Physician,No Primary [Primary Care Provider] - Activity Restrictions/Additional Instructions: Please follow-up with your dentist as needed. Continue to alternate ibuprofen and Tylenol for pain control. If you have further bleeding that does not stop by applying gauze directly to the area or biting down on the teabag please return to the emergency room. Print Language: Ecuadorean Disposition Disposition: Home, Self Care Discharge Date/Time: 11/11/24 13:58
[2024-11-11] MEDS: TRANEXAMIC ACID 1,000 MG/10 ML ML OPERA.SITE (12:54)
== END 2024-11-11 13:58 | disposition home or self-care (01) ==
PROVIDERS: Emergency Provider Emergency Medicine; Visit Provider Emergency Medicine
DX: R58 Hemorrhage, not elsewhere classified (principal); F20.9 Schizophrenia, unspecified; F41.9 Anxiety disorder, unspecified; F17.210 Nicotine dependence, cigarettes, uncomplicated; Z79.899 Other long term (current) drug therapy; F17.290 Nicotine dependence, other tobacco product, uncomplicated; R11.0 Nausea; Z98.818 Other dental procedure status
CPT/HCPCS: 99282